=== PATIENT | female | born 1955 | race Caucasian/White ===

== ENCOUNTER 2020-04-26 13:21 | Outpatient (REF) | payer BC, SELFPAY ==
--- NOTE | 2020-04-26 | MM_ITS ---
EXAMINATION: MM SCREENING DIGITAL BREAST TOMOSYNTHESIS, BILATERAL CLINICAL INFORMATION: Screening. Asymptomatic. The lifetime risk of breast cancer based on the Tyrer-Cuzick Model is 5%. COMPARISON: Mammography: 04/16/2019, 03/11/2018 TECHNIQUE: Digital breast tomosynthesis is performed in both the craniocaudal and mediolateral oblique views along with computer-aided detection (CAD). Synthesized 2D images are generated from the tomosynthesis. FINDINGS: There are scattered areas of fibroglandular density (ACR BI-RADS breast composition Category b). There are no significant masses, abnormal calcifications, or other abnormalities. No significant changes. MM/MM tomosynthesis screening BI IMPRESSION: No mammographic evidence of malignancy. ASSESSMENT: BI-RADS 1: Negative RECOMMENDATION: Routine annual mammography screening. This patient's information was entered into a reminder system with a target due date for their next mammogram.
== END 2020-04-26 13:22 | disposition home or self-care (01) ==
LOC: HO.MAMMO 13:21
PROVIDERS: Visit Provider Internal Medicine
DX: Z12.31 Encounter for screening mammogram for malignant neoplasm of breast (principal)
CPT/HCPCS: 77063; 77067

== ENCOUNTER 2021-05-16 12:52 | Outpatient (REF) | payer BC, SELFPAY ==
--- NOTE | ~2021-05-16 | MM_ITS ---
EXAMINATION: MM SCREENING DIGITAL BREAST TOMOSYNTHESIS, BILATERAL CLINICAL INFORMATION: Screening. Asymptomatic. The lifetime risk of breast cancer based on the Tyrer-Cuzick Model is 5%. COMPARISON: Mammography: 04/26/2020, 04/16/2019, 03/11/2018 TECHNIQUE: Digital breast tomosynthesis is performed in both the craniocaudal and mediolateral oblique views along with computer-aided detection (CAD). Synthesized 2D images are generated from the tomosynthesis. FINDINGS: There are scattered areas of fibroglandular density (ACR BI-RADS breast composition Category b). There are no significant masses, abnormal calcifications, or other abnormalities. Parenchymal pattern is similar to prior studies. There is no developing density or architectural abnormality. The axilla and skin contours are unremarkable. No significant changes. MM/MM tomosynthesis screening BI IMPRESSION: No mammographic evidence of malignancy. ASSESSMENT: BI-RADS 1: Negative RECOMMENDATION: Routine annual mammography screening. This patient's information was entered into a reminder system with a target due date for their next mammogram.
== END 2021-05-16 12:53 | disposition home or self-care (01) ==
LOC: HO.MAMMO 12:52
PROVIDERS: PCP Internal Medicine; Visit Provider Internal Medicine
DX: Z12.31 Encounter for screening mammogram for malignant neoplasm of breast (principal)
CPT/HCPCS: 77063; 77067

== ENCOUNTER 2021-06-12 13:03 | Day surgery (SDC) | payer BC, SELFPAY ==
--- NOTE | 2021-06-09 10:59 | P.CONAN_ITS ---
Documented by User: Eva Redmond NP 06/09/21 10:59 HPI - Anesthesia Eval Consult details Narrative: 65yo F for Upper Endoscopy and Colonoscopy [facility] Past Medical History Medical History GERD (gastroesophageal reflux disease) HTN (hypertension) Hyperlipidemia IBS (irritable bowel syndrome) Surgical History Surgical History Hx of colonoscopy Social History Social History Patient Tobacco Use Status: Former Tobacco user Use of substances other than those prescribed or required for medical reasons: No Have you been hit, kicked, punched, or otherwise hurt by someone within the past year? If so, by whom?: No Are you DNR?: No Advance Directives: No Advance Directives Information Provided: Yes Meds Allergies Allergy/AdvReac Type Severity Reaction Status Date / Time Penicillins [PCN] Allergy Unknown Verified 06/12/21 13:53 red dye Allergy Unknown Verified 06/12/21 13:53 Sulfa (Sulfonamide Allergy Unknown Verified 06/12/21 13:53 Antibiotics) 12 hr nasal spray Allergy Unknown Uncoded 06/12/21 13:53 Home Medications Medication Instructions Recorded Confirmed Last Taken Type calcium 500 mg mg 05/22/21 Unknown History tablet cholecalciferol 25 mcg PO DAILY 05/22/21 05/22/21 Unknown History (vitamin D3) 25 mcg (1,000 unit) capsule (Vitamin D3) dicyclomine 10 mg 10 mg PO BID 05/22/21 05/22/21 Unknown History capsule gemfibrozil 600 600 mg PO DAILY 05/22/21 05/22/21 Unknown History mg tablet losartan 100 mg 100 mg PO DAILY 05/22/21 05/22/21 Unknown History tablet omeprazole 20 mg 20 mg PO DAILY 05/22/21 05/22/21 Unknown History capsule,delayed release simvastatin 20 mg 20 mg PO BEDTIME 05/22/21 05/22/21 Unknown History tablet Exam Exam Date and Time: June 09, 2021 1059 Assessment and Plan Assessment Anesthesia Assessment: Chart Reviewed Documented by User: Chandler Lewis 06/12/21 17:52 HPI - Anesthesia Eval Consult details Narrative: 65yo F for Upper Endoscopy and Colonoscopy patient recently had cardiac workup done , including holtor and stress test , workup unremarkable patient was having chest heaviness , resolved now . MICHI PMFSH Past Medical History Medical History GERD (gastroesophageal reflux disease) HTN (hypertension) Hyperlipidemia IBS (irritable bowel syndrome) Functional capacity: independent ambulation Family History Family history of problems with anesthesia: No Surgical History Surgical History Hx of colonoscopy History of Problems with Anesthesia: No Social History Social History Patient Tobacco Use Status: Former Tobacco user Use of substances other than those prescribed or required for medical reasons: No Have you been hit, kicked, punched, or otherwise hurt by someone within the past year? If so, by whom?: No Are you DNR?: No Advance Directives: No Advance Directives Information Provided: Yes Meds Allergies Allergy/AdvReac Type Severity Reaction Status Date / Time Penicillins [PCN] Allergy Unknown Verified 06/12/21 13:53 red dye Allergy Unknown Verified 06/12/21 13:53 Sulfa (Sulfonamide Allergy Unknown Verified 06/12/21 13:53 Antibiotics) 12 hr nasal spray Allergy Unknown Uncoded 06/12/21 13:53 Home Medications Medication Instructions Recorded Confirmed Last Taken Type calcium 500 mg mg 05/22/21 Unknown History tablet cholecalciferol 25 mcg PO DAILY 05/22/21 05/22/21 Unknown History (vitamin D3) 25 mcg (1,000 unit) capsule (Vitamin D3) dicyclomine 10 mg 10 mg PO BID 05/22/21 05/22/21 Unknown History capsule gemfibrozil 600 600 mg PO DAILY 05/22/21 05/22/21 Unknown History mg tablet losartan 100 mg 100 mg PO DAILY 05/22/21 05/22/21 Unknown History tablet omeprazole 20 mg 20 mg PO DAILY 05/22/21 05/22/21 Unknown History capsule,delayed release simvastatin 20 mg 20 mg PO BEDTIME 05/22/21 05/22/21 Unknown History tablet Exam Airway Mallampati Class: III TM Dist: >3cm Neck ROM: Full Loose/Missing/Broken Teeth: Yes (Caps ) Heart: rrr Lungs: bl breath sounds Assessment and Plan Assessment Anesthesia Assessment: Anesthesia Plan Discussed Final Anesthetic Review Family History of Problems with Anesthesia: No History of Problems with Anesthesia: No NPO: Yes ASA Class: III Final Preanesthetic Review: Consent Obtained/Reviewed and Anes Risks/Benef Reviewed Patient Risk: High Procedure Risk: Intermediate Anesthetic Plan Anesthetic Plan: MAC: Disposition: Standard PACU
[2021-06-12 13:22] VITALS: BMI 34.0
[2021-06-12 13:28] VITALS: BP 115/74; PULSE 93; RESP 18; TEMP 36.3; O2SAT 96
[2021-06-12] MEDS: Lactated Ringers 1,000 ML 100 ML IVCONT (13:56)
[2021-06-12 16:15] VITALS: BP 97/59; PULSE 85; RESP 16; TEMP 36.8; O2SAT 97
--- NOTE | 2021-06-12 16:17 | P.BOP_ITS ---
Brief Operative Note Date of Service: 06/12/21 Pre-op diagnosis: GERD, IBS, Screening Post-op diagnosis: other (Hiatal hernia, R/O Celiac disease, Colon polyp, R/O Microscopic colitis) Procedure: EGD with biopsies and Colonoscopy to the cecum and TI with cold snare polypectomy and biopsies Surgeon: Nik Gamble Anesthesia: MAC Was an [employer] used for this Procedure?: No Estimated blood loss (mL): 2.0 Pathology: other (A. Descending duodenum B. EG Junction at 36cm C. Ascending colon D. Descending colon E. Polyp at 30cm) Condition: stable Disposition: PACU
[2021-06-12 16:30] VITALS: BP 112/45; PULSE 74; RESP 16; O2SAT 95
--- NOTE | 2021-06-13 00:35 | OP_ITS ---
SURGEON: Nik Gamble MD INDICATIONS: The patient presents for evaluation of gastroesophageal reflux, irritable bowel syndrome, and colorectal cancer screening. Full consent was obtained from her for both procedures, including risks of bleeding and perforation. PREOPERATIVE DIAGNOSIS: POSTOPERATIVE DIAGNOSIS: PROCEDURE PERFORMED: Esophagogastroduodenoscopy with biopsies, colonoscopy to the cecum and terminal ileum with biopsies, and cold snare polypectomy. ESTIMATED BLOOD LOSS: COMPLICATIONS: ANESTHESIA: Monitored anesthesia care. ASSISTANTS: SPECIMENS: PREOPERATIVE DIAGNOSES: Gastroesophageal reflux, irritable bowel syndrome, and colorectal cancer screening. POSTOPERATIVE DIAGNOSES: Gastroesophageal reflux, irritable bowel syndrome, colorectal cancer screening, hiatal hernia, rule out celiac disease, colon polyp, rule out microscopic colitis, diverticulosis, internal hemorrhoids. DESCRIPTION OF PROCEDURE: The patient was placed in the left lateral decubitus position. The Olympus video gastroscope was passed in the posterior oropharynx and upper esophagus under direct vision. The scope was passed slowly into the distal esophagus. The gastroesophageal junction appeared at 36 cm. At this level were areas of some erythema and edema, but no erosions, ulceration, nor Adams esophagus. The scope was advanced to the stomach. There was a small hiatal hernia. The scope was advanced to the pylorus and the duodenum was cannulated to the descending portion. The duodenum including the bulb appeared normal without mass or ulceration. Biopsies were obtained from the second and third portions of duodenum. The scope was withdrawn back in the stomach. The gastric antrum and body appeared normal with good peristalsis. The scope was retroflexed visualizing the proximal stomach carefully, which appeared normal, without any sign of mass or ulceration. The scope was straightened and withdrawn back into the esophagus. Biopsies were obtained at the EG junction at 36 cm. Proximal to that, the esophageal mucosa appeared normal. The scope was withdrawn from the patient. She was turned around for the colonoscopy. The digital rectal exam revealed no abnormalities. The Olympus video pediatric colonoscope was entered into the rectum and advanced easily to the cecum. Once in the cecum, I did identify normal-appearing cecal pouch with appendiceal orifice and a normal-appearing ileocecal valve. The terminal ileum was cannulated and appeared normal. The scope was withdrawn back in the colon. The entire cecum and ileocecal valve appeared normal. The scope was slowly withdrawn assessing all mucosal surfaces carefully. Preparation was excellent. I did not visualize any sign of colitis nor angiodysplasia. Random biopsies were obtained in the ascending and descending colon. At 30 cm was an approximately 6 mm polyp, which was removed by cold snare polypectomy and recovered by suction. There was no evidence of any residual polyp nor significant bleeding. I did not visualize any other polyps, colitis, nor angiodysplasia. There was a mild amount of sigmoid diverticulosis. In the rectum, the scope was retroflexed visualizing some small internal hemorrhoids, but no other pathology. The rectal mucosa appeared normal. The scope was straightened and withdrawn from the patient. She tolerated both procedures well and was returned to the recovery area in stable condition. IMPRESSION: 1. Hiatal hernia, gastroesophageal reflux. 2. Rule out celiac disease. 3. Colon polyp. 4. Rule out microscopic colitis. 5. Diverticulosis. 6. Internal hemorrhoids. PLAN: The results of the biopsies will be checked. If the colon polyp is a tubular adenoma, I would recommend a followup colonoscopy in 5 years. If it is only hyperplastic, I would recommend a followup colonoscopy in 10 years. She was advised not to use any aspirin and NSAIDs for 1 week. She was advised to continue her daily omeprazole. She will otherwise see me on a p.r.n. basis. She was advised to continue dicyclomine as needed for her irritable bowel syndrome as well. MD MIRACLE Diana/ABDOULAYE / [phone]
== END 2021-06-12 16:45 | disposition home or self-care (01) ==
PROVIDERS: PCP Internal Medicine; Visit Provider Internal Medicine
PROC: (CPT 45385; principal; 2021-06-12 14:00)
DX: Z12.11 Encounter for screening for malignant neoplasm of colon (principal); D12.5 Benign neoplasm of sigmoid colon; K57.30 Diverticulosis of large intestine without perforation or abscess without bleeding; K64.8 Other hemorrhoids; K58.8 Other irritable bowel syndrome; K21.9 Gastro-esophageal reflux disease without esophagitis; K44.9 Diaphragmatic hernia without obstruction or gangrene; I10 Essential (primary) hypertension; E78.5 Hyperlipidemia, unspecified; Z79.899 Other long term (current) drug therapy; Z88.0 Allergy status to penicillin; Z88.2 Allergy status to sulfonamides; Z87.891 Personal history of nicotine dependence
CPT/HCPCS: 45385; 45380; 43239; 88305

== ENCOUNTER 2022-05-18 09:26 | Outpatient (REF) | payer MEDICARE, SELFPAY ==
--- NOTE | ~2022-05-18 | MM_ITS ---
EXAMINATION: BONE DENSITOMETRY CLINICAL INDICATION: Encounter for general adult medical examination without abnormal findings. COMPARISON: Baseline BD dated 03/10/2009. TECHNIQUE: Using a [employer]er DXA System (software version: 13.1) manufactured by [employer], dual-energy x-ray absorptiometry was performed of the lumbar spine and left hip. The images are of good technical quality. Summary results are attached. FINDINGS: AP SPINE L1-L4: Current: BMD 1.083 g/cm2, Z-score 0.1, T-score -0.8, normal, 8.8% decrease from baseline (<5% change is not significant). Baseline: BMD 1.187 g/cm2. LEFT FEMUR, NECK: Current: BMD 0.743 g/cm2, Z-score -1.1, T-score -2.1, osteopenia. Baseline: BMD 0.888 g/cm2. LEFT FEMUR, TOTAL: Current: BMD 0.920 g/cm2, Z-score 0.0, T-score -0.7, normal, 8.0% decrease from baseline (<5% change is not significant). Baseline: BMD 1.000 g/cm2. IDENTIFIED RISK FACTORS: Menopause. HISTORY OF FRACTURE: None listed. MEDICATIONS: Calcium supplement or multivitamin. Vitamin D. MM/XR DEXA axial skeleton IMPRESSION: 1. DIAGNOSIS: Osteopenia based on the lowest T-score value of -2.1 in the femoral neck applying World Health Organization criteria. 2. 10-YEAR FRACTURE RISK PREDICTION, FRAX: Major osteoporotic fracture (clinical spine, forearm, hip or shoulder) 10.8%. Hip fracture 1.7%. 3. Treatment Recommendations: NOF guidelines recommend consideration for treatment in postmenopausal women and men age 50 and older presenting with the following: -A hip or vertebral (clinical or morphometric) fracture. -T-score less than or equal to -2.5 at the femoral neck or spine after appropriate evaluation to exclude secondary causes. -Low bone mass at the hip or spine and a 10-year fracture probability by FRAX of greater than or equal to 3% for hip fracture or greater than or equal to 20% for major osteoporotic fracture based on the [place] adapted WHO algorithm. 4. Other Recommendations: All treatment decisions require clinical judgment and consideration of individual patient factors, including patient preferences, comorbidities, previous drug use, risk factors not captured in the FRAX model (e.g. frailty, falls, vitamin D deficiency, increased bone turnover, interval significant decline in bone density) and possible under or overestimation of fracture risk by FRAX. Additional medical evaluation for secondary cause of low bone mineral density may be appropriate. FUTURE SCAN RECOMMENDATION: People with diagnosed cases of osteoporosis or at high risk for fracture should have regular bone mineral density tests. For patients eligible for Medicare, routine testing is allowed once every 2 years. The testing frequency can be increased to one year for patients who have rapidly progressing disease, those who are receiving or discontinuing medical therapy to restore bone mass, or have additional risk factors.
--- NOTE | ~2022-05-18 | MM_ITS ---
EXAMINATION: MM SCREENING DIGITAL BREAST TOMOSYNTHESIS, BILATERAL CLINICAL INFORMATION: Screening. Asymptomatic. The lifetime risk of breast cancer based on the Tyrer-Cuzick Model is 4%. COMPARISON: Mammography: 05/16/2021, 04/26/2020, 04/16/2019 TECHNIQUE: Digital breast tomosynthesis is performed in both the craniocaudal and mediolateral oblique views along with computer-aided detection (CAD). Synthesized 2D images are generated from the tomosynthesis. FINDINGS: There are scattered areas of fibroglandular density (ACR BI-RADS breast composition Category b). There are no significant masses, abnormal calcifications, or other abnormalities. There is no developing density or architectural abnormality. The axilla and skin contours are unremarkable. No significant changes from prior studies. MM/MM tomosynthesis screening BI IMPRESSION: No mammographic evidence of malignancy. ASSESSMENT: BI-RADS 1: Negative RECOMMENDATION: Routine annual mammography screening. This patient's information was entered into a reminder system with a target due date for their next mammogram.
== END 2022-05-18 09:27 | disposition home or self-care (01) ==
LOC: HO.MAMMO 09:26
PROVIDERS: PCP Internal Medicine; Visit Provider Internal Medicine
DX: Z12.31 Encounter for screening mammogram for malignant neoplasm of breast (principal); Z13.820 Encounter for screening for osteoporosis; Z78.0 Asymptomatic menopausal state; Q78.2 Osteopetrosis
CPT/HCPCS: 77063; 77067; 77080

== ENCOUNTER 2023-02-16 18:59 | Emergency (ER) | payer MEDICARE, SELFPAY ==
--- NOTE | ~2023-02-16 | CT_ITS ---
EXAMINATION: CT ABDOMEN AND PELVIS WITHOUT CONTRAST CLINICAL INFORMATION: Right flank pain COMPARISON: None available. TECHNIQUE: Multidetector volumetric imaging was performed from the superior aspect of the liver through the pubic symphysis. Sagittal and coronal reformatted images were obtained on the technologist's workstation. This CT examination was performed using dose optimization techniques as appropriate, variously including the following: *Automated exposure control *Adjustment of mA and/or kV according to patient size (this includes techniques or standardized protocols for targeted exams where dose is matched to indication/reason for exam; i.e. extremities or head) *Use of iterative reconstruction technique DLP: 687 mGy-cm FINDINGS: Evaluation of solid organs, vascular structures, and bowel wall limited in the absence of intravenous contrast. LUNG BASES: Mild bibasilar atelectasis. Lung bases otherwise unremarkable. LIVER AND BILIARY TREE: Hepatomegaly with liver spanning 22 cm in craniocaudal dimension. Otherwise unremarkable noncontrast appearance of the liver. GALLBLADDER: Cholelithiasis without evidence of acute cholecystitis. PANCREAS: Unremarkable. SPLEEN: Unremarkable. ADRENAL GLANDS: Unremarkable. KIDNEYS AND URETERS: Unremarkable. GASTROINTESTINAL TRACT: Mild colonic diverticulosis without evidence of acute diverticulitis. Normal appendix. VASCULAR: Mild aortoiliac calcific atherosclerosis. LYMPH NODES: No lymphadenopathy. PERITONEUM: No ascites. BLADDER: Unremarkable. PELVIC VISCERA: Unremarkable. ABDOMINAL AND PELVIC WALL: Unremarkable. OSSEOUS STRUCTURES: Mild multilevel degenerative lumbar spondylosis. CT/CT abdomen pelvis wo IV con IMPRESSION: 1. No acute abnormality of the abdomen or pelvis within the limitations of noncontrast technique. 2. Cholelithiasis without evidence of acute cholecystitis. 3. Hepatomegaly.
[2023-02-16 19:10] VITALS: BP 120/78; BP 121/66; PULSE 66; PULSE 68; RESP 16; TEMP 36.7; O2SAT 98; BMI 32.6
[2023-02-16 19:51] LABS: Anion Gap 19 (12-20); Blood Urea Nitrogen 20 mg/dL (9-16); Calcium 10.2 mg/dL (8.4-10.2); Carbon Dioxide 20 mmol/L (22-29); Chloride 105 mmol/L (96-108); Creatinine Clr Calc Pharmacy 65.3; Estimated Glomerular Filt Rate > 60; Glucose Random 97 mg/dL (60-115); Potassium 3.9 mmol/L (3.3-5.1); Sodium 140 mmol/L (135-145)
--- NOTE | 2023-02-16 20:11 | PC.NURSE ---
pt medicated per MAR- 20g iv placed in R AC- infusing 1L NS per order- pt transported to CT scan
--- NOTE | 2023-02-16 20:16 | ED.GENADULT ---
HPI - General Adult General Chief complaint: Back Pain/Injury Stated complaint: right side lower back pain and flank pain, per ems Time Seen by Provider: 02/16/23 19:31 Source: patient, family (), RN notes reviewed and old records reviewed Mode of arrival: EMS Limitations: no limitations History of Present Illness HPI narrative: 67-year-old female with past medical history significant for hypertension, hyperlipidemia presents for evaluation of right flank pain. Patient's symptoms started at 6:00 p.m., 2 hours ago Her pain came on suddenly while she was eating She did vomit on 1 occasion complains of nausea but denies abdominal pain Denies any urinary complaints including dysuria, frequency, blood in the urine Denies any history abdominal surgery Denies any heavy lifting, twisting injury Denies any fevers, chills Patient reports that she had a similar pain about 2 weeks ago that resolved after a few hours spontaneous Related Data Home Medications Medication Instructions Recorded Confirmed calcium 500 mg tablet mg 05/22/21 cholecalciferol (vitamin D3) 25 25 mcg PO DAILY 05/22/21 05/22/21 mcg (1,000 unit) capsule (Vitamin D3) dicyclomine 10 mg capsule 10 mg PO BID 05/22/21 05/22/21 gemfibrozil 600 mg tablet 600 mg PO DAILY 05/22/21 05/22/21 losartan 100 mg tablet 100 mg PO DAILY 05/22/21 05/22/21 omeprazole 20 mg capsule,delayed 20 mg PO DAILY 05/22/21 05/22/21 release simvastatin 20 mg tablet 20 mg PO BEDTIME 05/22/21 05/22/21 Previous Rx's Medication Instructions Recorded ondansetron 4 mg disintegrating 4 mg PO Q8H PRN nausea and 02/17/23 tablet vomiting #20 tabs tramadol 50 mg tablet 50 mg PO TID PRN severe pain 02/17/23 (scale score 7-10) #12 tabs Allergies Allergy/AdvReac Type Severity Reaction Status Date / Time Penicillins [PCN] Allergy Unknown Verified 06/12/21 13:53 red dye Allergy Unknown Verified 06/12/21 13:53 Sulfa (Sulfonamide Allergy Unknown Verified 06/12/21 13:53 Antibiotics) 12 hr nasal spray Allergy Unknown Uncoded 06/12/21 13:53 Review of Systems Constitutional: Constitutional: Denies chills and Denies fever(s) ENT: Denies sore throat Cardiovascular: Cardiovascular: Denies chest pain and Denies dyspnea Respiratory: Respiratory: Denies cough and Denies dyspnea Gastrointestinal: Gastrointestinal: Denies abdominal pain, Reports nausea and Reports vomiting Musculoskeletal: Musculoskeletal: Reports back pain Integumentary/Breasts: Skin/Breast: Denies rash PMFSH Past Medical History Medical History (Updated 02/17/23 @ 00:42 by Mike Lehman) GERD (gastroesophageal reflux disease) IBS (irritable bowel syndrome) Hyperlipidemia HTN (hypertension) Surgical History Hx of colonoscopy Social History Social History Patient Tobacco Use Status: Former Tobacco user Smoked in Last 30 Days: No Use of substances other than those prescribed or required for medical reasons: No Advance Directives: No Advance Directives Information Provided: No Physical Exam ED Vital Signs: Vital Signs - 24 hr 02/16/23 19:10 02/16/23 23:28 Temperature 98.1 F 98.8 F Pulse Rate 66 81 Respiratory Rate 16 15 Blood Pressure 121/66 138/60 Pulse Oximetry 98 99 Oxygen Delivery Method Room Air Room Air BMI result Body Mass Index 32.6 Const General: healthy appearing, alert and awake Nutritional Appearance: well nourished Orientation/consciousness: patient oriented x3 HENMT Head: Yes normocephalic and Yes atraumatic Eyes Eyelids: Yes eyelids normal Conjunctivae: conjunctivae normal Sclerae: sclerae normal Corneas: corneas normal Pupils: Equal, round and reactive pupils present EOM: EOMs intact bilaterally Neck Neck: Yes full ROM Resp Effort & Inspection: normal respiratory effort, able to speak in complete sentences and not labored Cardio Rate: regular rate Rhythm: regular rhythm GI Inspection: No distended Palpation (GI): Soft to palpation, not firm, nontender, no guarding and not rigid Back/Spine/Pelvis Other: Patient is quite tender in the right thoracic and lumbar paraspinous region. No vertebral tenderness. No rashes, no step-offs or deformities to the vertebral spine. Skin General skin exam: no rashes or lesions noted and elasticity normal Neuro General: patient oriented x3 Cranial nerves: Yes Equal, round and reactive pupils present and Yes Bilaterally intact EOM present Cognition (Neuro): normal cognition Extrem Other: Moving all extremities well without any obvious deformities Course Reevaluation(s) Reevaluation #1: Patient's CT scan shows cholelithiasis without any other acute intra-abdominal pathology. I added on LFTs to rule out biliary obstruction. The patient's pain has resolved, she is quite comfortable. Given that her pain started after eating, biliary colic is the most likely diagnosis. As long as she does not have any evidence of biliary obstruction, she can be discharged to follow-up with outpatient General surgery. This was discussed with the patient Time: 00:38 Medications Administered Discontinued Medications Generic Name Dose Route Start Last Admin Trade Name Freq PRN Reason Stop Dose Admin Sodium Chloride 1,000 mls @ 999 mls/hr 02/16/23 20:00 02/16/23 22:04 Ns IV 02/16/23 21:00 Infused .Q1H1M RAJIV Infusion Ketorolac Tromethamine 30 mg 02/16/23 19:55 02/16/23 20:02 Ketorolac Tromethamine 30 Mg/Ml Vial IVPUSH 02/16/23 19:56 30 mg ONCE ONE Administration Morphine Sulfate 4 mg 02/16/23 22:16 02/16/23 22:36 Morphine Sulfate 4 Mg/Ml Cartridge IVPUSH 02/16/23 22:17 4 mg ONCE ONE Administration Protocol Ondansetron HCl 4 mg 02/16/23 19:55 02/16/23 20:02 Ondansetron Hcl 4 Mg/2 Ml Vial IVPUSH 02/16/23 19:56 4 mg ONCE ONE Administration Medical Decision Making Medical Decision Making [facility] Narrative: 67-year-old female presents for evaluation of right flank pain. Her pain started suddenly while she was eating. This raises a slight concern for biliary disease though she has no abdominal pain or right upper quadrant tenderness. She was nauseous and vomited 1 occasion. Given the sudden onset of her pain and location right flank, was CT scan of the abdomen pelvis to evaluate for obstructive uropathy as a feel this is more likely in biliary disease given the patient. She is quite tender on exam is may just be musculoskeletal in origin. Labs, UA, CT scan pending. Patient medicated fluids, Toradol, Zofran Differential Diagnosis Differential Diagnoses: The differential diagnosis associated with the presentation includes Muscle strain Obstructive uropathy Biliary colic Cholelithiasis Radiculopathy Back pain Lab Data [facility] Lab Attestation statement: I reviewed the patient's lab results. No leukocytosis, very mild anemia with a hemoglobin 11.6 and hematocrit 35.4. No significant electrolyte abnormalities. Patient's creatinine was in normal limits. LFTs still pending 02/16/23 19:23 02/16/23 19:23 Labs: Lab Results 02/16/23 Range/Units 19:23 WBC 7.6 (4.8-10.8) X10*3/uL RBC 3.93 L (4.20-5.50) X10*6/uL Hgb 11.6 L (12.0-16.0) g/dl Hct 35.4 L (37.0-47.0) % MCV 90.1 (80.0-98.0) fL MCH 29.5 (27.0-33.0) pg MCHC 32.8 (31.0-35.0) g/dl RDW 12.5 (11.0-16.0) % Plt Count 282 (160-400) X10*3/uL MPV 10.5 (9.4-12.3) fL Immature Gran % (Auto) 0.4 (0.0-0.4) % Neut % (Auto) 49.3 (45-73) % Lymph % (Auto) 30.5 (20-40) % [place] % (Auto) 7.8 (2-11) % Eos % (Auto) 11.1 H (0-4) % Baso % (Auto) 0.9 (0-2) % Lymph # (Auto) 2.3 (1.2-4.9) X10*3/uL [place] # (Auto) 0.6 (0.1-1.2) X10*3/uL Eos # (Auto) 0.8 H (0.0-0.4) X10*3/uL Baso # (Auto) 0.1 (0.0-0.2) X10*3/uL Abs Immat Gran (auto) 0.03 (0.00-0.03) X10*3/uL Absolute Neuts (auto) 3.8 (2.0-8.3) x10*3/uL Absolute Nucleated RBC 0.000 (0.0-0.012) X10*3/uL Nucleated RBC % (auto) 0.0 (0.0-0.2) /100WBC Sodium 140 (135-145) mmol/L Potassium 3.9 (3.3-5.1) mmol/L Chloride 105 (96-108) mmol/L Carbon Dioxide 20 L (22-29) mmol/L Anion Gap 19 (12-20) BUN 20 H (9-16) mg/dL Creatinine 0.90 (0.5-1.4) mg/dL Estim Creat Clear Calc 65.3 Estimated GFR > 60 Random Glucose 97 (60-115) mg/dL Calcium 10.2 (8.4-10.2) mg/dL Lipase 21 (8-78) U/L Independent Interpretation I performed an independent interpretation of an: CT Scan (Agree with radiology interpreted) Radiology Impression Discussion of test interpretation with radiology: I have reviewed the radiologist's reading. (No acute intra-abdominal abnormality. Cholelithiasis without cholecystitis) Discharge Plan Discharge Clinical Impression: Cholelithiasis Patient Disposition: Home, Self-Care Instructions: Gallstones (ED) Additional Instructions: Your workup in the emergency department today was reassuring However your CT scan did show gallstones without any evidence of infection Symptomatic gallstone discomfort can be followed up with General surgery as an outpatient You should avoid fatty, greasy foods as this will likely exacerbate your symptoms You may use ibuprofen as needed for pain Use Zofran for nausea and vomiting You may use tramadol for more severe or breakthrough pain If you develop a fever, intractable pain or are unable to keep any food or liquids down, return to the emergency department Otherwise, you may follow-up with general surgery as an outpatient I call the number provided Prescriptions: New ondansetron 4 mg tablet,disintegrating 4 mg PO Q8H PRN (Reason: nausea and vomiting) Qty: 20 0RF tramadol 50 mg tablet 50 mg PO TID PRN (Reason: severe pain (scale score 7-10)) Qty: 12 0RF No Action calcium 500 mg Tablet simvastatin 20 mg Tablet 20 mg PO BEDTIME omeprazole 20 mg Capsule,Delayed Release(Dr/Ec) 20 mg PO DAILY losartan 100 mg Tablet 100 mg PO DAILY dicyclomine 10 mg Capsule 10 mg PO BID cholecalciferol (vitamin D3) [Vitamin D3] 25 mcg (1,000 unit) Capsule 25 mcg PO DAILY gemfibrozil 600 mg Tablet 600 mg PO DAILY Referrals: Minerva Chakraborty MD [Physician] - (Symptomatic cholelithiasis)
--- NOTE | 2023-02-16 20:51 | PC.NURSE ---
fluid still infusing at this time, educated pt on importance of keeping arm straight to allow fluids to infuse. pt verbalizes understanding
[2023-02-16 23:14] LABS: Lipase 21 U/L (8-78)
[2023-02-16 23:28] VITALS: BP 138/60; PULSE 81; RESP 15; TEMP 37.1; O2SAT 99
--- NOTE | 2023-02-17 00:13 | PC.NURSE ---
this RN educated patient on gallbladder issues and possibility of surgery and what surgery may look like. Pt continues to rest, much more comfortably on stretcher at this time, respirations even and unlabored, skin pwd, no apparent distress
--- NOTE | 2023-02-17 00:27 | PC.NURSE ---
this rn spoke to Nadja from lab due to LFT not being ran with add on order from 10pm. It is being run at this time
[2023-02-17 00:41] LABS: Alanine Aminotransferase 15 U/L (0-31); Albumin Level 4.3 g/dL (3.5-5.0); Alkaline Phosphatase 65 U/L (39-117); Aspartate Amino Transferase 17 U/L (5-31); Bilirubin Direct 0.1 mg/dL (0.0-0.5); Bilirubin Total 0.3 mg/dL (0.0-1.0); Total Protein 7.9 g/dL (6.5-8.0)
== END 2023-02-17 00:58 | disposition home or self-care (01) ==
PROVIDERS: Emergency Provider Emergency Medicine; PCP Internal Medicine
DX: K80.20 Calculus of gallbladder without cholecystitis without obstruction (principal); I10 Essential (primary) hypertension; E78.5 Hyperlipidemia, unspecified; Z87.891 Personal history of nicotine dependence
CPT/HCPCS: 36415; 74176; 80048; 80076; 83690; 85025; 96361; 96374; 96375; 99284; 99285; J1885; J2270; J2405

== ENCOUNTER 2023-02-19 09:47 | Outpatient (AMB) | payer MEDICARE, SELFPAY ==
[2023-02-19 09:48] VITALS: BP 131/63; PULSE 70; BMI 33.3
--- NOTE | 2023-02-19 09:48 | MHC.OFFVIS ---
Intake Vital Signs 02/19/23 09:48 Height 5 ft 4 in Weight 194 lb BMI 33.3 BP 131/63 Blood Pressure Location Rt brachial Position Sitting Pulse 70 Intake Visit Reasons: Symptomatic cholelithiasis Intake Note: Patient here to f/u from ER on Saturday. Diagnosed with cholelithiasis. C/o right lower back pain spreading to abd. Had similar pain back in December but pain subsided two days later. Was prescribed tramadol but pain comes back once it wears off 5 hours later. 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 She has at least 3 episodes of this right upper quadrant pain radiating around to her back. Associated nausea vomiting. She has never been jaundiced before. She thinks she has fatty food intolerance. She has regular bowel habits. Patient has had screening colonoscopy in recent past. Chart was reviewed patient evaluated. CT scan demonstrates cholelithiasis. LFTs within normal limits. PFSH Medical History GERD (gastroesophageal reflux disease) IBS (irritable bowel syndrome) Hyperlipidemia HTN (hypertension) Surgical History Hx of colonoscopy Social History Patient Tobacco Use Status: Former Tobacco user Physical Exam Vital Signs: Last Vital Signs Pulse 70 02/19/23 09:48 BP 131/63 02/19/23 09:48 BMI result Body Mass Index 33.3 Chest Other: Chest breath sounds bilaterally, HS 1 in 2 GI Other: Abdomen soft, corpulent, mild right upper quadrant tenderness. No evidence of any guarding, rebound, rigidity. Assessment & Plan Assessment & Plan (1) Recurrent biliary colic: Code(s): K80.50 - Calculus of bile duct without cholangitis or cholecystitis without obstruction Plan Unlikely discussed with the patient regarding laparoscopic possible open cholecystectomy including risks, benefits and alternatives which included but not limited to bleeding, infection, recurrence of symptoms, numbness, pain, scarring, bowel or bile duct injury or leak and the patient wishes to proceed. All questions were answered. Arrangements will be made for this. Coding Level of Care Code New Pt Level 5 (93462) Diagnoses Recurrent biliary colic K80.50
== END 2023-02-19 10:20 | disposition home or self-care (01) ==
PROVIDERS: PCP Internal Medicine; Visit Provider Surgery
DX: K80.50 Calculus of bile duct without cholangitis or cholecystitis without obstruction (principal)
CPT/HCPCS: 99204

== ENCOUNTER → 2023-02-19 09:47 | Outpatient (BNVA) | payer MEDICARE, SELFPAY | PROVIDERS: PCP Internal Medicine; Visit Provider Surgery ==

== ENCOUNTER 2023-02-22 07:51 | Day surgery (SDC) | payer MEDICARE, SELFPAY ==
--- NOTE | 2023-02-21 07:20 | MHC.SHP ---
Pre-Procedural Eval Section A Date of Service: 02/21/23 The patient is an INPATIENT: No Changes since office visit: No Cold of Flu in the past 2 weeks, No New Medical Problems, No Changes in Medication and No Patient answered all questions The History & Physical has been completed within 30 days and I have reviewed it.: Yes Section B Chief Complaint: Calculus of bile duct without cholangitis or lady Allergies: Allergies Allergy/AdvReac Type Severity Reaction Status Date / Time Penicillins [PCN] Allergy Unknown Verified 02/19/23 09:56 red dye Allergy Unknown Verified 02/19/23 09:56 Sulfa (Sulfonamide Allergy Unknown Verified 02/19/23 09:56 Antibiotics) 12 hr nasal spray Allergy Unknown Uncoded 02/19/23 09:56 Plan I have reviewed the history and physical and performed a pertinent physical examination on my patient. No changes have occurred unless specified. Time Spent With Patient Time: Total time managing care of this patient today ____ minutes.
[2023-02-22] VITALS (10 sets, daily range): BP systolic 107–153; BP diastolic 55–74; PULSE 53–64; RESP 16–18; TEMP 36.6–37.2; O2SAT 94–97; BMI 33.3
[2023-02-22] MEDS: Lactated Ringers 1,000 ML 100 ML IVCONT (08:11)
--- NOTE | 2023-02-22 08:20 | HO.ANESPROP2 ---
Documented by User: Eva Redmond NP 02/21/23 09:05 HPI - Anesthesia Eval Consult details Narrative: 67yo F for Cholecystectomy Laparoscopic, possible open PMFSH Active Problems Active Problems: All Active Problems (Updated 02/19/23 @ 10:07 by Karan Jennings MD) Recurrent biliary colic (Acute) Past Medical History Medical History GERD (gastroesophageal reflux disease) IBS (irritable bowel syndrome) Hyperlipidemia HTN (hypertension) Family History Family history of problems with anesthesia: No Surgical History Surgical History Hx of colonoscopy History of Problems with Anesthesia: No Social History Social History Patient Tobacco Use Status: Former Tobacco user Are you DNR?: No Advance Directives: No Advance Directives Information Provided: Yes Nutrition Risks: No Nutritional Risk Meds Allergies Allergy/AdvReac Type Severity Reaction Status Date / Time Penicillins [PCN] Allergy Unknown Verified 02/22/23 08:07 red dye Allergy Unknown Verified 02/22/23 08:07 Sulfa (Sulfonamide Allergy Unknown Verified 02/22/23 08:07 Antibiotics) 12 hr nasal spray Allergy Unknown Uncoded 02/22/23 08:07 Home Medications Medication Instructions Recorded Confirmed Last Taken Type calcium 500 mg tablet mg 05/22/21 Unknown History cholecalciferol (vitamin D3) 25 25 mcg PO DAILY 05/22/21 02/22/23 Unknown History mcg (1,000 unit) capsule (Vitamin D3) dicyclomine 10 mg capsule 10 mg PO BID 05/22/21 02/22/23 02/22/23 History gemfibrozil 600 mg tablet 600 mg PO DAILY 05/22/21 02/22/23 02/22/23 History losartan 100 mg tablet 100 mg PO DAILY 05/22/21 02/22/23 02/22/23 History omeprazole 20 mg capsule,delayed 20 mg PO DAILY 05/22/21 02/22/23 02/22/23 History release simvastatin 20 mg tablet 20 mg PO BEDTIME 05/22/21 02/22/23 Unknown History Exam Exam Date and Time: February 21, [id number] Pertinent Lab Results Pertinent Lab Results: Laboratory Tests 02/16/23 19:23 WBC 7.6 Hgb 11.6 L Hct 35.4 L Plt Count 282 Sodium 140 Potassium 3.9 Chloride 105 Carbon Dioxide 20 L BUN 20 H Creatinine 0.90 Assessment and Plan Assessment Anesthesia Assessment: Chart Reviewed Final Anesthetic Review Family History of Problems with Anesthesia: No History of Problems with Anesthesia: No Documented by User: Pastora Ann DO 02/22/23 08:35 HPI - Anesthesia Eval Consult details Narrative: 67yo F for Cholecystectomy Laparoscopic, possible open. MICHI on CPAP. PMFSH Past Medical History Medical History GERD (gastroesophageal reflux disease) IBS (irritable bowel syndrome) Hyperlipidemia HTN (hypertension) Family History Family history of problems with anesthesia: No Surgical History Surgical History Hx of colonoscopy History of Problems with Anesthesia: No Social History Social History Patient Tobacco Use Status: Former Tobacco user Are you DNR?: No Advance Directives: No Advance Directives Information Provided: Yes Nutrition Risks: No Nutritional Risk Meds Allergies Allergy/AdvReac Type Severity Reaction Status Date / Time Penicillins [PCN] Allergy Unknown Verified 02/22/23 08:07 red dye Allergy Unknown Verified 02/22/23 08:07 Sulfa (Sulfonamide Allergy Unknown Verified 02/22/23 08:07 Antibiotics) 12 hr nasal spray Allergy Unknown Uncoded 02/22/23 08:07 Home Medications Medication Instructions Recorded Confirmed Last Taken Type calcium 500 mg tablet mg 05/22/21 Unknown History cholecalciferol (vitamin D3) 25 25 mcg PO DAILY 05/22/21 02/22/23 Unknown History mcg (1,000 unit) capsule (Vitamin D3) dicyclomine 10 mg capsule 10 mg PO BID 05/22/21 02/22/23 02/22/23 History gemfibrozil 600 mg tablet 600 mg PO DAILY 05/22/21 02/22/23 02/22/23 History losartan 100 mg tablet 100 mg PO DAILY 05/22/21 02/22/23 02/22/23 History omeprazole 20 mg capsule,delayed 20 mg PO DAILY 05/22/21 02/22/23 02/22/23 History release simvastatin 20 mg tablet 20 mg PO BEDTIME 05/22/21 02/22/23 Unknown History Exam Exam Date and Time: February 22, 2023 0820 Height,Weight and Vital Signs: Vital Signs Temperature 97.9 F 02/22/23 08:15 Pulse Rate 64 02/22/23 08:15 Respiratory Rate 18 02/22/23 08:15 Blood Pressure 122/69 02/22/23 08:15 Pulse Oximetry 96 02/22/23 08:15 Oxygen Delivery Method Room Air 02/22/23 08:15 Temperature 97.9 F 02/22/23 08:15 Pulse Rate 64 02/22/23 08:15 Respiratory Rate 18 02/22/23 08:15 Blood Pressure 122/69 02/22/23 08:15 Pulse Oximetry 96 02/22/23 08:15 Oxygen Delivery Method Room Air 02/22/23 08:15 Height 5 ft 4 in Weight 87.997 kg Airway Mallampati Class: II TM Dist: <=3cm Neck ROM: Full Loose/Missing/Broken Teeth: No (patient denies) Heart: S1S2 Lungs: CTAB Assessment and Plan Assessment Anesthesia Assessment: Anesthesia Plan Discussed and Chart Reviewed Final Anesthetic Review Family History of Problems with Anesthesia: No History of Problems with Anesthesia: No NPO: Yes ASA Class: II Final Preanesthetic Review: No Changes in Pt Med Stat, Meds/Allgs Chart Reviewed, Consent Obtained/Reviewed and Anes Risks/Benef Reviewed Patient Risk: Low Procedure Risk: Low Anesthetic Plan Anesthetic Plan: GA and Agree w/ Assess. and Plan Disposition: Standard PACU
--- NOTE | 2023-02-22 10:48 | P.OP_ITS ---
Operative Note Operative Note Date of Service: 02/22/23 Narrative: Preoperative diagnosis: [] recurrent biliary colic Postop diagnosis: [] same Procedure [] laparoscopic cholecystectomy Surgeon: [] Dick Clearance Representative: [] Linda Type of Anesthesia: [] general Indication for surgery: [] moderately corpulent abdomen. Gallbladder with omental adhesions to it. Very intrahepatic gallbladder. Findings: [] patient brought to the operating room, placed on operative table in supine position, after adequate level of general anesthesia was induced, the patient's abdomen was prepped and draped in usual sterile fashion. Using a supraumbilical curvilinear incision, Berger technique was used to insufflate the abdominal cavity to 15 mm of CO2. Upper midline and right subcostal ports were placed under direct laparoscopic view, and the patient placed in reverse Trendelenburg position, and tilted to the left. Gallbladder was grasped using laparoscopic graspers and retracted superiorly and laterally. Omental adhesions were swept off the gallbladder and its hilum was approached. Cystic artery and cystic duct were each identified, circumferentially skeletonized, each traced directly into the gallbladder and critical view obtained. Each was clipped proximally x2, distally x1, and transected. Gallbladder which was very intrahepatic was then cauterized from the gallbladder fossa using Bovie. Specimen was placed in an Endo-Catch bag, a retrieved through the umbilical port. The abdominal cavity was copiously irrigated, and secured hemostasis. All ports were removed under direct laparoscopic view. Wounds were closed in the following manner; umbilical wound is fascia reapproximated using interrupted 0 Vicryl sutures. Skin wounds were closed using subcuticular 4-0 Vicryl sutures followed by Steri-Strips and sterile dressings. Wounds were infiltrated 0.5% Marcaine at completion. Sponge, needle, and instrument counts reported correct. Patient tolerated the procedure well and emerged anesthesia in stable condition. EBL minimal
[2023-02-22] MEDS: oxyCODONE HCl Immed Release 5 MG TABLET 10 MG PO (11:46)
== END 2023-02-22 12:55 | disposition home or self-care (01) ==
PROVIDERS: PCP Internal Medicine; Visit Provider Surgery
PROC: 0FT44ZZ Resection of Gallbladder, Percutaneous Endoscopic Approach (ICD-10-PCS; CPT 47562; principal; 2023-02-22 09:30)
DX: K81.1 Chronic cholecystitis (principal); K82.8 Other specified diseases of gallbladder; K21.9 Gastro-esophageal reflux disease without esophagitis; I10 Essential (primary) hypertension; E78.5 Hyperlipidemia, unspecified; K58.9 Irritable bowel syndrome, unspecified; Z79.899 Other long term (current) drug therapy; Z88.0 Allergy status to penicillin; Z88.2 Allergy status to sulfonamides; Z91.041 Radiographic dye allergy status; Z87.891 Personal history of nicotine dependence
CPT/HCPCS: 47562; 88304; J0131; J1100; J1885; J2405; J2795; J3010

== ENCOUNTER → 2023-02-22 07:51 | Outpatient (BNV) | payer MEDICARE, SELFPAY | PROVIDERS: PCP Internal Medicine; Visit Provider Surgery | DX: K80.50 Calculus of bile duct without cholangitis or cholecystitis without obstruction (principal) | CPT/HCPCS: 47562 ==

== ENCOUNTER 2023-03-04 09:44 | Outpatient (AMB) | payer MEDICARE, SELFPAY ==
[2023-03-04 09:56] VITALS: BP 128/62; PULSE 71
--- NOTE | 2023-03-04 09:56 | MHC.OFFVIS ---
Intake Vital Signs 03/04/23 09:56 Weight 189 lb BP 128/62 Blood Pressure Location Rt brachial Position Sitting Pulse 71 Intake Visit Reasons: S/p lap lady Intake Note: Patient here s/p lap lady. Reports incisions healing well. Denies oozing, pain. No longer taking rx pain meds. Account Management Specialist Required: No Accompanied by: Self / Same As Patient Allergies Penicillins [PCN] Allergy (Verified 03/04/23 09:57) Unknown red dye Allergy (Verified 03/04/23 09:57) Unknown Sulfa (Sulfonamide Antibiotics) Allergy (Verified 03/04/23 09:57) Unknown 12 hr nasal spray Allergy (Uncoded 03/04/23 09:57) Unknown HPI HPI Comments History of Present Illness Details Status post lap choly. Patient doing well. She is tolerating her diet. Having normal bowel habits. She is having no incisional issues. PFSH Medical History GERD (gastroesophageal reflux disease) IBS (irritable bowel syndrome) Hyperlipidemia HTN (hypertension) Surgical History Hx of colonoscopy Social History Patient Tobacco Use Status: Former Tobacco user Physical Exam Vital Signs: Last Vital Signs Pulse 71 03/04/23 09:56 BP 128/62 03/04/23 09:56 Eyes Other: Anicteric GI Other: Abdomen soft, benign. All wounds clean dry and intact. Assessment & Plan Assessment & Plan (1) Recurrent biliary colic: Code(s): K80.50 - Calculus of bile duct without cholangitis or cholecystitis without obstruction Plan Patient has been given local instructions including avoiding strenuous activities for next 2-4 weeks and will otherwise follow up p.r.n.. Coding Level of Care Code Global (43655) Diagnoses Recurrent biliary colic K80.50
== END 2023-03-04 10:11 | disposition home or self-care (01) ==
PROVIDERS: PCP Internal Medicine; Visit Provider Surgery
DX: K80.50 Calculus of bile duct without cholangitis or cholecystitis without obstruction (principal)
CPT/HCPCS: 99024

== ENCOUNTER → 2023-03-04 09:44 | Outpatient (BNVA) | payer MEDICARE, SELFPAY | PROVIDERS: PCP Internal Medicine; Visit Provider Surgery ==

== ENCOUNTER 2023-05-08 14:43 | Outpatient (AMB) | payer MEDICARE, SELFPAY ==
--- NOTE | 2023-05-08 15:01 | MHC.PC.OV ---
Vital Signs 05/08/23 15:02 Height 5 ft 4 in Weight 194 lb 6 oz BMI 33.4 BP 122/66 Blood Pressure Location Lt brachial Position Sitting Pulse 73 Pulse Source Pulse Oximeter Pulse Oximetry (%) 96 Oxygen Delivery Method Room Air Intake Visit Reasons: NPV/ REQUESTING PHY Intake Note: Patient is here as a new patient with concern of pain in left wrist that shoots up her thumb since the summertime, hurt at night. Allergies Penicillins [PCN] Allergy (Verified 05/08/23 15:08) Unknown red dye Allergy (Verified 05/08/23 15:08) Unknown Sulfa (Sulfonamide Antibiotics) Allergy (Verified 05/08/23 15:08) Unknown acetaminophen Adverse Reaction (Mild, Verified 05/08/23 15:09) Migraine 12 hr nasal spray Allergy (Uncoded 05/08/23 15:08) Unknown novocaine Adverse Reaction (Intermediate, Uncoded 05/08/23 15:09) tachycardia Tobacco use date assessed: 05/08/23 Fall risk assessment: 1 Fall in past year Last assessed Fall Risk: 05/08/23 Dental Screening Dental Screen Date: 05/08/23 Did you have a dental visit in the last 12 months?: Yes Did you have a dental problem in the last 6 months where you did not have access to dental care?: No Was dental information given to patient?: Patient has dentist HPI NPV/ REQUESTING PHY HPI Details New patient Prior PCP:?Jeffery Brown Last office visit/CPE: March Acute issue(s): Hand pain Shoulder pain PMHx: Recent cholecystectomy, IBS, GERD, Barrets esophagus and f/u 2026, High Triglycerides, HTN, Sleep Apnea with CPAP machine. SurgHx: Lap [place] 2022 FHx: Mom: HTN, HLD, Throat CA. Dad: CAD, CVA & MIs. Son: HLD SocHx: Quit 1999, EtOH rarely 1 glass. No drugs. [place]/Endo: 03/2022. [facility] Medical History (Updated 05/08/23 @ 15:56 by Andi Cárdenas) GERD (gastroesophageal reflux disease) IBS (irritable bowel syndrome) Hyperlipidemia HTN (hypertension) Surgical History (Updated 05/08/23 @ 15:45 by Andi Cárdenas) S/P cholecystectomy Hx of colonoscopy Family History (Updated 05/08/23 @ 15:24 by Estella Bey CMA) Mother High blood pressure High cholesterol Throat cancer Sister High blood pressure High cholesterol Cardiovascular disease Asthma Social History Housing: House Patient Tobacco Use Status: Former Tobacco user e-Cigarette/Vaping Use: Never Used service: No Current occupational status: retired Cognitive needs: No Hearing needs: Yes (hearing aids) Vision needs: Yes (glasses) Questionnaire PHQ-9 Over the last 2 weeks, how often have you been bothered by any of the following problems? 1. Little interest or pleasure in doing things: not at all 2. Feeling down, depressed, or hopeless: not at all 3. Trouble falling or staying asleep, or sleeping too much: not at all 4. Feeling tired or having little energy: not at all 5. Poor appetite or overeating: not at all 6. Feeling bad about yourself - or that you are a failure or have let yourself or your family down: not at all 7. Trouble concentrating on things, such as reading the newspaper or watching television: not at all 8. Moving or speaking so slowly that other people could have noticed. Or the opposite - being so fidgety or restless that you have been moving around a lot more than usual: not at all 9. Thoughts that you would be better off or of hurting yourself in some way: not at all Total score: 0 Source: Developed by Drs. Nik Stack, Magalis Alvarez, Bam Alex and colleagues, with an educational anderson from [employer]. Thrive Questionnaire I am a: Patient What is your living situation today?: I have a steady place to live Within the past 12 months, did the food you bought not last and you didn't have the money to get more?: Never true Within the past 12 months, did you worry whether your food would run out before you got money to buy more?: Never true Do you have trouble paying for medicines?: No Do you have trouble getting transportation to medical appointments?: No Do you have trouble paying your heating and electricity bill?: No Do you have trouble taking care of your child, family member or friend?: No Do you have trouble with day-to-day activities such as bathing, preparing meals, shopping, managing finances, etc.?: No Are you currently unemployed and looking for a job?: No Are you interested in more education?: No ABRIL-7 AMB Questionnaire ABRIL-7 Date ABRIL - 7 assessed: 05/08/23 Feeling nervous, anxious, or on edge: 0 = Not at all Not being able to stop or control worryin = Not at all Worrying too much about different things: 0 = Not at all Trouble relaxin = Not at all Being so restless that it is hard to sit still: 0 = Not at all Becoming easily annoyed or irritable: 0 = Not at all Feeling afraid as if something awful might happen: 0 = Not at all Total ABRIL-7 score (0-4 normal; 5-9 mild; 10-14 moderate; 15-21 severe): 0 Source: Developed by Drs. Nik Stack, Magalis Alvarez, Bam Alex and colleagues, with an educational anderson from [employer]. Review of Systems Const Denies chills, Denies fatigue, Denies fever(s), Denies headache(s) and Denies weakness ENT Denies dizziness and Denies headache(s) Card Denies chest pain, Denies lightheadedness, Denies dyspnea and Denies other (Palpitations) Resp Denies cough, Denies dyspnea, Denies wheezing and Denies other ( shortness of breath) Musc Denies numbness and Denies tingling Neuro Denies dizziness, Denies headache(s), Denies numbness, Denies tingling, Denies paresthesias and Denies weakness Psych Denies anxiety and Denies depression Endo Denies fatigue Aller/Immun Denies wheezing Physical exam (Primary Care) Vital Signs: Last Vital Signs Pulse 73 05/08/23 15:02 BP 122/66 05/08/23 15:02 Pulse Ox 96 05/08/23 15:02 Oxygen Delivery Method Room Air 05/08/23 15:02 BMI result Body Mass Index 33.4 Tobacco/Smoking Status: Tobacco use Status Tobacco use date assessed 05/08/23 05/08/23 15:14 Patient Tobacco Use Status Former Tobacco user 05/08/23 15:06 e-Cigarette/Vaping Use Never Used 05/08/23 15:14 PHQ-9: PHQ-9 Score PHQ-9: Total score 0 05/08/23 15:30 Const General: no acute distress and well developed Nutritional Appearance: well nourished Orientation/consciousness: patient oriented x3 [facility] Head: Yes normocephalic and Yes atraumatic Eyes General: appearance normal, both eyes and all related structures Pupils: Equal, round and reactive pupils present EOM: EOMs intact bilaterally Resp Effort & Inspection: normal respiratory effort Auscultation: clear to auscultation bilaterally Cardio Rate: regular rate Rhythm: regular rhythm Heart sounds: S1 normal heart sound present, S2 normal heart sound present, no gallops, no murmurs and no rubs Neuro General: patient oriented x3 and gait normal Cranial nerves: Yes Equal, round and reactive pupils present Psych Affect: normal affect Assessment and Plan Assessment & Plan (1) Hand pain: Code(s): M79.643 - Pain in unspecified hand Plan: Bilateral?thumb?and?radial?wrist/forearm?pain?with?positive?Ray?sign Likely?day?Quervain?tenosynovitis Referred?to?hand?specialist?to?consider?injection?therapy Can?use?Aspercreme?and?heat (2) IBS (irritable bowel syndrome): Code(s): K58.9 - Irritable bowel syndrome without diarrhea Plan: This?seems?to?have?improved?or?possibly?resolved?with?lap?cholecystectomy She?can?trial?decreasing?or?weaning?off?of?dicyclomine. Follow-up?with?GI?as?recommended (3) GERD (gastroesophageal reflux disease): Code(s): K21.9 - Gastro-esophageal reflux disease without esophagitis Plan: GERD?and?recent?endoscopy?showing?Adams's?esophagus Continue?omeprazole Follow-up?with?GI?as?recommended (4) S/P cholecystectomy: Code(s): Z90.49 - Acquired absence of other specified parts of digestive tract Plan: Stable Doing?well (5) Adams esophagus: Code(s): K22.70 - Adams's esophagus without dysplasia Plan: As?above,?continue?omeprazole?and?follow-up?with?GI?as?recommended Has?next?endoscopy?in?2027 (6) Shoulder pain: Code(s): M25.519 - Pain in unspecified shoulder Plan: Left?shoulder?pain?after?a?fall No?deformity?or Swelling?on?exam Check?x-ray Start?physical?therapy (7) Hyperlipidemia: Code(s): E78.5 - Hyperlipidemia, unspecified Plan: Patient?had?recent?lab?work?done?in?November?and?we?can?review?this?together?at?her?next?visit (8) HTN (hypertension): Code(s): I10 - Essential (primary) hypertension Plan: Blood?pressure?is?controlled?on?losartan No?medication?changes?today (9) Laboratory exam ordered as part of routine general medical examination: Code(s): Z00.00 - Encounter for general adult medical examination without abnormal findings Plan: Recent?lab?work?from?an?outside?lab Will?review?with?patient?at?her?next?visit (10) Sleep apnea: Code(s): G47.30 - Sleep apnea, unspecified Plan: Continue?CPAP?and?follow-up?with?sleep?medicine?as?recommended (11) De Quervain's disease (tenosynovitis): Code(s): M65.4 - Radial styloid tenosynovitis [de Quervain] Plan: As?above,?referred?to?Hand?surgery Orders: Orders Vitamin D 25-OH Total Today E55.9 - Vitamin D deficiency, unspecified Comprehensive [place]. Panel Fast Today Z00.00 - Encounter for general adult medical examination without abnormal findings Complete Blood Count Auto Diff Today Z00.00 - Encounter for general adult medical examination without abnormal findings Lipid Panel Today Z00.00 - Encounter for general adult medical examination without abnormal findings XR shoulder LT min 2V Today M25.519 - Pain in unspecified shoulder Microalbumin, Random (w Creat) Today I10 - Essential (primary) hypertension TSH reflex Free T4 Today Z00.00 - Encounter for general adult medical examination without abnormal findings UA and rflx microscopic Today Z00.00 - Encounter for general adult medical examination without abnormal findings Referrals Hand Surgery Referral M65.4 - Radial styloid tenosynovitis [de Quervain] Coding Level of Care Code New Pt Level 4 (85763) Diagnoses Hand pain M79.643 IBS (irritable bowel syndrome) K58.9 GERD (gastroesophageal reflux disease) K21.9 S/P cholecystectomy Z90.49 Adams esophagus K22.70 Shoulder pain M25.519 Hyperlipidemia E78.5 HTN (hypertension) I10 Laboratory exam ordered as part of routine general medical examination Z00.00 Sleep apnea G47.30 De Quervain's disease (tenosynovitis) M65.4
[2023-05-08 15:02] VITALS: BP 122/66; PULSE 73; O2SAT 96; BMI 33.4
== END 2023-05-08 16:04 | disposition home or self-care (01) ==
PROVIDERS: PCP Internal Medicine; Visit Provider Family Medicine
DX: M79.643 Pain in unspecified hand (principal); K58.9 Irritable bowel syndrome, unspecified; K21.9 Gastro-esophageal reflux disease without esophagitis; Z90.49 Acquired absence of other specified parts of digestive tract; K22.70 Barrett's esophagus without dysplasia; M25.519 Pain in unspecified shoulder; E78.5 Hyperlipidemia, unspecified; I10 Essential (primary) hypertension; Z00.00 Encounter for general adult medical examination without abnormal findings; G47.30 Sleep apnea, unspecified; M65.4 Radial styloid tenosynovitis [de Quervain]
CPT/HCPCS: 99204

== ENCOUNTER 2023-05-14 13:17 | Outpatient (REF) | payer MEDICARE, SELFPAY | END 2023-05-14 13:18 | disposition home or self-care (01) | LOC: HO.HMGCX 13:17 | PROVIDERS: PCP Family Medicine; Visit Provider Family Medicine | DX: M25.512 Pain in left shoulder (principal) | CPT/HCPCS: 73030 ==

== ENCOUNTER 2023-05-28 12:16 | Outpatient (REF) | payer MEDICARE, SELFPAY | END 2023-05-28 12:17 | disposition home or self-care (01) | LOC: HO.MAMMO 12:16 | PROVIDERS: PCP Family Medicine; Visit Provider Family Medicine | DX: Z12.31 Encounter for screening mammogram for malignant neoplasm of breast (principal) | CPT/HCPCS: 77063; 77067 ==

== ENCOUNTER → 2023-05-28 12:30 | Outpatient (BNV) | payer MEDICARE, SELFPAY | PROVIDERS: PCP Family Medicine; Visit Provider Radiology Diagnostic Radiology | DX: Z12.31 Encounter for screening mammogram for malignant neoplasm of breast (principal) | CPT/HCPCS: 77063; 77067 ==

== ENCOUNTER 2023-06-26 10:46 | Outpatient (AMB) | payer MEDICARE, SELFPAY ==
[2023-06-26 11:11] VITALS: BMI 33.3
--- NOTE | 2023-06-26 11:11 | MHC.OFFVIS ---
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 States she is having difficulty gripping, pinching and grabbing for the last 3-4 months. Pain is mainly at base of thumb and at her wrist. No injury she can recall. Denies numbness, tingling, hand injections or locking of any finger. States both are as bad. Pain would also like to be seen for her left shoulder. 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 The pain is worse with pinching or gripping activities. She says her pain has been present for ~4 months now. She denies any known injury, locking, numbness, or tingling. She denies any prior treatment. She says she fell sometime in 03/[address] on her front steps, but she is unsure if this caused her pain. 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 [facility] Medical History (Updated 06/26/23 @ 12:07 by Patricia Burroughs PA-C) GERD (gastroesophageal reflux disease) IBS (irritable bowel syndrome) Hyperlipidemia HTN (hypertension) Surgical History S/P cholecystectomy Hx of colonoscopy Family History (Updated 05/08/23 @ 15:24 by Estella Bey CMA) Mother High blood pressure High cholesterol Throat cancer Sister High blood pressure High cholesterol Cardiovascular disease Asthma Social History (Updated 06/26/23 @ 11:20 by TAMIKA Handy) Housing: House Patient Tobacco Use Status: Former Tobacco user e-Cigarette/Vaping Use: Never Used service: No Current occupational status: 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/ Cognitive needs: No Hearing needs: Yes (hearing aids) Vision needs: Yes (glasses) Review of Systems Const All systems reviewed & are unremarkable except as noted in HPI and below Physical Exam Vital Signs: BMI result Body Mass Index 33.3 Const General: cooperative, healthy appearing and no acute distress Orientation/consciousness: patient oriented x3 HEENT Head: Yes normocephalic and Yes atraumatic Eyes EOM: EOMs intact bilaterally Resp Effort & Inspection: normal respiratory effort and able to speak in complete sentences Cardio Jugular venous distension: no JVD Skin General skin exam: turgor normal Rashes: no rashes Neuro General: patient oriented x3 Extrem Other: Evaluation of Bilateral Upper Extremity: The patient is alert, oriented, and in no acute distress Neuro: Median, Ulnar, Radial nerves motor and sensory intact and sensation is normal to the tips of all digits Vascular: Cap refill brisk ROM: She can make a fist and extend all her digits No locking or catching Skin: No lacerations or abrasions. General: No Ecchymosis. No Erythema or evidence of infection. Most tender over the basal joints bilaterally + shoulder sign bilaterally + CMC grind bilaterally Mild tenderness over the 1st dorsal compartment Minimal Ray test bilaterally No tenderness over the MCP joint No tenderness over the a1 pulleys, no locking or catching Psych Appearance: grossly normal Affect: normal affect Attitude: cooperative Office Procedures Fracture Care Details: No fracture, injection Fracture Billing Code: Fracture Billing Code Assessment & Plan Assessment & Plan (1) Osteoarthritis of carpometacarpal joint of left thumb: Code(s): M18.12 - Unilateral primary osteoarthritis of first carpometacarpal joint, left hand (2) Osteoarthritis of carpometacarpal joint of right thumb: Code(s): M18.11 - Unilateral primary osteoarthritis of first carpometacarpal joint, right hand (3) Left shoulder pain: Code(s): M25.512 - Pain in left shoulder Plan Assessment & Plan: 1. Left Basal joint osteoarthritis, Based on history and PE 2. Right Basal joint osteoarthritis, Based on history and PE I educated her about this condition I discussed operative and non-operative treatment options The patient would like to proceed with an injection, beginning with her left side I discussed activity modification, she should limit or avoid any heavy or repetitive pinching or gripping activities She was fitted for bilateral comfort cool braces to wear with daily activity I discussed the use of assistive devices to improve her symptoms Injection #1 : The risks and benefits of a steroid injection including but not limited to risk of damage to blood vessels, nerve, tendon, infection, skin bleaching, persistent or worsening pain, and failure to improve symptoms were discussed with the patient and they wish to proceed with the steroid injection. Once consent was obtained the skin over the dorsum of the left basal joint was sterilely prepped. The joint was then injected with a combination of 1 mL of (40 mg/ml} Depo-Medrol and 1% plain Lidocaine. The patient appears to have tolerated the procedure well and with no complications. She had good early relief before leaving clinic today. She knows that they may not have another steroid injection into this joint for least 4 months. If she finds this helpful she will make an appointment to be seen for her right thumb at the next available appointment She should have X-rays taken at her next appointment, attn thumbs 3. Left shoulder pain, S/P fall DOI: ~03/2023 She has an appointment with FRANNY Gomez later today to address this Scribed for Radha Bourgeois MD by Reg Ho, medical and health services manager, on 06/26/23 at 11:40 AM, EST. Coding Level of Care Code New Pt Level 3 (39610) Diagnoses Osteoarthritis of carpometacarpal joint of left thumb M18.12 Osteoarthritis of carpometacarpal joint of right thumb M18.11 Left shoulder pain M25.512 CPT Codes Fracture Care - Fracture Billing Code: Fracture Billing Code ([id number])
== END 2023-06-26 11:52 | disposition home or self-care (01) ==
PROVIDERS: PCP Family Medicine; Visit Provider Orthopaedic Surgery
DX: M18.0 Bilateral primary osteoarthritis of first carpometacarpal joints (principal); M25.512 Pain in left shoulder
CPT/HCPCS: 20600; 99203

== ENCOUNTER → 2023-06-26 10:46 | Outpatient (BNVA) | payer MEDICARE, SELFPAY | PROVIDERS: PCP Family Medicine; Visit Provider Orthopaedic Surgery | DX: M75.102 Unspecified rotator cuff tear or rupture of left shoulder, not specified as traumatic (principal); M18.12 Unilateral primary osteoarthritis of first carpometacarpal joint, left hand; M18.11 Unilateral primary osteoarthritis of first carpometacarpal joint, right hand | CPT/HCPCS: 20600; 20610; 99202; J1020; J1040 ==

== ENCOUNTER 2023-06-26 11:53 | Outpatient (AMB) | payer MEDICARE, SELFPAY ==
[2023-06-26 11:54] VITALS: BMI 33.3
--- NOTE | 2023-06-26 11:54 | A.OFFVIS_ITS ---
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 Seen recently with DR. Bourgeois for basal joint pain. States she fell on 03/2023 increasing her pain in shoulder. States she had pain before however the fall triggered her pain. Currently states she has radiating pain down her arm. States she has limited ROM and pain with lifting. She recalls she has a cortisone about 30 yrs ago but is not sure if it help. 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 The patient reports having pain in the left shoulder, however, the fall has since increased her pain. She reports the pain radiates down her left upper extremity. She confirms limited ROM and pain when lifting. Patient reports a history of cortisone injections but states it was 30 years ago and is unsure if they gave her relief. Patient was seen today in the office for left thumb basal joint pain. [facility] Medical History (Updated 06/26/23 @ 12:07 by Patricia Burroughs PA-C) GERD (gastroesophageal reflux disease) IBS (irritable bowel syndrome) Hyperlipidemia HTN (hypertension) Surgical History S/P cholecystectomy Hx of colonoscopy Family History (Updated 05/08/23 @ 15:24 by Estella Bey SENIOR SALES COMPENSATION ANALYST) Mother High blood pressure High cholesterol Throat cancer Sister High blood pressure High cholesterol Cardiovascular disease Asthma Social History Housing: House Patient Tobacco Use Status: Former Tobacco user e-Cigarette/Vaping Use: Never Used service: No Current occupational status: 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/ Cognitive needs: No Hearing needs: Yes (hearing aids) Vision needs: Yes (glasses) Review of Systems Const All systems reviewed & are unremarkable except as noted in HPI and below Physical Exam Vital Signs: BMI result Body Mass Index 33.3 Const General: cooperative, healthy appearing and no acute distress Resp Effort & Inspection: normal respiratory effort and able to speak in complete sentences Cardio Rate: regular rate Peripheral pulses: Peripheral pulses 2+ throughout GI Palpation (GI): Soft to palpation Skin Lesions: no lesions Rashes: no rashes Extrem Other: Left shoulder normal to inspection. No ecchymoss, erythema or edema. FF and abduction to end range but reports pain with the last 20 degrees of motion. Able to reach T12. Pain with cross body reach. 4/5 strength with empty can. NVI. Office Procedures Joint Injection/Drain Joint Injection/Drain Primary Site: left shoulder Prep: site was prepped using aseptic technique, ethochloride spray was applied and injection warnings given Injected: 80 mg of, DepoMedrol, with 8 mL of (2% plain lido ) and in the subcromial space Approach Used: posterolateral Procedure: The patient tolerated the procedure well, but had some pain with the injection and there was some relief with the local anesthesia Coding 13121 - Large joint Procedure code (CPT) selection complete Assessment & Plan Assessment & Plan (1) Painful arc syndrome of left shoulder: Code(s): M75.102 - Unspecified rotator cuff tear or rupture of left shoulder, not specified as traumatic Plan: Ms. Saul is a 67-year-old right hand dominant female who presents in the office today for an evaluation of left shoulder pain status post a fall in 03/2023. The patient reports having pain in the left shoulder, however, the fall has since increased her pain. She reports the pain radiates down her left upper extremity. She confirms limited ROM and pain when lifting. I offered the patient a cortisone injection in the left shoulder while in the office today, which she agreed to move forward with. I discussed the risk vs benefits. After obtaining consent, I injected the left shoulder in the subacromial space. The patient tolerated the procedure well with no complications. I have also placed a referral to physical therapy in which she will attend. I would like to see her back in 6 weeks, sooner if needed. If she is not doing any better would consider ordering an MRI to further evaluate the integrity of the shoulder. X-rays obtained on 05/14/23 are negative for any acute fracture or dislocation. Mild degenerative changes. Orders: Orders PT Evaluation and Treatment Today M75.102 - Unspecified rotator cuff tear or rupture of left shoulder, not specified as traumatic Patient Instructions: Scribed by Angie Moser director medical writing, for Patricia Burroughs PA-C on 06/26/2023 at 12:00 pm, EST. Coding Level of Care Code New Pt Level 4 (69045) Diagnoses Painful arc syndrome of left shoulder M75.102 CPT Codes Coding - 64794 Large joint: 60569 - Large joint ([id number])
== END 2023-06-26 12:35 | disposition home or self-care (01) ==
LOC: HO.HOS 11:53
PROVIDERS: PCP Family Medicine; Visit Provider Physician Assistant
DX: M75.102 Unspecified rotator cuff tear or rupture of left shoulder, not specified as traumatic (principal)
CPT/HCPCS: 20610; 99203

== ENCOUNTER 2023-08-06 13:47 | Outpatient (AMB) | payer MEDICARE, SELFPAY ==
[2023-08-06 13:59] VITALS: BP 124/76; PULSE 75; O2SAT 96; BMI 33.8
--- NOTE | 2023-08-06 13:59 | MHC.PC.OV ---
Vital Signs 08/06/23 13:59 Height 5 ft 4 in Weight 197 lb BMI 33.8 BP 124/76 Blood Pressure Location Lt brachial Position Sitting Pulse 75 Pulse Source Pulse Oximeter Pulse Oximetry (%) 96 Oxygen Delivery Method Room Air Intake Visit Reasons: Extended exam with f/u labs and health maintenance Intake Note: Patient is here for extended exam and follow up on labs and health maintenance Allergies Penicillins [PCN] Allergy (Verified 08/06/23 14:06) Unknown red dye Allergy (Verified 08/06/23 14:06) Unknown Sulfa (Sulfonamide Antibiotics) Allergy (Verified 08/06/23 14:06) Unknown acetaminophen Adverse Reaction (Mild, Verified 08/06/23 14:06) Migraine 12 hr nasal spray Allergy (Uncoded 08/06/23 14:06) Unknown novocaine Adverse Reaction (Intermediate, Uncoded 08/06/23 14:06) tachycardia Tobacco use date assessed: 08/06/23 Fall risk assessment: 1 Fall in past year Last assessed Fall Risk: 08/06/23 Dental Screening Dental Screen Date: 08/06/23 Did you have a dental visit in the last 12 months?: Yes Did you have a dental problem in the last 6 months where you did not have access to dental care?: No Was dental information given to patient?: Patient has dentist HPI Extended exam with f/u labs and health maintenance HPI Details 67 y/o female presents for an extended exam with f/u labs and health maintenance. Labs were drawn 03/05/23. Reviewed labs with pt. Triglycerides 83. TC 172. LDL 107. HDL 48. Elevated fasting glucose. [facility] Medical History (Updated 08/06/23 @ 14:46 by Andi Cárdenas) GERD (gastroesophageal reflux disease) IBS (irritable bowel syndrome) Hyperlipidemia HTN (hypertension) Surgical History S/P cholecystectomy Hx of colonoscopy Family History (Updated 05/08/23 @ 15:24 by Estella Bey [facility]) Mother High blood pressure High cholesterol Throat cancer Sister High blood pressure High cholesterol Cardiovascular disease Asthma Social History Housing: House Patient Tobacco Use Status: Former Tobacco user e-Cigarette/Vaping Use: Never Used service: No Current occupational status: 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 Nik Stack, Magalis Alvarez, Bam Alex and colleagues, with an educational anderson from [employer]. Review of Systems Const Denies chills, Denies fatigue, Denies fever(s), Denies headache(s) and Denies weakness Eyes Denies change in vision ENT Denies dizziness, Denies headache(s), Denies hearing loss, Denies nasal congestion, Denies sinus pain, Denies sinus pressure and Denies sore throat Card Denies chest pain, Denies lightheadedness, Denies dyspnea and Denies other (palpitations) Resp Denies cough, Denies dyspnea and Denies wheezing GI Denies abdominal pain, Denies melena, Denies hematochezia, Denies change in bowel habits, Denies dyspepsia and Denies nausea Denies hematuria and Denies dysuria Musc Denies abnormal gait, Denies myalgias, Denies arthralgias, Denies numbness and Denies tingling Skin/Breast Denies rash, Denies unusual bruising and Denies wounds Neuro Denies abnormal gait, Denies dizziness, Denies headache(s), Denies memory loss, Denies numbness, Denies Sensory deficit (Neuro), Denies tingling and Denies weakness Psych Denies anxiety, Denies depression and Denies memory loss Endo Denies cold intolerance, Denies fatigue, Denies heat intolerance, Denies polydipsia and Denies polyuria Jacob/Lymph Denies easy bleeding and Denies easy bruising Aller/Immun Denies wheezing Physical exam (Primary Care) Vital Signs: Last Vital Signs Pulse 75 08/06/23 13:59 BP 124/76 08/06/23 13:59 Pulse Ox 96 08/06/23 13:59 Oxygen Delivery Method Room Air 08/06/23 13:59 BMI result Body Mass Index 33.8 Tobacco/Smoking Status: Tobacco use Status Tobacco use date assessed 08/06/23 08/06/23 14:10 Patient Tobacco Use Status Former Tobacco user 08/06/23 14:02 e-Cigarette/Vaping Use Never Used 08/06/23 14:02 Const General: no acute distress, well developed, alert and awake Nutritional Appearance: well nourished Orientation/consciousness: patient oriented x3 HENMT Head: Yes normocephalic and Yes atraumatic Ears: hearing grossly normal bilaterally and TM's normal bilaterally General nose exam: Normal external nose present and Normal nares present Mouth: Normal oral and palatal mucosa present and moist mucous membranes Teeth and gingiva: dentition normal Throat: Yes posterior oropharynx normal Eyes General: appearance normal, both eyes and all related structures Pupils: Equal, round and reactive pupils present and Pupil accommodation reflex normal EOM: EOMs intact bilaterally Neck Neck: Yes normal visual inspection, Yes no lymphadenopathy and Yes trachea midline Thyroid: Thyroid normal Carotids: no bruits Lymphatic: no lymphadenopathy noted Chest Chest palpation & inspection: normal inspection of the chest Resp Effort & Inspection: normal respiratory effort Auscultation: clear to auscultation bilaterally Cardio Rate: regular rate Rhythm: regular rhythm Heart sounds: S1 normal heart sound present, S2 normal heart sound present, no gallops, no murmurs and no rubs Bruits: no abdominal aortic bruits and no carotid bruits GI Palpation (GI): No Abdominal aortic bruit present, Soft to palpation, nontender, No hepatosplenomegaly present and No Rebound tenderness present Auscultation: normal bowel sounds General: Yes no CVA tenderness Back/Spine/Pelvis Back: no CVA tenderness Cervical Spine: cervical ROM normal and No Cervical spine tenderness Thoracic/Lumbar Spine: thoraco-lumbar ROM normal, No pain with thoraco-lumbar ROM, No thoracic spinal tenderness and No lumbar spinal tenderness Skin Lesions: no lesions Rashes: no rashes Trauma: no lacerations or abrasions Wounds: no wounds Nails: normal Neuro General: patient oriented x3 Cranial nerves: Yes Equal, round and reactive pupils present Cognition (Neuro): normal cognition Gait exam (Neuro): Normal gait present Motor exam (neuro): 5/5 motor strength present throughout Sensory Exam: No Sensory deficit (Neuro) Deep tendon reflexes (DTR's): Right patellar reflex intensity grade: 2+ and Left patellar reflex intensity grade: 2+ Extrem General: Yes normal to inspection and No edema Psych Appearance: grossly normal Affect: normal affect Attitude: cooperative Thought process: Normal thought process present Assessment and Plan Assessment & Plan (1) HTN (hypertension): Code(s): I10 - Essential (primary) hypertension Plan: Blood?pressure?is?controlled.??Goal?is ?less?than?140/90 Continue?current?medication (2) Hyperlipidemia: Code(s): E78.5 - Hyperlipidemia, unspecified Plan: Lipids?are?well?controlled?on?simvastatin (3) Mild anemia: Code(s): D64.9 - Anemia, unspecified Plan: Mild?anemia No?bleeding Will?follow?this (4) Pre-diabetes: Code(s): R73.03 - Prediabetes Plan: A1c?5.7% Pre?diabetes?range Encouraged?a?diet?lower?in?sugars?and?starches,?weight?loss?and?exercise (5) Screening for colon cancer: Code(s): Z12.11 - Encounter for screening for malignant neoplasm of colon Plan: Colonoscopy?about?a?year?ago?with? Follow-up?with?GI?as?recommended (6) Screening for cervical cancer: Code(s): Z12.4 - Encounter for screening for malignant neoplasm of cervix Plan: Last?Pap?smear?a?few?years?ago. She?is?now?over?66 (7) Breast cancer screening by mammogram: Code(s): Z12.31 - Encounter for screening mammogram for malignant neoplasm of breast Plan: Mammogram?in?May?was?negative?for?malignancies?and?recommended?annual?screening (8) Osteopenia: Code(s): M85.80 - Other specified disorders of bone density and structure, unspecified site (9) Screening for osteoporosis: Code(s): Z13.820 - Encounter for screening for osteoporosis Plan: Bone?density?test?showed?osteopenia Encouraged?good?sources?of?calcium?and?vitamin-D?which?patient?takes. Encouraged?weight-bearing?exercise Will?continue?to?follow?Q?2?years (10) Adult general medical exam: Code(s): Z00.00 - Encounter for general adult medical examination without abnormal findings Plan: 67-year-old?female?presents?for?extended?exam Encouraged?healthy?diet?with?active?lifestyle?and?plenty?of?exercise Orders: Orders Microalbumin, Random (w Creat) Today I10 - Essential (primary) hypertension, R73.03 - Prediabetes Complete Blood Count Auto Diff Today R73.03 - Prediabetes, Z00.00 - Encounter for general adult medical examination without abnormal findings Vitamin D 25-OH Total Today E55.9 - Vitamin D deficiency, unspecified TSH reflex Free T4 Today I10 - Essential (primary) hypertension, Z00.00 - Encounter for general adult medical examination without abnormal findings UA and rflx microscopic Today I10 - Essential (primary) hypertension, Z00.00 - Encounter for general adult medical examination without abnormal findings Comprehensive [place]. Panel Fast Today R73.03 - Prediabetes, Z00.00 - Encounter for general adult medical examination without abnormal findings Coding Level of Care Code Est Pt Level 4 (63585) Diagnoses HTN (hypertension) I10 Hyperlipidemia E78.5 Mild anemia D64.9 Pre-diabetes R73.03 Screening for colon cancer Z12.11 Screening for cervical cancer Z12.4 Breast cancer screening by mammogram Z12.31 Osteopenia M85.80 Screening for osteoporosis Z13.820 Adult general medical exam Z00.00
== END 2023-08-06 14:43 | disposition home or self-care (01) ==
PROVIDERS: PCP Family Medicine; Visit Provider Family Medicine
DX: I10 Essential (primary) hypertension (principal); E78.5 Hyperlipidemia, unspecified; D64.9 Anemia, unspecified; R73.03 Prediabetes; Z12.11 Encounter for screening for malignant neoplasm of colon; Z12.4 Encounter for screening for malignant neoplasm of cervix; Z12.31 Encounter for screening mammogram for malignant neoplasm of breast; M85.80 Other specified disorders of bone density and structure, unspecified site; Z13.820 Encounter for screening for osteoporosis; Z00.00 Encounter for general adult medical examination without abnormal findings
CPT/HCPCS: 99214

== ENCOUNTER 2023-08-13 11:25 | Observation (INO) | payer MEDICARE, SELFPAY ==
[2023-08-13] VITALS (10 sets, daily range): BP systolic 94–138; BP diastolic 41–75; PULSE 44–77; RESP 18–22; TEMP 36.8; O2SAT 95–99; BMI 34.5
--- NOTE | 2023-08-13 | ECG_ITS ---
Test Reason : chest pain Blood Pressure : / mmHG Vent. Rate : 067 BPM Atrial Rate : 067 BPM P-R Int : 204 ms QRS Dur : 082 ms QT Int : 402 ms P-R-T Axes : 027 023 052 degrees QTc Int : 424 ms Normal sinus rhythm Normal ECG No previous ECGs available Referred By: Generic ED Physician Electronically Signed By:KEKE WALLS MD
--- NOTE | ~2023-08-13 | CT_ITS ---
EXAMINATION: CT ANGIOGRAM OF THE CHEST, ABDOMEN AND PELVIS WITHOUT AND WITH CONTRAST CLINICAL INFORMATION: tearing sensation in chest COMPARISON: CT abdomen and pelvis 02/16/2023 TECHNIQUE: Multidetector volumetric CT imaging of the chest, abdomen, and pelvis was performed before and after the administration of 80 mL of Omnipaque 350 intravenous contrast without immediate adverse reactions. 3D POSTPROCESSING: Multiple 3-D angiographic images were processed from the initial data set by the [facility] under concurrent physician supervision. DOSE LOWERING TECHNIQUES: This CT examination was performed using dose optimization techniques as appropriate, variously including the following: - Automated exposure control - Adjustment of mA and/or kV according to patient size (this includes techniques or standardized protocols for targeted exams where dose is matched to indication/reason for exam; i.e. extremities or head) - Use of iterative reconstruction technique DLP: 681 mGy-cm. FINDINGS: VASCULAR: ASCENDING AORTA: Normal in caliber. No aortic dissection. AORTIC ARCH: Three-vessel aortic arch. No aortic dissection. SUPRAAORTIC VESSELS: Patent and normal in caliber HEART AND PULMONARY VESSELS: The heart is normal in size. The coronary arteries are patent with no calcification. The pulmonary arteries are normal in caliber. No large, central pulmonary embolus. DESCENDING AORTA: Normal in caliber. No aortic dissection. ABDOMINAL AORTA: Normal in caliber. No aortic dissection. CELIOMESENTERIC ARTERIES: The celiac artery is patent and caliber. The SMA is patent and normal in caliber. The MALU is patent. RENAL ARTERIES: Patent bilateral renal arteries. RIGHT ILIOFEMORAL ARTERIES: Patent and normal in caliber LEFT ILIOFEMORAL ARTERIES: Patent and normal in caliber NONVASCULAR: LUNGS: Mild centrilobular emphysema. Subsegmental atelectasis in the lung bases. MEDIASTINUM: The mediastinum is normal. PLEURA: There is no pleural effusion. No pleural mass or thickening. LIVER AND BILIARY TREE: The liver is normal in size, shape, and attenuation. No focal hepatic lesion or biliary ductal dilatation is present. GALLBLADDER: Surgically absent. PANCREAS: Unremarkable. SPLEEN: Unremarkable. ADRENAL GLANDS: Unremarkable. KIDNEYS AND URETERS: The kidneys are normal in size, shape, and attenuation. No hydronephrosis, hydroureter, or calculi seen. No perinephric stranding. BLADDER: Unremarkable. GASTROINTESTINAL TRACT: Colonic diverticulosis without evidence of diverticulitis. The large and small bowel are normal in caliber. ABDOMINAL WALL: No significant hernia is appreciated. LYMPH NODES: Normal. PELVIC VISCERA: Unremarkable. OSSEOUS STRUCTURES: Unremarkable. CT/CT angio chest aorta IMPRESSION: No aortic dissection.
--- NOTE | ~2023-08-13 | XR_ITS ---
EXAMINATION: XR CHEST CLINICAL INFORMATION: Chest pain COMPARISON: None available. TECHNIQUE: Frontal view of the chest was obtained. FINDINGS: No significant abnormality is noted involving the heart, lungs, mediastinum, bony thorax or soft tissues. XR/XR chest 1V IMPRESSION: Unremarkable chest examination.
[2023-08-13 11:46] LABS: MANUAL DIFF FLAG NO
[2023-08-13 11:49] LABS: Basophils Absolute Auto 0.1 X10*3/uL (0.0-0.2); Basophils Percent Auto 0.6 % (0-2); Eosinophils Absolute Auto 1.4 X10*3/uL (0.0-0.4); Eosinophils Percent Auto 16.4 % (0-4); Hematocrit 35.5 % (37.0-47.0); Hemoglobin 11.8 g/dl (12.0-16.0); Imm Gran Abs Auto 0.03 X10*3/uL (0.00-0.03); Imm Gran Pct Auto 0.4 % (0.0-0.4); Lymphocytes Absolute Auto 2.3 X10*3/uL (1.2-4.9); Lymphocytes Percent Auto 27.9 % (20-40); Mean Corpuscular HGB Conc 33.2 g/dl (31.0-35.0); Mean Corpuscular Hemoglobin 29.4 pg (27.0-33.0); Mean Corpuscular Volume 88.5 fL (80.0-98.0); Mean Platelet Volume 10.8 fL (9.4-12.3); Monocytes Absolute Auto 0.7 X10*3/uL (0.1-1.2); Monocytes Percent Auto 7.9 % (2-11); Neutrophils Absolute Auto 3.9 x10*3/uL (2.0-8.3); Neutrophils Percent Auto 46.8 % (45-73); Platelet Count 256 X10*3/uL (160-400); Red Blood Count 4.01 X10*6/uL (4.20-5.50); Red Cell Distribution Width 12.8 % (11.0-16.0); White Blood Count 8.3 X10*3/uL (4.8-10.8)
--- NOTE | 2023-08-13 11:49 | ED_ITS ---
HPI - Chest Pain General Chief Complaint: Chest Pain Stated Complaint: chest pain Time Seen by Provider: 08/13/23 11:49 Source: patient and family (patient's ) Mode of arrival: ambulatory Limitations: no limitations History of Present Illness HPI narrative: Patient is a 67 year old assigned female at with a history of HTN and HLD presenting to the emergency department today with back and epigastric pain. Patient states that she got sudden onset back pain that radiated into her chest and epigastric region. Patient states that it was the worst pain of her life and felt as though she was having a heart attack. Patient denies any dizziness, lightheadedness, abdominal pain, fever, chills, blurry vision, double vision, loss of vision, difficulty breathing, shortness of breath, night sweats, pain with urination, increased urinary frequency, increased urinary urgency, blood in her urine or stool, syncope or a near syncopal episode, recent trauma or falls, bowel incontinence, bladder incontinence, bowel retention, bladder retention, or any other complaints at this time. Pain location: epigastric Pain radiation: back Quality: sharp Relieving factors: nothing Exacerbating factors: nothing Treatment prior to arrival: none Risk Factors Coronary artery disease risk factors: hyperlipidemia and hypertension Thoracic aortic dissection risk factors: none Related Data On Oral Contraceptives: No Home Medications Medication Instructions Recorded Confirmed calcium 500 mg tablet mg 05/22/21 cholecalciferol (vitamin D3) 25 25 mcg PO DAILY 05/22/21 02/22/23 mcg (1,000 unit) capsule (Vitamin D3) dicyclomine 10 mg capsule 10 mg PO BID 05/22/21 02/22/23 losartan 100 mg tablet 100 mg PO DAILY 05/22/21 02/22/23 omeprazole 20 mg capsule,delayed 20 mg PO DAILY 05/22/21 02/22/23 release gemfibrozil 600 mg tablet 600 mg PO BID 05/08/23 simvastatin 20 mg tablet 10 mg PO BEDTIME 05/08/23 Allergies Allergy/AdvReac Type Severity Reaction Status Date / Time Penicillins [PCN] Allergy Unknown Verified 08/06/23 14:06 red dye Allergy Unknown Verified 08/06/23 14:06 Sulfa (Sulfonamide Allergy Unknown Verified 08/06/23 14:06 Antibiotics) acetaminophen AdvReac Mild Migraine Verified 08/06/23 14:06 12 hr nasal spray Allergy Unknown Uncoded 08/06/23 14:06 novocaine AdvReac Intermediate tachycardia Uncoded 08/06/23 14:06 Review of Systems 2 Constitutional: Constitutional: Reports no additional constitutional complaints, Denies chills, Denies fever(s) and Denies night sweats Eyes: Eyes: Reports no additional eye complaints, Denies blurry vision, Denies change in vision, Denies diplopia, Denies eye discharge, Denies loss of vision and Denies eye pain ENT: Denies dizziness Cardiovascular: Cardiovascular: Reports no additional cardiovascular complaints, Reports chest pain, Denies lightheadedness, Denies Loss of Consciousness and Denies dyspnea Respiratory: Respiratory: Reports no additional respiratory complaints and Denies dyspnea Gastrointestinal: Gastrointestinal: Reports no additional gastrointestinal complaints, Reports abdominal pain, Denies melena, Denies hematochezia, Denies change in bowel habits and Denies change in stool character Genitourinary: Genitourinary: Denies hematuria, Denies urinary frequency, Denies dysuria, Denies urinary incontinence, Denies urinary hesitancy and Denies urinary urgency Musculoskeletal: Musculoskeletal: Reports no additional musculoskeletal complaints, Reports back pain, Denies numbness and Denies tingling Neurologic: Denies dizziness, Denies loss of vision, Denies numbness and Denies tingling Psychiatric: Psychiatric: Reports no additional psychiatric complaints Endocrine: Endocrine: Reports no additional endocrine complaints Hematologic/Lymphatic: Hematologic/Lymphatic: Reports no additional hematologic/lymphatic complaints Allergic/Immunologic: Allergic/Immunologic: Reports no additional allergic/immunologic complaints PMFSH Past Medical History Attestation statement: The following information was validated with the patient. (all information validated with her ) Source: old records reviewed, obtained from family (patient's provided additional history and confirmed the history provided by the patient) and nursing notes reviewed Medical History GERD (gastroesophageal reflux disease) IBS (irritable bowel syndrome) Hyperlipidemia HTN (hypertension) Surgical History S/P cholecystectomy Hx of colonoscopy Family History Family History Mother High blood pressure High cholesterol Throat cancer Sister High blood pressure High cholesterol Cardiovascular disease Asthma Social History Social History Housing: House Patient Tobacco Use Status: Former Tobacco user Smoked in Last 30 Days: No e-Cigarette/Vaping Use: Never Used Use of substances other than those prescribed or required for medical reasons: No Advance Directives: No Advance Directives Information Provided: Yes service: No Current occupational status: 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/ Cognitive needs: No Hearing needs: Yes (hearing aids) Vision needs: Yes (glasses) Physical Exam 2 Vital Signs: Vital Signs: Last Vital Signs Temp 98.2 F 08/13/23 14:11 Pulse 63 08/13/23 15:07 Resp 18 08/13/23 14:11 BP 115/64 08/13/23 15:07 Pulse Ox 98 08/13/23 14:11 O2 Del Method Room Air 08/13/23 14:11 BMI result Body Mass Index 34.5 Const: General: cooperative, no acute distress, alert and awake Nutritional Appearance: well nourished Orientation/consciousness: patient oriented x3 Limitations: no limitations HEENT: Head: Yes normal to inspection and Yes atraumatic Ears: hearing grossly normal bilaterally and external ears normal General nose exam: Normal external nose present, no nasal discharge noted and no epistaxis Face and sinus: Yes normal facial exam, No abrasion and No laceration Mouth: Normal oral and palatal mucosa present, no drooling and no muffled voice Eyes: General: appearance normal, both eyes and all related structures P eriorbital: periorbital findings normal Eyelids: Yes eyelids normal C onjunctivae: conjunctivae normal Pupils: Equal, round and reactive pupils present EOM: EOMs intact bilaterally Neck: Neck: Yes normal visual inspection, Yes full ROM and Yes no lymphadenopathy Chest: Chest palpation & inspection: normal inspection of the chest Resp: Effort & Inspection: normal respiratory effort and able to speak in complete sentences Cardio: Rate: bradycardic Rhythm: regular rhythm GI: Inspection: Yes normal to inspection Neuro: General: patient oriented x3 and moves all extremities Cranial nerves: Yes Equal, round and reactive pupils present Cognition (Neuro): n ormal cognition Motor exam (neuro): 5/5 motor strength present throughout Sensory Exam: Normal double simultaneous stimulation for sensation C oordination: [id number] test normal Extrem: General: Yes normal to inspection, Yes full ROM and Yes capillary refill normal Psych: Appearance: grossly normal Mental Status: mental status grossly normal Affect: normal affect Attitude: cooperative Thought process: N ormal thought process present Thought content: Normal thought content present Insight: Good insight present (Psych) Medications Administered Discontinued Medications Generic Name Dose Route Start Last Admin Trade Name Robq PRN Reason Stop Dose Admin Sodium Chloride 1,000 mls @ 999 mls/hr 08/13/23 12:30 08/13/23 14:17 Ns IV 08/13/23 13:30 Infused .Q1H1M RAJIV Infusion Sodium Chloride 1,000 mls @ 999 mls/hr 08/13/23 13:15 08/13/23 14:22 Ns IV 08/13/23 14:15 999 mls/hr .Q1H1M RAJIV Administration Iohexol 80 ml 08/13/23 13:21 08/13/23 13:22 Iohexol 350 Mg/Ml 100 Ml Infus..Btl IV 08/13/23 13:22 80 ml ONCE ONE Administration Morphine Sulfate 4 mg 08/13/23 11:59 08/13/23 12:06 Morphine Sulfate 4 Mg/Ml Cartridge IVPUSH 08/13/23 12:00 4 mg ONCE ONE Administration Protocol Ondansetron HCl 4 mg 08/13/23 11:59 08/13/23 12:06 Ondansetron Hcl 4 Mg/2 Ml Vial IVPUSH 08/13/23 12:00 4 mg ONCE ONE Administration Medical Decision Making Medical Decision Making [facility] Narrative: Patient is a 67 year old assigned female at with a history of HTN, HLD, and family hx of CAD at 52, presenting to the emergency department today with back pain that radiated to the epigastric area. Patient's physical exam was as noted in the physical exam portion of this note. Patient's blood work was unremarkable. Patient's initial EKG was unremarkable. Patient's chest x-ray showed no acute process. During her time in the department, the patient began to have another episode of very sharp epigastric pain. During that time, her heart rate decreased as low as 29 and her blood pressure dropped significantly. Patient's repeat EKG showed bradycardia. Patient reported severe pain and feeling warm. At that point, I obtained imaging of the entire aorta. Patient's CT chest and abdomen/pelvis showed no acute process. Patient's symptoms resolved on their own. Given the patient's personal history and family history, patient should be admitted for at least observation. I spoke with cardiology who had no additional recommendations. I spoke with the hospitalist team who agreed to admission. I explained my physical exam findings as well as all test results to the patient and the patient's . I answered all questions asked by the patient and the patient's . Patient and the patient's verbalized agreement and understanding with this treatment plan and admission. Differential Diagnosis Differential Diagnoses: The differential diagnosis associated with the presentation includes Vasovagal episode / attack ACS NSTEMI STEMI Esophageal spasm Bradycardia Admission/Observation Consideration of admission/observation: Escalation of care including admission/observation considered Patient admitted Consult Healthcare Provider Management of the patient was discussed with: Hospitalist (agreed to admission as noted in the MDM Rationale portion of this note.) and Leather Colorer (spoke to the cardiology team as noted in the MDM Rationale portion of this note.) Lab Data [facility] Lab Attestation statement: I reviewed the patient's lab results. My interpretation of these results are in the MDM Rationale portion of this note. 08/13/23 11:40 08/13/23 11:40 Labs: Lab Results 08/13/23 08/13/23 08/13/23 Range/Units 11:40 12:40 14:12 WBC 8.3 (4.8-10.8) X10*3/uL RBC 4.01 L (4.20-5.50) X10*6/uL Hgb 11.8 L (12.0-16.0) g/dl Hct 35.5 L (37.0-47.0) % MCV 88.5 (80.0-98.0) fL MCH 29.4 (27.0-33.0) pg MCHC 33.2 (31.0-35.0) g/dl RDW 12.8 (11.0-16.0) % Plt Count 256 (160-400) X10*3/uL MPV 10.8 (9.4-12.3) fL Immature Gran % (Auto) 0.4 (0.0-0.4) % Neut % (Auto) 46.8 (45-73) % Lymph % (Auto) 27.9 (20-40) % [place] % (Auto) 7.9 (2-11) % Eos % (Auto) 16.4 H (0-4) % Baso % (Auto) 0.6 (0-2) % Lymph # (Auto) 2.3 (1.2-4.9) X10*3/uL [place] # (Auto) 0.7 (0.1-1.2) X10*3/uL Eos # (Auto) 1.4 H (0.0-0.4) X10*3/uL Baso # (Auto) 0.1 (0.0-0.2) X10*3/uL Abs Immat Gran (auto) 0.03 (0.00-0.03) X10*3/uL Absolute Neuts (auto) 3.9 (2.0-8.3) x10*3/uL Absolute Nucleated RBC 0.000 (0.0-0.012) X10*3/uL Nucleated RBC % (auto) 0.0 (0.0-0.2) /100WBC PT 11.4 (11.1-13.3) SEC INR 0.9 (0.9-1.1) APTT 35.3 (26.0-36.8) SEC Sodium 140 (135-145) mmol/L Potassium 4.2 (3.3-5.1) mmol/L Chloride 108 (96-108) mmol/L Carbon Dioxide 21 L (22-29) mmol/L Anion Gap 15 (12-20) BUN 26 H (9-16) mg/dL Creatinine 1.10 (0.5-1.4) mg/dL Estim Creat Clear Calc 55.0 Estimated GFR 50 Random Glucose 92 (60-115) mg/dL Calcium 10.0 (8.4-10.2) mg/dL Magnesium 1.8 (1.6-2.6) mg/dL Total Bilirubin 0.4 (0.0-1.0) mg/dL Direct Bilirubin 0.1 (0.0-0.5) mg/dL AST 22 (5-31) U/L ALT 19 (0-31) U/L Alkaline Phosphatase 75 (39-117) U/L Troponin I High Sens < 2.7 < 2.7 < 2.7 (<3.5-17.0) ng/L B-Natriuretic Peptide 11 (<100) pg/mL Total Protein 8.3 H (6.5-8.0) g/dL Albumin 4.3 (3.5-5.0) g/dL Lipase 32 (8-78) U/L Independent Interpretation I performed an independent interpretation of an: EKG, Plain X-Ray and CT Scan Interpretation: My interpretation is in agreement with the radiologist's impression of these imaging studies. - EXAMINATION: XR CHEST CLINICAL INFORMATION: Chest pain COMPARISON: None available. TECHNIQUE: Frontal view of the chest was obtained. FINDINGS: No significant abnormality is noted involving the heart, lungs, mediastinum, bony thorax or soft tissues. XR/XR chest 1V IMPRESSION: Unremarkable chest examination. Dictated By: Jun Todd MD Signed By: Electronically signed by Jun Todd MD 08/13/23 1239 - EXAMINATION: CT ANGIOGRAM OF THE CHEST, ABDOMEN AND PELVIS WITHOUT AND WITH CONTRAST CLINICAL INFORMATION: tearing sensation in chest COMPARISON: CT abdomen and pelvis 02/16/2023 TECHNIQUE: Multidetector volumetric CT imaging of the chest, abdomen, and pelvis was performed before and after the administration of 80 mL of Omnipaque 350 intravenous contrast without immediate adverse reactions. 3D POSTPROCESSING: Multiple 3-D angiographic images were processed from the initial data set by the [facility] under concurrent physician supervision. DOSE LOWERING TECHNIQUES: This CT examination was performed using dose optimization techniques as appropriate, variously including the following: - Automated exposure control - Adjustment of mA and/or kV according to patient size (this includes techniques or standardized protocols for targeted exams where dose is matched to indication/reason for exam; i.e. extremities or head) - Use of iterative reconstruction technique DLP: 681 mGy-cm. FINDINGS: VASCULAR: ASCENDING AORTA: Normal in caliber. No aortic dissection. AORTIC ARCH: Three-vessel aortic arch. No aortic dissection. SUPRAAORTIC VESSELS: Patent and normal in caliber HEART AND PULMONARY VESSELS: The heart is normal in size. The coronary arteries are patent with no calcification. The pulmonary arteries are normal in caliber. No large, central pulmonary embolus. DESCENDING AORTA: Normal in caliber. No aortic dissection. ABDOMINAL AORTA: Normal in caliber. No aortic dissection. CELIOMESENTERIC ARTERIES: The celiac artery is patent and caliber. The SMA is patent and normal in caliber. The MALU is patent. RENAL ARTERIES: Patent bilateral renal arteries. RIGHT ILIOFEMORAL ARTERIES: Patent and normal in caliber LEFT ILIOFEMORAL ARTERIES: Patent and normal in caliber NONVASCULAR: LUNGS: Mild centrilobular emphysema. Subsegmental atelectasis in the lung bases. MEDIASTINUM: The mediastinum is normal. PLEURA: There is no pleural effusion. No pleural mass or thickening. LIVER AND BILIARY TREE: The liver is normal in size, shape, and attenuation. No focal hepatic lesion or biliary ductal dilatation is present. GALLBLADDER: Surgically absent. PANCREAS: Unremarkable. SPLEEN: Unremarkable. ADRENAL GLANDS: Unremarkable. KIDNEYS AND URETERS: The kidneys are normal in size, shape, and attenuation. No hydronephrosis, hydroureter, or calculi seen. No perinephric stranding. BLADDER: Unremarkable. GASTROINTESTINAL TRACT: Colonic diverticulosis without evidence of diverticulitis. The large and small bowel are normal in caliber. ABDOMINAL WALL: No significant hernia is appreciated. LYMPH NODES: Normal. PELVIC VISCERA: Unremarkable. OSSEOUS STRUCTURES: Unremarkable. CT/CT angio abdomen pelvis IMPRESSION: No aortic dissection. Dictated By: Denys Chapman MD Signed By: Electronically signed by Denys Chapman MD 08/13/23 1341 - Vent. Rate: 067 BPM Atrial Rate: 067 BPM P-R Int: 204 ms QRS Dur: 082 ms QT Int: 402 ms P-R-T Axes: 027 023 052 degrees QTc Int: 424 ms Normal sinus rhythm Normal ECG No previous ECGs available DD/ 1132 - Vent. Rate: 044 BPM Atrial Rate: 044 BPM P-R Int: 168 ms QRS Dur: 078 ms QT Int: 492 ms P-R-T Axes: 052 040 056 degrees QTc Int: 420 ms Marked sinus bradycardia Low voltage QRS Abnormal ECG When compared with ECG of 13-AUG-2023 11:32, Vent. rate has decreased BY 23 BPM DD/ 1243 Radiology Impression Discussion of test interpretation with radiology: I have reviewed the radiologist's reading. Independent Historian Clinical information obtained from an independent historian. History obtained from or confirmed by: Spouse (patient's provided additional history and confirmed the history provided by the patient) Chronic Conditions Patient?s care impacted by: Hypertension and Other (HLD) Critical Care Time Critical Care Time Critical Care Time: Yes Total Critical Care Time: 78 Attestation: I spent 78 minutes of Critical Care Time with this patient. This does not include time spent on separately reported billable procedures. Discharge Plan Discharge Clinical Impression: Epigastric pain, Bradycardia, Hypotension, unspecified Patient Disposition: Admitted As Inpatient Prescriptions: No Action calcium 500 mg Tablet omeprazole 20 mg Capsule,Delayed Release(Dr/Ec) 20 mg PO DAILY losartan 100 mg Tablet 100 mg PO DAILY dicyclomine 10 mg Capsule 10 mg PO BID cholecalciferol (vitamin D3) [Vitamin D3] 25 mcg (1,000 unit) Capsule 25 mcg PO DAILY gemfibrozil 600 mg tablet 600 mg PO BID simvastatin 20 mg tablet 10 mg PO BEDTIME
[2023-08-13 12:03] LABS: Alanine Aminotransferase 19 U/L (0-31); Albumin Level 4.3 g/dL (3.5-5.0); Alkaline Phosphatase 75 U/L (39-117); Anion Gap 15 (12-20); Aspartate Amino Transferase 22 U/L (5-31); Bilirubin Direct 0.1 mg/dL (0.0-0.5); Bilirubin Total 0.4 mg/dL (0.0-1.0); Blood Urea Nitrogen 26 mg/dL (9-16); Carbon Dioxide 21 mmol/L (22-29); Chloride 108 mmol/L (96-108); Estimated Glomerular Filt Rate 50; Glucose Random 92 mg/dL (60-115); Magnesium 1.8 mg/dL (1.6-2.6); Potassium 4.2 mmol/L (3.3-5.1); Sodium 140 mmol/L (135-145); Total Protein 8.3 g/dL (6.5-8.0)
[2023-08-13] MEDS: Morphine Sulfate 4 MG/ML CARTRIDGE IVPUSH (12:06)
[2023-08-13] MEDS: ondansetron HCL 4 MG/2 ML VIAL IVPUSH (12:06)
[2023-08-13 12:08] LABS: B Type Natriuretic Peptide 11 pg/mL (<100)
[2023-08-13 12:19] LABS: Troponin-I High Sensitivity < 2.7 ng/L (<3.5-17.0)
--- NOTE | 2023-08-13 12:41 | ECG_ITS ---
Test Reason : repeat Blood Pressure : / mmHG Vent. Rate : 044 BPM Atrial Rate : 044 BPM P-R Int : 168 ms QRS Dur : 078 ms QT Int : 492 ms P-R-T Axes : 052 040 056 degrees QTc Int : 420 ms Marked sinus bradycardia Low voltage QRS Abnormal ECG When compared with ECG of 13-AUG-2023 11:32, Vent. rate has decreased BY 23 BPM Referred By: Marybeth Yo Electronically Signed By:KEKE WALLS MD
[2023-08-13 12:43] LABS: Lipase 32 U/L (8-78)
[2023-08-13] MEDS: 0.9 % Sodium Chloride 1,000 ML 999 ML IV ×2 (12:45→14:22)
--- NOTE | 2023-08-13 12:48 | PC.NURSE ---
Patient with sudden onset of bradycardia and hypotension. provider at bedside to assess patient.
--- NOTE | 2023-08-13 12:51 | PC.NURSE ---
Patient alert and responsive, reports felt like she was on fire but is now starting to feel like she is cooling off. Provider aware of continued hypotension and bradycardia
[2023-08-13 12:53] LABS: INTERNATIONAL NORM RATIO 0.9 (0.9-1.1); Prothrombin Time 11.4 SEC (11.1-13.3)
[2023-08-13 12:55] LABS: Partial Thromboplastin Time 35.3 SEC (26.0-36.8)
[2023-08-13] MEDS: iohexoL 350 MG/ML 100 ML INFUS..BTL 80 ML IV (13:22)
[2023-08-13 13:41] LABS: Troponin-I High Sensitivity < 2.7 ng/L (<3.5-17.0)
[2023-08-13 14:47] LABS: Troponin-I High Sensitivity < 2.7 ng/L (<3.5-17.0)
--- NOTE | 2023-08-13 15:26 | PHA.MEDREC ---
Pharmacy Consult ? Medication Reconciliation Pharmacy has completed the medication reconciliation. Patient reported medications, reports that she had an ingrown toe nail removed and is using tripe antibotic. Annel Griffin, [facility]
--- NOTE | 2023-08-13 16:08 | P.HPHOSP_ITS ---
History of Present Illness Date of Service: 08/13/23 Attending physician on admission: Sara Garcia Chief Complaint: chest pain 67 year old female with history of hld, htn, gerd, barretts esophagus, MICHI, prediabetes, osteopenia who is obese presented to the ED earlier today for evaluation of severe periscapular pain radiating around to the chest that started earlier this morning. She states she has a normal breakfast (scrambled eggs with pepers, onions and coffee which is standard for her) and then several hours later was seated on her computer at the onset of her pain. States this continued for about 3 hours and persisted even while in the ED waxing and waning in severity. States pain was worse than when she delivered a breech baby without analgesia. Described a tight squeezing pain with an intense burning in the chest. No associated symptoms including lightheadedness, sob, nausea, vomiting, epigastric pain, diaphoresis, syncope. Had a similar but much less severe episodes (described as discomfort) about 1 week ago that was fleeting. Does states she she began exercising yesterday with her after a long hiatus. Reports doing cardio, no weights. No fevers, chills, cough, diarrhea, urinary issues, recent illness. Currently reports a 2/10 pain following iv morphine. Has no known history of cvd but does have family history of mi in her father at age 47. No sudden cardiac . On arrival, vss including blood pressure. During an episode of severe pain while in the ED, blood pressure noted to drop to 70s/30s with HR in the 20s which improved spontaneously without intervention. During this period, no sob, lightheadedness, syncope, confusion. Orthostatic VS negative. Hematology studies unremarkable except for mild normocytic anemia. Renal function baseine, lytes normal. Trop undetectable, bnp 11. CTA chest and abdomen unremarkable- no aneurysm or dissection. No osseous abnormality. UA pending. In the ED, received 2L IVF, morphine, zofran. She will be observed overnight for severe pain of unclear etiology with vasovagal hypotension/bradycardia. Review of Systems 2 Review of Systems: General: No fevers, malaise, unintentional weight loss HEENT: No blurred vision, diplopia. No sore throat, nasal congestion, rhinorrhea, sinus pain, ear pain Cardiovascular: +chest pain. No palpitations, or leg edema Respiratory: No shortness of breath, wheezing, cough GI: No abdominal pain, nausea, vomiting, diarrhea, constipation, melena, hematochezia : No dysuria, hematuria, increased urinary frequency, decreased urinary output MSK: No myalgia. +back pain Neuro: No headaches, weakness, paresthesias Skin: No rashes or lesions [facility] Medical History Pre-diabetes Adams esophagus GERD (gastroesophageal reflux disease) IBS (irritable bowel syndrome) Hyperlipidemia HTN (hypertension) Family History Mother High blood pressure High cholesterol Throat cancer Sister High blood pressure High cholesterol Cardiovascular disease Asthma Surgical History S/P cholecystectomy Hx of colonoscopy Social History Housing: House Patient Tobacco Use Status: Former Tobacco user e-Cigarette/Vaping Use: Never Used service: No Current occupational status: 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/ Cognitive needs: No Hearing needs: Yes (hearing aids) Vision needs: Yes (glasses) Meds Allergies Allergy/AdvReac Type Severity Reaction Status Date / Time Penicillins [PCN] Allergy Unknown Verified 08/06/23 14:06 red dye Allergy Unknown Verified 08/06/23 14:06 Sulfa (Sulfonamide Allergy Unknown Verified 08/06/23 14:06 Antibiotics) acetaminophen AdvReac Mild Migraine Verified 08/06/23 14:06 12 hr nasal spray Allergy Unknown Uncoded 08/06/23 14:06 novocaine AdvReac Intermediate tachycardia Uncoded 08/06/23 14:06 Active Medications: Current Medications Acetaminophen (Acetaminophen 325 Mg Tablet) 650 mg PO Q6H PRN PRN Reason: Pain, Mild (Pain Scale 1-3) Enoxaparin Sodium (Enoxaparin Sodium 40 Mg/0.4 Ml Syringe) 40 mg SUBCUT Q24H RAJIV Ondansetron HCl (Ondansetron Hcl 4 Mg/2 Ml Vial) 4 mg IVPUSH Q8H PRN PRN Reason: Nausea and Vomiting Senna (Sennosides 8.6 Mg Tablet) 17.2 mg PO BEDTIME PRN PRN Reason: Constipation Sodium Chloride (0.9 % Sodium Chloride Flush 3 Ml Syringe) 3 ml IVFLUSH QSHIFT [facility] Home Medications Medication Instructions Recorded Confirmed Last Taken Type cholecalciferol (vitamin D3) 25 50 mcg PO BEDTIME 05/22/21 08/13/23 08/12/23 History mcg (1,000 unit) capsule (Vitamin D3) dicyclomine 10 mg capsule 10 mg PO BID 05/22/21 08/13/23 08/13/23 History losartan 100 mg tablet 100 mg PO DAILY 05/22/21 08/13/23 08/13/23 History omeprazole 20 mg capsule,delayed 20 mg PO DAILY 05/22/21 08/13/23 08/13/23 History release gemfibrozil 600 mg tablet 600 mg PO BID 05/08/23 08/13/23 08/13/23 History simvastatin 20 mg tablet 10 mg PO BEDTIME 05/08/23 08/13/23 08/12/23 History calcium carbonate 500 mg/5 mL 500 mg PO BEDTIME 08/13/23 08/13/23 08/12/23 History calcium (1,250 mg/5 mL) oral suspension neomycin-bacitracn Zn-polymyx 3.5 1 appl topical BEDTIME RIGHT TOE 08/13/23 08/13/23 Unknown History mg-400 unit-5,000 unit/gram top oint (Triple Antibiotic) Physical Exam 2 Vital Signs and Narrative: Vital Signs: Last Vital Signs Temp 98.2 F 08/13/23 14:11 Pulse 63 08/13/23 15:07 Resp 18 08/13/23 14:11 BP 115/64 08/13/23 15:07 Pulse Ox 98 08/13/23 14:11 O2 Del Method Room Air 08/13/23 14:11 BMI result Body Mass Index 34.5 Constitutional - Awake and Alert, No apparent distress Eyes - PERRLA, EOMI Cardiovascular - S1S2, RRR, No edema Chest - mild reproducible ttp over fab sternum Respiratory - Normal lung expansion, Normal respiratory effort, No respiratory distress, CTA bilaterally Gastrointestinal - NT / ND; +BS; No rebound or guarding Extremities - no calf tenderness bilaterally, no swelling Musculoskeletal - no midline thoracic back pain or paraspinal ttp. no scapular winging Skin - Warm/Dry Neurological - Alert & oriented x3, 5/5 strength BUE Psychological - Appropriate affect Results Labs 08/14/23 04:17 08/14/23 04:17 Labs: Laboratory Results - last 24 hr 08/13/23 08/13/23 08/13/23 11:40 12:40 14:12 MCV 88.5 MCH 29.4 MCHC 33.2 RDW 12.8 Plt Count 256 MPV 10.8 Immature Gran % (Auto) 0.4 Neut % (Auto) 46.8 Lymph % (Auto) 27.9 Ramsey % (Auto) 7.9 Eos % (Auto) 16.4 H Baso % (Auto) 0.6 Lymph # (Auto) 2.3 Ramsey # (Auto) 0.7 Eos # (Auto) 1.4 H Baso # (Auto) 0.1 Abs Immat Gran (auto) 0.03 Absolute Neuts (auto) 3.9 Absolute Nucleated RBC 0.000 Nucleated RBC % (auto) 0.0 PT 11.4 INR 0.9 APTT 35.3 Anion Gap 15 Estim Creat Clear Calc 55.0 Estimated GFR 50 Random Glucose 92 Calcium 10.0 Magnesium 1.8 Total Bilirubin 0.4 Direct Bilirubin 0.1 AST 22 ALT 19 Alkaline Phosphatase 75 Troponin I High Sens < 2.7 < 2.7 < 2.7 B-Natriuretic Peptide 11 Total Protein 8.3 H Albumin 4.3 Lipase 32 Imaging Radiologist's Impressions: Impressions Chest X-Ray 08/13/23 11:50 IMPRESSION: Unremarkable chest examination. Abdomen/Pelvis CTA 08/13/23 13:22 IMPRESSION: No aortic dissection. Chest CTA 08/13/23 13:22 IMPRESSION: No aortic dissection. Assessment and Plan (1) Chest pain: Status: Acute (2) Hypotension, unspecified: Status: Acute (3) Bradycardia: Status: Acute Plan 67 year old female with history of hld, htn, gerd, barretts esophagus, MICHI, prediabetes, osteopenia who is obese to be observed for severe pain of unclear etiology with vasovagal hypotension/bradycardia #Hypotension/bradycardia -suspect vasovagal in etiology related to severe pain -vitals stable on admission. orthostatics negative -monitor on tele -cardiology consult #Severe periscapular/chest pain -CTA chest and abd negative for aortic dissection, osseous abnormality. No radiographic evidence to explain patients pain -?unstable angina vs musculoskeletal pain vs esophageal spasm/barretts esophagus -trop undetectable -initial ekg nsr, rate [address]/t wave abnormality. Repeat showed marked sinus bradycardia, rate 44, no st/t wave abnormality -increase omeprazole to 20mg BID -cardiology consult. No intervention at this time per cardiology -monitor on telemetry #GERD/Barretts esophagus -increase omeprazole 20mg bid #htn -hold losartan for now given hypotension episode. bp reasonably controlled #HLD -continue statin/gemfibrozil #MICHI -not on cpap dvt prophylaxis- lovenox full code Quality Stroke Does the patient have a stroke diagnosis?: No VTE Prior VTE?: No VTE Risk Level:: Medical - moderate - high VTE Device Contraindication: Treatment Not Indicated VTE Drug Contraindication: N/A - Med Ordered
[2023-08-13 16:30] LABS: Appearance Urine Clear; Color Urine Yellow; Glucose Urine UA Negative (Negative); Leukocyte Esterase Urine Negative (Negative); Nitrite Urine Negative (Negative); PH 5.5 (5.0-9.0); Specific Gravity - Urine >= 1.030 (1.005-1.025); Urine Blood Negative (Negative); Urine Ketones Negative (Negative); Urine Protein Negative (Neg-Trace)
[2023-08-13] MEDS: Enoxaparin Sodium 40 MG/0.4 ML SYRINGE SUBCUT (17:57)
[2023-08-13] MEDS: Atorvastatin Calcium 10 MG TABLET PO (20:15)
[2023-08-13] MEDS: Cholecalciferol (Vitamin D3) 25 MCG TABLET 50 MCG PO (20:15)
[2023-08-13] MEDS: Dicyclomine HCl 10 MG CAPSULE PO (20:15)
--- NOTE | 2023-08-14 | CA_ITS ---
Acquisition Time: 2023-08-14 10:20:53 Total Exercise Time: 00:05:00 Test Indications: CHEST PAIN, Hypotension Medications: SEE MED CHART Protocol: FERDI Max HR: 142 BPM 92% of Pred: 154 BPM Max BP: 140/084 mmHG Max Work Load: 4.6 METS Exercise stress test exercise 5 min of Fredi protocol stage 1 achieving 92% MPHR (85% by 2 mins exercise) with mild to moderate SOB, no chest discomfort, without arrhythmias, with normotensive response to exercise, without EKG changes. Breathing returned to baseline. Test reviewed with Dr. Kevin Referred By: Jason Kevin Overread By: Gisselle Lang
--- NOTE | 2023-08-14 03:54 | PC.NURSE ---
67 year old female c/o uper back and chest pain that started this am 08/13/23 and continued for 3 hours. [place] tight and burning . She at first thought that it was because she just started to exercise. PMH : HLD, GERD, MICHI. pre diabetes, osteopenia. Pt became hypotensive and maulik while in ED but improved spontaneously and suspected to be vaso vagal. CTA- wnl. Trop- 2.7, negative orthos, . Plan cardio consult, monitor on tele, observe and hold HTN meds at this time. Pt a/ox4 and ambulatory
[2023-08-14 05:21] LABS: MANUAL DIFF FLAG NO
[2023-08-14 05:24] LABS: Basophils Absolute Auto 0.1 X10*3/uL (0.0-0.2); Basophils Percent Auto 0.8 % (0-2); Eosinophils Absolute Auto 1.1 X10*3/uL (0.0-0.4); Eosinophils Percent Auto 15.2 % (0-4); Hematocrit 33.2 % (37.0-47.0); Hemoglobin 10.9 g/dl (12.0-16.0); Imm Gran Abs Auto 0.01 X10*3/uL (0.00-0.03); Imm Gran Pct Auto 0.1 % (0.0-0.4); Lymphocytes Absolute Auto 2.7 X10*3/uL (1.2-4.9); Mean Corpuscular HGB Conc 32.8 g/dl (31.0-35.0); Mean Corpuscular Hemoglobin 29.5 pg (27.0-33.0); Monocytes Absolute Auto 0.5 X10*3/uL (0.1-1.2); Monocytes Percent Auto 6.5 % (2-11); Neutrophils Absolute Auto 3.1 x10*3/uL (2.0-8.3); Neutrophils Percent Auto 41.4 % (45-73); Platelet Count 237 X10*3/uL (160-400); Red Blood Count 3.69 X10*6/uL (4.20-5.50); Red Cell Distribution Width 12.9 % (11.0-16.0); White Blood Count 7.4 X10*3/uL (4.8-10.8)
[2023-08-14 05:39] LABS: Anion Gap 13 (12-20); Blood Urea Nitrogen 20 mg/dL (9-16); Carbon Dioxide 20 mmol/L (22-29); Chloride 112 mmol/L (96-108); Estimated Glomerular Filt Rate > 60; Glucose Random 83 mg/dL (60-115); Potassium 3.7 mmol/L (3.3-5.1); Sodium 141 mmol/L (135-145)
[2023-08-14 06:04] VITALS: BP 117/58; PULSE 71; RESP 17; TEMP 36.6; O2SAT 95
[2023-08-14] MEDS: Omeprazole 20 MG CAPSULE.DR PO (06:05)
[2023-08-14 08:47] VITALS: BP 110/60; PULSE 66; RESP 20; TEMP 36.6; O2SAT 100
--- NOTE | 2023-08-14 09:04 | MHC.CM.PN ---
CM MET WITH PT AND AT BEDSIDE PT LIVES AT HOME AND IS INDEPENDENT WITH CARE SHE HAS NO SERVICES AND A CPAP FOR DME SHE SAYS SHE HAS A HCP COMPLETED NAMING HER HER AGENT, COPY REQUESTED PCP: JENNIFER MARTINES OBSERVATION NOTICE DELIVERED DCP: HOME NO SERVICES VIA PRIVATE TRANSPORT
--- NOTE | 2023-08-14 11:18 | PM.CNCAR ---
History of Present Illness History of Present Illness Date of Service: 08/14/23 Requesting physician: Sara Garcia Consult reason: chest pain Chief complaint: Vasovagal episode, chest pain Narrative: I was consulted to see Vika in cardiology consultation today as she developed severe chest pain syndrome yesterday and while having chest pain syndrome yesterday while in the emergency room developed bradycardia and hypertensive response which is suggestive of vagal response. Patient is a pleasant 67-year-old female with prior history of hypertension, hyperlipidemia, prediabetes as well as acid reflux disease with Adams's esophagus. Patient with usual state of health yesterday and while he was at home developed back pain in the interscapular area which was quite severe but she thought that this was musculoskeletal but the pain then started getting worse and then she started having pain radiating to the front of the chest a severe chest pressure 10/10 in severity. Patient subsequently developed not feeling well. The was at her side and he notice that she was getting diaphoretic and pale. Patient therefore came to the emergency room and described pain as being worse pain the pain had kind of relieved but continued even through morphine. Patient and subsequent level another severe pain in the emergency room and became hypotensive and bradycardic and pale and diaphoretic. She was therefore admitted. Her troponins have been less than 2.7. EKG did not show any acute ischemic changes even when she was bradycardic and hypotensive. She subsequently because of her pain underwent a CTA of aorta which showed no evidence of dissection. Cardiology consult was sought because of her chest pain syndrome and vasovagal response. Patient is feeling better but having some mild discomfort today. She says she has never had pain like this before in her life. She was concerned about heart attack pain due to family history as well as her risk factors. Review of Systems Constitutional: Constitutional: Reports no additional constitutional complaints Eyes: Eyes: Reports no additional eye complaints Cardiovascular: Cardiovascular: Reports chest pain at rest, Denies chest pain with activity, Reports diaphoresis, Denies leg edema, Denies lightheadedness, Denies Loss of Consciousness, Denies palpitations and Denies dyspnea on exertion Respiratory: Respiratory: Reports no additional respiratory complaints and Denies dyspnea on exertion Genitourinary: Genitourinary: Reports no additional female genitourinary complaints Musculoskeletal: Musculoskeletal: Reports no additional musculoskeletal complaints Integumentary/Breasts: Skin/Breast: Reports system reviewed and no additional complaints, except as docu Neurologic: Reports system reviewed and no additional complaints, except as documented Psychiatric: Psychiatric: Reports no additional psychiatric complaints Endocrine: Endocrine: Reports no additional endocrine complaints and Denies palpitations PMFSH Past Medical History Medical History Pre-diabetes Adams esophagus GERD (gastroesophageal reflux disease) IBS (irritable bowel syndrome) Hyperlipidemia HTN (hypertension) Family History Family History Mother High blood pressure High cholesterol Throat cancer Sister High blood pressure High cholesterol Cardiovascular disease Asthma Surgical History Surgical History S/P cholecystectomy Hx of colonoscopy Social History Social History Housing: House Patient Tobacco Use Status: Former Tobacco user Smoked in Last 30 Days: No e-Cigarette/Vaping Use: Never Used Use of substances other than those prescribed or required for medical reasons: No Advance Directives: No Advance Directives Information Provided: Yes Nutrition Risks: No Nutritional Risk service: No Current occupational status: 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/ Cognitive needs: No Hearing needs: Yes (hearing aids) Vision needs: Yes (glasses) Meds Allergies Allergy/AdvReac Type Severity Reaction Status Date / Time Penicillins [PCN] Allergy Unknown Verified 08/06/23 14:06 red dye Allergy Unknown Verified 08/06/23 14:06 Sulfa (Sulfonamide Allergy Unknown Verified 08/06/23 14:06 Antibiotics) acetaminophen AdvReac Mild Migraine Verified 08/06/23 14:06 12 hr nasal spray Allergy Unknown Uncoded 08/06/23 14:06 novocaine AdvReac Intermediate tachycardia Uncoded 08/06/23 14:06 Active Medications: Current Medications Acetaminophen (Acetaminophen 325 Mg Tablet) 650 mg PO Q6H PRN PRN Reason: Pain, Mild (Pain Scale 1-3) Atorvastatin Calcium (Atorvastatin Calcium 10 Mg Tablet) 10 mg PO BEDTIME [facility] Last Admin: 08/13/23 20:15 Dose: 10 mg Dicyclomine HCl (Dicyclomine Hcl 10 Mg Capsule) 10 mg PO BID [facility] Last Admin: 04/02/24 20:15 Dose: 10 mg Enoxaparin Sodium (Enoxaparin Sodium 40 Mg/0.4 Ml Syringe) 40 mg SUBCUT Q24H [facility] Last Admin: 08/13/23 17:57 Dose: 40 mg Gemfibrozil (Gemfibrozil 600 Mg Tablet) 600 mg PO BID [facility] Last Admin: 08/13/23 21:00 Dose: Not Given Neomycin/Polymyxin/Bacitracin (Neomy/Polymyx/Bacit/Ointment 14 Gm Tube) 1 gm TOPICAL BEDTIME [facility]; Protocol Last Admin: 08/13/23 21:00 Dose: Not Given Omeprazole (Omeprazole 20 Mg Capsule.Dr) 20 mg PO BID@0630,1630 [facility] Last Admin: 08/14/23 06:05 Dose: 20 mg Ondansetron HCl (Ondansetron Hcl 4 Mg/2 Ml Vial) 4 mg IVPUSH Q8H PRN PRN Reason: Nausea and Vomiting Senna (Sennosides 8.6 Mg Tablet) 17.2 mg PO BEDTIME PRN PRN Reason: Constipation Sodium Chloride (0.9 % Sodium Chloride Flush 3 Ml Syringe) 3 ml IVFLUSH QSHIFT [facility] Last Admin: 08/14/23 08:07 Dose: Not Given Vitamin D (Cholecalciferol (Vitamin D3) 25 Mcg Tablet) 50 mcg PO BEDTIME [facility] Last Admin: 08/13/23 20:15 Dose: 50 mcg Home Medications Medication Instructions Recorded Confirmed Last Taken Type cholecalciferol (vitamin D3) 25 50 mcg PO BEDTIME 05/22/21 08/13/23 08/12/23 History mcg (1,000 unit) capsule (Vitamin D3) dicyclomine 10 mg capsule 10 mg PO BID 05/22/21 08/13/23 08/13/23 History losartan 100 mg tablet 100 mg PO DAILY 05/22/21 08/13/23 08/13/23 History omeprazole 20 mg capsule,delayed 20 mg PO DAILY 05/22/21 08/13/23 08/13/23 History release gemfibrozil 600 mg tablet 600 mg PO BID 05/08/23 08/13/23 08/13/23 History simvastatin 20 mg tablet 10 mg PO BEDTIME 05/08/23 08/13/23 08/12/23 History calcium carbonate 500 mg/5 mL 500 mg PO BEDTIME 08/13/23 08/13/23 08/12/23 History calcium (1,250 mg/5 mL) oral suspension neomycin-bacitracn Zn-polymyx 3.5 1 appl topical BEDTIME RIGHT TOE 08/13/23 08/13/23 Unknown History mg-400 unit-5,000 unit/gram top oint (Triple Antibiotic) Physical Exam Vital Signs: Vital Signs: Last Vital Signs Temp 97.9 F 08/14/23 08:47 Pulse 66 08/14/23 08:47 Resp 20 08/14/23 08:47 BP 110/60 08/14/23 08:47 Pulse Ox 100 08/14/23 08:47 O2 Del Method Room Air 08/14/23 08:47 BMI result Body Mass Index 34.5 Const: General: cooperative, comfortable, no acute distress, alert, awake and Physically active Nutritional Appearance: obese Orientation/consciousness: patient oriented x3 Limitations: no limitations HEENT: Head: Yes normocephalic and Yes atraumatic Neck: Neck: Yes trachea midline, Yes supple and Yes no JVD Carotids: no bruits Resp: Effort & Inspection: normal respiratory effort Auscultation: clear to auscultation bilaterally GI: Auscultation: normal bowel sounds Skin: General skin exam: no rashes or lesions noted Neuro: General: patient oriented x3 and no focal motor deficits Extrem: General: Yes no clubbing, cyanosis or edema Psych: Appearance: grossly normal Objective Labs and Meds 08/14/23 04:17 08/14/23 04:17 Lab results: Laboratory Results - last 24 hr 08/13/23 08/13/23 08/13/23 11:40 12:40 14:12 WBC 8.3 RBC 4.01 L Hgb 11.8 L Hct 35.5 L MCV 88.5 MCH 29.4 MCHC 33.2 RDW 12.8 Plt Count 256 MPV 10.8 Immature Gran % (Auto) 0.4 Neut % (Auto) 46.8 Lymph % (Auto) 27.9 [place] % (Auto) 7.9 Eos % (Auto) 16.4 H Baso % (Auto) 0.6 Lymph # (Auto) 2.3 [place] # (Auto) 0.7 Eos # (Auto) 1.4 H Baso # (Auto) 0.1 Abs Immat Gran (auto) 0.03 Absolute Neuts (auto) 3.9 Absolute Nucleated RBC 0.000 Nucleated RBC % (auto) 0.0 PT 11.4 INR 0.9 APTT 35.3 Sodium 140 Potassium 4.2 Chloride 108 Carbon Dioxide 21 L Anion Gap 15 BUN 26 H Creatinine 1.10 Estim Creat Clear Calc 55.0 Estimated GFR 50 Random Glucose 92 Calcium 10.0 Magnesium 1.8 Total Bilirubin 0.4 Direct Bilirubin 0.1 AST 22 ALT 19 Alkaline Phosphatase 75 Troponin I High Sens < 2.7 < 2.7 < 2.7 B-Natriuretic Peptide 11 Total Protein 8.3 H Albumin 4.3 Lipase 32 TSH 1.10 Urine Color Urine Appearance Urine pH Ur Specific [place] Urine Protein Urine Glucose (UA) Urine Ketones Urine Blood Urine Nitrite Ur Leukocyte Esterase 08/13/23 08/14/23 16:17 04:17 WBC 7.4 RBC 3.69 L Hgb 10.9 L Hct 33.2 L MCV 90.0 MCH 29.5 MCHC 32.8 RDW 12.9 Plt Count 237 MPV 11.0 Immature Gran % (Auto) 0.1 Neut % (Auto) 41.4 L Lymph % (Auto) 36.0 [place] % (Auto) 6.5 Eos % (Auto) 15.2 H Baso % (Auto) 0.8 Lymph # (Auto) 2.7 [place] # (Auto) 0.5 Eos # (Auto) 1.1 H Baso # (Auto) 0.1 Abs Immat Gran (auto) 0.01 Absolute Neuts (auto) 3.1 Absolute Nucleated RBC 0.000 Nucleated RBC % (auto) 0.0 PT INR APTT Sodium 141 Potassium 3.7 Chloride 112 H Carbon Dioxide 20 L Anion Gap 13 BUN 20 H Creatinine 0.89 Estim Creat Clear Calc 68.0 Estimated GFR > 60 Random Glucose 83 Calcium 9.0 D Magnesium Total Bilirubin Direct Bilirubin AST ALT Alkaline Phosphatase Troponin I High Sens B-Natriuretic Peptide Total Protein Albumin Lipase TSH Urine Color Yellow Urine Appearance Clear Urine pH 5.5 Ur Specific [place] >= 1.030 H Urine Protein Negative Urine Glucose (UA) Negative Urine Ketones Negative Urine Blood Negative Urine Nitrite Negative Ur Leukocyte Esterase Negative Imaging Radiologist's impression: Impressions Chest X-Ray 08/13/23 11:50 IMPRESSION: Unremarkable chest examination. Abdomen/Pelvis CTA 08/13/23 13:22 IMPRESSION: No aortic dissection. Chest CTA 08/13/23 13:22 IMPRESSION: No aortic dissection. Assessment and Plan (1) Chest pain: Status: Acute Severe chest pain in this elderly woman with multiple risk factors with no clear evidence of acute coronary syndrome with below detectable level troponins serially as well as normal EKG as was no evidence of acute aortic syndrome by CT chest. I think clinically her symptoms are most likely related to esophageal spasm. However given her multiple risk factors I would suggest her to undergo treadmill stress test today. If this is negative I think she can be safely discharged home. I did discuss the case with Dr. Gamble who is patient's inside upholsterer for further treatment options. This was discussed with the patient in details. She also had a significant vasovagal response to severe pain. Discussed about management of vasovagal syndrome. Advise if she starts getting chest pain to use some form of GI treatment to alleviate symptoms right away. If she gets symptomatic she is advised to sit down or lie down. Given her multiple risk factors if her stress test is negative I have advised her to follow coronary calcium score as an outpatient to evaluate for presence of coronary atherosclerosis. She is interested in pursuing the same. Continue aggressive risk factor modification. Will follow up as outpatient. Procedures Date of Service Date of Service: 08/14/23
--- NOTE | 2023-08-14 11:34 | PM.DS ---
DS: Providers Provider Date of Service: 08/14/23 Date of admission: 08/13/23 16:01 Date of discharge: 08/14/23 Primary care physician: Hiro Cesar MD Consults: 08/13/23 16:01 Consult to Cardiology Routine Consulting Provider: [facility] [place] [facility] Reason for consultation: chest pain, vasovagal episode- hypotension, maulik in 20s DS: Diagnosis Discharge Diagnosis (1) Chest pain: Status: Acute DS: Summary Hospital Course Hospital Course: 67 year old female with history of hld, htn, gerd, barretts esophagus, MICHI, prediabetes, osteopenia who is obese presented to the ED earlier today for evaluation of severe periscapular pain radiating around to the chest that started earlier this morning. She states she has a normal breakfast (scrambled eggs with pepers, onions and coffee which is standard for her) and then several hours later was seated on her computer at the onset of her pain. States this continued for about 3 hours and persisted even while in the ED waxing and waning in severity. States pain was worse than when she delivered a breech baby without analgesia. Described a tight squeezing pain with an intense burning in the chest. No associated symptoms including lightheadedness, sob, nausea, vomiting, epigastric pain, diaphoresis, syncope. Had a similar but much less severe episodes (described as discomfort) about 1 week ago that was fleeting. Does states she she began exercising yesterday with her after a long hiatus. Reports doing cardio, no weights. No fevers, chills, cough, diarrhea, urinary issues, recent illness. Currently reports a 2/10 pain following iv morphine. Has no known history of cvd but does have family history of mi in her father at age 47. No sudden cardiac . On arrival, vss including blood pressure. During an episode of severe pain while in the ED, blood pressure noted to drop to 70s/30s with HR in the 20s which improved spontaneously without intervention. During this period, no sob, lightheadedness, syncope, confusion. Orthostatic VS negative. Hematology studies unremarkable except for mild normocytic anemia. Renal function baseine, lytes normal. Trop undetectable, bnp 11. CTA chest and abdomen unremarkable- no aneurysm or dissection. No osseous abnormality. UA pending. In the ED, received 2L IVF, morphine, zofran. She will be observed overnight for severe pain of unclear etiology with vasovagal hypotension/bradycardia. Hospital course: Patient came to the hospital because of possible epigastric/chest pain: Workup troponin, chest CTA seems to be negative, seen by Cardiology-her symptoms are less like cardiac, orthostatic negative: Possible vasovagal episode, in addition might have esophageal spasm might causing the pain. patient will follow up GI outpatient , currently patient is not interested in esophageal spasm medication-she says that she will follow-up with PCP and GI and decide further. Patient will go home, follow-up with outpatient with PCP Plan: Follow-up with PCP and GI for further management of possible esophageal spasm. Above management discussed with the patient in detail length she understand and agreement with the above plan, time spent 35 minute. Time Attestation Total time managing care of this patient today: 35 mintues. Discharge Coordination Time (in mins): 35 min Quality: Safe Use of Opioids Does Pt have an Active Cancer Diagnosis on the Problem List?: No Quality: Stroke Does the patient have a stroke diagnosis?: No Physical Exam Vital Signs: Vital Signs: Last Vital Signs Temp 97.9 F 08/14/23 08:47 Pulse 66 08/14/23 08:47 Resp 20 08/14/23 08:47 BP 110/60 08/14/23 08:47 Pulse Ox 100 08/14/23 08:47 O2 Del Method Room Air 08/14/23 08:47 BMI result Body Mass Index 34.5 Appearance: Alert.? Oriented X3. cvs: rrr, [id number] , no murmur res: clear to auscultation ,no rhonchii or wheezing abd: no rebound or guarding ,nt, bs present. ext pulses present , no cyanosis . neuro: axo3 , nonfocal. DS: Data Data Completed and Pending Labs on day of discharge: Laboratory Results - last 24 hr 08/13/23 08/13/23 08/13/23 11:40 12:40 14:12 WBC 8.3 RBC 4.01 L Hgb 11.8 L Hct 35.5 L MCV 88.5 MCH 29.4 MCHC 33.2 RDW 12.8 Plt Count 256 MPV 10.8 Immature Gran % (Auto) 0.4 Neut % (Auto) 46.8 Lymph % (Auto) 27.9 [place] % (Auto) 7.9 Eos % (Auto) 16.4 H Baso % (Auto) 0.6 Lymph # (Auto) 2.3 [place] # (Auto) 0.7 Eos # (Auto) 1.4 H Baso # (Auto) 0.1 Abs Immat Gran (auto) 0.03 Absolute Neuts (auto) 3.9 Absolute Nucleated RBC 0.000 Nucleated RBC % (auto) 0.0 PT 11.4 INR 0.9 APTT 35.3 Sodium 140 Potassium 4.2 Chloride 108 Carbon Dioxide 21 L Anion Gap 15 BUN 26 H Creatinine 1.10 Estim Creat Clear Calc 55.0 Estimated GFR 50 Random Glucose 92 Calcium 10.0 Magnesium 1.8 Total Bilirubin 0.4 Direct Bilirubin 0.1 AST 22 ALT 19 Alkaline Phosphatase 75 Troponin I High Sens < 2.7 < 2.7 < 2.7 B-Natriuretic Peptide 11 Total Protein 8.3 H Albumin 4.3 Lipase 32 TSH 1.10 Urine Color Urine Appearance Urine pH Ur Specific [place] Urine Protein Urine Glucose (UA) Urine Ketones Urine Blood Urine Nitrite Ur Leukocyte Esterase 08/13/23 08/14/23 16:17 04:17 WBC 7.4 RBC 3.69 L Hgb 10.9 L Hct 33.2 L MCV 90.0 MCH 29.5 MCHC 32.8 RDW 12.9 Plt Count 237 MPV 11.0 Immature Gran % (Auto) 0.1 Neut % (Auto) 41.4 L Lymph % (Auto) 36.0 [place] % (Auto) 6.5 Eos % (Auto) 15.2 H Baso % (Auto) 0.8 Lymph # (Auto) 2.7 [place] # (Auto) 0.5 Eos # (Auto) 1.1 H Baso # (Auto) 0.1 Abs Immat Gran (auto) 0.01 Absolute Neuts (auto) 3.1 Absolute Nucleated RBC 0.000 Nucleated RBC % (auto) 0.0 PT INR APTT Sodium 141 Potassium 3.7 Chloride 112 H Carbon Dioxide 20 L Anion Gap 13 BUN 20 H Creatinine 0.89 Estim Creat Clear Calc 68.0 Estimated GFR > 60 Random Glucose 83 Calcium 9.0 D Magnesium Total Bilirubin Direct Bilirubin AST ALT Alkaline Phosphatase Troponin I High Sens B-Natriuretic Peptide Total Protein Albumin Lipase TSH Urine Color Yellow Urine Appearance Clear Urine pH 5.5 Ur Specific [place] >= 1.030 H Urine Protein Negative Urine Glucose (UA) Negative Urine Ketones Negative Urine Blood Negative Urine Nitrite Negative Ur Leukocyte Esterase Negative Imaging Chest x-ray: Radiologist's impression: ITS Impressions Chest X-Ray 08/13/23 11:50 IMPRESSION: Unremarkable chest examination. Abdomen/Pelvis CTA 08/13/23 13:22 IMPRESSION: No aortic dissection. Chest CTA 08/13/23 13:22 IMPRESSION: No aortic dissection. Discharge Plan Discharge Anticipated Discharge Date/Time: 08/14/23 09:58 Patient Disposition: Home, Self-Care Discharge Diagnosis: Symptoms possibly related to esophageal spasm Referrals: Hiro Cesar MD [Primary Care Provider] - 1 Week Discharge Medications: Continued omeprazole 20 mg Capsule,Delayed Release(Dr/Ec) 20 mg PO DAILY losartan 100 mg Tablet 100 mg PO DAILY dicyclomine 10 mg Capsule 10 mg PO BID cholecalciferol (vitamin D3) [Vitamin D3] 25 mcg (1,000 unit) Capsule 50 mcg PO BEDTIME gemfibrozil 600 mg tablet 600 mg PO BID simvastatin 20 mg tablet 10 mg PO BEDTIME calcium carbonate 500 mg/5 mL (1,250 mg/5 mL) Suspension 500 mg PO BEDTIME Triple Antibiotic 3.5mg-400 unit- 5,000 unit/gram Ointment 1 appl TOPICAL BEDTIME Discharge Orders: Discharge Order (Routine); Ordered 08/14/23 Ordered By: Sara Garcia Diet: Advance to usual diet Activity on Discharge: As tolerated Stand Alone Forms: Patient Portal Discharge page Care Plan Goals: Patient came to the hospital because of possible epigastric/chest pain: Workup troponin, chest CT seems to be negative, seen by Cardiology-her symptoms are less like cardiac, orthostatic negative: Possible vasovagal episode, in addition might have esophageal spasm might causing the pain. patient will follow up GI outpatient . Patient will go home, follow-up with outpatient with PCP Health Concerns: As above. Plan of Treatment: As above. Assessment: As above. Discharge Date/Time: 08/14/23 11:56
[2023-08-14 11:50] VITALS: BP 110/60; PULSE 68; RESP 17; TEMP 36.6; O2SAT 94
== END 2023-08-14 11:56 | disposition home or self-care (01) ==
LOC: HO.ED 15:25 → HO.EDOVER 16:11
PROVIDERS: Physician Assistant; Physician Assistant Medical; Admitting Provider Physician Assistant; Emergency Provider Emergency Medicine; PCP Family Medicine; Visit Provider Internal Medicine
DX: R07.9 Chest pain, unspecified (principal); R10.13 Epigastric pain; I95.9 Hypotension, unspecified; R00.1 Bradycardia, unspecified; R55 Syncope and collapse; E78.5 Hyperlipidemia, unspecified; M54.9 Dorsalgia, unspecified; I10 Essential (primary) hypertension; K21.9 Gastro-esophageal reflux disease without esophagitis; K22.70 Barrett's esophagus without dysplasia; G47.33 Obstructive sleep apnea (adult) (pediatric); K58.9 Irritable bowel syndrome, unspecified; R73.03 Prediabetes; Z79.899 Other long term (current) drug therapy
CPT/HCPCS: 36415; 71045; 71275; 74174; 80048; 80076; 81003; 83690; 83735; 83880; 84443; 84484; 85025; 85610; 85730; 93005; 93017; 96361; 96372; 96374; 96375; 99222; 99285; J1650; J2270; J2405; Q9967

== ENCOUNTER → 2023-08-13 11:32 | Outpatient (BNV) | payer MEDICARE, SELFPAY | PROVIDERS: Emergency Provider Emergency Medicine; PCP Family Medicine; Visit Provider Internal Medicine Cardiovascular Disease | DX: R00.1 Bradycardia, unspecified (principal) | CPT/HCPCS: 93010 ==

== ENCOUNTER 2023-08-13 16:01 | Outpatient (BNV) | payer MEDICARE, SELFPAY | END 2023-08-14 10:20 | PROVIDERS: Admitting Provider Physician Assistant; Emergency Provider Emergency Medicine; PCP Family Medicine; Visit Provider Nurse Practitioner | DX: R06.02 Shortness of breath (principal) | CPT/HCPCS: 93016; 93018 ==

== ENCOUNTER → 2023-08-13 16:01 | Outpatient (BNV) | payer MEDICARE, SELFPAY | PROVIDERS: Admitting Provider Physician Assistant; Emergency Provider Emergency Medicine; PCP Family Medicine; Visit Provider Internal Medicine Cardiovascular Disease | DX: R07.9 Chest pain, unspecified (principal) | CPT/HCPCS: 99222 ==

== ENCOUNTER → 2023-08-13 16:01 | Outpatient (BNV) | payer MEDICARE, SELFPAY | PROVIDERS: Admitting Provider Physician Assistant; Emergency Provider Emergency Medicine; PCP Family Medicine; Visit Provider Internal Medicine | DX: R07.9 Chest pain, unspecified (principal); I95.9 Hypotension, unspecified; R00.1 Bradycardia, unspecified | CPT/HCPCS: 99223; 99239 ==

== ENCOUNTER 2023-08-20 10:26 | Outpatient (REF) | payer MEDICARE, SELFPAY | END 2023-08-20 10:27 | disposition home or self-care (01) | LOC: HO.HOSX 10:26 | PROVIDERS: Visit Provider Orthopaedic Surgery | DX: Z13.89 Encounter for screening for other disorder (principal) ==

== ENCOUNTER 2023-08-21 08:51 | Outpatient (AMB) | payer MEDICARE, SELFPAY ==
[2023-08-21 08:54] VITALS: BP 112/64; PULSE 73; RESP 13; O2SAT 96; BMI 32.8
--- NOTE | 2023-08-21 08:54 | A.OFFPC_ITS ---
Vital Signs 08/21/23 08:54 Height 5 ft 4 in Weight 191 lb BMI 32.8 BP 112/64 Blood Pressure Location Lt brachial Position Sitting Respiration 13 Pulse 73 Pulse Source Pulse Oximeter Pulse Oximetry (%) 96 Oxygen Delivery Method Room Air Int[place] [facility] [place] Vasovagal episode, chest pain Intake Note: Patient is here for a HDF and she reports she needs nutrition guidance. Patient reports she is feeling okay. Crystal Growing Technician Required: No Accompanied by: Self / Same As Patient Allergies Penicillins [PCN] Allergy (Verified 08/21/23 09:22) Unknown red dye Allergy (Verified 08/21/23 09:22) Unknown Sulfa (Sulfonamide Antibiotics) Allergy (Verified 08/21/23 09:22) Unknown acetaminophen Adverse Reaction (Mild, Verified 08/21/23 09:22) Migraine 12 hr nasal spray Allergy (Uncoded 08/21/23 08:58) Unknown novocaine Adverse Reaction (Intermediate, Uncoded 08/21/23 08:58) tachycardia Medication List - Last Reconciled 08/21/23 by ARVIND Gay- calcium carbonate 500 mg PO BEDTIME cholecalciferol (vitamin D3) (Vitamin D3) 50 mcg PO BEDTIME dicyclomine 10 mg PO BID gemfibrozil 600 mg PO BID losartan 100 mg PO DAILY ydagrcju-zvxeefgnhXo-xflrhavfU 3.5mg-400 unit- 5,000 unit/gram (Triple Antibiotic) 1 appl topical BEDTIME omeprazole 20 mg PO DAILY simvastatin 10 mg PO BEDTIME Tobacco use date assessed: 08/06/23 Dental Screening Dental Screen Date: 08/06/23 HPI HPI Comments History of Present Illness Details 67-year-old female with hyperlipidemia, hypertension, GERD, Adams's esophagus, sleep apnea, prediabetes, osteopenia, obesity, emphysema, CKD 3A who presented to [facility] on 08/13/2023 with complaints of chest pain. Workup included a troponin which was negative, a chest CTA which was negative. Chest x-ray negative. UA negative. EKG within normal limits. She was observed overnight with no findings. Stress test was performed and this was within normal limits. Possible vasovagal episode, in addition might have esophageal spasm causing her pain. Recommendation to follow up with GI as an outpatient. Patient was offered and declined antispasmodic medications. Cardiology also recommended an outpatient cardiology follow up given her risk factors. She was discharged home with no services or changes in her medication on 08/14/2023. Here today w/ no further episodes. Has changed her diet drastically. Has lost 7 lbs since admission intentionally. Feels good. Normal bowel movements. Needs referral to Dr Tye montaño placed today Has appt w/ Cards to get calcium scoring 09/06/23 [facility] Medical History Pre-diabetes Adams esophagus GERD (gastroesophageal reflux disease) IBS (irritable bowel syndrome) Hyperlipidemia HTN (hypertension) Surgical History S/P cholecystectomy Hx of colonoscopy Family History (Updated 08/21/23 @ 09:02 by Cindy Price CMA) Mother High blood pressure High cholesterol Throat cancer Sister High blood pressure High cholesterol Cardiovascular disease Asthma Social History (Updated 08/21/23 @ 09:04 by Cindy Price CMA) Household Members: Spouse Housing: House Are you a primary careers adviser to a significant other at home: No Do you presently have visiting nurse or other home services: No 75 years or older and lives alone: No Alcohol intake: current Alcohol intake frequency: holidays/special occasions only Patient Tobacco Use Status: Former Tobacco user e-Cigarette/Vaping Use: Never Used Use of substances other than those prescribed or required for medical reasons: No Have you been hit, kicked, punched, or otherwise hurt by someone within the past year? If so, by whom?: No Do you feel safe in your current relationship?: Yes Is there a partner from a previous relationship who is making you feel unsafe now?: No Are you made to feel afraid or neglected: No service: No Current occupational status: retired Sexual orientation: Unable to collect Gender identity: Unable to collect Cognitive needs: No Hearing needs: Yes (hearing aids) Vision needs: Yes (glasses) Questionnaire PHQ-9 Over the last 2 weeks, how often have you been bothered by any of the following problems? 1. Little interest or pleasure in doing things: not at all 2. Feeling down, depressed, or hopeless: not at all 3. Trouble falling or staying asleep, or sleeping too much: not at all 4. Feeling tired or having little energy: not at all 5. Poor appetite or overeating: not at all 6. Feeling bad about yourself - or that you are a failure or have let yourself or your family down: not at all 7. Trouble concentrating on things, such as reading the newspaper or watching television: not at all 8. Moving or speaking so slowly that other people could have noticed. Or the opposite - being so fidgety or restless that you have been moving around a lot more than usual: not at all 9. Thoughts that you would be better off or of hurting yourself in some way: not at all Total score: 0 Depression Screening Interpretation: Negative Depression Screening Done: Yes 19693 - PHQ-9 Billing: Yes Source: Developed by Drs. Nik Stack, Magalis Alvarez, Bam Alex and colleagues, with an educational anderson from [employer]. Thrive Questionnaire Date Thrive assessed: 08/14/23 AUDIT C Alcohol Use Questionnaire (AUDIT-C) 1. How often do you have a drink containing alcohol?: Monthly or less 2. How many drinks containing alcohol do you have on a typical day when you are drinking?: 1 or 2 3. How often do you have six or more drinks on one occasion?: Never Total Score: 1 ABRIL-7 AMB Questionnaire ABRIL-7 Date ABRIL - 7 assessed: 08/21/23 Feeling nervous, anxious, or on edge: 0 = Not at all Not being able to stop or control worryin = Not at all Worrying too much about different things: 0 = Not at all Trouble relaxin = Not at all Being so restless that it is hard to sit still: 0 = Not at all Becoming easily annoyed or irritable: 0 = Not at all Feeling afraid as if something awful might happen: 0 = Not at all Total ABRIL-7 score (0-4 normal; 5-9 mild; 10-14 moderate; 15-21 severe): 0 Source: Developed by Drs. Nik Stack, Magalis Alvarez, Bam Alex and colleagues, with an educational anderson from [employer]. ABRIL-7 Assessment Billing ABRIL-7 Assessment Tool: ABRIL-7 Assessment 78738 Review of Systems Const All systems reviewed & are unremarkable except as noted in HPI and below Physical exam (Primary Care) Vital Signs: Last Vital Signs Pulse 73 08/21/23 08:54 Resp 13 08/21/23 08:54 Pulse Ox 96 08/21/23 08:54 Oxygen Delivery Method Room Air 08/21/23 08:54 BMI result Body Mass Index 32.8 BMI Assessment/Plan discussion: High BMI High, discussed plan: dietary Tobacco/Smoking Status: Tobacco use Status Tobacco use date assessed 08/06/23 08/21/23 08:59 Patient Tobacco Use Status Former Tobacco user 08/21/23 09:04 e-Cigarette/Vaping Use Never Used 08/21/23 09:04 PHQ-9: PHQ-9 Score PHQ-9: Total score 0 08/21/23 09:01 Depression Screening Interpretation: Negative Thrive Assessment: Date of Thrive Assessment Date Thrive assessed 08/14/23 08/21/23 08:59 Const Other: Awake alert oriented, very pleasant Sclera is nonicteric bilat Mucous membranes moist Regular rate and rhythm Lung sounds clear to auscultation bilat Abdomen soft, nontender, normoactive bowel sounds Bilat lower extremities without edema Assessment and Plan Assessment & Plan (1) Hospital discharge follow-up: Code(s): Z09 - Encounter for follow-up examination after completed treatment for conditions other than malignant neoplasm Plan: Feels well since admission. Interventions include dietary changes. She has a follow up with Cardiology scheduled. A referral was placed to Dr. Gamble her GI physician. She will call to schedule this appointment. No medication changes made at today's appointment. She looks well and feels really well advised to continue her dietary and lifestyle changes. (2) CKD (chronic kidney disease) stage 3, GFR 30-59 ml/min: Comment: Recent labs showed GFR 55 Avoid nephrotoxic agents Code(s): N18.30 - Chronic kidney disease, stage 3 unspecified Qualifiers: Chronic kidney disease stage 3 subtype: stage 3a (GFR 45-59) Qualified Code(s): N18.31 - Chronic kidney disease, stage 3a (3) Emphysema lung: Comment: Noted on CTA chest 08/14/2023. Asymptomatic. Code(s): J43.9 - Emphysema, unspecified Qualifiers: Emphysema type: centrilobular Qualified Code(s): J43.2 - Centrilobular emphysema (4) GERD (gastroesophageal reflux disease): Code(s): K21.9 - Gastro-esophageal reflux disease without esophagitis (5) Adams esophagus: Code(s): K22.70 - Adams's esophagus without dysplasia Plan This note is constructed using voice recognition software. While every effort has been made to ensure accuracy in lumber material handler, still errors may have been included Sometimes, these errors may affect the content or meaning of the given sentence . Total time spent caring for the patient today was 60 minutes. This includes time spent before the visit reviewing the chart, time spent during the visit, and time spent after the visit on documentation Orders: Referrals Gastroenterology Referral K21.9 - Gastro-esophageal reflux disease without esophagitis, K22.70 - Adams's esophagus without dysplasia, N18.30 - Chronic kidney disease, stage 3 unspecified, Z09 - Encounter for follow-up examination after completed treatment for conditions other than malignant neoplasm Coding Level of Care Code TCM Mod MDM <= 7 Days Diagnoses Hospital discharge follow-up Z09 Stage 3a chronic kidney disease N18.31 Chronic kidney disease stage 3 subtype: stage 3a (GFR 45-59) Centrilobular emphysema J43.2 Emphysema type: centrilobular GERD (gastroesophageal reflux disease) K21.9 Adams esophagus K22.70 Additional Codes ABRIL-7 Assessment Billing - ABRIL-7 Assessment Tool: ABRIL-7 Assessment [id number] ([id number])
== END 2023-08-21 09:40 | disposition home or self-care (01) ==
PROVIDERS: PCP Family Medicine; Visit Provider Nurse Practitioner Family
DX: N18.31 Chronic kidney disease, stage 3a (principal); J43.2 Centrilobular emphysema; Z09 Encounter for follow-up examination after completed treatment for conditions other than malignant neoplasm; K21.9 Gastro-esophageal reflux disease without esophagitis; K22.70 Barrett's esophagus without dysplasia
CPT/HCPCS: 99495

== ENCOUNTER 2023-09-16 13:41 | Outpatient (AMB) | payer MEDICARE, SELFPAY ==
--- NOTE | 2023-09-16 13:55 | MHC.OFFVIS ---
Vital Signs 09/16/23 13:56 Height 5 ft 4 in Weight 189 lb 9.561 oz BMI 32.5 BP 120/70 Blood Pressure Location Lt brachial Position Sitting Pulse 61 Intake Visit Reasons: C dc fu/ fu calcium score 09/05 [facility] Intake Note: Follow-up after calcium score feeling good Home Stager Required: No Allergies Penicillins [PCN] Allergy (Verified 08/21/23 09:22) Unknown red dye Allergy (Verified 08/21/23 09:22) Unknown Sulfa (Sulfonamide Antibiotics) Allergy (Verified 08/21/23 09:22) Unknown acetaminophen Adverse Reaction (Mild, Verified 08/21/23 09:22) Migraine 12 hr nasal spray Allergy (Uncoded 08/21/23 08:58) Unknown novocaine Adverse Reaction (Intermediate, Uncoded 08/21/23 08:58) tachycardia Medication List - Last Reconciled 09/16/23 by Jason Kevin MD calcium carbonate 500 mg PO BEDTIME cholecalciferol (vitamin D3) (Vitamin D3) 50 mcg PO BEDTIME dicyclomine 10 mg PO BID gemfibrozil 600 mg PO BID losartan 100 mg PO DAILY aptxwtfb-cefhwsgtgSw-zjjykclmZ 3.5mg-400 unit- 5,000 unit/gram (Triple Antibiotic) 1 appl topical BEDTIME omeprazole 20 mg PO DAILY simvastatin 10 mg PO BEDTIME HPI Comments Details: Vika comes for follow-up after hospitalization with acute chest pain. She underwent a stress test at that time which was negative. She had a coronary calcium score following that which showed 0 calcium score which is great. During the episode of severe chest pain she did have a vasovagal response. She now recalls that 1 time she was flying and while descending she has similar symptoms where she felt warm and nauseous and felt lightheaded at that time was told that she might have had a vagal response. She has not had any syncopal episodes. She is modified her diet since this episode and she has not had any acid reflux symptoms at this point in time. [facility] Medical History Pre-diabetes Adams esophagus GERD (gastroesophageal reflux disease) IBS (irritable bowel syndrome) Hyperlipidemia HTN (hypertension) Surgical History S/P cholecystectomy Hx of colonoscopy Family History Mother High blood pressure High cholesterol Throat cancer Sister High blood pressure High cholesterol Cardiovascular disease Asthma Social History Household Members: Spouse Housing: House Are you a primary vocational childcare teacher to a significant other at home: No Do you presently have visiting nurse or other home services: No 75 years or older and lives alone: No Alcohol intake: current Alcohol intake frequency: holidays/special occasions only Patient Tobacco Use Status: Former Tobacco user e-Cigarette/Vaping Use: Never Used service: No Current occupational status: retired Sexual orientation: Unable to collect Gender identity: Unable to collect Cognitive needs: No Hearing needs: Yes (hearing aids) Vision needs: Yes (glasses) Review of Systems Const Denies chills, Denies fatigue, Denies fever(s), Denies frequent falls, Denies weakness, Denies weight gain and Denies weight loss ENT Denies dizziness Card Denies chest pain, Denies leg edema, Denies lightheadedness, Denies palpitations, Denies dyspnea, Denies dyspnea on exertion, Denies orthopnea and Denies other (loss of consciousness) Resp Denies cough, Denies dyspnea and Denies dyspnea on exertion GI Denies hematochezia and Denies change in stool character Musc Denies abnormal gait, Denies muscle weakness, Denies numbness, Denies radiating pain into limb and Denies tingling Neuro Denies abnormal gait, Denies dizziness, Denies frequent falls, Denies numbness, Denies tingling and Denies weakness Endo Denies fatigue and Denies palpitations Physical Exam Vital Signs: Last Vital Signs Pulse 61 09/16/23 13:56 BP 120/70 09/16/23 13:56 BMI result Body Mass Index 32.5 Const General: cooperative, comfortable, no acute distress, alert, awake and well groomed Nutritional Appearance: overweight Orientation/consciousness: patient oriented x3 Neck Neck: Yes trachea midline, Yes supple and Yes no JVD Resp Effort & Inspection: normal respiratory effort Auscultation: clear to auscultation bilaterally Cardio Jugular venous distension: no JVD Palpation: normal PMI Rate: regular rate Rhythm: regular rhythm Heart sounds: S1 normal heart sound present, S2 normal heart sound present, no click, no gallops, no murmurs and no rubs GI Auscultation: normal bowel sounds Neuro General: patient oriented x3 and no focal motor deficits Extrem General: Yes no clubbing, cyanosis or edema Assessment & Plan Assessment & Plan (1) Vasovagal reaction: Code(s): R55 - Syncope and collapse Category: Medical Plan: Patient with severe vasovagal reaction to acute chest pain/back pain. There is no evidence of coronary artery disease by stress test and coronary calcium score is 0. Continue aggressive risk factor modification with continued participate in weight loss program. Continue statin therapy with current LDL level. Can continue to monitor coronary calcium score every 5 years if she intense. She does have a tendency for vasovagal reaction with acute painful situation as well while she was flying with possibly relative hypovolemia. Management of this was discussed with her in details. Advised to maintain aggressive hydration strategy. Assuming sitting or supine position when she gets symptoms was discussed as well. Will follow up in the clinic in 1 year's time on her request. Thank you for allowing me to partake in the care Coding Level of Care Code Est Pt Level 3 (59596) Diagnoses Vasovagal reaction R55
[2023-09-16 13:56] VITALS: BP 120/70; PULSE 61; BMI 32.5
== END 2023-09-16 14:20 | disposition home or self-care (01) ==
PROVIDERS: PCP Family Medicine; Visit Provider Internal Medicine Cardiovascular Disease
DX: R55 Syncope and collapse (principal)
CPT/HCPCS: 99213

== ENCOUNTER → 2023-09-16 13:41 | Outpatient (BNVA) | payer MEDICARE, SELFPAY | PROVIDERS: PCP Family Medicine; Visit Provider Internal Medicine Cardiovascular Disease | DX: R55 Syncope and collapse (principal) | CPT/HCPCS: 99212 ==

== ENCOUNTER 2023-10-02 12:17 | Outpatient (AMB) | payer MEDICARE, SELFPAY ==
--- NOTE | 2023-10-02 12:27 | MHC.OFFVIS ---
Vital Signs 10/02/23 12:28 Height 5 ft 4 in Weight 189 lb BMI 32.4 Intake Visit Reasons: ov- Right thumb injection Intake Note: Vika 67 yr old female presents today for her follow up visit s/p left basal joint injection from 06/26/23. States injection helped and would like to have her right basal joint injected today. Patient would like another brace as well. Allergies Penicillins [PCN] Allergy (Verified 10/02/23 12:34) Unknown red dye Allergy (Verified 10/02/23 12:34) Unknown Sulfa (Sulfonamide Antibiotics) Allergy (Verified 10/02/23 12:34) Unknown acetaminophen Adverse Reaction (Mild, Verified 10/02/23 12:34) Migraine 12 hr nasal spray Allergy (Uncoded 10/02/23 12:34) Unknown novocaine Adverse Reaction (Intermediate, Uncoded 10/02/23 12:34) tachycardia HPI HPI ov- Right thumb injection: Details: Vika is a 67 year old right hand dominant woman who returns to discuss her right basal joint arthritis. She received a left basal joint injection on 06/26/23, with good relief. She would like her right thumb injected today, she would like new braces as well The pain is worse with pinching or gripping activities. She says her pain has been present for ~4 months now. She denies any known injury, locking, numbness, or tingling. 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 [employer] Medical History Pre-diabetes Adams esophagus GERD (gastroesophageal reflux disease) IBS (irritable bowel syndrome) Hyperlipidemia HTN (hypertension) Surgical History S/P cholecystectomy Hx of colonoscopy Family History Mother High blood pressure High cholesterol Throat cancer Sister High blood pressure High cholesterol Cardiovascular disease Asthma Social History Household Members: Spouse Housing: House Are you a primary primary care provider to a significant other at home: No Do you presently have visiting nurse or other home services: No 75 years or older and lives alone: No Alcohol intake: current Alcohol intake frequency: holidays/special occasions only Patient Tobacco Use Status: Former Tobacco user e-Cigarette/Vaping Use: Never Used service: No Current occupational status: retired Sexual orientation: Unable to collect Gender identity: Unable to collect Cognitive needs: No Hearing needs: Yes (hearing aids) Vision needs: Yes (glasses) Review of Systems Const All systems reviewed & are unremarkable except as noted in HPI and below Physical Exam Vital Signs: BMI result Body Mass Index 32.4 Const General: no acute distress and alert Orientation/consciousness: patient oriented x3 Neuro General: patient oriented x3 Extrem Other: Evaluation of Right Upper Extremity: The patient is alert, oriented, and in no acute distress Neuro: Median, Ulnar, Radial nerves motor and sensory intact and sensation is normal to the tips of all digits Vascular: Cap refill brisk ROM: She can make a fist and extend all her digits No locking or catching Most tender over the basal joint + shoulder sign + CMC grind No tenderness over the 1st dorsal compartment No tenderness over the MCP joint No tenderness over the a1 pulleys, no locking or catching Radiographs: 3 views of the bilateral hands, with attention to the thumb, were taken and viewed by me today in clinic. They show no fractures or dislocations. Psych Appearance: grossly normal Affect: normal affect Attitude: cooperative Office Procedures Fracture Care Details: No fracture, basal joint injection I believe, though I do not have the codes front of me. Medium size joint Fracture Billing Code: Fracture Billing Code Assessment & Plan Assessment & Plan (1) Osteoarthritis of carpometacarpal joint of right thumb: Code(s): M18.11 - Unilateral primary osteoarthritis of first carpometacarpal joint, right hand Category: Medical (2) Osteoarthritis of carpometacarpal joint of left thumb: Code(s): M18.12 - Unilateral primary osteoarthritis of first carpometacarpal joint, left hand Category: Medical Plan Assessment & Plan: 1. Right Basal joint osteoarthritis, S/P injection Date of Injection: 10/02/23 I educated her about this condition I discussed operative and non-operative treatment options The patient would like to proceed with an injection for her right side I discussed activity modification, she should limit or avoid any heavy or repetitive pinching or gripping activities She will continue to wear her comfort cool braces with daily activity. I discussed the use of assistive devices to improve her symptoms Injection #1 : The risks and benefits of a steroid injection including but not limited to risk of damage to blood vessels, nerve, tendon, infection, skin bleaching, persistent or worsening pain, and failure to improve symptoms were discussed with the patient and they wish to proceed with the steroid injection. Once consent was obtained the skin over the dorsum of the Right basal joint was sterilely prepped. The joint was then injected with a combination of 1 mL of (40 mg/ml} Depo-Medrol and 1% plain Lidocaine. The patient appears to have tolerated the procedure well and with no complications. She had good early relief before leaving clinic today. She knows that they may not have another steroid injection into this joint for least 4 months. 2. Left Basal joint osteoarthritis, S/P injection Date of injection: 06/26/23 Scribed for Radha Bourgeois MD by Reg Ho ophthalmic medical technologist, on 10/02/23 at 12:45 PM, EST. Orders: Orders XR hand LT min 3V 10/02/23 M79.642 - Pain in left hand XR hand RT min 3V 10/02/23 M79.641 - Pain in right hand Scribe Plan - Not visible on output: Scribed for Radha Bourgeois MD by Reg Ho ophthalmic medical technologist, on [ ] at [ ], EST. Coding Level of Care Code Est Pt Level 3 (23442) Diagnoses Osteoarthritis of carpometacarpal joint of right thumb M18.11 Osteoarthritis of carpometacarpal joint of left thumb M18.12 CPT Codes Fracture Care - Fracture Billing Code: Fracture Billing Code ([id number])
[2023-10-02 12:28] VITALS: BMI 32.4
== END 2023-10-02 13:42 | disposition home or self-care (01) ==
PROVIDERS: PCP Family Medicine; Visit Provider Orthopaedic Surgery
DX: M18.0 Bilateral primary osteoarthritis of first carpometacarpal joints (principal)
CPT/HCPCS: 20600; 99213

== ENCOUNTER 2023-10-02 12:17 | Outpatient (REF) | payer MEDICARE, SELFPAY ==
--- NOTE | ~2023-10-02 | XR_ITS ---
EXAMINATION: Bilateral hand series CLINICAL INFORMATION: Pain in the right and left hand. Attention to the base of left thumb COMPARISON: None. TECHNIQUE: 4 views of each hand FINDINGS: Right hand: The bones joints and soft tissues are normal. No marginal erosions or abnormal soft tissue calcifications. Left hand: First carpometacarpal joint small marginal osteophytes without joint space narrowing indicative of mild osteoarthritis. First metacarpophalangeal joint: Possible tiny marginal osteophytes and small subchondral cyst indicative of mild osteoarthritis. IP joint of the thumb: Small marginal osteophytes indicative of mild osteoarthritis. Remaining bones joints soft tissues unremarkable. XR/XR hand LT min 3V IMPRESSION: RIGHT HAND: Normal. LEFT HAND: Mild osteoarthritis involving the joints of the thumb.
--- NOTE | ~2023-10-02 | XR_ITS ---
EXAMINATION: Bilateral hand series CLINICAL INFORMATION: Pain in the right and left hand. Attention to the base of left thumb COMPARISON: None. TECHNIQUE: 4 views of each hand FINDINGS: Right hand: The bones joints and soft tissues are normal. No marginal erosions or abnormal soft tissue calcifications. Left hand: First carpometacarpal joint small marginal osteophytes without joint space narrowing indicative of mild osteoarthritis. First metacarpophalangeal joint: Possible tiny marginal osteophytes and small subchondral cyst indicative of mild osteoarthritis. IP joint of the thumb: Small marginal osteophytes indicative of mild osteoarthritis. Remaining bones joints soft tissues unremarkable. XR/XR hand RT min 3V IMPRESSION: RIGHT HAND: Normal. LEFT HAND: Mild osteoarthritis involving the joints of the thumb.
== END 2023-10-02 12:18 | disposition home or self-care (01) ==
LOC: HO.HOSX 12:17
PROVIDERS: PCP Family Medicine; Visit Provider Orthopaedic Surgery
DX: M18.11 Unilateral primary osteoarthritis of first carpometacarpal joint, right hand (principal); M18.12 Unilateral primary osteoarthritis of first carpometacarpal joint, left hand
CPT/HCPCS: 20600; 73130; 99212; J1010

== ENCOUNTER 2023-11-04 08:07 | Outpatient (REF) | payer MEDICARE, SELFPAY ==
[2023-11-04 12:52] LABS: Vitamin D 25-OH Total 58.8 ng/mL (>30)
== END 2023-11-04 08:08 | disposition home or self-care (01) ==
LOC: HO.HMGCLDS 08:07
PROVIDERS: PCP Family Medicine; Visit Provider Family Medicine
DX: E55.9 Vitamin D deficiency, unspecified (principal)
CPT/HCPCS: 36415; 82306

== ENCOUNTER 2023-11-07 11:31 | Outpatient (AMB) | payer MEDICARE, SELFPAY ==
[2023-11-07 11:54] VITALS: BP 112/74; PULSE 75; O2SAT 97; BMI 31.8
--- NOTE | 2023-11-07 11:54 | MHC.PC.OV ---
Vital Signs 11/07/23 11:54 Height 5 ft 4 in Weight 185 lb 2 oz BMI 31.8 BP 112/74 Blood Pressure Location Lt brachial Position Sitting Pulse 75 Pulse Source Pulse Oximeter Pulse Oximetry (%) 97 Oxygen Delivery Method Room Air Intake Visit Reasons: 3 months elevated blood sugar and labs Intake Note: Patient is here for elevated blood sugars and labs. Allergies Penicillins [PCN] Allergy (Verified 10/02/23 12:34) Unknown red dye Allergy (Verified 10/02/23 12:34) Unknown Sulfa (Sulfonamide Antibiotics) Allergy (Verified 10/02/23 12:34) Unknown acetaminophen Adverse Reaction (Mild, Verified 10/02/23 12:34) Migraine 12 hr nasal spray Allergy (Uncoded 10/02/23 12:34) Unknown novocaine Adverse Reaction (Intermediate, Uncoded 10/02/23 12:34) tachycardia Tobacco use date assessed: 11/07/23 Fall risk assessment: 1 Fall in past year Last assessed Fall Risk: 11/07/23 Dental Screening Dental Screen Date: 08/06/23 HPI 3 months elevated blood sugar and labs HPI Details 67 y/o female presents to f/u pre-diabetes and hypertension. Also following mildly low H&H. Blood pressure today 112/74. She is on losartan 100mg daily. A1c today 11/07/23 is 5.6% which improved from prior. HPI Comments History of Present Illness Details Documentation assistance for Hiro Cesar MD, was provided by Andi Cárdenas, Community Recreation Programmer on 11/07/2023 at 12:39 PM EST. I, Dr. Cesar, have read, observed, and verified documentation. PFSH Medical History Pre-diabetes Adams esophagus GERD (gastroesophageal reflux disease) IBS (irritable bowel syndrome) Hyperlipidemia HTN (hypertension) Surgical History S/P cholecystectomy Hx of colonoscopy Family History Mother High blood pressure High cholesterol Throat cancer Sister High blood pressure High cholesterol Cardiovascular disease Asthma Social History Household Members: Spouse Housing: House Are you a primary director of home care hospice to a significant other at home: No Do you presently have visiting nurse or other home services: No Alcohol intake: current Alcohol intake frequency: holidays/special occasions only Patient Tobacco Use Status: Former Tobacco user e-Cigarette/Vaping Use: Never Used service: No Current occupational status: retired Sexual orientation: Unable to collect Gender identity: Unable to collect Cognitive needs: No Hearing needs: Yes (hearing aids) Vision needs: Yes (glasses) Questionnaire Thrive Questionnaire Date Thrive assessed: 08/14/23 ABRIL-7 AMB Questionnaire ABRIL-7 Date ABRIL - 7 assessed: 08/21/23 Source: Developed by Drs. Nik Stack, Magalis Alvarez, Bam Alex and colleagues, with an educational anderson from [employer]. Physical exam (Primary Care) Vital Signs: Last Vital Signs Pulse 75 11/07/23 11:54 BP 112/74 11/07/23 11:54 Pulse Ox 97 11/07/23 11:54 Oxygen Delivery Method Room Air 11/07/23 11:54 BMI result Body Mass Index 31.8 Tobacco/Smoking Status: Tobacco use Status Tobacco use date assessed 11/07/23 11/07/23 12:09 Patient Tobacco Use Status Former Tobacco user 11/07/23 11:59 e-Cigarette/Vaping Use Never Used 11/07/23 11:59 Thrive Assessment: Date of Thrive Assessment Date Thrive assessed 08/14/23 11/07/23 11:59 Results AMB Hemoglobin A1c AMB Hemoglobin A1c 5.6 % Last Edit by Estella Bey CMA on 11/07/23 12:19 Results Reviewed Results Reviewed: Laboratory Last Values Hgb A1c (Clinic) 5.6 % (4.0-6.0) 11/07/23 12:18 Assessment and Plan Assessment & Plan (1) Pre-diabetes: Code(s): R73.03 - Prediabetes Plan: A1c?5.6%?which?is?top?normal?range Has?been?in?pre?diabetes?range Encouraged?diet?low?in?sugars?and?starches (2) HTN (hypertension): Code(s): I10 - Essential (primary) hypertension Plan: Blood?pressure?is?well?controlled?and?goal?is?less?than?140/90 Continue?current?medication?regimen (3) Mild anemia: Code(s): D64.9 - Anemia, unspecified Plan: Mild?anemia.??Unclear?cause Will?recheck?this (4) GERD (gastroesophageal reflux disease): Code(s): K21.9 - Gastro-esophageal reflux disease without esophagitis Plan: Significant?GERD?with?likely?esophageal?spasm?recently. Continue?omeprazole Could?consider?pantoprazole Avoid?trigger?foods, eating?too?close?to?bedtime?and?over?filling (5) Vasovagal reaction: Code(s): R55 - Syncope and collapse Plan: Recent?vasovagal?reaction, likely?secondary?to?esophageal?spasm Discussed?avoiding?triggers?and?hydrating?well. (6) Varicose vein of leg: Code(s): I83.90 - Asymptomatic varicose veins of unspecified lower extremity Plan: Elevate?leg If?worsens?can?refer?to?vascular?surgery Plan Recent?notes?in?patient's?chart?mention?chronic?kidney?disease.??However?renal?function?labs?appear?okay.??Patient?is?unaware?of?any?prior?diagnosis?of?renal?disease. Will?recheck?labs?to?investigate?further. Also?checking?CBC?for?mild?anemia. Orders: Orders Basic Metabolic Panel Today D64.9 - Anemia, unspecified, Z00.00 - Encounter for general adult medical examination without abnormal findings IRON PROFILE Today D64.9 - Anemia, unspecified Reticulocyte Count Today D64.9 - Anemia, unspecified Vitamin B12 and Folate Today D64.9 - Anemia, unspecified, E53.8 - Deficiency of other specified B group vitamins AMB Hemoglobin A1c Today Z13.9 - Encounter for screening, unspecified Complete Blood Count Auto Diff Today D64.9 - Anemia, unspecified, Z00.00 - Encounter for general adult medical examination without abnormal findings Microalbumin, Random (w Creat) Today D64.9 - Anemia, unspecified, I10 - Essential (primary) hypertension Coding Level of Care Code Est Pt Level 4 (54791) Diagnoses Pre-diabetes R73.03 HTN (hypertension) I10 Mild anemia D64.9 GERD (gastroesophageal reflux disease) K21.9 Vasovagal reaction R55 Varicose vein of leg I83.90
== END 2023-11-07 12:44 | disposition home or self-care (01) ==
PROVIDERS: PCP Family Medicine; Visit Provider Family Medicine
DX: R73.03 Prediabetes (principal); I10 Essential (primary) hypertension; D64.9 Anemia, unspecified; K21.9 Gastro-esophageal reflux disease without esophagitis; R55 Syncope and collapse; I83.90 Asymptomatic varicose veins of unspecified lower extremity; Z13.9 Encounter for screening, unspecified
CPT/HCPCS: 83036; 99214

== ENCOUNTER 2023-11-07 12:53 | Outpatient (REF) | payer MEDICARE, SELFPAY ==
[2023-11-07 14:25] LABS: MANUAL DIFF FLAG NO
[2023-11-07 14:30] LABS: Basophils Absolute Auto 0.1 X10*3/uL (0.0-0.2); Basophils Percent Auto 0.9 % (0-2); Eosinophils Absolute Auto 0.7 X10*3/uL (0.0-0.4); Eosinophils Percent Auto 10.3 % (0-4); Hematocrit 36.4 % (37.0-47.0); Hemoglobin 11.7 g/dl (12.0-16.0); Imm Gran Abs Auto 0.01 X10*3/uL (0.00-0.03); Imm Gran Pct Auto 0.2 % (0.0-0.4); Immature Retic Fraction 7.1 % (3.0-15.9); Lymphocytes Absolute Auto 2.2 X10*3/uL (1.2-4.9); Lymphocytes Percent Auto 34.2 % (20-40); Mean Corpuscular HGB Conc 32.1 g/dl (31.0-35.0); Mean Corpuscular Hemoglobin 29.3 pg (27.0-33.0); Mean Platelet Volume 11.1 fL (9.4-12.3); Monocytes Absolute Auto 0.5 X10*3/uL (0.1-1.2); Monocytes Percent Auto 7.6 % (2-11); Neutrophils Percent Auto 46.8 % (45-73); Platelet Count 291 X10*3/uL (160-400); Red Cell Distribution Width 12.3 % (11.0-16.0); Retic HGB Equivalent 33.5 pg (30.0-35.0); Reticulocyte Percent 1.2 % (0.5-1.8); Reticulocytes Absolute 0.049 X10*6/uL (0.026-0.095); White Blood Count 6.4 X10*3/uL (4.8-10.8)
[2023-11-07 14:45] LABS: Anion Gap 15 (12-20); Blood Urea Nitrogen 16 mg/dL (9-16); Calcium 10.1 mg/dL (8.4-10.2); Carbon Dioxide 24 mmol/L (22-29); Chloride 106 mmol/L (96-108); Estimated Glomerular Filt Rate > 60; Glucose Random 86 mg/dL (60-115); Iron 79 mcg/dL (30-160); Percent Iron Saturation 23 % (15-50); Potassium 4.2 mmol/L (3.3-5.1); Sodium 141 mmol/L (135-145); Total Iron Binding Capacity 349 mcg/dL (228-428); Unsaturated Iron Binding 270 ug/dL
[2023-11-07 15:30] LABS: Creatinine Urine 35.01 mg/dL; Microalbumin Urine < 5.0 mg/L
[2023-11-07 17:11] LABS: Folate 10.5 ng/mL (> or = 4.0); Vitamin B12 < 148 pg/mL (200-900)
== END 2023-11-07 12:54 | disposition home or self-care (01) ==
LOC: HO.WFDLDS 12:53
PROVIDERS: Visit Provider Family Medicine
DX: Z00.00 Encounter for general adult medical examination without abnormal findings (principal); E53.8 Deficiency of other specified B group vitamins; D64.9 Anemia, unspecified; I10 Essential (primary) hypertension
CPT/HCPCS: 36415; 80048; 82043; 82570; 82607; 82746; 83540; 85025; 85045

== ENCOUNTER 2023-12-10 14:33 | Outpatient (AMB) | payer MEDICARE, SELFPAY ==
--- NOTE | 2023-12-10 14:39 | A.OFFPC_ITS ---
Vital Signs 12/10/23 14:41 Height 5 ft 4 in Weight 186 lb BMI 31.9 BP 130/60 Blood Pressure Location Rt brachial Position Sitting Pulse 76 Pulse Source Pulse Oximeter Pulse Oximetry (%) 96 Oxygen Delivery Method Room Air Intake Visit Reasons: follow up labs Intake Note: Patient is here to follow up on Lab results. Associate Professor Required: No Prosthodontist/Educator: Not Required per policy Accompanied by: Self / Same As Patient Allergies Penicillins [PCN] Allergy (Verified 12/10/23 14:41) Unknown red dye Allergy (Verified 12/10/23 14:41) Unknown Sulfa (Sulfonamide Antibiotics) Allergy (Verified 12/10/23 14:41) Unknown acetaminophen Adverse Reaction (Mild, Verified 12/10/23 14:41) Migraine 12 hr nasal spray Allergy (Uncoded 12/10/23 14:41) Unknown novocaine Adverse Reaction (Intermediate, Uncoded 12/10/23 14:41) tachycardia Tobacco use date assessed: 12/10/23 Fall risk assessment: No Falls in past year Last assessed Fall Risk: 12/10/23 Dental Screening Dental Screen Date: 08/06/23 HPI follow up labs HPI Details 67 y/o female presents to f/u labs. Labs drawn 11/07/23. Reviewed labs with pt. Mild, improving anemia. ?B12?was?low.??I?had?her?start?a?supplement. A1c 5.6%. PFSH Medical History Pre-diabetes Adams esophagus GERD (gastroesophageal reflux disease) IBS (irritable bowel syndrome) Hyperlipidemia HTN (hypertension) Surgical History S/P cholecystectomy Hx of colonoscopy Family History Mother High blood pressure High cholesterol Throat cancer Sister High blood pressure High cholesterol Cardiovascular disease Asthma Social History Household Members: Spouse Housing: House Are you a primary child care associate teacher to a significant other at home: No Do you presently have visiting nurse or other home services: No 75 years or older and lives alone: No Alcohol intake: current Alcohol intake frequency: holidays/special occasions only Patient Tobacco Use Status: Former Tobacco user e-Cigarette/Vaping Use: Never Used Second Hand Smoke Exposure: No service: No Current occupational status: retired Sexual orientation: Unable to collect Gender identity: Unable to collect Cognitive needs: No Hearing needs: Yes (hearing aids) Vision needs: Yes (glasses) Questionnaire Thrive Questionnaire Date Thrive assessed: 08/14/23 ABRIL-7 AMB Questionnaire ABRIL-7 Date ABRIL - 7 assessed: 08/21/23 Source: Developed by Drs. Nik Stack, Magalis Alvarez, Bam Alex and colleagues, with an educational anderson from [employer]. Review of Systems Const Denies chills, Denies fatigue, Denies fever(s), Denies headache(s) and Denies weakness ENT Denies dizziness and Denies headache(s) Card Denies dyspnea Resp Denies cough, Denies dyspnea, Denies wheezing and Denies other (shortness of breath) Musc Denies numbness and Denies tingling Neuro Denies dizziness, Denies headache(s), Denies numbness, Denies tingling and De nies weakness Psych Denies anxiety and Denies depression Endo Denies fatigue Aller/Immun Denies wheezing Physical exam (Primary Care) Vital Signs: Last Vital Signs Pulse 76 12/10/23 14:41 BP 130/60 12/10/23 14:41 Pulse Ox 96 12/10/23 14:41 Oxygen Delivery Method Room Air 12/10/23 14:41 BMI result Body Mass Index 31.9 Tobacco/Smoking Status: Tobacco use Status Tobacco use date assessed 12/10/23 12/10/23 14:47 Patient Tobacco Use Status Former Tobacco user 12/10/23 14:47 e-Cigarette/Vaping Use Never Used 12/10/23 14:47 Thrive Assessment: Date of Thrive Assessment Date Thrive assessed 08/14/23 12/10/23 14:47 Const General: well developed; No acute distress Nutritional Appearance: well nourished Orientation/consciousness: patient oriented x3 HENMT Head: Yes normocephalic and Yes atraumatic Eyes General: appearance normal, both eyes and all related structures Pupils: Equal, round and reactive pupils present EOM: EOMs intact bilaterally Resp Effort & Inspection: normal respiratory effort Auscultation: clear to auscultation bilaterally Cardio Rate: regular rate Rhythm: regular rhythm Heart sounds: S1 normal heart sound present, S2 normal heart sound present, no gallops, no murmurs and no rubs Neuro General: patient oriented x3 and gait normal Cranial nerves: Yes Equal, round and reactive pupils present Psych Affect: normal affect Assessment and Plan Assessment & Plan (1) Mild anemia: Code(s): D64.9 - Anemia, unspecified Plan: H&H?Improved?and?nearly?within?normal?range She?has?low?vitamin?B12?and?I?had?sent?a?script?for?supplement.??Patien t?has?been?taking?the Will?repeat?H&H?as?well?as?B12?and?follow-up?in?about?a?month. (2) Pre-diabetes: Code(s): R73.03 - Prediabetes Plan: A1c?has?been?in?pre?diabetes?range?in?the?past. A1c?most?recently?5.6%?which?is?top?normal?range Encouraged?diet?low?in?sugars?and?starches. Plan Prior?provider?had?injured?CKD?in?patient's?problem?list. I?found?no?evidence?of?this?and?repeated?lab?work.??No?evidence?of?CKD. Diagnosis?removed?from?patient's?problem?list?and?history. Orders: Orders Vitamin B12 and Folate Today D64.9 - Anemia, unspecified, E53.8 - Deficiency of other specified B group vitamins Complete Blood Count Auto Diff Today D64.9 - Anemia, unspecified, Z00.00 - Encounter for general adult medical examination without abnormal findings IRON PROFILE Today D64.9 - Anemia, unspecified Reticulocyte Count Today D64.9 - Anemia, unspecified Coding Level of Care Code Est Pt Level 3 (90761) Diagnoses Mild anemia D64.9 Pre-diabetes R73.03
[2023-12-10 14:41] VITALS: BP 130/60; PULSE 76; O2SAT 96; BMI 31.9
== END 2023-12-10 15:31 | disposition home or self-care (01) ==
PROVIDERS: PCP Family Medicine; Visit Provider Family Medicine
DX: D64.9 Anemia, unspecified (principal); R73.03 Prediabetes
CPT/HCPCS: 99213

== ENCOUNTER 2024-01-01 08:03 | Outpatient (REF) | payer MEDICARE, SELFPAY ==
[2024-01-01 11:29] LABS: MANUAL DIFF FLAG NO
[2024-01-01 11:33] LABS: Basophils Absolute Auto 0.1 X10*3/uL (0.0-0.2); Basophils Percent Auto 0.8 % (0-2); Eosinophils Absolute Auto 1.1 X10*3/uL (0.0-0.4); Eosinophils Percent Auto 14.7 % (0-4); Hematocrit 36.6 % (37.0-47.0); Hemoglobin 11.8 g/dl (12.0-16.0); Imm Gran Abs Auto 0.04 X10*3/uL (0.00-0.03); Imm Gran Pct Auto 0.5 % (0.0-0.4); Immature Retic Fraction 8.4 % (3.0-15.9); Lymphocytes Absolute Auto 2.2 X10*3/uL (1.2-4.9); Lymphocytes Percent Auto 29.5 % (20-40); Mean Corpuscular HGB Conc 32.2 g/dl (31.0-35.0); Mean Corpuscular Volume 89.9 fL (80.0-98.0); Monocytes Absolute Auto 0.6 X10*3/uL (0.1-1.2); Monocytes Percent Auto 7.9 % (2-11); Neutrophils Absolute Auto 3.5 x10*3/uL (2.0-8.3); Neutrophils Percent Auto 46.6 % (45-73); Platelet Count 285 X10*3/uL (160-400); Red Blood Count 4.07 X10*6/uL (4.20-5.50); Red Cell Distribution Width 12.5 % (11.0-16.0); Retic HGB Equivalent 32.7 pg (30.0-35.0); Reticulocyte Percent 1.3 % (0.5-1.8); Reticulocytes Absolute 0.051 X10*6/uL (0.026-0.095); White Blood Count 7.5 X10*3/uL (4.8-10.8)
[2024-01-01 12:52] LABS: Folate 7.2 ng/mL (> or = 4.0); Vitamin B12 1421 pg/mL (200-900)
[2024-01-01 12:54] LABS: Iron 85 mcg/dL (30-160); Percent Iron Saturation 26 % (15-50); Total Iron Binding Capacity 327 mcg/dL (228-428); Unsaturated Iron Binding 242 ug/dL
== END 2024-01-01 08:04 | disposition home or self-care (01) ==
LOC: HO.HMGCLDS 08:03
PROVIDERS: PCP Family Medicine; Visit Provider Family Medicine
DX: Z00.00 Encounter for general adult medical examination without abnormal findings (principal); D64.9 Anemia, unspecified; E53.8 Deficiency of other specified B group vitamins
CPT/HCPCS: 36415; 82607; 82746; 83540; 85025; 85045

== ENCOUNTER → 2024-01-10 11:30 | Outpatient (AMB) | payer MEDICARE, SELFPAY ==
--- NOTE | 2024-01-10 11:22 | MHC.PC.OV ---
Intake Visit Reasons: f/u labs via telemedicine Intake Note: lab review Allergies Penicillins [PCN] Allergy (Verified 01/10/24 11:22) Unknown red dye Allergy (Verified 01/10/24 11:22) Unknown Sulfa (Sulfonamide Antibiotics) Allergy (Verified 01/10/24 11:22) Unknown acetaminophen Adverse Reaction (Mild, Verified 01/10/24 11:22) Migraine 12 hr nasal spray Allergy (Uncoded 12/10/23 14:41) Unknown novocaine Adverse Reaction (Intermediate, Uncoded 12/10/23 14:41) tachycardia Tobacco use date assessed: 12/10/23 Dental Screening Dental Screen Date: 08/06/23 HPI f/u labs via telemedicine HPI Details Telemedicine?encounter?to?follow-up?anemia Patient?is?taking?B12?as?prescribed She?says?she?feels?well No?new?complaints PFSH Medical History (Reviewed 11/07/23 @ 12:04 by Estella Bey [facility]) Pre-diabetes Adams esophagus GERD (gastroesophageal reflux disease) IBS (irritable bowel syndrome) Hyperlipidemia HTN (hypertension) Surgical History S/P cholecystectomy Hx of colonoscopy Family History Mother High blood pressure High cholesterol Throat cancer Sister High blood pressure High cholesterol Cardiovascular disease Asthma Social History Household Members: Spouse Housing: House Are you a primary hospice care sales consultant to a significant other at home: No Do you presently have visiting nurse or other home services: No 75 years or older and lives alone: No Alcohol intake: current Alcohol intake frequency: holidays/special occasions only Patient Tobacco Use Status: Former Tobacco user e-Cigarette/Vaping Use: Never Used Second Hand Smoke Exposure: No service: No Current occupational status: retired Sexual orientation: Unable to collect Gender identity: Unable to collect Cognitive needs: No Hearing needs: Yes (hearing aids) Vision needs: Yes (glasses) Questionnaire Thrive Questionnaire Date Thrive assessed: 08/14/23 ABRIL-7 AMB Questionnaire ABRIL-7 Date ABRIL - 7 assessed: 08/21/23 Source: Developed by Magalis HaywardW. Antonio, Bam Alex and colleagues, with an educational anderson from [employer]. Review of Systems Const Denies chills, Denies fatigue, Denies fever(s), Denies headache(s) and Denies weakness ENT Denies dizziness and Denies headache(s) Card Denies chest pain, Denies lightheadedness, Denies dyspnea and Denies other (Palpitations) Resp Denies cough, Denies dyspnea, Denies wheezing and Denies other ( shortness of breath) Musc Denies numbness and Denies tingling Neuro Denies dizziness, Denies headache(s), Denies numbness, Denies tingling, Denies paresthesias and Denies weakness Psych Denies anxiety and Denies depression Endo Denies fatigue Aller/Immun Denies wheezing Physical exam (Primary Care) Tobacco/Smoking Status: Tobacco use Status Tobacco use date assessed 12/10/23 01/10/24 11:24 Patient Tobacco Use Status Former Tobacco user 01/10/24 11:24 e-Cigarette/Vaping Use Never Used 01/10/24 11:24 Thrive Assessment: Date of Thrive Assessment Date Thrive assessed 08/14/23 01/10/24 11:24 Telehealth Telehealth Telehealth Platform: Telephone Location of provider rendering services: practice address Location of patient: address on file Patient Identification confirmed using: Name, : Yes Telehealth method: voice only Patient verbally consented to treatment: Yes Patient verbally consented to billing insurance company: Yes Patient informed of any privacy concerns related to visit: Yes Minutes spent on Phone/Video with Pt.: 6 Assessment and Plan Assessment & Plan (1) Mild anemia: Code(s): D64.9 - Anemia, unspecified Plan: Patient?has?mild?anemia?and?had?had?a?low?B12?level?though?her?iron?level?was?fine. Gave?her?a?B12?supplement. Hemoglobin?level?has?increased?slightly?but?is?still?mildly?low.??Reticulocyte?count?is?slightly?below?expected?range?but?otherwise?lab?work?is?okay We?can?continue?to?monitor?this Continue?B12?which?is?now?out?of?low?range (2) Low vitamin B12 level: Code(s): R79.89 - Other specified abnormal findings of blood chemistry Plan: As?above,?no?longer?in?low?range?on?B12?supplement Continue?B12 Coding Level of Care Code Tele Est Pt Level 2 (19716) Diagnoses Mild anemia D64.9 Low vitamin B12 level R79.89
== END ==
LOC: HO.HMGFM 11:30
PROVIDERS: PCP Family Medicine; Visit Provider Family Medicine
DX: D64.9 Anemia, unspecified (principal); R79.89 Other specified abnormal findings of blood chemistry
CPT/HCPCS: 99441

== ENCOUNTER 2024-04-22 12:48 | Outpatient (AMB) | payer MEDICARE, SELFPAY ==
--- NOTE | 2024-04-22 13:01 | A.OFFVIS_ITS ---
Intake Visit Reasons: OV-Left thumb pain, last inj 06/26/23 Intake Note: Vika 68 yr old female right hand dominant female presents today for her follow up visit for her Left Basal joint osteoarthritis, S/P injection 06/26/23. States injection gave her relief and would like to repeat injection today. Allergies Penicillins [PCN] Allergy (Verified 04/22/24 13:07) Unknown red dye Allergy (Verified 04/22/24 13:07) Unknown Sulfa (Sulfonamide Antibiotics) Allergy (Verified 04/22/24 13:07) Unknown acetaminophen Adverse Reaction (Mild, Verified 04/22/24 13:07) Migraine 12 hr nasal spray Allergy (Uncoded 12/10/23 14:41) Unknown novocaine Adverse Reaction (Intermediate, Uncoded 12/10/23 14:41) tachycardia HPI HPI OV-Left thumb pain, last inj 06/26/23: Details: Vika is a 67 year old right hand dominant woman who returns to discuss her left basal joint arthritis. She received a left basal joint injection on 06/26/23, with good relief, and a right basal joint injection on 10/02/23 with good relief. She would like her left thumb injected today She complains of pain at the base of her left thumb, worse with pinching or gripping activities She denies any known injury, locking, numbness, or tingling. 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 [employer] Medical History Pre-diabetes Adams esophagus GERD (gastroesophageal reflux disease) IBS (irritable bowel syndrome) Hyperlipidemia HTN (hypertension) Surgical History S/P cholecystectomy Hx of colonoscopy Family History Mother High blood pressure High cholesterol Throat cancer Sister High blood pressure High cholesterol Cardiovascular disease Asthma Social History Household Members: Spouse Housing: House Are you a primary care management assistant to a significant other at home: No Do you presently have visiting nurse or other home services: No 75 years or older and lives alone: No Alcohol intake: current Alcohol intake frequency: holidays/special occasions only Patient Tobacco Use Status: Former Tobacco user e-Cigarette/Vaping Use: Never Used Second Hand Smoke Exposure: No service: No Current occupational status: retired Sexual orientation: Unable to collect Gender identity: Unable to collect Cognitive needs: No Hearing needs: Yes (hearing aids) Vision needs: Yes (glasses) Physical Exam Const General: no acute distress and alert Orientation/consciousness: patient oriented x3 Neuro General: patient oriented x3 Extrem Other: Evaluation of Left Upper Extremity: The patient is alert, oriented, and in no acute distress Neuro: Median, Ulnar, Radial nerves motor and sensory intact and sensation is n ormal to the tips of all digits Vascular: Cap refill brisk ROM: She can make a fist and extend all her digits No locking or catching Most tender over the basal joint + shoulder sign + CMC grind No tenderness over the 1st dorsal compartment No tenderness over the MCP joint No tenderness over the a1 pulleys Radiographs: 3 views of the left hand from 10/02/23 were reviewed by me today in clinic. They show basal joint arthritis with joint space narrowing, subluxation, and early osteophyte formation Psych Appearance: grossly normal Affect: normal affect Attitude: cooperative Office Procedures AMB Fracture Care Details: No fracture, injection Fracture Billing Code: Fracture Billing Code Assessment & Plan Assessment & Plan (1) Osteoarthritis of carpometacarpal joint of left thumb: Code(s): M18.12 - Unilateral primary osteoarthritis of first carpometacarpal joint, left hand Category: Medical (2) Osteoarthritis of carpometacarpal joint of right thumb: Code(s): M18.11 - Unilateral primary osteoarthritis of first carpometacarpal joint, right hand Category: Medical Plan Assessment & Plan: 1. Left Basal joint osteoarthritis, S/P injection Date of injections: 04/22/24, 06/26/23 I educated her about this condition I discussed operative and non-operative treatment options The patient would like to proceed with a repeat injection I discussed activity modification, she should limit or avoid any heavy or repetitive pinching or gripping activities She was measured for a new comfort cool brace to wear with daily activities. She wishes to purchase this herself OTC I discussed the use of assistive devices to improve her symptoms Injection #1 : The risks and benefits of a steroid injection including but not limited to risk of damage to blood vessels, nerve, tendon, infection, skin bleaching, persistent or worsening pain, and failure to improve symptoms were discussed with the patient and they wish to proceed with the steroid injection. Once consent was obtained the skin over the dorsum of the Left basal joint was sterilely prepped. The joint was then injected with a combination of 1 mL of (40 mg/ml} Depo-Medrol and 1% plain Lidocaine. The patient appears to have tolerated the procedure well and with no complications. She had good early relief before leaving clinic today. She knows that they may not have another steroid injection into this joint for least 4 months. 2. Right Basal joint osteoarthritis, S/P injection Date of Injection: 10/02/23 She would like to make an appointment for after the for a repeat injection Scribed for Radha Bourgeois MD by Reg Ho biomedical engineering technologist, on 04/22/24 at 1:20 PM, EST. Scribe Plan - Not visible on output: Scribed for Radha Bourgeois MD by Reg Ho biomedical engineering technologist, on [ ] at [ ], EST. Coding Level of Care Code Est Pt Level 3 (45079) Diagnoses Osteoarthritis of carpometacarpal joint of left thumb M18.12 Osteoarthritis of carpometacarpal joint of right thumb M18.11 CPT Codes Fracture Care - Fracture Billing Code: Fracture Billing Code ([id number])
--- OUTSIDE RECORDS SUMMARY | 2024-04-23 02:16 | XMS_ITS ---
Author Organization [facility] Address [address] [facility] [address] [facility] [place] [address] Care Team Providers Care Architectural Draftsman Name Role Phone Hiro Cesar Primary Care Provider UnavailMARY Stewart Unavailable [phone] ALLERGIES Allergen (clinical drug ingredient) Drug/Non Drug [...] 08/26/2023 Encounters Encounter Location Date Provider Diagnosis [facility] [address] [facility] [address] [place] [address] 08/26/2023 MARY IZAGUIRRE Ingrown right big toenail [...] * Vika SAUL MDOB:1955 (67 yo F)Acc No.[id number]:08/26/2023 Progress Notes Patient:??Vika SAUL Provider:??Mary Izaguirre DPM :1955?Age:67 Y?Sex:Fe male Date:08/26/2023 Address:[facility] [address] [place], [id number] Pcp:Hiro Cesar Subjective: * Chief Complaints: * [...] Up:??prn * Billing Information: * Visit Code:?? 93786 Office Visit, Est Pt., Level 3. * [...]
--- OUTSIDE RECORDS SUMMARY | 2024-04-23 02:17 | XMS_ITS ---
Author Organization [facility] Address [address] [facility] [address] [facility] [place] [address] Care Team Providers Care Receiving Distribution Station Operator Name Role Phone Hiro Cesar Primary Care Provider MARY Christine Unavailable [phone] ALLERGIES Allergen (clinical drug ingredient) Drug/Non Drug [...] 08/12/2023 Encounters Encounter Location Date Provider Diagnosis [facility] [address] [facility] [address] [place] [address] 08/12/2023 MARY IZAGUIRRE Ingrown right big toenail [...] * Vika SAUL MDOB:1955 (67 yo F)Acc No.[id number]:08/12/2023 Progress Notes Patient:??Vika SAUL Provider:??Mary Izaguirre DPM :1955?Age:67 Y?Sex:Fe male Date:08/12/2023 Address:[facility] [place], [id number] Pcp:Hiro Cesar Subjective: * Chief Complaints: * [...] the nail dorsally, and plantarly. Using an [employer] nail splitter, the medial border was cut. [...] tolerated the procedure well. ? * Procedure Codes:??52842 KRISTEN LAURE OF NAIL BED, Modifiers: T5 * Follow Up:??2 Weeks * Billing Information: * Visit Code:?? 22722 Office Visit, Est Pt., Level 3. Modifiers: 25 * Procedure Codes:?? 30764 REMOVAL OF NAIL BED. Modifiers: T5 * [...]
--- OUTSIDE RECORDS SUMMARY | 2024-04-23 02:17 | XMS_ITS | Patient Health Record ---
Author Organization [facility] Address [address] [place] [address] Care Team Providers Care Rainbow Trout Farm Manager Name Role Phone Hiro Cesar Primary Care Provider JAYANT Christine Unavailable [phone] ALLERGIES Allergen (clinical drug ingredient) Drug/Non Drug [...] 08/26/2023 Encounters Encounter Location Date Provider Diagnosis [facility] [address] [address] 08/12/2023 JAYANT IZAGUIRRE Ingrown right big toenail L60.0 and Pain in right toe(s) M79.674 [facility] [address] [address] 08/26/2023 JAYANT IZAGUIRRE Ingrown right big toenail [...] of [place] [address] [place] [address] [id number] Vika Saul Self - patient is the insured [employer] [address] [place] [address] [phone] [id number] Vika Saul Self - patient is [...]
== END 2024-04-22 13:39 | disposition home or self-care (01) ==
PROVIDERS: PCP Family Medicine; Visit Provider Orthopaedic Surgery
DX: M18.0 Bilateral primary osteoarthritis of first carpometacarpal joints (principal)
CPT/HCPCS: 20600; 99213

== ENCOUNTER → 2024-04-22 12:48 | Outpatient (BNVA) | payer MEDICARE, SELFPAY | PROVIDERS: PCP Family Medicine; Visit Provider Orthopaedic Surgery | DX: M18.0 Bilateral primary osteoarthritis of first carpometacarpal joints (principal) | CPT/HCPCS: 20600; 99212; J1010; J2003 ==

== ENCOUNTER 2024-05-26 10:32 | Outpatient (AMB) | payer MEDICARE, SELFPAY ==
--- NOTE | 2024-05-26 10:53 | MHC.OFFVIS ---
Vital Signs 05/26/24 10:54 Height 5 ft 4 in Weight 186 lb BMI 31.9 Intake Visit Reasons: OV - Right basal joint inj Intake Note: Vika 68 yr old - hand dominant female presents today for a follow up visit for her Right Basal joint osteoarthritis, S/P injection 10/02/23. States injection helped and would like to repeat injection today. Allergies Penicillins [PCN] Allergy (Verified 05/26/24 11:03) Unknown red dye Allergy (Verified 05/26/24 11:03) Unknown Sulfa (Sulfonamide Antibiotics) Allergy (Verified 05/26/24 11:03) Unknown acetaminophen Adverse Reaction (Mild, Verified 05/26/24 11:03) Migraine 12 hr nasal spray Allergy (Uncoded 05/26/24 11:03) Unknown novocaine Adverse Reaction (Intermediate, Uncoded 05/26/24 11:03) tachycardia HPI HPI OV - Right basal joint inj: Details: Vika is a 67 year old right hand dominant woman who returns to discuss her right basal joint arthritis. She received a right basal joint injection on 10/02/23, with good relief, and a left basal joint injection on 04/22/24 with good relief. She would like her right thumb injected today She complains of pain at the base of her right thumb, worse with pinching or gripping activities She denies any known injury, locking, numbness, or tingling. 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 [employer] Medical History Pre-diabetes Adams esophagus GERD (gastroesophageal reflux disease) IBS (irritable bowel syndrome) Hyperlipidemia HTN (hypertension) Surgical History S/P cholecystectomy Hx of colonoscopy Family History Mother High blood pressure High cholesterol Throat cancer Sister High blood pressure High cholesterol Cardiovascular disease Asthma Social History Household Members: Spouse Housing: House Are you a primary certified social workers in health care to a significant other at home: No Do you presently have visiting nurse or other home services: No 75 years or older and lives alone: No Alcohol intake: current Alcohol intake frequency: holidays/special occasions only Patient Tobacco Use Status: Former Tobacco user e-Cigarette/Vaping Use: Never Used Second Hand Smoke Exposure: No service: No Current occupational status: retired Sexual orientation: Unable to collect Gender identity: Unable to collect Cognitive needs: No Hearing needs: Yes (hearing aids) Vision needs: Yes (glasses) Physical Exam Vital Signs: BMI result Body Mass Index 31.9 Const General: no acute distress and alert Orientation/consciousness: patient oriented x3 Neuro General: patient oriented x3 Extrem Other: Evaluation of Right Upper Extremity: The patient is alert, oriented, and in no acute distress Neuro: Median, Ulnar, Radial nerves motor and sensory intact and sensation is normal to the tips of all digits Vascular: Cap refill brisk ROM: She can make a fist and extend all her digits No locking or catching Most tender over the basal joint + shoulder sign + CMC grind No tenderness over the 1st dorsal compartment No tenderness over the MCP joint No tenderness over the a1 pulleys Radiographs: 3 views of the right hand from 10/02/23 were reviewed by me today in clinic. They show basal joint arthritis with joint space narrowing, subluxation, and early osteophyte formation Psych Appearance: grossly normal Affect: normal affect Attitude: cooperative Office Procedures AMB Fracture Care Details: No fracture, injection Fracture Billing Code: Fracture Billing Code Assessment & Plan Assessment & Plan (1) Osteoarthritis of carpometacarpal joint of right thumb: Code(s): M18.11 - Unilateral primary osteoarthritis of first carpometacarpal joint, right hand Category: Medical Plan Assessment & Plan: 1. Right Basal joint osteoarthritis, S/P injection Date of Injection: 05/26/24, 10/02/23 I educated her about this condition I discussed operative and non-operative treatment options The patient would like to proceed with a repeat injection I discussed activity modification, she should limit or avoid any heavy or repetitive pinching or gripping activities She was measured for a new comfort cool brace to wear with daily activities. She wishes to purchase this herself OTC I discussed the use of assistive devices to improve her symptoms Injection #1 : The risks and benefits of a steroid injection including but not limited to risk of damage to blood vessels, nerve, tendon, infection, skin bleaching, persistent or worsening pain, and failure to improve symptoms were discussed with the patient and they wish to proceed with the steroid injection. Once consent was obtained the skin over the dorsum of the Right basal joint was sterilely prepped. The joint was then injected with a combination of 1 mL of (40 mg/ml} Depo-Medrol and 1% plain Lidocaine. The patient appears to have tolerated the procedure well and with no complications. She had good early relief before leaving clinic today. She knows that they may not have another steroid injection into this joint for least 4 months. 2. Left Basal joint osteoarthritis, S/P injection Date of injections: 04/22/24, 06/26/23 Doing well following her injection Scribed for Radha Bourgeois MD by ginger Ruiz, on 05/26/24 at 11:15 AM, EST. Scribe Plan - Not visible on output: Scribed for Radha Bourgeois MD by ginger Ruiz, on [ ] at [ ], EST. Coding Level of Care Code Est Pt Level 3 (69558) Diagnoses Osteoarthritis of carpometacarpal joint of right thumb M18.11 CPT Codes Fracture Care - Fracture Billing Code: Fracture Billing Code ([id number])
[2024-05-26 10:54] VITALS: BMI 31.9
--- OUTSIDE RECORDS SUMMARY | 2024-05-26 12:15 | XMS_ITS ---
Author Organization [facility] Address [address] [facility] [address] [place] [address] Care Team Providers Care Human Resources Services Specialist Name Role Phone Hiro Cesar Primary Care Provider Unavailab Nik Bocanegra Unavailable [phone] REASON FOR VISIT does pt need a colon or egd recall Encounters Encounter Location Date Provider Diagnosis [facility] [address] [facility] [address] [place] [address] 04/22/2023 Nik Gamble PLAN OF TREATMENT Next Appt Details Provider Name:Nik Gamble , 06/15/2024 10:30:00 AM, [address] [facility] , [place], [place], [phone],
--- OUTSIDE RECORDS SUMMARY | 2024-05-26 12:15 | XMS_ITS ---
Author Organization [facility] Address [address] [facility] [place] [address] [facility] [place] [place] [address] Care Team Providers Care Overlock Elastic Attacher Name Role Phone Hiro Cesar Primary Care Provider UnavailMARY Stewart Unavailable [phone] Allergies Allergen (clinical drug ingredient) Drug/Non Drug Allergy documented on EMR Reaction Allergy Type Onset Date Status Novocain heart palpitations Drug Allergy Active Substance with sulfonamide structure and antibacterial mechanism of action (substance) Sulfa Antibiotics Unknown Drug Allergy Active Penicillin Unknown Drug Allergy Active REASON FOR VISIT 2wk Medications Medication SIG (Take, Route, Frequency, Duration) Notes [...] tablet Orall y Once a day Active Vital Signs Weight 190.1 lbs 08/26/2023 Height 5ft 2in in 08/26/2023 BMI 34.77 kg/m2 08/26/2023 Heart Rate 73 /min 08/26/2023 Temperature 96.2 degrees Fahrenheit 08/26/19 24 Respiratory Rate 16 /min 08/26/2023 Encounters Encounter Location Date Provider Diagnosis [facility] [address] [facility] [place] [address] [place] [address] 08/26/2023 MARY IZAGUIRRE Ingrown right big toenail L60.0 and Pain in right toe(s) M79.674 Assessments Encounter Date Diagnosis (ICD Code) Assessment Notes Treatment Notes Treatment Clinical Notes [...] Pain in right toe(s) (ICD-10 - M79.674) Plan Of Treatment Treatment Notes Assessment Notes Ingrown right big [...] * Vika SAUL MDOB:1955 (67 yo F)Acc No.[id number]:08/26/2023 Progress Notes Patient:?Vika SAUL Provider:?Mary Izaguirre DPM :1955???Age:67 Y???Sex:Female D ate:08/26/2023 Address:[facility] [id number] Pcp:Hiro Cesar Subjective: * Chief Complaints: * ???2wk * HPI: ???Constitutional:? This 67 y/o female returns to my [...] review of systems is noncontributory. * Medical History:? * Surgical History:?cholecyste ctomy 02/22/2023 * Hospitalization/Major Diagno stic Procedure:?Vaginal Delivery x2 cholecystectomy 02/22/2023arrett's esophagus 08/13/2023 * Family History:?Father: dece ased.?Mother: , Throat, Cancer.? * Social History:?Tobacco Use: never smoker Alcohol Use: rarely. * Medications:?TakingCalcium 6 00 MG Tablet 1 tablet with meals Orally [...] reviewed and reconciled with the patient * Allergies:?Sulfa Antibiotics PenicillinNovocain: heart palpitationsno[Allergies Verified] Objective: * Vitals:?Wt:190.1lbs, Ht: 5ft 2in, BMI:34.77Index, HR:73/min, Temp:96.2F, RR:16/min, Ht-cm: 157.48, Wt-k.23 kg. * Examination: ???General Examination: ???GENERAL: Patient appears well nourished, with NAD. ?VASCULAR: [...] ROM limited. ?SHOES: sneakers. Assessment: * Assessment: 1.?Ingrown right big toenail - L60.0 (Primary)?2.?Pain in right toe(s) - M79.674? Plan: * Treatment: * Procedure Codes:? * Follow Up:?prn * Billing Information: * Visit Code:? 09556 Office Visit, Est Pt., Level 3. * Procedure Codes:? * Sign off status: Completed true * Provider:?Mary Izaguirre DPM Date:? 08/26/2023 Generated for Angela bhat/Steven/Nadira on:?05/26/2024 12:15 PM EST History and Physical Notes * HPI (History of Present Illness) Category Sub-Category Detail Notes Category Not es Constitutional This 67 y/o f emale returns to my office as a follow-up [...]
--- OUTSIDE RECORDS SUMMARY | 2024-05-26 12:15 | XMS_ITS | Patient Health Record ---
Author Organization [facility] Address [address] [place] [address] Care Team Providers Care Accounts Payable Professional Name Role Phone Hiro Cesar Primary Care Provider UnavailNik Cordoba [phone] ALLERGIES Allergen (clinical drug ingredient) Drug/Non Drug Allergy documented on EMR Reaction Allergy Type Onset Date Status Penicillin Unknown Drug Allergy Active Substance with sulfonamide structure and antibacterial mechanism of action (substance) Sulfa Antibiotics Unknown Drug Allergy Active 12 Hour Nasal [place] Unknown Drug Allergy Active red dye (uncoded) [...] Other irritable bowel syndrome (K58.8) Active confirmed 29116860 Problem Encounter for screening for malignant neoplasm of colon (Z12.11) Active confirmed 782352534 Problem Gastroesophageal reflux disease, unspecified whether esophagitis present (K21.9) Active confirmed 972784540 Problem Diverticulosis of colon (K57.30) Active confirmed Diverticulosi s of colon (394615868) Problem Irritable bowel syndrome (K58.9) Active confirmed Irritable b owel syndrome (91784396) Problem Gastroesophageal reflux (K21.9) Active confirmed Esophageal reflux finding (358266224) Problem Personal history of colonic polyps (Z86.010) Active confirmed History of poly p of colon (situation) (958788810) Problem Adams''s esophagus without dysplasia (K22.70) Active confirmed Adams's esophagus (353976764) VITAL SIGNS Temperature 95.7 degrees Fahrenheit 03/04/2024 Blood pressure diastolic 74 mm Hg 03/04/2024 Height 64 in 03/04/2024 Blood pressure systolic 118 mm Hg 03/04/2024 Weight 188 lb 6 oz lbs 03/04/2024 BMI 32.33 kg/m2 03/04/2024 Encounters Encounter Location Date Provider Diagnosis [facility] [address] [place] [address] 10/23/2023 Nik Gamble [facility] [address] [place] [address] 03/04/2024 Nik Gamble Encounter for screen ing [...] Provider Name:Nik Gamble , 06/15/2024 10:30:00 AM, [address] [place] [address] , [place], [place], [phone], Insurance Providers Payer Name Payer Address Payer Phone Subscriber Number Group Number Insured Name Patient Relationship to Insured Coverage Start Date Coverage End Date MEDICARE OF [place] [address] [facility] [phone] [id number] MINOR MOTNEZ Self - patient is the insured MEDEX ATTN CLAIMS [address] [place] [address] [phone] [id number] MINOR MONTEZ Self - patient is the insured MEDICAL (GENERAL) HISTORY Medical History History ICD Code Hypertension Denies [place],DM,CVA,Lung disease,renal dise ase Hyperlipidemia IBS Neg. screening colonoscopy in 09/2010 Colonoscopy 05/2021 with a small tubular adenoma EGD 05/2021--small hiatal hernia, tiny ar ea of Adams's without dysplasia Surgical History Surgery Date(Month/Year) CC[address] Jennings
--- OUTSIDE RECORDS SUMMARY | 2024-05-26 12:15 | XMS_ITS ---
Author Organization [facility] Address [address] [facility] [address] [place] [address] Care Team Providers Care Intermediate School Teacher Name Role Phone Hiro Cesar Primary Care Provider Unavailab Nik Bocanegra Unavailable [phone] REASON FOR VISIT ibs Encounters Encounter Location Date Provider Diagnosis [facility] [address] [place] [address] 10/23/2023 Nik Gamble PLAN OF TREATMENT Next Appt Details Provider Name:Nik Gamble , 06/15/2024 10:30:00 AM, [address] [facility] , [place], [place], [phone],
--- OUTSIDE RECORDS SUMMARY | 2024-05-26 12:15 | XMS_ITS ---
Author Organization [facility] Address [address] [place] [address] Care Team Providers Care Grade Recorder Name Role Phone Hiro Cesar Primary Care Provider Nik Dooley [phone] ALLERGIES Allergen (clinical drug ingredient) Drug/Non Drug Allergy documented on EMR Reaction Allergy Type Onset Date Status Penicillin Unknown Drug Allergy Active Substance with sulfonamide structure and antibacterial mechanism of action (substance) Sulfa Antibiotics Unknown Drug Allergy Active 12 Hour Nasal [place] Unknown Drug Allergy Active red dye (uncoded) [...] confirmed History of polyp of colon (situation) (718685065) Problem Adams''s esophagus without dysplasia (K22.70) Active confirmed Adams's esophagus (401049823) VITAL SIGNS BMI 32.33 kg/m2 03/04/2024 Blood pressure systolic 118 mm Hg 03/04/20 Blood pressure diastolic 74 mm Hg 024 Height 64 in 03/04/2024 Temperature 95.7 degrees Fahrenheit 03/04/20 Weight 188 lb 6 oz lbs 03/04/2024 Encounters Encounter Location Date Provider Diagnosis [facility] [address] [place] [address] 03/04/2024 Nik Gamble Encounter for screen ing [...] prn, Reason: Provider Name:Nik Gamble , 06/15/2024 10:30:00 AM, [address] [place] [address], [phone], Progress Notes * Examination Category Sub-Category Detail [...]
--- OUTSIDE RECORDS SUMMARY | 2024-05-26 12:16 | XMS_ITS ---
Author Organization [facility] Address [address] [facility] [address] [facility] [place] [place] [address] Care Team Providers Care Tool Supervisor Name Role Phone Hiro Cesar Primary Care Provider MARY Christine Unavailable [phone] Allergies Allergen (clinical drug ingredient) Drug/Non Drug Allergy documented on EMR Reaction Allergy Type Onset Date Status Novocain heart palpitations Drug Allergy Active Substance with sulfonamide structure and antibacterial mechanism of action (substance) Sulfa Antibiotics Unknown Drug Allergy Active Penicillin Unknown Drug Allergy Active REASON FOR VISIT Rt great toenail ingrown Medications Medication SIG (Take, Route, Frequency, Duration) [...] 1 tablet Orally Once a day Active Vital Signs Weight 197.7 lbs 08/12/2023 Height 5ft 2in in 08/12/2023 BMI 36.16 kg/m2 08/12/2023 Heart Rate 78 /min 08/12/2023 Temperature 96.2 degrees Fahrenheit 08/12/19 24 Respiratory Rate 16 /min 08/12/2023 Encounters Encounter Location Date Provider Diagnosis [facility] [address] [facility] [address] [place] [address] 08/12/2023 MARY IZAGUIRRE Ingrown right big toenail [...] right toe(s) (ICD-10 - M79.674) 08/12/2023 Other Plan Of Treatment Treatment Notes Assessment Notes [...] * Vika SAUL MDOB:1955 (67 yo F)Acc No.[id number]:08/12/2023 Progress Notes Patient:?Latricia SAULnifer Juanita Provider:?Mary Izaguirre DPM :1955???Age:67 Y???Sex:Female D ate:08/12/2023 [id number] Pcp:Hiro Cesar Subjective: * Chief Complaints: * ???Rt great toenail ingrown * HPI: ???Constitutional:? This 67 y/o female returns to our [...] Hospitalization/Major Diagno stic Procedure:?Vaginal Delivery x2 cholecystectomy 02/22/2023 * Family History:?Father: dece ased.?Mother: , Throat, [...] Antibiotics PenicillinNovocain: heart palpitationsno[Allergies Verified] Objective: * Vitals:?Wt:197.7lbs, Ht: 5ft 2in, BMI:36.16Index, HR:78/min, Temp:96.2F, RR:16/min, Ht-cm: 157.48, Wt-k.68 kg. * Examination: ???General Examination: ???GENERAL: Patient [...] toe(s) - M79.674? Plan: * Treatment: * Procedures:?Procedure: The patient's [...] the nail dorsally, and plantarly. Using an Dianxin nail splitter, the medial border was cut. [...] tolerated the procedure well. ? * Procedure Codes:?41642 REMOV AL OF NAIL BED, Modifiers: T5 * Follow Up:?2 Weeks * Billing Information: * Visit Code:? 03152 Office Visit, Est Pt., Level 3. Modifiers: 25 * Procedure Codes:? 15176 REMOVAL OF NAIL BED. Modifiers: T5 * Sign off status: Completed true * Provider:Israel Izaguirre DPM Date:? 08/12/2023 Generated for Angela bhat/Steven/Nadira on:?05/26/2024 12:15 PM EST History and Physical Notes * HPI (History of Present Illness) Category Sub-Category Detail Notes Category Not es Constitutional This 67 y/o f claritza returns to our office with a complaint [...]
--- OUTSIDE RECORDS SUMMARY | 2024-05-26 12:16 | XMS_ITS | Patient Health Record ---
Author Organization [facility] Address [address] [place] [address] Care Team Providers Care Extractive Metallurgist Name Role Phone Hiro Cesar Primary Care Provider JAYANT Christine Unavailable [phone] Allergies Allergen (clinical drug ingredient) Drug/Non Drug Allergy documented on EMR Reaction Allergy Type Onset Date Status Novocain heart palpitations Drug Allergy Active Substance with sulfonamide structure and antibacterial mechanism of action (substance) Sulfa Antibiotics Unknown Drug Allergy Active Penicillin Unknown Drug Allergy Active Reason For Referral No Information Medications Medication SIG (Take, Route, Frequency, Duration) [...] capsules Orally Three times a day Active Vital Signs Heart Rate 73 /min 08/26/2023 Temperature 96.2 degrees Fahrenheit 08/26/2023 Respiratory Rate 16 /min 08/26/2023 Height 5ft 2in in 08/26/2023 Weight 190.1 lbs 08/26/2023 BMI 34.77 kg/m2 08/26/2023 Encounters Encounter Location Date Provider Diagnosis [facility] [address] [address] 08/12/2023 JAYANT IZAGUIRRE Ingrown right big toenail L60.0 and Pain in right toe(s) M79.674 [facility] [address] [address] 08/26/2023 JAYANT IZAGUIRRE Ingrown right big toenail [...] - M79.674) 08/12/2023 Other Plan Of Treatment Pending Test Test Name Order Date Nail avulsion partial/complete 2 Insurance Providers Payer Name Payer Address Payer Phone Subscriber Number Group Number Insured Name Patient Relationship to Insured Coverage Start Date Coverage End Date Medicare of [place] [address] [place] [phone] [id number] Vika Saul Self - patient is the insured Medex Blue Shield [address] [place] [address] [phone] [id number] Vika Saul Self - patient is the insured Medical (General) History Medical History History ICD Code Essential Hypertension [...]
== END 2024-05-26 11:25 | disposition home or self-care (01) ==
PROVIDERS: PCP Family Medicine; Visit Provider Orthopaedic Surgery
DX: M18.11 Unilateral primary osteoarthritis of first carpometacarpal joint, right hand (principal)
CPT/HCPCS: 20600; 99213

== ENCOUNTER → 2024-05-26 10:32 | Outpatient (BNVA) | payer MEDICARE, SELFPAY | PROVIDERS: PCP Family Medicine; Visit Provider Orthopaedic Surgery | DX: M18.11 Unilateral primary osteoarthritis of first carpometacarpal joint, right hand (principal) | CPT/HCPCS: 20600; 99212; J1010; J2003 ==

== ENCOUNTER 2024-06-02 12:18 | Outpatient (REF) | payer MEDICARE, SELFPAY | END 2024-06-02 12:19 | disposition home or self-care (01) | LOC: HO.MAMMO 12:18 | PROVIDERS: PCP Family Medicine; Visit Provider Family Medicine | DX: Z12.31 Encounter for screening mammogram for malignant neoplasm of breast (principal) | CPT/HCPCS: 77063; 77067 ==

== ENCOUNTER → 2024-06-02 12:30 | Outpatient (BNV) | payer MEDICARE, SELFPAY | PROVIDERS: PCP Family Medicine; Visit Provider Internal Medicine | DX: Z12.31 Encounter for screening mammogram for malignant neoplasm of breast (principal) | CPT/HCPCS: 77063; 77067 ==

== ENCOUNTER 2024-06-15 08:24 | Day surgery (SDC) | payer MEDICARE, SELFPAY ==
--- OUTSIDE RECORDS SUMMARY | 2024-04-21 23:30 | XMS_ITS ---
Author Organization [facility] Address [address] [place] [phone] Care Team Providers Care Market Garden Worker Name Role Phone Hiro Cesar Primary Care Provider Nik Dooley [phone] ALLERGIES Allergen (clinical drug ingredient) Drug/Non Drug Allergy documented on EMR Reaction Allergy Type Onset Date Status Penicillin Unknown Drug Allergy Active Substance with sulfonamide structure and antibacterial mechanism of action (substance) Sulfa Antibiotics Unknown Drug Allergy Active 12 Hour Nasal Bellflower Unknown Drug Allergy Active red dye (uncoded) Unknown Allergy Ac tive REASON FOR VISIT Patient presents today for ibs MEDICATIONS Medication SIG (Take, Route, Frequency, Duration) Notes Start Date End Date Status Losartan Potassium 100 MG Oral for 90 Active Gemfibrozil 600 MG as directed Oral Twi ce a day Active Vitamin D3 Active Calcium 1 tab Oral for 14 days Active Omeprazole 20 MG 1 capsule 30 minutes before morning meal Orally Once a day Active Simvastatin 20 MG Oral for 90 Active SOCIAL HISTORY Tobacco Use: Social History Observation Description Date Details (start date - stop date) Never Smoker NA - NA Sex Assigned At : Social History Observation Description Sex Assigned At Unknown Tobacco Use/Smoking Question Answer Notes Patient is a nonsmoker Alcohol Screen Question Answer Notes Did you have a drink containing alcohol in the p ast year? No Points 0 Interpretation Negative PROBLEMS Problem Type ICD Code Onset Dates Problem Status W/U Status Risk SNOMED Code Notes Problem Personal history of colonic polyps (Z86.010) Active confirmed History of polyp of colon (situation) (900438541) Problem Adams''s esophagus without dysplasia (K22.70) Active confirmed Adams's esophagus (548259195) VITAL SIGNS BMI 32.33 kg/m2 03/04/2024 Blood pressure systolic 118 mm Hg 03/04/20 Blood pressure diastolic 74 mm Hg 024 Height 64 in 03/04/2024 Temperature 95.7 degrees Fahrenheit 03/04/20 Weight 188 lb 6 oz lbs 03/04/2024 Encounters Encounter Location Date Provider Diagnosis [facility] [address] [place] [address] 03/04/2024 Nik Gamble Encounter for screen ing for malignant neoplasm of colon Z12.11 ; Adams''s esophagus without dysplasia K22.70 ; Gastroesophageal reflux disease, unspecified whether esophagitis present K21.9 and Personal history of colonic polyps Z86.010 ASSESSMENTS Encounter Date Diagnosis Assessment Notes Treatment Notes Treatment Clinical Notes 03/04/2024 Encounter for screening for malignant neoplasm of colon (ICD-10 - Z12.11) 03/04/2024 Adams''s esophagus without dysplasia (ICD-10 - K22.70) 03/04/2024 Gastroesophageal reflux disease, unspecified whether esophagitis present (ICD-10 - K21.9) 03/04/2024 Personal history of colonic polyps (ICD-10 - Z86.010) Repeat colonoscopy in 2026 PLAN OF TREATMENT Medication Medication Name Sig Start Date Stop Date Notes Omeprazole 20 MG 1 capsule 30 minutes before morning meal Orally Once a day Treatment Notes Assessment Notes Personal history of colonic polyps Repea t colonoscopy in 2026 Future Test Test Name Order Date UPPER GI ENDOSCOPY 03/04/2024 Next Appt Details Follow Up: prn, Reason: Provider Name:Nik Gamble , 06/15/2024 11:30:00 AM, [address] [place] [address], [phone], Progress Notes * Examination Category Sub-Category Detail Notes General Examination GENERAL APPEARANCE: pleasant , well nourished, well developed, in no acute distress HEAD: EYES: sclera non-icteric EARS: NOSE: THROAT: NECK/THYROID: no cervical lymphade nopathy, neck supple HEART: S1, S2 normal CHEST: LUNGS: clear to auscultatio n bilaterally ABDOMEN: normal bowel sounds, no guarding or rigidity, no guarding or rigidity, no masses palpable, soft, nontender, nondistended NEUROLOGIC: alert and oriented SKIN: nonjaundiced, no spi nawaf angiomata EXTREMITIES: no edema PERIPHERAL PULSES: BACK: BREASTS: MUSCULOSKELETAL: MALE GENITOURINARY: LYMPH NODES: RECTAL EXAM: FEMALE GENITOURINARY: ORAL CAVITY: mucosa moist
--- OUTSIDE RECORDS SUMMARY | 2024-04-21 23:30 | XMS_ITS ---
Author Organization [facility] Address [address] [place] [phone] Care Team Providers Care Client Service Supervisor Name Role Phone Hiro Cesar Primary Care Provider Unavailab Nik Bocanegra Unavailable [phone] REASON FOR VISIT ibs Encounters Encounter Location Date Provider Diagnosis [facility] [address] [place] [phone] 10/23/2023 Nik Gamble PLAN OF TREATMENT Next Appt Details Provider Name:Nik Gamble , 06/15/2024 11:30:00 AM, [address] [facility] , [place], [place], [phone],
--- OUTSIDE RECORDS SUMMARY | 2024-04-21 23:31 | XMS_ITS ---
Author Organization [facility] Address [address] [facility] [address] [place] [phone] Care Team Providers Care Aging Box Hand Name Role Phone Hiro Cesar Primary Care Provider Unavailab Nik Bocanegra Unavailable [phone] REASON FOR VISIT does pt need a colon or egd recall Encounters Encounter Location Date Provider Diagnosis [facility] [address] [facility] [address] [place] [phone] 04/22/2023 Nik Gamble PLAN OF TREATMENT Next Appt Details Provider Name:Nik Gamble , 06/15/2024 11:30:00 AM, [address] [facility] , [place], [place], [phone],
--- OUTSIDE RECORDS SUMMARY | 2024-04-21 23:31 | XMS_ITS ---
Author Organization [facility] Address [address] [facility] [place] [address] Care Team Providers Care Professor Of Chemistry Name Role Phone Hiro Cesar Primary Care Provider UnavailMARY Stewart Unavailable [phone] ALLERGIES Allergen (clinical drug ingredient) Drug/Non Drug Allergy documented on EMR Reaction Allergy Type Onset Date Status Novocain heart palpitations Drug Allergy Active Substance with sulfonamide structure and antibacterial mechanism of action (substance) Sulfa Antibiotics Unknown Drug Allergy Active Penicillin Unknown Drug Allergy Active REASON FOR VISIT 2wk MEDICATIONS Medication SIG (Take, Route, Frequency, Duration) Notes Start Date End Date Status Ibuprofen 600 MG 1 tablet with food o r milk as needed Orally Three times a day Not-Taking Terbinafine HCl 250 MG 1 tablet Orally O nce a day for 90 days 05/30/2022 Not-Taking Omeprazole 20 MG 1 capsule 30 minutes before morning meal Orally Once a day Active Simvastatin 20 MG 1 tablet in the even ing Orally Once a day Active Dicyclomine HCl 10 MG 2 capsules Orally Three times a day Active Gemfibrozil 600 MG 1 tablet 30 minutes before morning and evening meals Orally Twice a day Active Vitamin D3 Super Strength 50 MCG (1999 UT) 1 tablet Orally Once a day Active Calcium 600 MG 1 tablet with meals Orally Once a day Active Losartan Potassium 100 MG 1 tablet Orall y Once a day Active VITAL SIGNS Weight 190.1 lbs 08/26/2023 Height 5ft 2in in 08/26/2023 BMI 34.77 kg/m2 08/26/2023 Heart Rate 73 /min 08/26/2023 Temperature 96.2 degrees Fahrenheit 08/26/19 24 Respiratory Rate 16 /min 08/26/2023 Encounters Encounter Location Date Provider Diagnosis [facility] [address] [place] [address] 08/26/2023 MARY IZAGUIRRE Ingrown right big toenail L60.0 and Pain in right toe(s) M79.674 ASSESSMENTS Encounter Date Diagnosis Assessment Notes Treatment Notes Treatment Clinical Notes Section Notes 08/26/2023 Ingrown right big toenail (ICD-10 - L60.0) The area is healing, I discussed the macerated rim is because the area is too wet.I recommended she stop using the antibiotic ointment. I also recommended she leave the toe open to the air at night. We discussed that the area should scab up within 1-2 weeks. Once the area is scabbed, she can stop bandaging the toe during the day. She is in agreement with this plan. I recommended she avoid trimming the nail for another 4-6 weeks. Patient to contact the office with any questions or concerns. 08/26/2023 Pain in right toe(s) (ICD-10 - M79.674) PLAN OF TREATMENT Treatment Notes Assessment Notes Ingrown right big toenail The area is he aling, I discussed the macerated rim is because the area is too wet.I recommended she stop using the antibiotic ointment. I also recommended she leave the toe open to the air at night. We discussed that the area should scab up within 1-2 weeks. Once the area is scabbed, she can stop bandaging the toe during the day. She is in agreement with this plan. I recommended she avoid trimming the nail for another 4-6 weeks. Patient to contact the office with any questions or concerns. Next Appt Details Follow Up: prn, Reason: Progress Notes * Vika SAUL MDOB:1955 (67 yo F)Acc No.[id number]:08/26/2023 Progress Notes Patient:??Vika SAUL Provider:??Mary Izaguirre DPM :1955?Age:67 Y?Sex:Fe male Date:08/26/2023 Address:[facility] [address] [id number] Pcp:Hiro Cesar Subjective: * Chief Complaints: * ?2wk * HPI: ?Constitutional:? This 67 y/o female returns to my office as a follow-up to a partial nail avulsion of the medial border of the right big toenail with a phenol matrixectomy. She states the area is healing up. It has not scabbed, but she does not see any signs of infection. She has been using the antibiotic and band-aid daily. She has no other foot complaints this visit. * ROS:?GENERAL: Pt denies nausea, fever, vomiting, chills, or shortness of breath. Pt in NAD. ALLERGY: patient denies any new allergy HEME/ONC: patient denies any bleeding or clotting disorders CARDIOLOGY: pt denies chest pain, palpitations LUNGS: pt denies shortness of breath ABDOMEN: patient denies any bloating, abdominal pain, or swelling MUSCULOSKELETAL: See HPI, otherwise no joint pain or swelling, back pain, or muscle pain. SKIN: see HPI, otherwise no lesions, rash or itching NEURO: No persistent headache, weakness or numbness PSYCH: patient denies any current anxiety or depression The remainder of the review of systems is noncontributory. * Medical History:?? * Surgical History:??cholecyst ectomy 02/22/2023 * Hospitalization/Major Diagno stic Procedure:??Vaginal Delivery x2 cholecystectomy 02/22/2023arrett's esophagus 08/13/2023 * Family History:??Father: dec eased.??Mother: , Throat, Cancer.?? * Social History:?Tobacco Use: never smoker Alcohol Use: rarely. * Medications:??TakingCalcium 600 MG Tablet 1 tablet with meals Orally Once a day Gemfibrozil 600 MG Tablet 1 tablet 30 minutes before morning and evening meals Orally Twice a day Vitamin D3 Super Strength 50 MCG (2000 UT) Tablet 1 tablet Orally Once a day Losartan Potassium 100 MG Tablet 1 tablet Orally Once a day Dicyclomine HCl 10 MG Capsule 2 capsules Orally Three times a day Omeprazole 20 MG Capsule Delayed Release 1 capsule 30 minutes before morning meal Orally Once a day Simvastatin 20 MG Tablet 1 tablet in the evening Orally Once a day Taking Calcium 600 MG Tablet 1 tablet with meals Orally Once a day Taking Gemfibrozil 600 MG Tablet 1 tablet 30 minutes before morning and evening meals Orally Twice a day Taking Vitamin D3 Super Strength 50 MCG (2000 UT) Tablet 1 tablet Orally Once a day Taking Losartan Potassium 100 MG Tablet 1 tablet Orally Once a day Taking Dicyclomine HCl 10 MG Capsule 2 capsules Orally Three times a day Taking Omeprazole 20 MG Capsule Delayed Release 1 capsule 30 minutes before morning meal Orally Once a day Taking Simvastatin 20 MG Tablet 1 tablet in the evening Orally Once a day Not-TakingTerbinafine HCl 250 MG Tablet 1 tablet Orally Once a day Ibuprofen 600 MG Tablet 1 tablet with food or milk as needed Orally Three times a day Medication List reviewed and reconciled with the patientNot-Taking Terbinafine HCl 250 MG Tablet 1 tablet Orally Once a day Not-Taking Ibuprofen 600 MG Tablet 1 tablet with food or milk as needed Orally Three times a day Medication List reviewed and reconciled with the patient * Allergies:??Sulfa Antibiotic sPenicillinNovocain: heart palpitationsno[Allergies Verified] Objective: * Vitals:??Wt:190.1lbs, Ht: 5f t 2in, BMI:34.77Index, HR:73/min, Temp:96.2F, RR:16/min, Ht-cm: 157.48, Wt-k.23 kg. * Examination: ?General Examination: ?GENERAL: Patient appears well nourished, with NAD. ?VASCULAR: Dorsalis pedis pulses are 2/4 bilaterally and Posterior tibial pulses are 2/4 bilaterally. Capillary filling time within normal limits the digits. Each foot temperature is within normal limits. ?NEUROLOGICAL: Sharp/dull sensation intact bilaterally, position sense intact bilaterally to the tibial tuberosity. ?ORTHOPEDIC: Good muscle strength 4+/5 of all flexors and extensors. Dorsi flexion of ankle , 0 degrees, plantar flexion WNL. No muscle atrophy. ?DERMATOLOGICAL:Normal skin temperature, normal skin turgor. Healing granular medial border of the right hallux toenail with edema, mild tenderness on palpation, serosanguineous drainage, + macerate rim, no acute signs of infection. ?BIOMECHANICS: STJ ROM WNL, MTJ ROM WNL, 1st MPJ ROM limited. ?SHOES: sneakers. Assessment: * Assessment: 1.??Ingrown right big toenai l - L60.0 (Primary)??2.??Pain in right toe(s) - M79.674?? Plan: * Treatment: * Procedure Codes:?? * Follow Up:??prn * Billing Information: * Visit Code:?? 66026 Office Visit, Est Pt., Level 3. * Procedure Codes:?? * Sign off status: Completed true * Provider:??Mary Izaguirre DPM Date: ??08/26/2023 History and Physical Notes * HPI (History of Present Illness) Category Sub-Category Detail Notes Category Not es Constitutional This 67 y/o f claritza returns to my office as a follow-up to a partial nail avulsion of the medial border of the right big toenail with a phenol matrixectomy. She states the area is healing up. It has not scabbed, but she does not see any signs of infection. She has been using the antibiotic and band-aid daily. She has no other foot complaints this visit. Examination Category Sub-Category Detail Notes Category Not es General Examination GENERAL: Patient appears well nourished, with NAD. VASCULAR: Dorsalis pedis pulses are 2/4 bilaterally and Posterior tibial pulses are 2/4 bilaterally. Capillary filling time within normal limits the digits. Each foot temperature is within normal limits. NEUROLOGICAL: Sharp/dull sensation intact bilaterally, position sense intact bilaterally to the tibial tuberosity. ORTHOPEDIC: Good muscle strength 4+/5 of all flexors and extensors. Dorsi flexion of ankle , 0 degrees, plantar flexion WNL. No muscle atrophy. DERMATOLOGICAL:Normal skin temperature, normal skin turgor. Healing granular medial border of the right hallux toenail with edema, mild tenderness on palpation, serosanguineous drainage, + macerate rim, no acute signs of infection. BIOMECHANICS: STJ ROM WNL, MTJ ROM WNL, 1st MPJ ROM limited. SHOES: sneakers
--- OUTSIDE RECORDS SUMMARY | 2024-04-21 23:31 | XMS_ITS | Patient Health Record ---
Author Organization [facility] Address [address] [place] [address] Care Team Providers Care Military Communications Specialist Name Role Phone Hiro Cesar Primary Care Provider JAYANT Christine Unavailable [phone] ALLERGIES Allergen (clinical drug ingredient) Drug/Non Drug Allergy documented on EMR Reaction Allergy Type Onset Date Status Novocain heart palpitations Drug Allergy Active Substance with sulfonamide structure and antibacterial mechanism of action (substance) Sulfa Antibiotics Unknown Drug Allergy Active Penicillin Unknown Drug Allergy Active REASON FOR REFERRAL No Information MEDICATIONS Medication SIG (Take, Route, Frequency, Duration) Notes Start Date End Date Status Ibuprofen 600 MG 1 tablet with food o r milk as needed Orally Three times a day Not-Taking Terbinafine HCl 250 MG 1 tablet Orally O nce a day for 90 days 05/30/2022 Not-Taking Gemfibrozil 600 MG 1 tablet 30 minutes before morning and evening meals Orally Twice a day Active Vitamin D3 Super Strength 50 MCG (1999 UT) 1 tablet Orally Once a day Active Calcium 600 MG 1 tablet with meals Orally Once a day Active Omeprazole 20 MG 1 capsule 30 minutes before morning meal Orally Once a day Active Simvastatin 20 MG 1 tablet in the even ing Orally Once a day Active Losartan Potassium 100 MG 1 tablet Orall y Once a day Active Dicyclomine HCl 10 MG 2 capsules Orally Three times a day Active VITAL SIGNS Heart Rate 73 /min 08/26/2023 Temperature 96.2 degrees Fahrenheit 08/26/2023 Respiratory Rate 16 /min 08/26/2023 Height 5ft 2in in 08/26/2023 Weight 190.1 lbs 08/26/2023 BMI 34.77 kg/m2 08/26/2023 Encounters Encounter Location Date Provider Diagnosis [facility] [address] [address] 08/12/2023 JAYANT IZAGUIRRE Ingrown right big toenail L60.0 and Pain in right toe(s) M79.[address] [facility] [address] [address] 08/26/2023 JAYANT IZAGUIRRE Ingrown right big toenail L60.0 and Pain in right toe(s) M79.674 ASSESSMENTS Encounter Date Diagnosis Assessment Notes Treatment Notes Treatment Clinical Notes Section Notes 08/12/2023 Pain in right toe(s) (ICD-10 - M79.674) 08/12/2023 Ingrown right big toenail (ICD-10 - L60.0) I explained to the patient how ingrown toenails form: genetics, improper shoes, trauma, fungus. I reviewed with the patient proper nail care and how to conservatively treat ingrown toenails by cutting the nail straight across, massage the skin away from the edges of the nail,and to soak the feet daily. I explained that the ingrown toenail starts at the root and this is what needs to be removed to make the toenail grow back straight. I reviewed nail avulsions with the patient and also phenol/surgical matrixectomies. Discussed a partial nail avulsion with chemical matrixectomy procedure with the patient. The patient agreed to said procedure and consent was signed. As described above, a partial nail avulsion of the medial border of the right hallux toenail with chemical matrixectomy was performed. Pt tolerated well. Post-procedure instructions were given to the patient. They are to remove the initial bandage 24hrs after the procedure. Bacitracin and Band-Aid are to be applied to the toe for the next 7-14 days. Pt to return in 2 weeks for a follow-up to the procedure. 08/26/2023 Ingrown right big toenail (ICD-10 - [...] Pain in right toe(s) (ICD-10 - M79.674) 08/12/2023 Other PLAN OF TREATMENT Pending Test Test Name Order Date Nail avulsion partial/complete 2 Insurance Providers Payer Name Payer Address Payer Phone Subscriber Number Group Number Insured Name Patient Relationship to Insured Coverage Start Date Coverage End Date Medicare of [place] [address] [place] [phone] [id number] Vika Saul Self - patient is the insured [employer] [address] [place] [address] [phone] [id number] Vika Saul Self - patient is the insured MEDICAL (GENERAL) HISTORY Medical History History ICD Code Essential Hypertension Acquired Acanthosis Nigricans Pure Hypercholesterolemia Gastroesophageal Reflux Disease Migraines Hearing Loss Irritable Bowel Syndrome Diverticular Disease of Colon Obesity Obstructive Sleep Apnea Tubular Adenoma of Colon right rotator cuff tear COVID vaccinated X 5 (Moderna0 Adams's esophagus Surgical History Surgery Date(Month/Year) cholecystectomy 02/22/2023 Hospitalization History Reason Date(Month/Year) cholecystectomy 02/22/2023 Vaginal Delivery x2 Adams's esophagus 08/13/2023
--- OUTSIDE RECORDS SUMMARY | 2024-04-21 23:31 | XMS_ITS | Patient Health Record ---
Author Organization [facility] Address [address] [place] [address] Care Team Providers Care Correctional Officer Lieutenant Name Role Phone Hiro Cesar Primary Care Provider UnavailNik Cordoba [phone] ALLERGIES Allergen (clinical drug ingredient) Drug/Non Drug Allergy documented on EMR Reaction Allergy Type Onset Date Status Penicillin Unknown Drug Allergy Active Substance with sulfonamide structure and antibacterial mechanism of action (substance) Sulfa Antibiotics Unknown Drug Allergy Active 12 Hour Nasal [place] Unknown Drug Allergy Active red dye (uncoded) Unknown Allergy Ac tive RESULTS Component Value Reference Range Notes MAMMOGRAM DIGITAL BILATERAL SCREEN Reviewed date:03/09/2024 01:28:45 PM Interpretation:Normal Performing Lab: Notes/Report: Normal REASON FOR REFERRAL No Information MEDICATIONS Medication SIG (Take, Route, Frequency, Duration) Notes Start Date End Date Status Losartan Potassium 100 MG Oral for 90 Active Gemfibrozil 600 MG as directed Oral Twi ce a day Active Omeprazole 20 MG 1 capsule 30 minutes before morning meal Orally Once a day Active Simvastatin 20 MG Oral for 90 Active Vitamin D3 Active Calcium 1 tab Oral for 14 days Active IMMUNIZATIONS Vaccine Route Administration Date Status Comme nts Influenza Unknown 01/11/2021 Administered Influenza Unknown 02/19/2024 Administered Pneumococcal Unknown 02/12/2024 Administered SOCIAL HISTORY Tobacco Use: Social History Observation [...] W/U Status Risk SNOMED Code Notes Problem Other irritable bowel syndrome (K58.8) Active confirmed 40886776 Problem Encounter for screening for malignant neoplasm of colon (Z12.11) Active confirmed 282893339 Problem Gastroesophageal reflux disease, unspecified whether esophagitis present (K21.9) Active confirmed 077785619 Problem Diverticulosis of colon (K57.30) Active confirmed Diverticulosi s of colon (593952180) Problem Irritable bowel syndrome (K58.9) Active confirmed Irritable b owel syndrome (68386983) Problem Gastroesophageal reflux (K21.9) Active confirmed Esophageal reflux finding (489825255) Problem Personal history of colonic polyps (Z86.010) Active confirmed History of poly p of colon (situation) (594787584) Problem Adams''s esophagus without dysplasia (K22.70) Active confirmed Adams's esophagus (397622089) VITAL SIGNS Temperature 95.7 degrees Fahrenheit 03/04/2024 Blood pressure diastolic 74 mm Hg 03/04/2024 Height 64 in 03/04/2024 Blood pressure systolic 118 mm Hg 03/04/2024 Weight 188 lb 6 oz lbs 03/04/2024 BMI 32.33 kg/m2 03/04/2024 Encounters Encounter Location Date Provider Diagnosis [facility] [address] [place] [phone] 10/23/2023 Nik Gamble [facility] [address] [place] [address] 03/04/2024 Nik Gamble Encounter for screen ing for malignant neoplasm of colon Z12.11 ; Adams''s esophagus without dysplasia K22.70 ; Gastroesophageal reflux disease, unspecified whether esophagitis present K21.9 and Personal history of colonic polyps Z86.010 [facility] [address] [place] [phone] 04/22/2023 Nik Gamble ASSESSMENTS Encounter Date Diagnosis Assessment Notes Treatment Notes Treatment Clinical Notes 03/04/2024 Encounter for screening for malignant neoplasm of colon (ICD-10 - Z12.11) 03/04/2024 Adams''s esophagus without dysplasia (ICD-10 - K22.70) 03/04/2024 Gastroesophageal reflux disease, unspecified whether esophagitis present (ICD-10 - K21.9) 03/04/2024 Personal history of colonic polyps (ICD-10 - Z86.010) Repeat colonoscopy in 2026 PLAN OF TREATMENT Future Test Test Name Order Date UPPER GI ENDOSCOPY 05/11/2021 COLONOSCOPY 05/11/2021 UPPER GI ENDOSCOPY 03/04/2024 Next Appt Details Provider Name:Nik Gamble , 06/15/2024 11:30:00 AM, [address] [place] [address] , [place], [place], [phone], Insurance Providers Payer Name Payer Address Payer Phone Subscriber Number Group Number Insured Name Patient Relationship to Insured Coverage Start Date Coverage End Date MEDICARE OF [place] [address] [place] [address] [id number] MINOR MONTEZ Self - patient is the insured [employer] CLAIMS [address] [place] [address] [id number] MINOR MONTEZ Self - patient is the insured MEDICAL (GENERAL) HISTORY Medical History History ICD Code Hypertension Denies NC,DM,CVA,Lung disease,renal dise ase Hyperlipidemia IBS Neg. screening colonoscopy in 09/2010 Colonoscopy 05/2021 with a small tubular adenoma EGD 05/2021--small hiatal hernia, tiny ar ea of Adams's without dysplasia Surgical History Surgery Date(Month/Year) CC[address] Jennings
--- OUTSIDE RECORDS SUMMARY | 2024-04-21 23:31 | XMS_ITS ---
Author Organization [facility] Address [address] [facility] [address] [facility] [place] [address] Care Team Providers Care Annual Giving Director Name Role Phone Hiro Cesar Primary Care Provider MARY Christine Unavailable [phone] ALLERGIES Allergen (clinical drug ingredient) Drug/Non Drug Allergy documented on EMR Reaction Allergy Type Onset Date Status Novocain heart palpitations Drug Allergy Active Substance with sulfonamide structure and antibacterial mechanism of action (substance) Sulfa Antibiotics Unknown Drug Allergy Active Penicillin Unknown Drug Allergy Active REASON FOR VISIT Rt great toenail ingrown MEDICATIONS Medication SIG (Take, Route, Frequency, Duration) Notes Start Date End Date Status Simvastatin 20 MG 1 tablet in the even ing Orally Once a day Active Omeprazole 20 MG 1 capsule 30 minutes before morning meal Orally Once a day Active Ibuprofen 600 MG 1 tablet with food o r milk as needed Orally Three times a day Not-Taking Terbinafine HCl 250 MG 1 tablet Orally O nce a day for 90 days 05/30/2022 Not-Taking Dicyclomine HCl 10 MG 2 capsules Orally Three times a day Active Gemfibrozil 600 MG 1 tablet 30 minutes before morning and evening meals Orally Twice a day Active Calcium 600 MG 1 tablet with meals Orally Once a day Active Losartan Potassium 100 MG 1 tablet Orall y Once a day Active Vitamin D3 Super Strength 50 MCG (1999 UT) 1 tablet Orally Once a day Active VITAL SIGNS Weight 197.7 lbs 08/12/2023 Height 5ft 2in in 08/12/2023 BMI 36.16 kg/m2 08/12/2023 Heart Rate 78 /min 08/12/2023 Temperature 96.2 degrees Fahrenheit 08/12/19 24 Respiratory Rate 16 /min 08/12/2023 Encounters Encounter Location Date Provider Diagnosis [facility] [address] [facility] [address] [place] [address] 08/12/2023 MARY IZAGUIRRE Ingrown right big toenail L60.0 and Pain in right toe(s) M79.674 ASSESSMENTS Encounter Date Diagnosis Assessment Notes Treatment Notes Treatment Clinical Notes Section Notes 08/12/2023 Ingrown right big toenail (ICD-10 - [...] weeks for a follow-up to the procedure. 08/12/2023 Pain in right toe(s) (ICD-10 - M79.674) 08/12/2023 Other PLAN OF TREATMENT Treatment Notes Assessment Notes Ingrown right big toenail I explained to the patient how ingrown [...] weeks for a follow-up to the procedure. Next Appt Details Follow Up: 2 Weeks, Reason: Progress Notes * Vika SAUL MDOB:1955 (67 yo F)Acc No.[id number]:08/12/2023 Progress Notes Patient:??Vika SAUL Provider:??Mary Izaguirre DPM :1955?Age:67 Y?Sex:Fe male Date:08/12/2023 Address:[facility] [place], [id number] Pcp:Hiro Cesar Subjective: * Chief Complaints: * ?Rt great toenail ingro wn * HPI: ?Constitutional:? This 67 y/o female returns to our office with a complaint of right big toe pain and sensitivity for approximately 1 month. She had a partial nail avulsion done in a few years ago for this issue. She states the toe had been fine with no issues until about 1 month ago. She states the corner of the nail started getting sore again. She also is complaining of pain on the top of the nail. She states it hurts to the touch and complains of pain when the bedsheets touch the toe. She denies any drainage from the toe. She has no other foot complaints this [...] Hospitalization/Major Diagno stic Procedure:??Vaginal Delivery x2 cholecystectomy 02/22/2023 * Family History:??Father: dec eased.??Mother: , Throat, [...] Antibiotic sPenicillinNovocain: heart palpitationsno[Allergies Verified] Objective: * Vitals:??Wt:197.7lbs, Ht: 5f t 2in, BMI:36.16Index, HR:78/min, Temp:96.2F, RR:16/min, Ht-cm: 157.48, Wt-k.68 kg. * Examination: ?General Examination: ?GENERAL: Patient [...] atrophy. ?DERMATOLOGICAL:Normal skin temperature, normal skin turgor. Incurvated medial border of the right hallux toenail with edema and erythema, mild tenderness on palpation, no drainage or acute signs of infection, no scabbing along the medial border. Pain on palpation of the dorsal aspect of the toenail. ?BIOMECHANICS: STJ ROM WNL, MTJ ROM WNL, 1st MPJ ROM limited. ?SHOES: sneakers. Assessment: * Assessment: 1.??Ingrown right big toenai l - L60.0 (Primary)??2.??Pain in right toe(s) - M79.674?? Plan: * Treatment: * Procedures:?Procedure: The patient's right foot was prepped with chlorhexidine solution and sterile draping was applied. Local anesthesia was applied in a digital nerve block fashion around the right hallux. 4cc of a 1:1mix of 1% lidocaine plain and 0.5% Marcaine plain was used. Pt tolerated the injection well. Anesthesia was tested with a 1-2 forceps. Using a freer elevator, the nail bed was freed of the medial border of the nail dorsally, and plantarly. Using an [employer] nail splitter, the medial border was cut. Straight hemostats were used to remove the medial border of the nail. The area was then inspected and no other nail remnants were seen. At this time 3 one minute applications of phenol were applied into the borders of the toenails for a chemical matrixectomy. The area was cleansed, all bleeding was controlled with pressure. A dressing was applied to the right hallux consisting of bacitracin, gauze and Elastoplast tape. Pt tolerated the procedure well. ? * Procedure Codes:??85767 KRISTEN LAURE OF NAIL BED, Modifiers: T5 * Follow Up:??2 Weeks * Billing Information: * Visit Code:?? 54575 Office Visit, Est Pt., Level 3. Modifiers: 25 * Procedure Codes:?? 77181 REMOVAL OF NAIL BED. Modifiers: T5 * Sign off status: Completed true * Provider:??Mary Izaguirre DPM Date: ??08/12/2023 History and Physical Notes * HPI (History of Present Illness) Category Sub-Category Detail Notes Category Not es Constitutional This 67 y/o f emale returns to our office with a complaint of right big toe pain and sensitivity for approximately 1 month. She had a partial nail avulsion done in a few years ago for this issue. She states the toe had been fine with no issues until about 1 month ago. She states the corner of the nail started getting sore again. She also is complaining of pain on the top of the nail. She states it hurts to the touch and complains of pain when the bedsheets touch the toe. She denies any drainage from the toe. She has no other foot complaints this [...] atrophy. DERMATOLOGICAL:Normal skin temperature, normal skin turgor. Incurvated medial border of the right hallux toenail with edema and erythema, mild tenderness on palpation, no drainage or acute signs of infection, no scabbing along the medial border. Pain on palpation of the dorsal aspect of the toenail. BIOMECHANICS: STJ ROM WNL, MTJ ROM WNL, 1st MPJ ROM limited. SHOES: sneakers
[2024-06-11 14:23] VITALS: BMI 32.3
[2024-06-15 08:45] VITALS: BP 135/76; PULSE 77; RESP 18; TEMP 36.4; O2SAT 97
--- NOTE | 2024-06-15 08:51 | P.CONAN_ITS ---
[facility] Active Problems Active Problems: All Active Problems Low vitamin B12 level (Acute) Varicose vein of leg (Acute) Vasovagal reaction (Acute) Emphysema lung (Acute) Chest pain (Acute) Hypotension, unspecified (Acute) Bradycardia (Acute) Epigastric pain (Acute) Osteopenia (Acute) Screening for osteoporosis (Acute) Mild anemia (Acute) Breast cancer screening by mammogram (Acute) Screening for cervical cancer (Acute) Screening for colon cancer (Acute) Adult general medical exam (Acute) Painful arc syndrome of left shoulder (Acute) Left shoulder pain (Acute) Osteoarthritis of carpometacarpal joint of right thumb (Acute) Osteoarthritis of carpometacarpal joint of left thumb (Acute) Sleep apnea (Acute) Shoulder pain (Acute) Hand pain (Acute) Laboratory exam ordered as part of routine general medical examination (Acute) Recurrent biliary colic (Acute) Adams esophagus (Acute) Pre-diabetes (Acute) HTN (hypertension) (Acute) Hyperlipidemia (Acute) S/P cholecystectomy (Acute) GERD (gastroesophageal reflux disease) (Acute) IBS (irritable bowel syndrome) (Acute) Past Medical History Medical History Pre-diabetes Adams esophagus GERD (gastroesophageal reflux disease) IBS (irritable bowel syndrome) Hyperlipidemia HTN (hypertension) Family History Family History Mother High blood pressure High cholesterol Throat cancer Sister High blood pressure High cholesterol Cardiovascular disease Asthma Family history of problems with anesthesia: No Surgical History Surgical History History of esophagogastroduodenoscopy (EGD) S/P cholecystectomy Hx of colonoscopy History of Problems with Anesthesia: No Social History Social History Household Members: Spouse Housing: House Are you a primary health care law specialist to a significant other at home: No Do you presently have visiting nurse or other home services: No Alcohol intake: current Alcohol intake frequency: does not drink Patient Tobacco Use Status: Former Tobacco user e-Cigarette/Vaping Use: Never Used Second Hand Smoke Exposure: No Have you been hit, kicked, punched, or otherwise hurt by someone within the past year? If so, by whom?: No Are you DNR?: No Advance Directives: No Advance Directives Information Provided: Yes Nutrition Risks: No Nutritional Risk service: No Current occupational status: retired Sexual orientation: Unable to collect Gender identity: Unable to collect Cognitive needs: No Hearing needs: Yes (hearing aids) Vision needs: Yes (glasses) Meds Allergies Allergy/AdvReac Type Severity Reaction Status Date / Time Penicillins [PCN] Allergy Unknown Unknown Verified 06/11/24 14:20 red dye Allergy Unknown Unknown Verified 06/11/24 14:20 Sulfa (Sulfonamide Allergy Unknown Unknown Verified 06/11/24 14:20 Antibiotics) acetaminophen AdvReac Mild Migraine Verified 05/26/24 11:03 12 hr nasal spray Allergy Unknown Unknown Uncoded 06/11/24 14:20 novocaine AdvReac Intermediate tachycardia Uncoded 05/26/24 11:03 Active Medications: Current Medications Lactated Ringer's (Lr) 1,000 mls @ 50 mls/hr IVCONT .Q20H RAJIV Home Medications ?Medication ?Instructions ?Recorded ?Confirmed ?Last Taken ?Type cholecalciferol (vitamin D3) 25 50 mcg PO BEDTIME 05/22/21 09/16/23 08/12/23 History mcg (1,000 unit) capsule (Vitamin D3) omeprazole 20 mg capsule,delayed 20 mg PO DAILY 05/22/21 09/16/23 08/13/23 History release calcium carbonate 500 mg/5 mL (as 500 mg PO BEDTIME 08/13/23 09/16/23 08/12/23 History calcium carb 1,250 mg/5 mL) oral suspension ibuprofen 200 mg tablet (Advil) 400 mg PO Q6-8H PRN Pain (Scale 06/15/24 06/15/24 06/13/24 History Score 4-6) Exam Height,Weight and Vital Signs: Height 5 ft 4 in Weight 85.445 kg Last Vital Signs Temp 97.5 F 06/15/24 08:45 Pulse 77 06/15/24 08:45 Resp 18 06/15/24 08:45 BP 135/76 06/15/24 08:45 Pulse Ox 97 06/15/24 08:45 O2 Del Method Room Air 06/15/24 08:45 Airway Mallampati Class: II TM Dist: >3cm Neck ROM: Full Loose/Missing/Broken Teeth: No Heart: RRR Lungs: CTA Assessment and Plan Assessment Anesthesia Assessment: Anesthesia Plan Discussed and Chart Reviewed Final Anesthetic Review Family History of Problems with Anesthesia: No History of Problems with Anesthesia: No NPO: Yes ASA Class: III Final Preanesthetic Review: Meds/Allgs Chart Reviewed, Consent Obtained/Reviewed and Anes Risks/Benef Reviewed Patient Risk: Intermediate Procedure Risk: Intermediate Anesthetic Plan Anesthetic Plan: MAC: Disposition: Standard PACU
[2024-06-15] MEDS: Lactated Ringers 1,000 ML 50 ML IVCONT (09:00)
[2024-06-15 09:57] VITALS: BP 100/48; PULSE 76; RESP 12; TEMP 36.2; O2SAT 100
--- NOTE | 2024-06-15 10:02 | P.BOP_ITS ---
Brief Operative Note Date of Service: 06/15/24 Pre-op diagnosis: Adams's Post-op diagnosis: other (Same, Hiatal hernia, GERD) Procedure: EGD with biopsies Surgeon: Nik Gamble MD Anesthesia: MAC Was an College Service Officer used for this Procedure?: No Estimated blood loss (mL): 2.0 Pathology: other (A. EG Junction at 35cm) Condition: stable Disposition: PACU
[2024-06-15 10:12] VITALS: BP 100/47; PULSE 59; RESP 16; O2SAT 96
--- NOTE | 2024-06-15 10:24 | OP_ITS ---
DATE OF SERVICE: 06/15/2024 SURGEON: Nik Gamble MD INDICATIONS: The patient presents for evaluation of gastroesophageal reflux and history of Adams's esophagus. Full consent obtained from her for this, including risks of bleeding and perforation. PREOPERATIVE DIAGNOSIS: POSTOPERATIVE DIAGNOSIS: PROCEDURE PERFORMED: Esophagogastroduodenoscopy with biopsies. ESTIMATED BLOOD LOSS: COMPLICATIONS: ANESTHESIA: Monitored anesthesia care. ASSISTANTS: SPECIMENS: PREOPERATIVE DIAGNOSES: Gastroesophageal reflux and Adams's esophagus. POSTOPERATIVE DIAGNOSES: Gastroesophageal reflux and Adams's esophagus, hiatal hernia. DESCRIPTION OF PROCEDURE: The patient was placed in left lateral decubitus position. The Olympus video gastroscope was passed in the posterior oropharynx and upper esophagus under direct vision. The scope was passed slowly into the distal esophagus. The gastroesophageal junction appeared at 35 cm. There was some very slight irregularity at this area, but no evidence of esophagitis nor any definitive evidence of Adams's mucosa. There was a small hiatal hernia. The scope was advanced to the pylorus and the duodenum was cannulated to the descending portion. The duodenum including the bulb appeared normal without mass or ulceration. The scope was withdrawn back to the stomach. The gastric antrum and body appeared normal with good peristalsis. The scope was retroflexed visualizing the proximal stomach carefully, which appeared normal, without any sign of mass or ulceration. The scope was straightened and withdrawn back to the esophagus. Biopsies were obtained at the EG junction at 35 cm. Proximal to this, the esophageal mucosa appeared normal. The scope was withdrawn from the patient. She tolerated the procedure well and was returned to the recovery area in stable condition. IMPRESSION: Hiatal hernia, gastroesophageal reflux, and history of Adams's esophagus. PLAN: The results of biopsies will be checked. Given the very small nature of the Adams's esophagus on the previous exam and today's findings, I would recommend a repeat upper endoscopy in 3 years as long as there is no dysplasia on today's biopsies. She was advised to continue her daily omeprazole as well. She will be due for a followup colonoscopy in 2026 and will see me otherwise on a p.r.n. basis. MD MIRACLE Diana/ABDOULAYE / [id number] BRANDON
[2024-06-15 10:25] VITALS: BP 128/76; PULSE 59; RESP 16; TEMP 36.6; O2SAT 96
== END 2024-06-15 10:39 | disposition home or self-care (01) ==
PROVIDERS: Visit Provider Internal Medicine
PROC: 0DJ08ZZ Inspection of Upper Intestinal Tract, Via Natural or Artificial Opening Endoscopic (ICD-10-PCS; CPT 43235; principal; 2024-06-15 10:20)
DX: K21.9 Gastro-esophageal reflux disease without esophagitis (principal); K22.70 Barrett's esophagus without dysplasia; K44.9 Diaphragmatic hernia without obstruction or gangrene; I10 Essential (primary) hypertension; E78.5 Hyperlipidemia, unspecified; K58.9 Irritable bowel syndrome, unspecified; Z79.899 Other long term (current) drug therapy; Z88.0 Allergy status to penicillin; Z88.2 Allergy status to sulfonamides; Z88.8 Allergy status to other drugs, medicaments and biological substances; Z90.49 Acquired absence of other specified parts of digestive tract; Z87.891 Personal history of nicotine dependence
CPT/HCPCS: 43239; 88305; 88313; J2003; J2704

== ENCOUNTER 2024-08-27 09:47 | Outpatient (AMB) | payer MEDICARE, SELFPAY ==
--- NOTE | 2024-08-27 09:50 | AM.OFFVISMDC ---
Intake Vital Signs 08/27/24 09:59 Height 5 ft 4 in Weight 188 lb BMI 32.3 BP 104/70 Blood Pressure Location Lt brachial Position Sitting Respiration 12 Pulse 76 Pulse Source Pulse Oximeter Temp 97.6 F Temp Source Oral Pulse Oximetry (%) 97 Oxygen Delivery Method Room Air Intake Visit Reasons: MAWV Intake Note: AWV. 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 Allergies Penicillins [PCN] Allergy (Unknown, Verified 08/27/24 10:16) Unknown red dye Allergy (Unknown, Verified 08/27/24 10:16) Unknown Sulfa (Sulfonamide Antibiotics) Allergy (Unknown, Verified 08/27/24 10:16) Unknown acetaminophen Adverse Reaction (Mild, Verified 08/27/24 10:16) Migraine 12 hr nasal spray Allergy (Unknown, Uncoded 08/27/24 10:16) Unknown novocaine Adverse Reaction (Intermediate, Uncoded 08/27/24 10:16) tachycardia Medication List - Last Reconciled 08/27/24 by Cathie Marcelino [facility]- calcium carbonate 500 mg PO BEDTIME cholecalciferol (vitamin D3) (Vitamin D3) 50 mcg PO BEDTIME gemfibrozil 600 mg PO BID 90 days ibuprofen (Advil) 400 mg PO Q6-8H PRN losartan 100 mg PO DAILY 90 days mecobalamin (vitamin B12) 1,000 mcg sublingual DAILY 90 days omeprazole 20 mg PO DAILY simvastatin 20 mg PO BEDTIME 90 days Do you need a note to return to daycare/school/sports/work: No HPI HPI Comments History of Present Illness Details HERE TODAY FOR AWV. THE MEDICARE ANNUAL WELLNESS VISIT (AWV) IS A YEARLY APPOINTMENT WITH A HEALTH PROFESSIONAL TO IDENTIFY HEALTH RISKS AND HELP REDUCE THEM AND TO CREATE OR UPDATE A PERSONALIZED PREVENTION PLAN. DURING A MEDICARE AWV, HEALTH PROFESSIONALS SHOULD ALSO REVIEW ANY CURRENT OPIOID PRESCRIPTIONS, DETECT ANY COGNITIVE IMPAIRMENT, AND ESTABLISH OR UPDATE MEDICAL AND FAMILY HISTORY. 68-year-old female with hyperlipidemia, hypertension, GERD, Adams's esophagus, sleep apnea, prediabetes, osteopenia, obesity, emphysema, b12 anemia SURGHX: Y FHX: Y SOCHX: Y HEALTH MAINTENANCE: SEE SCANNED PREVENTATIVE MEDICINE ASSESSMENT WITH PERSONALIZED HEALTH PLAN AND SCREENING SCHEDULE. COLON: 2021 + polyps; EGD 2024 MAMMO 05/2024 DEXA 2022 Osteopenia, repeat ordered today PAP: aged out VACCINES: Flu UTD, Tdap today, has not had Shingles; Pneumococcal UTD. Advised to get Shingles at pharmacy AAA SCREEN EKG: done today, NSR [place] OF CARE: As noted in chart VISUAL ACUITY: Y done today, see results below ;wears glasses HEARING SCREENING: hearing aides ACP: HCP Y; Living Will Y Full Code no prolonged efforts DIETARY/NUTRITION/EXERCISE EDU PROVIDED: Y DURING THE COURSE OF THE VISIT THE PATIENT WAS EDUCATED AND COUNSELED ABOUT APPROPRIATE SCREENING AND PREVENTATIVE SERVICES. PATIENT INSTRUCTIONS WERE PROVIDED TO THE PATIENT IN WRITTEN OR ELECTRONIC FORMAT. I HAVE REVIEWED AND VERIFIED THE ABOVE INFORMATION. c/o varicose veins ble worse on L humming comes and goes bothersome at night does not swell walks QD MICHI on CPAP compliance reviewed at time 92 sleep med once per year History of Present Illness - The patient is a 68-year-old female presenting for an annual Medicare wellness visit. - She has noted a change in the veins on her left leg, specifically varicose veins that are prominent and bothersome at night with a sensation that impairs sleep, but without swelling. - Reports effective management of sleep apnea with CPAP use. - Expressed emotional distress related to societal changes and recent bereavement. Mild episodes of sadness. - Experiences episodes of fogginess in the afternoon & at night; sx present most of her life but only occuring in the afternoon, tx successfully w/ coffee. Past Surgical History - Cryotherapy for cervical dysplasia at age 28. Normal paps life long since that time. Family History - No family history of uterine, ovarian, or gynecological cancers reported. Social History - The patient engages regularly in hiking and walking, reports a history of hiking in [place]. - Prefers a lifestyle with limited use of alcohol, occasionally a glass of wine. - Exercises regularly with activities such as [employer] that includes weights, cardio, and balance exercises. - No tobacco use. - Mentioned concern for the impact of societal stressors on mental health. - Stays mentally active through reading and volunteering; reads extensively. Health Maintenance - Tetanus vaccination was due and planned for this visit. - Shingles vaccine was recommended, as the patient is over 65, with no record of prior immunization. - Discussed the need for updated cholesterol and diabetes screening due to prediabetes diagnosis. - Blood work and A1c planned for this visit due to a history of hyperlipidemia and prediabetes. - Bone density was discussed and recommended every two years due to osteopenia; last done in 2022. - Referral to vascular specialist for varicose veins planned. - Dermatological evaluation recommended for skin lesions. Review of Systems - Constitutional: Denies fever. - Dermatologic: Reports varicose veins on the left leg. - Cardiovascular: Denies chest pain; reports history of vasovagal syncope. - Respiratory: Denies shortness of breath, manages sleep apnea with CPAP. - Gastrointestinal: Denies changes in bowel habits. - Musculoskeletal: Reports no falls. - Neurological: Reports mild cognitive fog but denies dizziness or headaches. - Psychiatric: Reports feeling sad with current world events. - Hematologic/Endocrine: Denies bruising, reports history of prediabetes. Physical Exam General: Well developed, well nourished, in no acute distress. Appears stated age. Head: Normocephalic, atraumatic. Eyes: Pupils are equal, round and reactive to light and accommodation. Conjunctivae are clear. Vision grossly normal. Ears: TMs clear AU, EACS WNL Nose: Patent, without discharge. Neck: Supple, no adenopathy or thyromegaly. Breast: Edu on SBE Lungs: Clear to auscultation bilaterally. No rales, rhonchi or wheeze noted. Good air flow in all martinez. Heart: Regular rate and rhythm. No murmurs, click, rubs or gallops are noted. Abdomen: Bowel sounds present in all quadrants. The abdomen is soft, nontender, with no masses or organomegaly noted. No hernias are noted. : Deferred. Reviewed recommendations for routine DRY PAN FEEDER Pulses: Peripheral pulses are equal and palpable bilaterally. Extremities: No clubbing, cyanosis nor edema is noted. Varicose veins noted bilat, worse on the left leg from the knee down Neurologic: Gait and station normal. Cranial Nerves 2-12 intact. Motor strength grossly symmetrical and intact. No sensory loss. Balance normal. Skin: No rashes, ulcers, or lesions noted. Turgor is good. Skin color is good. Hair and nails are without abnormalities. Noted a little AK like lesion on the back and another on the right side of the belly. Psych: Normal eye contact, affect and mood appropriate, and normal interactions. Patient is alert and appropriate to context.. Results - Labs: Ordered and pending - Tests: EKG done as part of Medicare wellness. Discussion Notes During this visit, I reviewed the patient's current health status, addressing her history of hyperlipidemia, hypertension, Adams's esophagus, osteopenia, B12 deficiency anemia, and Emphysema. I recommended continuing her current medications and lifestyle strategies. I proposed a referral to a vascular specialist for her varicose veins due to nighttime symptoms affecting sleep, with an informational discussion about possible vein treatments. For her osteopenia, I recommended continued calcium and vitamin D supplementation and discussed the scheduling of a follow-up bone density scan. The patient expressed concerns regarding societal stressors and mild sadness; I reassured her and offered support should symptoms worsen. Given the patient's prediabetes, I suggested dietary modifications and ordered an A1c test to ensure glycemic control. A referral for dermatological evaluation of skin lesions was recommended. Tetanus booster and consideration of the shingles vaccination were discussed, emphasizing prevention of shingles-related complications. Consent obtained for all interventions. Assessment and Plan 1. Hyperlipidemia Continue simvastatin. Lipid levels to be assessed with lab tests. 2. Essential Hypertension Continue losartan. Blood pressure remains well-controlled; re-evaluation as needed. 3. Adams's Esophagus Continue omeprazole. Gastroenterology follow-up as needed for endoscopic surveillance. 4. Osteopenia Continue calcium and vitamin D. Schedule bone density scan due to osteopenia. 5. Obesity Maintain regular physical activity and dietary adjustments as discussed. 6. COPD Routine monitoring advised given past imaging findings. 7. Vitamin B12 Deficiency Anemia Continue oral B12 supplementation. Assess B12 and CBC in routine labs. 8. Varicose Veins Recommend vascular specialist for treatment consideration to alleviate nocturnal symptoms. 9. Sleep Apnea Continue CPAP compliance, currently effective. 10. Vasovagal Syncope Emphasized hydration strategy to avoid syncope episodes. 11. Prediabetes Maintain dietary regulation, assess A1c level today. 12. Skin Lesions Refer to dermatology for evaluation and possible lesion excision. 13. Episodes of mental fogginess - could be dietary related; as it improves w/ coffee intake, advised to avoid prolonged fasting. Eat small frequent snacks. If worsening or change in this, advised to fu sooner. Patient Instructions - Continue current medications as prescribed, including simvastatin, losartan, omeprazole, and B12 supplementation. - Maintain a healthy lifestyle, including regular exercise such as walking or hiking. - Follow up on varicose vein evaluation with a vascular specialist. - Monitor glycemic control by planning a balanced diet to prevent low sugar episodes. - Consider shingles vaccine at pharmacy. - Schedule bone density scan when due. - Monitor skin and report any changes to the utilization management rn. - RTO 6 mo for routine chronic condition fu with PCP, sooner PRN Consent Patient was informed and verbally consented to the use of an ambient scribe for clinic note documentation during this visit. An additional 30 minutes was spent addressing the problem(s) noted at todays visit. This includes time spent before the visit reviewing the chart, time spent during the visit, and time spent after the visit on documentation reviewing laboratory results, diagnostic imaging, medications, performing a medically necessary evaluation, counseling on diagnoses, care coordination, ordering appropriate tests, ordering appropriate medications, review of tests performed by other providers, reporting test results with the patient, communication with other healthcare providers. [facility] Medical History (Updated 08/27/24 @ 11:34 by ARVIND Gay-ANUM) Adams esophagus GERD (gastroesophageal reflux disease) HTN (hypertension) Hyperlipidemia IBS (irritable bowel syndrome) Pre-diabetes Surgical History (Updated 08/27/24 @ 10:03 by ARVIND Gay-ANUM) History of esophagogastroduodenoscopy (EGD) (~2024) Hx of colonoscopy (~2021) S/P cholecystectomy Family History Mother High blood pressure High cholesterol Throat cancer Sister High blood pressure High cholesterol Cardiovascular disease Asthma Social History Household Members: Spouse Housing: House Are you a primary child care teacher to a significant other at home: No Do you presently have visiting nurse or other home services: No Alcohol intake: current Alcohol intake frequency: does not drink Patient Tobacco Use Status: Former Tobacco user e-Cigarette/Vaping Use: Never Used Second Hand Smoke Exposure: No service: No Current occupational status: retired Sexual orientation: Unable to collect Gender identity: Unable to collect Cognitive needs: No Hearing needs: Yes (hearing aids) Vision needs: Yes (glasses) Questionnaire Medicare Wellness Checkup What [age] 65-70 What gender do you identify with?: female During the past 4 weeks, how much have you been bothered by emotional problems such as feeling anxious, depressed, irritable, sad or downhearted, and blue?: slightly (related to the political climate; feels she is managing ) During the past 4 weeks, has your physical & emotional health limited your social activities with family, friends, neighbors, or groups?: not at all During the past 4 weeks, how much bodily pain have you generally had?: very mild pain During the past 4 weeks, was someone available to help you if you needed & wanted help?: yes, as much as I wanted During the past 4 weeks, what was the hardest physical activity you could do for at least 2 minutes?: very heavy Can you get to places out of walking distance without help? (For eg., can you travel alone on buses, taxis or drive your car?): Yes Can you go shopping for groceries or clothes without someone's help?: Yes Can you prepare your own meals?: Yes Can you do your housework without help?: Yes Because of any health problems, do you need the help of another person with your personal care needs such as eating, bathing, dressing or getting around the house?: Yes Can you handle your own money without help?: Yes During the past 4 weeks, how would you rate your health in general?: very good During the past 4 weeks how have things been going for you?: pretty well Are you having difficulties driving your car?: no Do you always fasten your seat belt when you are in a car?: yes, usually During past 4 weeks, have you been bothered by the following: never: Falling or dizzy when standing up, Sexual problems?, Trouble eating well?, Teeth or denture problems?, Problems using the telephone? and Tiredness or fatigue? Have you fallen 2 or more times in the past year?: No Are you afraid of falling?: Yes Are you a smoker?: no During the past 4 weeks, how many drinks of wine, beer, or other alcoholic beverages did you have?: no alcohol at all Do you exercise for about 20 minutes 3 or more times a week?: yes, all the time Have you been given information to help with the following?: no: Hazards in your house that might hurt you? and no: Keeping track of your medications? How often do you have trouble taking medicines the way you have been told to take them?: I always take medicine as prescribed How confident are you that you can control & manage most of your health problems?: very confident What is your race?: White Activity of Daily Living Bathing - sponge bath, tub bath or shower: receives no assistance (gets in/out by self, if usual bathing means Dressing - getting clothes from closets & drawers, including inner/outer garments & fasteners.: gets clothes & gets completely dressed without help Toileting - going to the 'toilet room' for urine/bowel elimination & cleaning self/arranging clothes: goes to toilet room, cleans self, arranges clothes without help Transfer: moves in & out of bed and chair without help (may use support object) Continence: controls urination/bowel movements completely by self Feeding: feeds self without help Total Score: 0 Information obtained from: patient Using telephone: independent Traveling: independent Shopping: independent Preparing meals: independent Housework: independent Taking medicine: independent Managing money: independent PHQ-9 Over the last 2 weeks, how often have you been bothered by any of the following problems? 1. Little interest or pleasure in doing things: not at all 2. Feeling down, depressed, or hopeless: not at all 3. Trouble falling or staying asleep, or sleeping too much: not at all 4. Feeling tired or having little energy: not at all 5. Poor appetite or overeating: not at all 6. Feeling bad about yourself - or that you are a failure or have let yourself or your family down: not at all 7. Trouble concentrating on things, such as reading the newspaper or watching television: not at all 8. Moving or speaking so slowly that other people could have noticed. Or the opposite - being so fidgety or restless that you have been moving around a lot more than usual: not at all 9. Thoughts that you would be better off or of hurting yourself in some way: not at all Total score: 0 Depression Screening Interpretation: Negative Depression Screening Done: Yes 25520 - PHQ-9 Billing: Yes Source: Developed by Drs. Nik Stack, Magalis Alvarez, Bam Alex and colleagues, with an educational anderson from [employer]. Physical Exam Vital Signs: Last Vital Signs Temp 97.6 F 08/27/24 09:59 Pulse 76 08/27/24 09:59 Resp 12 08/27/24 09:59 BP 104/70 08/27/24 09:59 Pulse Ox 97 08/27/24 09:59 Oxygen Delivery Method Room Air 08/27/24 09:59 BMI result Body Mass Index 32.3 Office Procedures EKG 34825-[id number], Complete Vision Screening Right Eye: 20/40 Left Eye: 20/20 Bilateral: 20/25 Color: Pass Corrected: Pass (wearing glasses) 26972 - Vision Screening Immunizations Boostrix Tdap 2.5 Lf unit-8 mcg-5 Lf/0.5 mL intramuscular syringe Performing Provider: KYE Gay Performing Location: [facility] Administered by: Helena Matamoros RN on 08/27/24 11:02 Dose Route Admin Location Dispensed Lot Number Expiration Date [facility] 0.5 mL IM Left Deltoid 0.5 mL [id number] 05/22/26 [id number] [employer] VIS Given Date VIS Provided VIS Publication Date 08/27/24 Single Vaccine 20 Eligibility Eligibility Date Funding Source Not [facility] Eligible 08/27/24 Private Assessment & Plan Assessment & Plan (1) Encounter for subsequent annual wellness visit (AWV) in Medicare patient: Code(s): Z00.00 - Encounter for general adult medical examination without abnormal findings (2) Emphysema lung: Comment: Noted on CTA chest 08/14/2023. Asymptomatic. Code(s): J43.9 - Emphysema, unspecified Qualifiers: Emphysema type: centrilobular Qualified Code(s): J43.2 - Centrilobular emphysema (3) HTN (hypertension): Code(s): I10 - Essential (primary) hypertension Qualifiers: Hypertension type: primary hypertension Qualified Code(s): I10 - Essential (primary) hypertension (4) Hyperlipidemia: Code(s): E78.5 - Hyperlipidemia, unspecified Qualifiers: Hyperlipidemia type: mixed hyperlipidemia Qualified Code(s): E78.2 - Mixed hyperlipidemia (5) Low vitamin B12 level: Code(s): R79.89 - Other specified abnormal findings of blood chemistry (6) Mild anemia: Code(s): D64.9 - Anemia, unspecified (7) Osteopenia: Code(s): M85.80 - Other specified disorders of bone density and structure, unspecified site Qualifiers: Osteopenia location: unspecified Qualified Code(s): M85.80 - Other specified disorders of bone density and structure, unspecified site (8) Pre-diabetes: Code(s): R73.03 - Prediabetes (9) Sleep apnea: Comment: on CPAP managed by Sleep [facility] Code(s): G47.30 - Sleep apnea, unspecified Qualifiers: Sleep apnea type: obstructive Qualified Code(s): G47.33 - Obstructive sleep apnea (adult) (pediatric) (10) Obesity with body mass index (BMI) of 30.0 to 39.9: Comment: with HTN and HLD Code(s): E66.9 - Obesity, unspecified (11) Varicose veins with pain: Comment: pain in LLE Code(s): I83.819 - Varicose veins of unspecified lower extremity with pain (12) Actinic keratosis: Code(s): L57.0 - Actinic keratosis (13) Need for Tdap vaccination: Code(s): Z23 - Encounter for immunization (14) ACP (advance care planning): Code(s): Z71.89 - Other specified counseling (15) Adams esophagus: Code(s): K22.70 - Adams's esophagus without dysplasia Qualifiers: Adams's esophagus type: without dysplasia Qualified Code(s): K22.70 - Adams's esophagus without dysplasia (16) GERD (gastroesophageal reflux disease): Code(s): K21.9 - Gastro-esophageal reflux disease without esophagitis Qualifiers: Esophagitis presence: with esophagitis Esophagitis bleeding: without hemorrhage Qualified Code(s): K21.00 - Gastro-esophageal reflux disease with esophagitis, without bleeding Plan . Orders: Orders Complete Blood Count no Diff Today D64.9 - Anemia, unspecified, E78.5 - Hyperlipidemia, unspecified, G47.30 - Sleep apnea, unspecified, I10 - Essential (primary) hypertension, M85.80 - Other specified disorders of bone density and structure, unspecified site, R73.03 - Prediabetes, R79.89 - Other specified abnormal findings of blood chemistry Comprehensive Met. Panel Today D64.9 - Anemia, unspecified, E78.5 - Hyperlipidemia, unspecified, G47.30 - Sleep apnea, unspecified, I10 - Essential (primary) hypertension, M85.80 - Other specified disorders of bone density and structure, unspecified site, R73.03 - Prediabetes, R79.89 - Other specified abnormal findings of blood chemistry Hemoglobin A1c Today D64.9 - Anemia, unspecified, E78.5 - Hyperlipidemia, unspecified, G47.30 - Sleep apnea, unspecified, I10 - Essential (primary) hypertension, M85.80 - Other specified disorders of bone density and structure, unspecified site, R73.03 - Prediabetes, R79.89 - Other specified abnormal findings of blood chemistry IRON PROFILE Today D64.9 - Anemia, unspecified, E78.5 - Hyperlipidemia, unspecified, G47.30 - Sleep apnea, unspecified, I10 - Essential (primary) hypertension, M85.80 - Other specified disorders of bone density and structure, unspecified site, R73.03 - Prediabetes, R79.89 - Other specified abnormal findings of blood chemistry Microalbumin, Random (w Creat) Today D64.9 - Anemia, unspecified, E78.5 - Hyperlipidemia, unspecified, G47.30 - Sleep apnea, unspecified, I10 - Essential (primary) hypertension, M85.80 - Other specified disorders of bone density and structure, unspecified site, R73.03 - Prediabetes, R79.89 - Other specified abnormal findings of blood chemistry Vitamin B12 and Folate Today D64.9 - Anemia, unspecified, E78.5 - Hyperlipidemia, unspecified, G47.30 - Sleep apnea, unspecified, I10 - Essential (primary) hypertension, M85.80 - Other specified disorders of bone density and structure, unspecified site, R73.03 - Prediabetes, R79.89 - Other specified abnormal findings of blood chemistry TDaP Immunization Today Z23 - Encounter for immunization XR DEXA axial skeleton Today M85.80 - Other specified disorders of bone density and structure, unspecified site, Z13.820 - Encounter for screening for osteoporosis Ferritin Today D64.9 - Anemia, unspecified, E78.5 - Hyperlipidemia, unspecified, G47.30 - Sleep apnea, unspecified, I10 - Essential (primary) hypertension, M85.80 - Other specified disorders of bone density and structure, unspecified site, R73.03 - Prediabetes, R79.89 - Other specified abnormal findings of blood chemistry Lipid Panel Today D64.9 - Anemia, unspecified, E78.5 - Hyperlipidemia, unspecified, G47.30 - Sleep apnea, unspecified, I10 - Essential (primary) hypertension, M85.80 - Other specified disorders of bone density and structure, unspecified site, R73.03 - Prediabetes, R79.89 - Other specified abnormal findings of blood chemistry TSH reflex Free T4 Today D64.9 - Anemia, unspecified, E78.5 - Hyperlipidemia, unspecified, G47.30 - Sleep apnea, unspecified, I10 - Essential (primary) hypertension, M85.80 - Other specified disorders of bone density and structure, unspecified site, R73.03 - Prediabetes, R79.89 - Other specified abnormal findings of blood chemistry Vitamin D 25-OH Total Today D64.9 - Anemia, unspecified, E78.5 - Hyperlipidemia, unspecified, G47.30 - Sleep apnea, unspecified, I10 - Essential (primary) hypertension, M85.80 - Other specified disorders of bone density and structure, unspecified site, R73.03 - Prediabetes, R79.89 - Other specified abnormal findings of blood chemistry Referrals Vascular Surgery Referral I83.819 - Varicose veins of unspecified lower extremity with pain Dermatology Referral L57.0 - Actinic keratosis Patient Instructions: Health screenings for women You should visit your health care provider from time to time, even if you are healthy. The purpose of these visits is to: Screen for medical issues Assess your risk for future medical problems Encourage a healthy lifestyle Update vaccinations and other preventive care services Help you get to know your provider in case of an illness Information Even if you feel fine, you should still see your provider for regular checkups. These visits can help you avoid problems in the future. For example, the only way to find out if you have high blood pressure is to have it checked regularly. High blood sugar and high cholesterol levels also may not have any symptoms in the early stages. A simple blood test can check for these conditions. There are specific times when you should see your provider or receive specific health screenings. The [place] Preventive Services Task Force publishes a list of recommended screenings. Below are screening guidelines for women ages 18 to 39. BLOOD PRESSURE SCREENING Your blood pressure should be checked at least once every 3 to 5 years if: Your blood pressure is in the normal range (top number less than 120 mm Hg and bottom number less than 80 mm Hg) You don't have risk factors for high blood pressure Ask your provider if you need your blood pressure checked more often if: The top number is 120 to 129 mm Hg or the bottom number is 70 to 79 mm Hg You have diabetes, heart disease, kidney problems, are overweight, or have certain other health conditions You have a first-degree relative with high blood pressure You are Black You had high blood pressure during a If the top number is 130 mm Hg or greater or the bottom number is 80 mm Hg or greater, this is considered stage 1 hypertension. Schedule an appointment with your provider to learn how you can reduce your blood pressure. Watch for blood pressure screenings in your area. Ask your provider if you can stop in to have your blood pressure checked. BREAST CANCER SCREENING Experts do not agree about the benefits of breast self-exams in finding breast cancer or saving lives. Talk to your provider about what is best for you. A screening mammogram is not recommended for most women under age 40. Your provider may discuss and recommend mammograms, MRI scans, or ultrasounds if you have an increased risk for breast cancer, such as: A mother or sister who had breast cancer at a young age (most often starting screening earlier than the age the close relative was diagnosed) You carry a high-risk genetic marker CERVICAL CANCER SCREENING Cervical cancer screening should start at age 21 years unless your provider advises otherwise. After the first test: Women ages 21 through 29 should have a Pap test every 3 years. Exoprts do not agree on whether HPV testing is recommended for this age group. Women ages 30 through 65 should be screened with either a Pap test every 3 years or the HPV test every 5 years or both tests every 5 years (called cotesting ). Women who have been treated for precancer (cervical dysplasia) should continue to have Pap tests for 20 years after treatment or until age 65, whichever is longer. If you have had your uterus and cervix removed (total hysterectomy), and you have not been diagnosed with cervical cancer or precancer (high grade cervical neoplasia), you do not need cervical cancer screening. CHOLESTEROL SCREENING Cholesterol screening should begin at: Age 45 for women with no known risk factors for coronary heart disease Age 20 for women with known risk factors for coronary heart disease Repeat cholesterol screening should take place: Every 5 years for women with normal cholesterol levels More often if changes occur in lifestyle (including weight gain and diet) More often if you have diabetes, heart disease, kidney problems, or certain other conditions DIABETES SCREENING You should be screened for diabetes starting at age 35 and then repeated every 3 years if you have no risk factors for diabetes. Screening may need to start earlier and be repeated more often if you have other risk factors for diabetes, such as: You have a first degree relative with diabetes. You are overweight or have obesity. You have high blood pressure, prediabetes, or a history of heart disease. Screening for diabetes should be done if you are planning to become and you are overweight and have other risk factors such as high blood pressure. DENTAL EXAM Go to the dentist once or twice every year for an exam and cleaning. Your dentist will evaluate if you need more frequent visits. EYE EXAM Have an eye exam every 5 to 10 years before age 40. If you have vision problems, have an eye exam every 2 years or more often if recommended by your provider. You should have an eye exam that includes an examination of your retina (back of your eye) at least every year if you have diabetes. IMMUNIZATIONS Commonly needed vaccines include: Flu shot: get one every year. COVID-19 vaccine: ask your provider what is best for you. Tetanus-diphtheria and acellular pertussis (Tdap) vaccine: have one at or after age 19 as one of your tetanus-diphtheria vaccines if you did not receive it as an adolescent. Tetanus-diphtheria: have a booster (or Tdap) every 10 years. Varicella vaccine: receive 2 doses if you never had chickenpox or the varicella vaccine. Hepatitis B vaccine: receive 2, 3, or 4 doses, depending on your exact circumstances. Measles, mumps, and rubella (MMR) vaccine: receive 1 to 2 doses if you are not already immune to MMR. Your provider can tell you if you are immune. Ask your provider about the human papillomavirus (HPV) vaccine if: You have not received the HPV vaccine in the past You have not completed the full vaccine series (you should catch up on this shot) Ask your provider if you should receive other immunizations if you have certain health problems that increase your risk for some diseases such as pneumonia. INFECTIOUS DISEASE SCREENING Women who are sexually active should be screened for chlamydia and gonorrhea up until age 25. Women 25 years and older should be screened for chlamydia and gonorrhea if at high risk. Screening for hepatitis C: All adults ages 18 to 79 should get a one-time test for hepatitis C. people should be screened at every . Screening for human immunodeficiency virus (HIV): All people ages 15 to 65 should get a one-time test for HIV. Depending on your lifestyle and medical history, you may also need to be screened for infections such as syphilis and HIV, as well as other infections. PHYSICAL EXAM All adults should visit their provider from time to time, even if they are healthy. The purpose of these visits is to: Screen for disease Assess your risk of future medical problems Encourage a healthy lifestyle Update your vaccinations and other preventive care services Maintain a relationship with a provider in case of an illness Your height, weight, and BMI should be checked at every exam. During your exam, your provider may ask you about: Depression and anxiety Diet and exercise Alcohol and tobacco use Safety issues, such as using seat belts, smoke detectors, and intimate partner violence Your medicines and risk for interactions SKIN SELF-EXAM Your provider may check your skin for signs of skin cancer, especially if you're at high risk, such as if you: Have had skin cancer before Have close relatives with skin cancer Have a weakened immune system OTHER SCREENING Talk with your provider about colon cancer screening if you have a strong family history of colon cancer or polyps, or if you have had inflammatory bowel disease or polyps yourself. Routine bone density screening of women under 40 is not recommended. Quality Reporting (2019) Adult ([facility] 138/07/04/68) Smoking risk assessment performed?: Yes Patient Tobacco Use Status: Former Tobacco user Depression screening performed: Yes Screen Results: Yes Negative screen Recommended changes: lifestyle and weight reduction Systolic BP not done?: No BMI screening not done: No Sexual Activity Screening ([facility] 153) Sexually active?: No Immunizations ([facility] 147, 117) Annual Influenza Vaccine: Yes Measles Antibody Test: No Mumps Antibody Test: No Rubella Antibody Test: No Varicella Antibody Test: No Anti Hepatitis A IgG Antigen test: No Anti Hepatitis B Virus Surface Ab test: No Fall Risk Screening ([facility] 139) Last assessed Fall Risk: 08/27/24 Fall risk assessment: No Falls in past year Dementia Assessment ([facility] 149) Cognitive assessment recorded: Yes Assessment of cognition with standardized tool: Yes Depression/Bipolar (159/160/161/177) PHQ-9: Total score: 0 Ophthalmol:Cataracts Visual Acuity (133) Visual acuity exam performed: Yes (see results) Coding Level of Care Code Medicare Subsequent (G0439) Est Pt Level 4 (58309) Diagnoses Encounter for subsequent annual wellness visit (AWV) in Medicare patient Z00.00 Centrilobular emphysema J43.2 Emphysema type: centrilobular Primary hypertension I10 Hypertension type: primary hypertension Mixed hyperlipidemia E78.2 Hyperlipidemia type: mixed hyperlipidemia Low vitamin B12 level R79.89 Mild anemia D64.9 Osteopenia, unspecified location M85.80 Osteopenia location: unspecified Pre-diabetes R73.03 Obstructive sleep apnea syndrome G47.33 Sleep apnea type: obstructive Obesity with body mass index (BMI) of 30.0 to 39.9 E66.9 Varicose veins with pain I83.819 Actinic keratosis L57.0 Need for Tdap vaccination Z23 ACP (advance care planning) Z71.89 Adams's esophagus without dysplasia K22.70 Adams's esophagus type: without dysplasia Gastroesophageal reflux disease with esophagitis without hemorrhage K21.00 Esophagitis presence: with esophagitis Esophagitis bleeding: without hemorrhage CPT Codes Advance Care Planning - Time spent: 1-15 minutes, not on file ([id number]) EKG - CPT: 94547-Bimktayfwosicajrf, Complete ([id number]) Vision Screening - Vision Screenin - Vision Screening ([id number]) Additional Codes PHQ-9 - 62711 - PHQ-9 Billing: Yes ([id number]) Advance Care Planning Advance Care Planning discussion: Exists, not on file Date of discussion: 08/27/24 Who was present: self Forms completed: Health Care Proxy, MOLST and Living will Time spent: 1-15 minutes, not on file Actual minutes spent: 5
[2024-08-27 09:59] VITALS: BP 104/70; PULSE 76; RESP 12; TEMP 36.4; O2SAT 97; BMI 32.3
--- OUTSIDE RECORDS SUMMARY | 2024-08-27 11:19 | XMS_ITS | Clinical Summary ---
Author Organization [facility] Address [address] [place] [address] Care Team Providers Care Metallurgy Laboratory Technician Name Role Phone Jeffery Brown MD Primary Care Provider [phone] Medical History Medical History Date Comments Hyperlipidemia DX:Hyperlipidemi a Essential hypertension DX:Essent ial hypertension Family history of cardiovascular disease DX:Family history of cardiovascular disease Diverticular disease of colon DX :Diverticular disease of colon Acquired acanthosis nigricans DX :Acquired acanthosis nigricans Hearing loss DX:Hearing loss Migraine DX:Migraine GERD (gastroesophageal reflux disease) DX:GERD (gastroesophageal reflux disease) Irritable bowel syndrome DX:Irri table bowel syndrome Family History Medical History Relation Name Comments Heart failure Father Relation Name Status Comments Father Social History Tobacco Use Types Packs/Day Years Used Date Smoking Tobacco: Former Smokeless Tobacco: Never Alcohol Use Standard Drinks/Week Comments Yes 0 (1 standard drink = 0.6 oz pur e alcohol) Comments Unknown Sex and Gender Information Value Date Recorded Sex Assigned at Not on file Legal Sex Female 3:46 AM EST Gender Identity Not on file Sexual Orientation Not on file Obstetrics History Last Filed Vital Signs Vital Sign Reading Time Taken Comments Blood Pressure 112/80 03/12/2022 9:42 AM EDT Sit ting L Arm Pulse 67 03/12/2022 9:42 AM EDT Temperature - - Respiratory Rate - - Oxygen Saturation - - Inhaled Oxygen Concentration - - Weight 90.7 kg (200 lb) 03/12/2022 9:42 AM EDT Height 157.5 cm (5' 2 ) 03/12/2022 9:42 AM EDT Body Mass Index 36.58 03/12/2022 9:42 AM EDT Plan of Treatment Health Maintenance Due Date Last Done Comments Breast Cancer Screening 1955 DTaP,Tdap,and Td Vaccines (1 - Tdap) 12/23/1975 Pneumococcal Vaccine: 50+ Ye ars (1 of 1 - PCV) 2006 Zoster Vaccines (1 of 2) 2006 Cholesterol Screening (Lipid Panel) 04/15/2022 Colorectal Cancer Screening: Colonoscopy 04/15/2022 Depression Screening 04/15/2022 Falls Risk Assessment 04/15/2022 Hepatitis C Screening 04/15/2022 Osteoporosis Screening (Bone Density Screening) 04/15/2022 Social Influencers of Health Screening 04/15/2022 Hypertension/CHF/CAD Annual BMP Blood Test 04/22/2022 COVID-19 Vaccine (1 - 2023-2 5 season) 2024 Influenza Vaccine (Season Ended) 2025 RSV Immunization Adult Patie nts (1 - 1-dose 75+ series) 12/23/2031 HIB Vaccines Aged Out No longer eligi ble based on patient's age to complete this topic HPV Vaccines Aged Out No longer eligi ble based on patient's age to complete this topic Hepatitis A Vaccines Aged Out No long er eligible based on patient's age to complete this topic Hepatitis B Vaccines Aged Out No long er eligible based on patient's age to complete this topic IPV Vaccines Aged Out No longer eligi ble based on patient's age to complete this topic MMR Vaccines Aged Out No longer eligi ble based on patient's age to complete this topic Meningococcal ACWY Vaccine Aged Out N o longer eligible based on patient's age to complete this topic Meningococcal B Vaccine Aged Out No l onger eligible based on patient's age to complete this topic RSV Immunization Patients Un nawaf 20 months Aged Out No longer eligible b ased on patient's age to complete this topic Varicella Vaccines Aged Out No longer eligible based on patient's age to complete this topic Care Teams Metallurgy Laboratory Technician Relationship Specialty Start Date End Date Jeffery Brown MD [address] [address] PCP - General Internal Medicine 07/27/20
--- OUTSIDE RECORDS SUMMARY | 2024-08-27 11:19 | XMS_ITS ---
Author Organization [facility] Address [address] [facility] [address] [place] [address] Care Team Providers Care Industrial Insulator Name Role Phone Hiro Cesar Primary Care Provider MARY Christine Unavailable [phone] Allergies Allergen (clinical drug ingredient) Drug/Non Drug [...] y Once a day Active Vital Signs Temperature 96.2 degrees Fahrenheit 08/26/19 24 Heart Rate 73 /min 08/26/2023 Respiratory Rate 16 /min 08/26/2023 Height 5ft 2in in 08/26/2023 Weight 190.1 lbs 08/26/2023 BMI 34.77 kg/m2 08/26/2023 Encounters Encounter Location Date Provider Diagnosis [facility] [address] [facility] [address] [place] [address] 08/26/2023 MARY IZAGUIRRE Ingrown right big toenail [...] * Vika SAUL MDOB:1955 (67 yo F)Acc No.[id number]:08/26/2023 Progress Notes Patient:?Vika SAUL Provider:?Mary Izaguirre DPM :1955???Age:67 Y???Sex:Female D ate:08/26/2023 Address:[facility] [address] [place], [id number] Pcp:Hiro Cesar Subjective: * Chief Complaints: * [...] Up:?prn * Billing Information: * Visit Code:? 35600 Office Visit, Est Pt., Level 3. * Procedure Codes:? * Sign off status: Completed true * Provider:?Mary Izaguirre DPM Date:? 08/26/2023 Generated for Angela bhat/Steven/Nadira on:?08/27/2024 11:19 AM EDT History and Physical Notes * HPI (History of Present Illness) Category Sub-Category Detail Notes Category Not es Constitutional This 67 y/o f emagraciela returns to my office as a follow-up [...]
--- OUTSIDE RECORDS SUMMARY | 2024-08-27 11:20 | XMS_ITS ---
Author Organization [facility] Address [address] [place] [address] Care Team Providers Care Sales Representative Aircraft Name Role Phone Hiro Cesar Primary Care Provider Unavailab Nik Bocanegra [phone] REASON FOR VISIT ibs Encounters Encounter Location Date Provider Diagnosis [facility] [address] [place] [address] 10/23/2023 Nik Gamble Plan Of Treatment No Information Progress Notes * MINOR MONTEZ MDOB:1955 (68 yo F)Acc No.[id number]:10/23/2023 Progress Notes Patient:?MINOR MONTEZ Provider:?Nik Gamble MD :1955???Age:67 Y???Sex:Female D ate:10/23/2023 Address:[address] [place], [place] [id number] Pcp:Hiro Cesar Subjective: * Chief Complaints: * ???1. Ibs. * Medical History:? Objective: * Vitals:? Assessment: Plan: * Treatment: * * The named appointment provid er may or may not be the originator of this progress note, and it is not deemed complete until electronically signed by the appointment provider. Sign off status: Pending * Provider:?Nik Gamble MD Date:? 024 Generated for Tramainei ng/Faamadog/eTransmitting on:?08/27/2024 11:20 AM EDT
--- OUTSIDE RECORDS SUMMARY | 2024-08-27 11:20 | XMS_ITS | Patient Health Record ---
Author Organization [facility] Address [address] [facility] [address] [place] [address] Care Team Providers Care Blanking Press Operator Name Role Phone Hiro Cesar Primary Care Provider JAYANT Christine Unavailable [phone] Allergies Allergen (clinical drug ingredient) Drug/Non Drug [...] capsules Orally Three times a day Active Plan Of Treatment Pending Test Test Name Order Date Nail avulsion partial/complete 2 Insurance Providers Payer Name Payer Address Payer Phone Subscriber Number Group Number Insured Name Patient Relationship to Insured Coverage Start Date Coverage End Date [employer] [place] [address] [place] [phone] [id number] Vika Saul Self - patient is the insured [employer] [facility] [address] [place] [address] [phone] [id number] Vika Saul Self - patient is [...]
--- OUTSIDE RECORDS SUMMARY | 2024-08-27 11:20 | XMS_ITS | Patient Health Record ---
Author Organization [facility] Address [address] [place] [address] Care Team Providers Care Underwriting Consultant Name Role Phone Hiro Cesar Primary Care Provider Unavailab Nik Bocanegra [phone] Allergies Allergen (clinical drug ingredient) Drug/Non Drug Allergy documented on EMR Reaction Allergy Type Onset Date Status Penicillin Unknown Drug Allergy Active Substance with sulfonamide structure and antibacterial mechanism of action (substance) Sulfa Antibiotics Unknown Drug Allergy Active 12 Hour Nasal [place] Unknown Drug Allergy Active red dye (uncoded) Unknown Allergy Ac tive Results Component Value Reference Range Notes MAMMOGRAM DIGITAL BILATERAL SCREEN Reviewed date:03/09/2024 01:28:45 PM Interpretation:Normal Performing Lab: Notes/Report: Normal Pathology (Not yet reviewed by provider) Interpretation: Performing Lab:[facility], [address] [place] [id number] Notes/Report: Name: Kaden Saul Age/Sex: 68/F : 1955 Unit#: [id number] Attend Dr: Nik Gamble MD Re06/15/24 Status : DEP SDC Location: [facility] Disch: SPEC : [id number] RECD: 06/15/24 STATUS: CONNOR ABRAHAM NUM: [id number] DAYA: 06/15/[address] [facility] [address]: Nik Gamble MD ENTERED: 06/15/24 SP TYPE: Surgical OTHR DR: ORDERED: HE Stain/3, Gross Micro L4 Diagnosis Gastroesophageal osvaldo ction at 35 cm, biopsy: Squamocolumnar junctional mucosa with mild chronic inflammation ; negative for intestinal metaplasia and dysplasia. Clinical History Pre-Op Dx: Reflux Post-Op Dx: Hiatal hernia, reflux Microscopic Description Microscopic sections reviewed. The special stain A/B PAS is negative for intestinal metaplasia. Material Received EG junction at 35 cm Gross Description Received in formalin labeled ?EG junction at 35? are 5 anderson-white and anderson-pink irregular tissue fragments ran ging from 0.2-0.3 cm, submitted in toto in a cassette labeled A. ANDREW Special stains order ed and performed A/B PAS on A. Signed (si gnature on file) Mela Cha MD 06/16/24 1328 END OF REPORT Reason For Referral No Information Medications Medication [...] 1 tab Oral for 14 days Active Immunizations Vaccine Route Administration Date Status Comme nts Influenza Unknown 01/11/2021 Administered Influenza Unknown 02/19/2024 Administered Pneumococcal Unknown 02/12/2024 Administered Social History Tobacco Use: Social History Observation Description Date Details (start date - stop date) Never Smoker NA - NA Tobacco Use/Smoking Question Answer Notes Patient is a nonsmoker Alcohol Screen Question Answer Notes Did you have a drink containing alcohol in the p ast year? No Points 0 Interpretation Negative Section Notes: Nonsmoker; no sig alcohol Nonsmoker; no sig alcohol Problems Problem Type SNOMED Code ICD Code Onset Dates Problem Status W/U Status Risk Notes Problem Irritable bowel syndrome (76847853) Irritable bowel syndrome (K58.9) Active confirmed Problem 079603197 Encounter for screening for malignant neoplasm of colon (Z12.11) Active confirmed Problem History of polyp of colon (situation) (874811003) Personal history of colonic polyps (Z86.010) Active confirmed Problem Gastroesophageal reflux disease (670960084) Gastroesophageal reflux disease (K21.9) Active confirmed Problem Esophageal reflux finding (670620990) Gastroesophageal reflux (K21.9) Active confirmed Problem 06770947 Other irritable bowel syndrome (K58.8) Active confirmed Problem Diverticulosis of colon (240735522) Diverticulosis of colon (K57.30) Active confirmed Problem Adams's esophagus (116944311) Adams''s esophagus without dysplasia (K22.70) Active confirmed Problem 549830122 Gastroesophageal reflux disease, unspecified whether esophagitis present (K21.9) Active confirmed Vital Signs Temperature 95.7 degrees Fahrenheit 03/04/2024 Blood pressure diastolic 74 mm Hg 03/04/2024 Height 64 in 03/04/2024 Blood pressure systolic 118 mm Hg 03/04/2024 Weight 188 lb 6 oz lbs 03/04/2024 BMI 32.33 kg/m2 03/04/2024 Encounters Encounter Location Date Provider Diagnosis [facility] [address], [place] [id number] 06/15/2024 Nik Gamble Adams''s esophagus without dysplasia K22.70 ; Gastroesophageal reflux disease K21.9 and Hiatal hernia K44.9 [facility] [address] [facility] [address] [place] [address] 03/04/2024 Nik Gamble Encounter for screen ing for malignant neoplasm of colon Z12.11 ; Adams''s esophagus without dysplasia K22.70 ; Gastroesophageal reflux disease, unspecified whether esophagitis present K21.9 and Personal history of colonic polyps Z86.010 Assessments Encounter Date Diagnosis (ICD Code) Assessment Notes Treatment Notes Treatment Clinical Notes Section Notes 06/15/2024 Gastroesophageal reflux disease (ICD-10 - K21.9) 06/15/2024 Adams''s esophagus without dysplasia (ICD-10 - K22.70) 03/04/2024 Encounter for screening for malignant neoplasm of colon (ICD-10 - Z12.11) Overall, Minor appears quite well. We did review her GI procedures from 2021. I did advise her of the need for a followup colonoscopy in 2026 for further screening given the finding of a tubular adenoma in 2021. We did discuss her finding of Adams's esophagus with associated reflux. However, I did advise her of the very tiny nature of this and the Very unlikely chance of this ever causing any clinical problems. We did review the theoretical increase risk of esophageal cancer in patients with Adams's esophagus, although again highly unlikely in her case. However, I did recommend a followup endoscopy for 2024 as a three-year surveillance endoscopy in regard to Adams's esophagus. Full consent was obtained from her for this, including risks of bleeding and perforation. I did advise to continue her daily omeprazole as well in regard to the reflux. Her previous irritable bowel syndrome seems to have remained quiescent for some reason since her cholecystectomy . At this point I advised her that we would simply observe that. Minor was comfortable with this plan. Thank you again for allowing me to participate in Minor's care. I shall continue to keep you advised of her progress. 03/04/2024 Adams''s esophagus without dysplasia (ICD-10 - K22.70) Overall, Minor appears quite well. We did review her GI procedures from 2021. I did advise her of the need for a followup colonoscopy in 2026 for further screening given the finding of a tubular adenoma in 2021. We did discuss her finding of Adams's esophagus with associated reflux. However, I did advise her of the very tiny nature of this and the Very unlikely chance of this ever causing any clinical problems. We did review the theoretical increase risk of esophageal cancer in patients with Adams's esophagus, although again highly unlikely in her case. However, I did recommend a followup endoscopy for 2024 as a three-year surveillance endoscopy in regard to Adams's esophagus. Full consent was obtained from her for this, including risks of bleeding and perforation. I did advise to continue her daily omeprazole as well in regard to the reflux. Her previous irritable bowel syndrome seems to have remained quiescent for some reason since her cholecystectomy . At this point I advised her that we would simply observe that. Minor was comfortable with this plan. Thank you again for allowing me to participate in Minor's care. I shall continue to keep you advised of her progress. 06/15/2024 Hiatal hernia (ICD-10 - K44.9) 03/04/2024 Gastroesophageal reflux disease, unspecified whether esophagitis present (ICD-10 - K21.9) Overall, Minor appears quite well. We did review her GI procedures from 2021. I did advise her of the need for a followup colonoscopy in 2026 for further screening given the finding of a tubular adenoma in 2021. We did discuss her finding of Adams's esophagus with associated reflux. However, I did advise her of the very tiny nature of this and the Very unlikely chance of this ever causing any clinical problems. We did review the theoretical increase risk of esophageal cancer in patients with Adams's esophagus, although again highly unlikely in her case. However, I did recommend a followup endoscopy for 2024 as a three-year surveillance endoscopy in regard to Adams's esophagus. Full consent was obtained from her for this, including risks of bleeding and perforation. I did advise to continue her daily omeprazole as well in regard to the reflux. Her previous irritable bowel syndrome seems to have remained quiescent for some reason since her cholecystectomy . At this point I advised her that we would simply observe that. Minor was comfortable with this plan. Thank you again for allowing me to participate in Minor's care. I shall continue to keep you advised of her progress. 03/04/2024 Personal history of colonic polyps (ICD-10 - Z86.010) Repeat colonoscopy in 2026 Overall, Minor appears quite well. We did review her GI procedures from 2021. I did advise her of the need for a followup colonoscopy in 2026 for further screening given the finding of a tubular adenoma in 2021. We did discuss her finding of Adams's esophagus with associated reflux. However, I did advise her of the very tiny nature of this and the Very unlikely chance of this ever causing any clinical problems. We did review the theoretical increase risk of esophageal cancer in patients with Adams's esophagus, although again highly unlikely in her case. However, I did recommend a followup endoscopy for 2024 as a three-year surveillance endoscopy in regard to Adams's esophagus. Full consent was obtained from her for this, including risks of bleeding and perforation. I did advise to continue her daily omeprazole as well in regard to the reflux. Her previous irritable bowel syndrome seems to have remained quiescent for some reason since her cholecystectomy . At this point I advised her that we would simply observe that. Minor was comfortable with this plan. Thank you again for allowing me to participate in Minor's care. I shall continue to keep you advised of her progress. Plan Of Treatment Pending Test Test Name Order Date Pathology 06/15/2024 Future Test Test Name Order Date UPPER GI ENDOSCOPY 05/11/2021 COLONOSCOPY 05/11/2021 UPPER GI ENDOSCOPY 03/04/2024 Insurance Providers Payer Name Payer Address Payer Phone Subscriber Number Group Number Insured Name Patient Relationship to Insured Coverage Start Date Coverage End Date MEDIC[place] [address] [place] [address] [id number] MINOR SAUL Self - patient is the insured [employer] ATTN CLAIMS [address] [place] [address] [id number] MINOR SAUL Self - patient is the insured Medical (General) History Medical History History ICD Code Hypertension Denies [place],DM,CVA,Lung disease,renal dise ase Hyperlipidemia IBS Neg. screening colonoscopy in 09/2010 Colonoscopy 05/2021 with a small tubular adenoma EGD 05/2021--small hiatal hernia, tiny ar ea of Adams's without dysplasia Surgical History Surgery Date(Month/Year) CCY [address] Jennings
--- OUTSIDE RECORDS SUMMARY | 2024-08-27 11:20 | XMS_ITS ---
Author Organization [facility] Address [address] [facility] [place] [address] Care Team Providers Care Associate Faculty Name Role Phone Hiro Cesar Primary Care Provider MARY Christine Unavailable [phone] Allergies Allergen (clinical drug ingredient) Drug/Non Drug [...] Orally Once a day Active Vital Signs Temperature 96.2 degrees Fahrenheit 08/12/19 24 Heart Rate 78 /min 08/12/2023 Respiratory Rate 16 /min 08/12/2023 Height 5ft 2in in 08/12/2023 Weight 197.7 lbs 08/12/2023 BMI 36.16 kg/m2 08/12/2023 Encounters Encounter Location Date Provider Diagnosis [facility] [address] [place] [address] 08/12/2023 MARY IZAGUIRRE Ingrown right big toenail [...] * Vika SAUL MDOB:1955 (67 yo F)Acc No.[id number]:08/12/2023 Progress Notes Patient:?Latricia SAULnifer Juanita Provider:?Mary Izaguirre DPM :1955???Age:67 Y???Sex:Female D ate:08/12/2023 [facility] [place] Pcp:Hiro Cesar Subjective: * Chief Complaints: * [...] the nail dorsally, and plantarly. Using an Eventst[employer].am nail splitter, the medial border was cut. [...] tolerated the procedure well. ? * Procedure Codes:?33692 REMOV AL OF NAIL BED, Modifiers: T5 * Follow Up:?2 Weeks * Billing Information: * Visit Code:? 98714 Office Visit, Est Pt., Level 3. Modifiers: 25 * Procedure Codes:? 82658 REMOVAL OF NAIL BED. Modifiers: T5 * Sign off status: Completed true * Provider:Israel Izaguirre DPM Date:? 08/12/2023 Generated for Angela bhat/Steven/Nadria on:?08/27/2024 11:20 AM EDT History and Physical Notes * [...]
== END 2024-08-27 10:59 | disposition home or self-care (01) ==
LOC: HO.HMCFM 09:48
PROVIDERS: PCP Family Medicine; Visit Provider Nurse Practitioner Family
DX: Z00.00 Encounter for general adult medical examination without abnormal findings (principal); J43.2 Centrilobular emphysema; I10 Essential (primary) hypertension; E78.2 Mixed hyperlipidemia; R79.89 Other specified abnormal findings of blood chemistry; D64.9 Anemia, unspecified; M85.80 Other specified disorders of bone density and structure, unspecified site; R73.03 Prediabetes; G47.33 Obstructive sleep apnea (adult) (pediatric); E66.9 Obesity, unspecified; I83.819 Varicose veins of unspecified lower extremity with pain; Z23 Encounter for immunization

== ENCOUNTER → 2024-08-27 09:47 | Outpatient (BNVA) | payer MEDICARE, SELFPAY | PROVIDERS: PCP Family Medicine; Visit Provider Nurse Practitioner Family | DX: Z00.00 Encounter for general adult medical examination without abnormal findings (principal); J43.2 Centrilobular emphysema; I10 Essential (primary) hypertension; E78.5 Hyperlipidemia, unspecified; R79.89 Other specified abnormal findings of blood chemistry; D64.9 Anemia, unspecified; M85.80 Other specified disorders of bone density and structure, unspecified site; R73.03 Prediabetes; G47.33 Obstructive sleep apnea (adult) (pediatric); E66.9 Obesity, unspecified; I83.819 Varicose veins of unspecified lower extremity with pain; L57.0 Actinic keratosis; K22.70 Barrett's esophagus without dysplasia; K21.00 Gastro-esophageal reflux disease with esophagitis, without bleeding; Z71.89 Other specified counseling | CPT/HCPCS: 90471; 90715; 93005; 96127; 99212 ==

== ENCOUNTER 2024-08-27 11:25 | Outpatient (REF) | payer MEDICARE, SELFPAY ==
--- OUTSIDE RECORDS SUMMARY | 2024-08-27 14:16 | XMS_ITS ---
Author Organization [facility] Address [address] [place] [address] Care Team Providers Care Toddler Teacher Name Role Phone Hiro Cesar Primary Care Provider Unavailab Nik Bocanegra [phone] REASON FOR VISIT gerd,wang's Problems Problem Type SNOMED Code ICD Code Onset Dates Problem Status W/U Status Risk Notes Problem Gastroesophageal reflux disease (865521525) Gastroesophageal reflux disease (K21.9) Active confirmed Encounters Encounter Location Date Provider Diagnosis [facility] [address] [place] [phone] 06/15/2024 Nik Gamble Wang''s esophagus without dysplasia [...] * MINOR MONTEZ MDOB:1955 (68 yo F)Acc No.[id number]:06/15/2024 EGD/MAC Patient:?MINOR MONTEZ Provider:?Nik Gamble MD :1955???Age:68 Y???Sex:Female D ate:06/15/2024 Address:[address] [place] [address] [place] Pcp:Hiro Cesar Subjective: * Chief Complaints: * ???1. Gerd,wang's. * Medical History:? Objective: * Vitals:? Assessment: * Assessment: 1.?Wang''s esophagus with out dysplasia - K22.70 (Primary)???2.?Gastroesophageal reflux disease - K21.9???3.?Hiatal hernia - K44.9??? Plan: * Treatment: * Procedure Codes:?88748 UPPER GI ENDOSCOPY, BIOPSY, 3126F ESOPH BX RPRT W/DYSPL INFO * * The named appointment provid er may or may not be the originator of this progress note, and it is not deemed complete until electronically signed by the appointment provider. Sign off status: Pending * Provider:?Nik Gamble MD Date:? 025 Generated for Angela bhat/Steven/eTransmitting on:?08/27/2024 02:16 PM EDT
--- OUTSIDE RECORDS SUMMARY | 2024-08-27 14:16 | XMS_ITS | Clinical Summary ---
Author Organization [facility] Address [address] [place] [address] Care Team Providers Care Wood Stainer Name Role Phone Jeffery Brown MD Primary Care Provider [phone] Medical History Medical History Date Comments Hyperlipidemia [...] age to complete this topic Care Teams Wood Stainer Relationship Specialty Start Date End Date Jeffery Brown MD [address] [address] PCP - General Internal Medicine 07/27/20
[2024-08-27 14:37] LABS: Estimated Average Glucose 111 mg/dL; Hemoglobin A1C 116.4162 umol/L; Hemoglobin A1c % 5.5 % (<6.0)
[2024-08-27 14:37] LABS: Creatinine Urine 23.94 mg/dL; Microalbumin Urine < 5.0 mg/L
[2024-08-27 14:46] LABS: Alanine Aminotransferase 19 U/L (0-31); Albumin Level 4.6 g/dL (3.5-5.0); Alkaline Phosphatase 88 U/L (39-117); Aspartate Amino Transferase 25 U/L (5-31); Bilirubin Total 0.4 mg/dL (0.0-1.0); Blood Urea Nitrogen 20 mg/dL (9-16); Calcium 9.8 mg/dL (8.4-10.2); Cholesterol 178 mg/dL (<200); Estimated Glomerular Filt Rate > 60; Glucose Random 88 mg/dL (60-115); HDL Cholesterol 54 mg/dL (>40); Iron 72 mcg/dL (30-160); LDL Cholesterol Calculated 110 mg/dL (<100); Percent Iron Saturation 21 % (15-50); Total Iron Binding Capacity 349 mcg/dL (228-428); Total Protein 8.2 g/dL (6.5-8.0); Triglycerides 73 mg/dL (<150); Unsaturated Iron Binding 277 ug/dL
[2024-08-27 15:02] LABS: Anion Gap 12 (12-20); Carbon Dioxide 24 mmol/L (22-29); Chloride 108 mmol/L (96-108); Potassium 4.3 mmol/L (3.3-5.1); Sodium 140 mmol/L (135-145)
[2024-08-27 15:09] LABS: Ferritin 183 ng/mL (10-250); TSH reflex Free T4 1.26 uIU/mL (0.32-4.0); Vitamin D 25-OH Total 59.2 ng/mL (>30)
[2024-08-27 15:12] LABS: Folate 9.1 ng/mL (> or = 4.0); Vitamin B12 1925 pg/mL (200-900)
== END 2024-08-27 11:26 | disposition home or self-care (01) ==
LOC: HO.WFDLDS 11:25
PROVIDERS: Visit Provider Nurse Practitioner Family
DX: Z00.00 Encounter for general adult medical examination without abnormal findings (principal); Z23 Encounter for immunization; J43.2 Centrilobular emphysema; I10 Essential (primary) hypertension; E78.5 Hyperlipidemia, unspecified; R79.89 Other specified abnormal findings of blood chemistry; D64.9 Anemia, unspecified; M85.80 Other specified disorders of bone density and structure, unspecified site; R73.03 Prediabetes; G47.33 Obstructive sleep apnea (adult) (pediatric); E66.9 Obesity, unspecified; I83.819 Varicose veins of unspecified lower extremity with pain; L57.0 Actinic keratosis; K22.70 Barrett's esophagus without dysplasia; K21.00 Gastro-esophageal reflux disease with esophagitis, without bleeding; Z71.89 Other specified counseling
CPT/HCPCS: 36415; 80053; 80061; 82306; 82570; 82607; 82728; 82746; 83036; 83540; 84443; 90471; 90715; 93005; 96127; 99212

== ENCOUNTER 2024-09-03 12:49 | Outpatient (AMB) | payer MEDICARE, SELFPAY ==
--- NOTE | 2024-09-03 13:04 | A.OFFVIS_ITS ---
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 Left leg is worse. She has veins that are painful. Seems to be worse at night. She experiences numbness in her left thigh as well. 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 She states she first noticed pain, particularly in the back of her left calf, several months ago. Complaints include pain over varicosities, cramping, fatigue, and heaviness of the lower extremities. It has been affecting their daily activities including sleeping and resting. It is noted more so in the left leg. She states the pain is worse at rest or when sleeping/trying to fall asleep at night. She is a former smoker, quitting >25y ago. She is not a diabetic, her most recent A1C is 5.5%. She is very active, walking and hiking a lot. She states her mother had very rope-like VV, but is not sure if she had them fixed. Patient denies any previous venous surgery or injections. Patient denies any history of DVT/ PE. Patient denies any history of phlebitis. Trial of compression includes - elevation/rest They now present for vascular evaluation regarding their varicose veins. [facility] Medical History Pre-diabetes Adams esophagus GERD (gastroesophageal reflux disease) IBS (irritable bowel syndrome) Hyperlipidemia HTN (hypertension) Surgical History History of esophagogastroduodenoscopy (EGD) (~2024) S/P cholecystectomy Hx of colonoscopy (~2021) Family History Mother High blood pressure High cholesterol Throat cancer Sister High blood pressure High cholesterol Cardiovascular disease Asthma Social History Household Members: Spouse Housing: House Are you a primary home care specialist to a significant other at home: No Do you presently have visiting nurse or other home services: No 75 years or older and lives alone: No Alcohol intake: current Alcohol intake frequency: does not drink Patient Tobacco Use Status: Former Tobacco user e-Cigarette/Vaping Use: Never Used Second Hand Smoke Exposure: No service: No Current occupational status: retired Sexual orientation: Unable to collect Gender identity: Unable to collect Cognitive needs: No Hearing needs: Yes (hearing aids) Vision needs: Yes (glasses) Review of Systems Const Reports as per HPI and Denies weakness ENT Reports Normal hearing present and Denies dizziness Card Reports as per HPI, Denies chest pain, Denies chest pain at rest, Denies chest pain with activity, Denies dyspnea and Denies dyspnea on exertion Resp Reports as per HPI, Denies cough, Denies dyspnea and Denies dyspnea on exertion GI Reports as per HPI, Denies abdominal pain, Denies nausea and Denies vomiting Musc Denies numbness Skin/Breast Reports as per HPI, Denies erythema and Denies wounds Neuro Reports Normal hearing present, Denies dizziness, Denies numbness, Denies Sensory deficit (Neuro) and Denies weakness Psych Reports no additional complaints Endo Reports no additional complaints Physical Exam Vital Signs: BMI result Body Mass Index 32.1 Const General: healthy appearing and no acute distress Orientation/consciousness: patient oriented x3 HEENT Head: Yes normal to inspection Ears: hearing grossly normal bilaterally Mouth: Normal oral and palatal mucosa present Resp Effort & Inspection: normal respiratory effort and able to speak in complete sentences Auscultation: clear to auscultation bilaterally Cardio Jugular venous distension: no JVD Rate: regular rate Rhythm: regular rhythm Heart sounds: S1 normal heart sound present and S2 normal heart sound present Bruits: no abdominal aortic bruits, no carotid bruits, no femoral bruits and no renal bruits Peripheral pulses: Peripheral pulses 2+ throughout GI Inspection: Yes normal to inspection Palpation (GI): No Abdominal aortic bruit present Skin General skin exam: no rashes or lesions noted Wounds: no wounds Hair: normal Neuro General: patient oriented x3 Cranial nerves: Yes Normal hearing present Cognition (Neuro): normal cognition Gait exam (Neuro): Normal gait present Motor exam (neuro): 5/5 motor strength present throughout Sensory Exam: No Sensory deficit (Neuro) Extrem Other: Left lower extremity: small, appx 2-3cm rope-like varicosity noted on the posterior calf, slightly tender to palpation. Trace peripheral edema noted. Telangiectasia noted around the knee and behind the knee as well as the ankle. Right lower extremity: small, appx 1-2cm rope-like varicosity noted on the posterior calf, not tender to palpation. Trace peripheral edema noted. Telangiectasia noted around the knees. CEAP: C - 3 E - primary A - superficial P - reflux General: Yes normal to inspection, Yes full ROM, Yes capillary refill normal and Yes normal gait Assessment & Plan Assessment & Plan (1) Varicose veins of both lower extremities with inflammation: Code(s): I83.11 - Varicose veins of right lower extremity with inflammation; I83.12 - Varicose veins of left lower extremity with inflammation Category: Medical Plan: Vika is presenting today on a referral from her PCP for concerns of VV with pain. She states this has been going on for several months now and has been either keeping her up at night and sometimes waking her up at night. Her left lower extremity is worse than the right. We discussed that she could trial the compression socks at night if she wanted to, to see if this would help with the pain. In short, the patient has evidence of venous insufficiency. I have discussed the pathophysiology with the patient. In addition I have provided informational material regarding venous disease to the patient. We have discussed conservative measures including compression, elevation, and exercise. We were able to provide her with compression socks today. I have taken the liberty of ordering venous insufficiency testing with the patient. They will follow up with me after testing. The patient had an opportunity to ask questions regarding the treatment plan. All questions were answered. Imaging studies, laboratory studies and physical exam results were discussed and reviewed in detail. No major barriers to understanding were identified. The patient expressed understanding and agreement with the above treatment plan. The patient is aware they should contact our office by phone for worsening of the current condition or the appearance of new symptoms. Thank you for allowing me to participate in the vascular care of this patient. If you have any questions or concerns regarding the treatment for the above condition please do not hesitate to contact me. The office telephone contact is [phone]. This note is constructed using voice recognition software. While every effort has been made to ensure accuracy, patient svcs mgr errors may have been included. Thank you for allowing me to participate in the care of your patient. Yours sincerely, FRANNY Casey Orders: Orders US venous duplex LE BI 1 Week I83.11 - Varicose veins of right lower extremity with inflammation, I83.12 - Varicose veins of left lower extremity with inflammation Coding Level of Care Code New Pt Level 4 (05611) Diagnoses Varicose veins of both lower extremities with inflammation I83.11; I83.12
[2024-09-03 13:06] VITALS: BMI 32.1
--- OUTSIDE RECORDS SUMMARY | 2024-09-03 15:07 | XMS_ITS ---
Author Organization [facility] Address [address] [facility] [place] [place] [address] Care Team Providers Care Head Cook Name Role Phone Hiro Cesar Primary Care Provider MARY Christine Unavailable [phone] Allergies Allergen (clinical drug ingredient) Drug/Non Drug [...] 08/26/2023 Encounters Encounter Location Date Provider Diagnosis [facility] [address] [place] [address] 08/26/2023 MARY IZAGUIRRE Ingrown right big toenail [...] * Vika SAUL MDOB:1955 (67 yo F)Acc No.[id number]:08/26/2023 Progress Notes Patient:?Vika SAUL Provider:?Mary Izaguirre DPM :1955???Age:67 Y???Sex:Female D ate:08/26/2023 Address:[facility] [place], [id number] Pcp:Hiro Cesar Subjective: * Chief Complaints: * [...] Up:?prn * Billing Information: * Visit Code:? 52402 Office Visit, Est Pt., Level 3. * Procedure Codes:? * Sign off status: Completed true * Provider:?Mary Izaguirre DPM Date:? 08/26/2023 Generated for Angela bhat/Steven/Nadira on:?09/03/2024 03:07 PM EDT History and Physical Notes * HPI [...]
--- OUTSIDE RECORDS SUMMARY | 2024-09-03 15:07 | XMS_ITS | Clinical Summary ---
Author Organization [facility] Address [address] [place] [address] Care Team Providers Care Cutting Room Supervisor Name Role Phone Jeffery Brown MD Primary Care Provider [phone] Medical History Medical History Date Comments Hyperlipidemia [...] age to complete this topic Care Teams Cutting Room Supervisor Relationship Specialty Start Date End Date Jeffery Brown MD [address] [address] PCP - General Internal Medicine 07/27/20
--- OUTSIDE RECORDS SUMMARY | 2024-09-03 15:07 | XMS_ITS ---
Author Organization [facility] Address [address] [facility] [address] [place] [address] Care Team Providers Care Director Of Catering Sales Name Role Phone Hiro Cesar Primary Care Provider MARY Christine Unavailable [phone] Allergies Allergen (clinical drug ingredient) Drug/Non Drug [...] 08/12/2023 Encounters Encounter Location Date Provider Diagnosis [facility] [address] [facility] [address] [place] [address] 08/12/2023 MARY IZAGUIRRE Ingrown right big toenail [...] * Vika SAUL MDOB:1955 (67 yo F)Acc No.[id number]:08/12/2023 Progress Notes Patient:?Latricia SAULnifer Juanita Provider:?Mary Izaguirre DPM :1955???Age:67 Y???Sex:Female D ate:08/12/2023 [facility] Pcp:Hiro Cesar Subjective: * Chief Complaints: * [...] the nail dorsally, and plantarly. Using an [employer] nail splitter, the medial border was cut. [...] tolerated the procedure well. ? * Procedure Codes:?91737 REMOV AL OF NAIL BED, Modifiers: T5 * Follow Up:?2 Weeks * Billing Information: * Visit Code:? 93877 Office Visit, Est Pt., Level 3. Modifiers: 25 * Procedure Codes:? 89198 REMOVAL OF NAIL BED. Modifiers: T5 * Sign off status: Completed true * Provider:Israel Izaguirre DPM Date:? 08/12/2023 Generated for Angela bhat/Steven/Nadira on:?09/03/2024 03:07 PM [...]
--- OUTSIDE RECORDS SUMMARY | 2024-09-03 15:07 | XMS_ITS | Patient Health Record ---
Author Organization [facility] Address [address] [facility] [address] [place] [address] Care Team Providers Care Commercial Diver Name Role Phone Hiro Cesar Primary Care Provider JAYANT Christine Unavailable [phone] Allergies Allergen (clinical drug ingredient) Drug/Non Drug [...] of [place] [address] [place] [address] [id number] Vika Saul Self - patient is the insured [employer] [facility] [address] [place] [address] [phone] [id number] Vika Saul Self - patient is [...]
== END 2024-09-03 13:32 | disposition home or self-care (01) ==
LOC: HO.HVS 12:50
PROVIDERS: PCP Family Medicine; Visit Provider Physician Assistant Surgical
DX: I83.11 Varicose veins of right lower extremity with inflammation (principal); I83.12 Varicose veins of left lower extremity with inflammation
CPT/HCPCS: 99204

== ENCOUNTER → 2024-09-03 12:49 | Outpatient (BNVA) | payer MEDICARE, SELFPAY | PROVIDERS: PCP Family Medicine; Visit Provider Physician Assistant Surgical | DX: I83.11 Varicose veins of right lower extremity with inflammation (principal); I83.12 Varicose veins of left lower extremity with inflammation | CPT/HCPCS: 99202 ==

== ENCOUNTER 2024-09-15 13:29 | Outpatient (AMB) | payer MEDICARE, SELFPAY ==
[2024-09-15 13:31] VITALS: BP 124/80; PULSE 70; BMI 32.2
--- NOTE | 2024-09-15 13:31 | A.OFFVIS_ITS ---
Vital Signs 09/15/24 13:31 Height 5 ft 4 in Weight 187 lb 6.287 oz BMI 32.2 BP 124/80 Blood Pressure Location Lt brachial Position Sitting Pulse 70 Intake Visit Reasons: 1 yr fu Intake Note: 1 year follow-up pcp did ekg last week feeling good Enrollment Advisor Required: No Allergies Penicillins [PCN] Allergy (Unknown, Verified 09/03/24 13:06) Unknown red dye Allergy (Unknown, Verified 09/03/24 13:06) Unknown Sulfa (Sulfonamide Antibiotics) Allergy (Unknown, Verified 09/03/24 13:06) Unknown acetaminophen Adverse Reaction (Mild, Verified 09/03/24 13:06) Migraine 12 hr nasal spray Allergy (Unknown, Uncoded 08/27/24 10:16) Unknown novocaine Adverse Reaction (Intermediate, Uncoded 08/27/24 10:16) tachycardia Medication List - Last Reconciled 09/15/24 by Jason Kevin MD calcium carbonate 500 mg PO BEDTIME cholecalciferol (vitamin D3) (Vitamin D3) 50 mcg PO BEDTIME gemfibrozil 600 mg PO BID 90 days ibuprofen (Advil) 400 mg PO Q6-8H PRN losartan 100 mg PO DAILY 90 days mecobalamin (vitamin B12) 1,000 mcg sublingual DAILY 90 days omeprazole 20 mg PO DAILY simvastatin 20 mg PO BEDTIME 90 days HPI Comments Details: Vika comes for follow-up. He has been doing very well from cardiac perspective. No exertional symptoms. She regularly exercise and goes for walks and hikes. No exertional chest pain. She has not had any vasovagal symptoms or syncopal episodes. Blood pressure is generally well controlled. She denies any heart failure symptoms. Denies any prolonged palpitation irregular heartbeat. EKG done in your office was within normal limits [facility] Medical History Pre-diabetes Adams esophagus GERD (gastroesophageal reflux disease) IBS (irritable bowel syndrome) Hyperlipidemia HTN (hypertension) Surgical History History of esophagogastroduodenoscopy (EGD) (~2024) S/P cholecystectomy Hx of colonoscopy (~2021) Family History Mother High blood pressure High cholesterol Throat cancer Sister High blood pressure High cholesterol Cardiovascular disease Asthma Social History Household Members: Spouse Housing: House Are you a primary child care centre director to a significant other at home: No Do you presently have visiting nurse or other home services: No 75 years or older and lives alone: No Alcohol intake: current Alcohol intake frequency: does not drink Patient Tobacco Use Status: Former Tobacco user e-Cigarette/Vaping Use: Never Used Second Hand Smoke Exposure: No service: No Current occupational status: retired Sexual orientation: Unable to collect Gender identity: Unable to collect Cognitive needs: No Hearing needs: Yes (hearing aids) Vision needs: Yes (glasses) Review of Systems Const Denies chills, Denies fatigue, Denies fever(s), Denies frequent falls, Denies weakness, Denies weight gain and Denies weight loss ENT Denies dizziness Card Denies chest pain, Denies leg edema, Denies lightheadedness, Denies palpitations, Denies dyspnea, Denies dyspnea on exertion, Denies orthopnea and Denies other (loss of consciousness) Resp Denies cough, Denies dyspnea and Denies dyspnea on exertion GI Denies hematochezia and Denies change in stool character Musc Denies abnormal gait, Denies muscle weakness, Denies numbness, Denies radiating pain into limb and Denies tingling Neuro Denies abnormal gait, Denies dizziness, Denies frequent falls, Denies numbness, Denies tingling and Denies weakness Endo Denies fatigue and Denies palpitations Physical Exam Vital Signs: Last Vital Signs Pulse 70 09/15/24 13:31 BP 124/80 09/15/24 13:31 BMI result Body Mass Index 32.2 Const General: cooperative, comfortable, no acute distress, alert, awake and well groomed Nutritional Appearance: overweight Orientation/consciousness: patient oriented x3 Neck Neck: Yes trachea midline, Yes supple and Yes no JVD Resp Effort & Inspection: normal respiratory effort Auscultation: clear to auscultation bilaterally Cardio Jugular venous distension: no JVD Palpation: normal PMI Rate: regular rate Rhythm: regular rhythm Heart sounds: S1 normal heart sound present, S2 normal heart sound present, no click, no gallops, no murmurs and no rubs GI Auscultation: normal bowel sounds Neuro General: patient oriented x3 and no focal motor deficits Extrem General: Yes no clubbing, cyanosis or edema Assessment & Plan Assessment & Plan (1) HTN (hypertension): Code(s): I10 - Essential (primary) hypertension Category: Medical Qualifiers: Hypertension type: primary hypertension Qualified Code(s): I10 - Essential (primary) hypertension Plan: Hypertension which is currently well optimized on losartan therapy. She has done very well on the same. Advised to continue to control blood pressure. Advised to monitor blood pressure and maintain a log. Low-salt diet was discussed. Continue aggressive risk factor modification with management of hyperlipidemia goal LDL definitely less than 100 mg/dL. Continue aggressive management of metabolic syndrome. Encouraged to continue to participate in physical activity as tolerated. (2) Vasovagal reaction: Code(s): R55 - Syncope and collapse Category: Medical Plan: Vasovagal reaction specific clinical situations. Has had no clinical recurrence. Mechanism of vasovagal reaction was discussed. Continue maintain adequate hydration. Will follow up in the clinic in 1 year's time, sooner p.r.n.. Thank you for allowing me to partake in her care Coding Level of Care Code Est Pt Level 4 (91768) Complex EM visit Add On G2211 Diagnoses Primary hypertension I10 Hypertension type: primary hypertension Vasovagal reaction R55
--- OUTSIDE RECORDS SUMMARY | 2024-09-15 14:46 | XMS_ITS | Patient Health Record ---
Author Organization [facility] Address [address] [facility] [address] [place] [address] Care Team Providers Care Emerging Technologies Director Name Role Phone Hiro Cesar Primary Care Provider JAYANT Christine Unavailable [phone] Allergies Allergen (clinical drug ingredient) Drug/Non Drug [...] of [place] [address] [place] [address] [id number] Vika Saul Self - patient is the insured [employer] [facility] [address] [place] [address] [phone] [id number] Vika Saul Self - patient is [...]
--- OUTSIDE RECORDS SUMMARY | 2024-09-15 14:46 | XMS_ITS ---
Author Organization [facility] Address [address] [place] [address] Care Team Providers Care Sand Plant Attendant Name Role Phone Hiro Cesar Primary Care Provider UnavailNik Cordoba [phone] Allergies Allergen (clinical drug ingredient) Drug/Non Drug Allergy documented on EMR Reaction Allergy Type Onset Date Status Penicillin Unknown Drug Allergy Active Substance with sulfonamide structure and antibacterial mechanism of action (substance) Sulfa Antibiotics Unknown Drug Allergy Active 12 Hour Nasal [place] Unknown Drug Allergy Active red dye (uncoded) Unknown Allergy Ac tive REASON FOR VISIT Patient presents today for ibs Medications Medication SIG (Take, Route, Frequency, Duration) [...] Simvastatin 20 MG Oral for 90 Active Social History Tobacco Use: Social History Observation Description Date Details (start date - stop date) Never Smoker NA - NA Tobacco Use/Smoking Question Answer Notes Patient is a nonsmoker Alcohol Screen Question Answer Notes Did you have a drink containing alcohol in the p ast year? No Points 0 Interpretation Negative Section Notes: Nonsmoker; no sig alcohol Problems Problem Type SNOMED Code ICD Code Onset Dates Problem Status W/U Status Risk Notes Problem History of polyp of colon (situation) (552635327) Personal history of colonic polyps (Z86.010) Active confirmed Problem Adams's esophagus (874820602) Adams''s esophagus without dysplasia (K22.70) Active confirmed Vital Signs Temperature 95.7 degrees Fahrenheit 03/04/20 24 Blood pressure systolic 118 mm Hg 03/04/20 24 Blood pressure diastolic 74 mm Hg 024 Height 64 in 03/04/2024 Weight 188 lb 6 oz lbs 03/04/2024 BMI 32.33 kg/m2 03/04/2024 Encounters Encounter Location Date Provider Diagnosis [facility] [address] [place] [address] 03/04/2024 Nik Gamble Encounter for screen ing for malignant neoplasm of colon Z12.11 ; Adams''s esophagus without dysplasia K22.70 ; Gastroesophageal reflux disease, unspecified whether esophagitis present K21.9 and Personal history of colonic polyps Z86.010 Assessments Encounter Date Diagnosis (ICD Code) Assessment Notes Treatment Notes Treatment Clinical Notes Section Notes 03/04/2024 Encounter for screening for malignant [...] keep you advised of her progress. 03/04/2024 Gastroesophageal reflux disease, unspecified whether esophagitis [...] advised of her progress. Plan Of Treatment Medication Medication Name Sig Start Date Stop Date Notes Omeprazole 20 MG 1 capsule 30 minutes before morning meal Orally Once a day Treatment Notes Assessment Notes Personal history of colonic polyps Repea t colonoscopy in 2026 Future Test Test Name Order Date UPPER GI ENDOSCOPY 03/04/2024 Next Appt Details Follow Up: prn, Reason: Progress Notes * MINOR MONTEZ MDOB:1955 (68 yo F)Acc No.[id number]:03/04/2024 Progress Notes Patient:?MELIDAMINOR HACKETT Juanita Provider:?Nik Gamble MD :1955???Age:68 Y???Sex:Female D ate:03/04/2024 Address:[address] [place] [address] [facility] [place] Pcp:Hiro Cesar Subjective: * Chief Complaints: * ???Patient presents today fo r ibs * HPI: ???incontinence:? I saw Minor in followup today in regard to her gastroesophageal reflux with associated Adams's esophagus, her irritable bowel syndrome, and her personal history of a tubular adenoma of the colon. ?I last saw Minor in May of 2021, at which time she underwent an upper endoscopy and screening colonoscopy. The colonoscopy revealed a small tubular adenoma that was removed. There was no evidence of any inflammatory bowel disease or microscopic colitis. The upper endoscopy revealed a small hiatal hernia and tiny area of Adams's mucosa. There was no evidence of any dysplasia nor esophagitis. There was no evidence of celiac disease on duodenal biopsies. ?Since those procedures she has remained on daily omeprazole with good relief of heartburn. She enjoys a good appetite and denies any dysphagia. She did have an episode of chest pain this past August that was attributed to some reflux and esophageal spasm given a completely negative cardiac workup. She is presently on a careful and healthier diet, and does find that to be helping as well. She does have occasional epigastric burning that responds to either antacids or Pepto-Bismol. She denies any other abdominal pains, jaundice, nor unintentional weight loss. ?She did have a cholecystectomy in 2022 for the acute onset of abdominal pain with the finding of gallstones. She describes that since that time her symptoms in relation to her irritable bowel syndrome have greatly improved as well. * ROS:?General/Constitutional:?Change in appetite?denies.?Chills?denies.?Fatigue?denies.?Ophthalmologic:?Comments?all negative.?ENT:?Comments?all negative.?Respiratory:?hemoptysis?denies.?Cough?denies.?Cardiovascular:?Chest pain?denies.?Orthopnea?denies.?Gastrointestinal:?Comments?See HPI for details.?Genitourinary:?Hematuria?denies.?Dysuria?denies.?Musculoskeletal:?Painful joints?denies.?Weakness?denies.?Skin:?Itching?denies.?Rash?denies.?Neurologic:?Headache?denies.?Seizures?denies.?Psychiatric:?Comments?all negative.? * Medical History:? * Surgical History:?CCY [address] Jennings * Hospitalization/Major Diagno stic Procedure:?No Hospitalization History. * Family History:?Father: dece ased.?Mother: , throat cancer.? No known hx of colon cancer, IBD, nor celiac disease. * Social History:?Tobacco Use:?Tobacco Use/Smoking?Patient is a?nonsmoker.?Drugs/Alcohol:?Alcohol Screen?Did you have a drink containing alcohol in the past year??No,?Points?0,?Interpretation?Negative.?Miscellaneous:?Marital status: . 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 ???Nonsmoker; no sig alcohol. * Medications:?TakingVitamin D 3 Calcium 1 tab Oral Gemfibrozil 600 MG Tablet as directed Oral Twice a daySimvastatin 20 MG Tablet Oral Losartan Potassium 100 MG Tablet Oral Omeprazole 20 MG Capsule Delayed Release 1 capsule 30 minutes before morning meal Orally Once a dayTaking Vitamin D3 Taking Calcium 1 tab Oral Taking Gemfibrozil 600 MG Tablet as directed Oral Twice a dayTaking Simvastatin 20 MG Tablet Oral Taking Losartan Potassium 100 MG Tablet Oral Taking Omeprazole 20 MG Capsule Delayed Release 1 capsule 30 minutes before morning meal Orally Once a dayDiscontinuedDicyclomine HCl 10 MG Capsule 1 Oral with breakfast and dinnerMedication List reviewed and reconciled with the patientDiscontinued Dicyclomine HCl 10 MG Capsule 1 Oral with breakfast and dinnerMedication List reviewed and reconciled with the patient * Allergies:?12 Hour Nasal Spr ayPenicillinred dyeSulfa Antibioticsyes[Allergies Verified] Objective: * Vitals:?Wt: 188 lb 6 oz, Ht: 64 in, BMI:32.33 Index, BP: 118/74 mm Hg, Temp: 95.7. * Examination: ???General Examination: ?GENERAL APPEARANCE:?pleasant, well nourished, well developed, in no acute distress.?EYES:?sclera non-icteric.?ORAL CAVITY:?mucosa moist.?NECK/THYROID:?no cervical lymphadenopathy, neck supple.?SKIN:?nonjaundiced, no spider angiomata.?HEART:?S1, S2 normal.?LUNGS:?clear to auscultation bilaterally.?ABDOMEN:?normal bowel sounds, no guarding or rigidity, no guarding or rigidity, no masses palpable, soft, nontender, nondistended.?EXTREMITIES:?no edema.?NEUROLOGIC:?alert and oriented.? Assessment: * Assessment: 1.?Adams''s esophagus with out dysplasia - K22.70 (Primary)?2.?Encounter for screening for malignant neoplasm of colon - Z12.11?3.?Gastroesophageal reflux disease, unspecified whether esophagitis present - K21.9?4.?Personal history of colonic polyps - Z86.010? Overall, Minor appears qu ite well. We did review her GI procedures [...] remained quiescent for some reason since her cholecystectomy. At this point I advised her that we would simply observe that. Minor was comfortable with this plan. Thank you again for allowing me to participate in Minor's care. I shall continue to keep you advised of her progress. Plan: * Treatment: 2.?Gastroesophageal reflux disease, unspecified whether esophagitis present?Procedure: UPPER GI ENDOSCOPY (Ordered for 03/04/2024)* with MACsched for 06/15/24 at 11:30 am 3.?Personal history of colonic polyps? Notes: Repeat colonoscopy in 2026??4.?Others? Continue Omeprazole Capsule Delayed Release, 20 MG, 1 capsule 30 minutes before morning meal, Orally, Once a day.?? * Procedure Codes:?3017F COLOR ECTAL CA SCREEN DOC [id number] TOBACCO NON-AOLXI6398 BP SCR NOT PRFRM REC REASON NOS * Preventive Medicine:? ??Counseling:?Care goal follow-up plan:?Above Normal BMI Follow-up?Giving encouragement to exercise,?BMI management provided?Yes.? ??Urinary Incontinence:?Urinary Incontinence?Assessment:?Absent,?Plan of care documented:?No, reason not specified.? ??Screenings:?Fall Risk Screening?Fall Risk Assessment:?No falls in the past year,?Screening:?No falls in the past year,?Assessment:?Not performed, no reason specified,?Plan of Care:?Not documented, no reason specified.? * Follow Up:?prn * * Sign off status: Completed true * Provider:?Nik Gamble MD Date:? 024 Generated for Angela bhat/Steven/Carlasmitting on:?09/15/2024 02:46 PM EDT History and Physical Notes * HPI (History of Present Illness) Category Sub-Category Detail Notes Category Not es incontinence I saw Minor in followup today in regard to her gastroesophageal reflux with associated Adams's esophagus, her irritable bowel syndrome, and her personal history of a tubular adenoma of the colon. I last saw Minor in May of 2021, at which time she underwent an upper endoscopy and screening colonoscopy. The colonoscopy revealed a small tubular adenoma that was removed. There was no evidence of any inflammatory bowel disease or microscopic colitis. The upper endoscopy revealed a small hiatal hernia and tiny area of Adams's mucosa. There was no evidence of any dysplasia nor esophagitis. There was no evidence of celiac disease on duodenal biopsies. Since those procedures she has remained on daily omeprazole with good relief of heartburn. She enjoys a good appetite and denies any dysphagia. She did have an episode of chest pain this past August that was attributed to some reflux and esophageal spasm given a completely negative cardiac workup. She is presently on a careful and healthier diet, and does find that to be helping as well. She does have occasional epigastric burning that responds to either antacids or Pepto-Bismol. She denies any other abdominal pains, jaundice, nor unintentional weight loss. She did have a cholecystectomy in 2022 for the acute onset of abdominal pain with the finding of gallstones. She describes that since that time her symptoms in relation to her irritable bowel syndrome have greatly improved as well. Examination Category Sub-Category Detail Notes Category Not es General Examination GENERAL APPEARANCE: pleasant , well [...]
--- OUTSIDE RECORDS SUMMARY | 2024-09-15 14:46 | XMS_ITS | Clinical Summary ---
Author Organization [facility] Address [address] [place] [address] Care Team Providers Care Tin Can Feeder Name Role Phone Jeffery Brown MD Primary Care Provider Medical History Medical History Date Comments Hyperlipidemia [...] age to complete this topic Care Teams Tin Can Feeder Relationship Specialty Start Date End Date Jeffery Brown MD [address] [address] PCP - General Internal Medicine 07/27/20
--- OUTSIDE RECORDS SUMMARY | 2024-09-15 14:46 | XMS_ITS ---
Author Organization [facility] Address [address] [place] [address] Care Team Providers Care Psychology Fellow Name Role Phone Hiro Cesar Primary Care Provider Unavailab Nik Bocanegra [phone] REASON FOR VISIT gerd,wang's Problems Problem Type SNOMED Code ICD Code Onset Dates Problem Status W/U Status Risk Notes Problem Gastroesophageal reflux disease (K21.9) Active confirmed Encounters Encounter Location Date Provider Diagnosis [facility] Outpatient [address] [place] [phone] 06/15/2024 Nik Gamble Wang''s esophagus without dysplasia [...] * MINOR MONTEZ MDOB:1955 (68 yo F)Acc No.[id number]:06/15/2024 EGD/MAC Patient:?MINOR MONTEZ Provider:?Nik Gamble MD :1955???Age:68 Y???Sex:Female D ate:06/15/2024 Address:[address] [place] [address], [id number] Pcp:Hiro Cesar Subjective: * Chief Complaints: * ???1. Gerd,wang's. * Medical History:? Objective: * Vitals:? Assessment: * Assessment: 1.?Wang''s esophagus with out dysplasia - K22.70 (Primary)???2.?Gastroesophageal reflux disease - K21.9???3.?Hiatal hernia - K44.9??? Plan: * Treatment: * Procedure Codes:?51212 UPPER GI ENDOSCOPY, BIOPSY, 3126F ESOPH BX RPRT W/DYSPL INFO * * The named appointment provid er may or may not be the originator of this progress note, and it is not deemed complete until electronically signed by the appointment provider. Sign off status: Pending * Provider:?Nik Gamble MD Date:? 025 Generated for Angela bhat/Steven/eTransmitting on:?09/15/2024 02:45 PM EDT
--- OUTSIDE RECORDS SUMMARY | 2024-09-15 14:46 | XMS_ITS ---
Author Organization [facility] Address [address] [facility] [place] [address] Care Team Providers Care Plasterer Stucco Name Role Phone Hiro Cesar Primary Care Provider MARY Christine Unavailable [phone] Allergies Allergen (clinical drug ingredient) Drug/Non Drug [...] 08/26/2023 Encounters Encounter Location Date Provider Diagnosis [facility] [address] [place] [address] 08/26/2023 MARY IZAGUIRRE Ingrown right big toenail [...] * Vika SAUL MDOB:1955 (67 yo F)Acc No.[id number]:08/26/2023 Progress Notes Patient:?Vika SAUL Provider:?Mary Izaguirre DPM :1955???Age:67 Y???Sex:Female D ate:08/26/2023 Address:[facility] [id number] Pcp:Hiro Cesar Subjective: * Chief Complaints: * [...] Up:?prn * Billing Information: * Visit Code:? 86540 Office Visit, Est Pt., Level 3. * Procedure Codes:? * Sign off status: Completed true * Provider:?Mary Izaguirre DPM Date:? 08/26/2023 Generated for Angela bhat/Steven/Nadira on:?09/15/2024 02:46 PM EDT History and Physical [...]
--- OUTSIDE RECORDS SUMMARY | 2024-09-15 14:47 | XMS_ITS ---
Author Organization [facility] Address [address] [place] [address] Care Team Providers Care V Belt Coverer Name Role Phone Hiro Cesar Primary Care Provider Unavailab Nik Bocanegra [phone] REASON FOR VISIT ibs Encounters Encounter Location Date Provider Diagnosis [facility] [address] [place] [address] 10/23/2023 Nik Gamble Plan Of Treatment No Information Progress Notes * MINOR MONTEZ MDOB:1955 (68 yo F)Acc No.[id number]:10/23/2023 Progress Notes Patient:?MINOR MONTEZ Provider:?Nik Gamble MD :1955???Age:67 Y???Sex:Female D ate:10/23/2023 Address:[address] [place], [place] [address] Pcp:Hiro Cesar Subjective: * Chief Complaints: * ???1. Ibs. * Medical History:? Objective: * Vitals:? Assessment: Plan: * Treatment: * * The named appointment provid er may or may not be the originator of this progress note, and it is not deemed complete until electronically signed by the appointment provider. Sign off status: Pending * Provider:?Nik Gamble MD Date:? 024 Generated for Printi ng/Faamadog/eTransmitting on:?09/15/2024 02:46 PM EDT
--- OUTSIDE RECORDS SUMMARY | 2024-09-15 14:47 | XMS_ITS ---
Author Organization [facility] Address [address] [place] [address] Care Team Providers Care Hair Mixer Name Role Phone Hiro Cesar Primary Care Provider MARY Christine Unavailable [phone] Allergies Allergen (clinical drug ingredient) Drug/Non Drug [...] 08/12/2023 Encounters Encounter Location Date Provider Diagnosis [facility] [address] [place] [address] 08/12/2023 MARY IZAGUIRRE Ingrown right big toenail [...] * Vika SAUL MDOB:1955 (67 yo F)Acc No.[id number]:08/12/2023 Progress Notes Patient:?Latricia SAULnifer Juanita Provider:?Mary Izaguirre DPM :1955???Age:67 Y???Sex:Female D ate:08/12/2023 [id number] Pcp:Hiro Cesar Subjective: * Chief Complaints: * [...] the nail dorsally, and plantarly. Using an [employer] nail splitter, the medial border was cut. [...] tolerated the procedure well. ? * Procedure Codes:?73777 REMOV AL OF NAIL BED, Modifiers: T5 * Follow Up:?2 Weeks * Billing Information: * Visit Code:? 50705 Office Visit, Est Pt., Level 3. Modifiers: 25 * Procedure Codes:? 75019 REMOVAL OF NAIL BED. Modifiers: T5 * Sign off status: Completed true * Provider:Israel Izaguirre DPM Date:? 08/12/2023 Generated for Angela bhat/Steven/Nadira on:?09/15/2024 02:46 PM [...]
--- OUTSIDE RECORDS SUMMARY | 2024-09-15 14:47 | XMS_ITS | Patient Health Record ---
Author Organization [facility] Address [address] [place] [address] Care Team Providers Care Supervisor Lead Burning Name Role Phone Hiro Cesar Primary Care Provider Unavailab Nik Bocanegra [phone] Allergies Allergen (clinical drug ingredient) Drug/Non Drug Allergy documented on EMR Reaction Allergy Type Onset Date Status Penicillin Unknown Drug Allergy Active Substance with sulfonamide structure and antibacterial mechanism of action (substance) Sulfa Antibiotics Unknown Drug Allergy Active 12 Hour Nasal [place] Unknown Drug Allergy Active red dye (uncoded) Unknown Allergy Ac tive Results Component Value Reference Range Notes MAMMOGRAM DIGITAL BILATERAL SCREEN Reviewed date:03/09/2024 01:28:45 PM Interpretation:Normal Performing Lab: Notes/Report: Normal Pathology (Not yet reviewed by provider) Interpretation: Performing Lab:[facility], [address] [place] [address] Notes/Report: Name: Kaden Saul Age/Sex: 68/F : 1955 Unit#: [id number] Attend Dr: Nik Gamble MD Re06/15/24 Status : DEP SDC Location: [facility] Disch: SPEC : [id number] RECD: 06/15/24 STATUS: CONNOR ABRAHAM NUM: [id number] DAYA: 06/15/[address] [facility] [address]: Nik Gamble MD ENTERED: 06/15/24 [...] Status Risk Notes Problem Irritable bowel syndrome (72703104) Irritable bowel syndrome (K58.9) Active confirmed Problem 779288216 Encounter for screening for malignant neoplasm of colon (Z12.11) Active confirmed Problem History of polyp of colon (situation) (705580270) Personal history of colonic polyps (Z86.010) Active confirmed Problem Gastroesophageal reflux disease (K21.9) Active confirmed Problem Esophageal reflux finding (033690551) Gastroesophageal reflux (K21.9) Active confirmed Problem 99019946 Other irritable bowel syndrome (K58.8) Active confirmed Problem Diverticulosis of colon (526229585) Diverticulosis of colon (K57.30) Active confirmed Problem Adams's esophagus (797517358) Adams''s esophagus without dysplasia (K22.70) Active confirmed Problem 145059770 Gastroesophageal reflux disease, unspecified whether esophagitis present (K21.9) Active confirmed Vital Signs Temperature 95.7 degrees Fahrenheit 03/04/2024 Blood pressure diastolic 74 mm Hg 03/04/2024 Height 64 in 03/04/2024 Blood pressure systolic 118 mm Hg 03/04/2024 Weight 188 lb 6 oz lbs 03/04/2024 BMI 32.33 kg/m2 03/04/2024 Encounters Encounter Location Date Provider Diagnosis [facility] [address] [place], [place] [phone] 06/15/2024 Nik Gamble Adams''s esophagus without dysplasia K22.70 ; Gastroesophageal reflux disease K21.9 and Hiatal hernia K44.9 [facility] [address] [place] [address] 03/04/2024 Nik Gamble Encounter for screen ing for malignant neoplasm of colon Z12.11 ; Daams''s esophagus without dysplasia K22.70 ; Gastroesophageal reflux [...] Date MEDICARE OF [place] [address] [place] [address] [id number] MINOR SAUL Self - patient is the insured [employer] ATT[employer] CLAIMS [address] [place] [address] [id number] MINOR SAUL Self - patient is the insured Medical (General) History Medical History History ICD Code Hypertension Denies [place],DM,CVA,Lung disease,renal dise ase Hyperlipidemia IBS Neg. screening colonoscopy in 09/2010 Colonoscopy 05/2021 with a small tubular adenoma EGD 05/2021--small hiatal hernia, tiny ar ea of Adams's without dysplasia Surgical History Surgery Date(Month/Year) CC[address] Jennings
== END 2024-09-15 13:52 | disposition home or self-care (01) ==
LOC: HO.HCS 13:30
PROVIDERS: PCP Family Medicine; Visit Provider Internal Medicine Cardiovascular Disease
DX: I10 Essential (primary) hypertension (principal); R55 Syncope and collapse
CPT/HCPCS: 99214; G2211

== ENCOUNTER → 2024-09-15 13:29 | Outpatient (BNVA) | payer MEDICARE, SELFPAY | PROVIDERS: PCP Family Medicine; Visit Provider Internal Medicine Cardiovascular Disease | DX: I10 Essential (primary) hypertension (principal); R55 Syncope and collapse | CPT/HCPCS: 99212 ==

== ENCOUNTER 2024-09-17 13:28 | Outpatient (REF) | payer MEDICARE, SELFPAY ==
--- NOTE | ~2024-09-17 | US_ITS ---
EXAMINATION: US LOWER EXTREMITY VENOUS (REFLUX EXAM), BILATERAL CLINICAL INFORMATION: Varices. COMPARISON: None. TECHNIQUE: Color flow triplex imaging and compression Doppler was performed to evaluate both the deep and the superficial systems bilaterally. To evaluate the superficial system, the examination was performed in the upright position. Color-flow Doppler ultrasound and compression ultrasound were utilized. In addition, maneuvers were utilized to demonstrate reflux. FINDINGS: 1. DEEP VENOUS ULTRASOUND OF THE RIGHT LOWER EXTREMITY: Common Femoral Vein: Compressible, normal respiratory variation and augmented flow. Femoral Vein: Compressible, normal color flow and augmentation. Popliteal Vein: Compressible, normal augmentation. Deep Reflux: There is no evidence of reflux in the deep system in either the common femoral vein, superficial femoral or the popliteal vein. There is no evidence of a Georges's cyst. 2. SUPERFICIAL ULTRASOUND WITH DOPPLER OF RIGHT LOWER EXTREMITY: GREAT SAPHENOUS VEIN: Saphenofemoral Junction: 0.5 cm; Reflux: 0 ms Proximal Thigh: 0.5 cm; Reflux: 0 ms Mid Thigh: 0.3 cm; Reflux: 0 ms Distal Thigh: 0.2 cm; Reflux: 0 ms At Knee: 0.3 cm; Reflux: 0 ms Proximal Calf: 0.2 cm; Reflux: 0 ms Mid Calf: 0.2 cm; Reflux: 0 ms Distal Calf: 0.2 cm; Reflux: 0 ms DUPLICATED MEDIAL GREAT SAPHENOUS VEIN: Diameter: None imaged Reflux: NA DUPLICATED LATERAL GREAT SAPHENOUS VEIN: Diameter: None imaged Reflux: NA SMALL SAPHENOUS VEIN: Saphenopopliteal Junction: 0.2 cm; Reflux: 0 ms Proximal: 0.1 cm; Reflux: 0 ms Distal: 0.1 cm; Reflux: 0 ms VEIN OF GIACOMINI: Size: 0.1 cm. Reflux: NA PERFORATORS: Location: Distal thigh and midcalf. Size: 0.1-0.3 cm. Reflux: NA VARICOSITIES: Location: None imaged. Size: NA Reflux: NA 3. DEEP VENOUS ULTRASOUND OF THE LEFT LOWER EXTREMITY: Common Femoral Vein: Compressible, normal respiratory variation and augmented flow. Femoral Vein: Compressible, normal color flow and augmentation. Popliteal Vein: Compressible, normal augmentation. Deep Reflux: There is no evidence of reflux in the deep system in either the common femoral vein, superficial femoral or the popliteal vein. There is no evidence of a Georges's cyst. 4. SUPERFICIAL ULTRASOUND WITH DOPPLER OF LEFT LOWER EXTREMITY: GREAT SAPHENOUS VEIN: Saphenofemoral Junction: 0.5 cm; Reflux: 0 ms Proximal Thigh: 0.5 cm; Reflux: 0 ms Mid Thigh: 0.3 cm; Reflux: 2964 ms Distal Thigh: 0.2 cm; Reflux: 0 ms At Knee: 0.2 cm; Reflux: 0 ms Proximal Calf: 0.2 cm; Reflux: 0 ms Mid Calf: 0.1 cm; Reflux: 0 ms Distal Calf: 0.2 cm; Reflux: 0 ms DUPLICATED MEDIAL GREAT SAPHENOUS VEIN: Diameter: None imaged Reflux: NA DUPLICATED LATERAL GREAT SAPHENOUS VEIN: Diameter: None imaged. Reflux: NA SMALL SAPHENOUS VEIN: Saphenopopliteal Junction: 0.3 cm; Reflux: 0 ms Proximal: 0.2 cm; Reflux: 0 ms Distal: 0.2 cm; Reflux: 0 ms VEIN OF GIACOMINI: Size: 0.1 cm. Reflux: NA PERFORATORS: Location: Mid thigh and midcalf. Size: 0.2 cm. Reflux: NA VARICOSITIES: Location: None Imaged Size: NA Reflux: NA US/US venous insuf bilat IMPRESSION: Right: No venous insufficiency. No gross varices. Perforators without reflux in the distal thigh and midcalf. Left: Venous insufficiency, great saphenous vein at the mid thigh. Perforators without reflux in the mid calf and mid thigh. Electronically signed by: Altaf Guerra MD 09/17/2024 02:38 PM EDT
--- OUTSIDE RECORDS SUMMARY | 2024-09-17 14:31 | XMS_ITS | Clinical Summary ---
Author Organization [facility] Address [address] [place] [address] Care Team Providers Care Rate Clerk Passenger Name Role Phone Jeffery Brown MD Primary Care Provider [phone] Medical History Medical History Date Comments Hyperlipidemia [...] age to complete this topic Care Teams Rate Clerk Passenger Relationship Specialty Start Date End Date Jeffery Brown MD [address] [address] PCP - General Internal Medicine 07/27/20
--- OUTSIDE RECORDS SUMMARY | 2024-09-17 14:31 | XMS_ITS ---
Author Organization [facility] Address [address] [place] [address] Care Team Providers Care Supervisor Delivery Department Name Role Phone Hiro Cesar Primary Care Provider Unavailab Nik Bocanegra [phone] REASON FOR VISIT gerd,wang's Problems Problem Type SNOMED Code ICD Code Onset Dates Problem Status W/U Status Risk Notes Problem Gastroesophageal reflux disease (K21.9) Active confirmed Encounters Encounter Location Date Provider Diagnosis [facility] Outpatient [address] [place] [phone] 06/15/2024 Nik Gamble Wang''s esophagus without dysplasia [...] * MINOR MONTEZ MDOB:1955 (68 yo F)Acc No.[id number]:06/15/2024 EGD/MAC Patient:?MINOR MONTEZ Provider:?Nik Gamble MD :1955???Age:68 Y???Sex:Female D ate:06/15/2024 Address:[address] [place] [address], [phone] Pcp:Hiro Cesar Subjective: * Chief Complaints: * ???1. Gerd,wang's. * Medical History:? Objective: * Vitals:? Assessment: * Assessment: 1.?Wang''s esophagus with out dysplasia - K22.70 (Primary)???2.?Gastroesophageal reflux disease - K21.9???3.?Hiatal hernia - K44.9??? Plan: * Treatment: * Procedure Codes:?52144 UPPER GI ENDOSCOPY, BIOPSY, 3126F ESOPH BX RPRT W/DYSPL INFO * * The named appointment provid er may or may not be the originator of this progress note, and it is not deemed complete until electronically signed by the appointment provider. Sign off status: Pending * Provider:?Nik Gamble MD Date:? 025 Generated for Angela bhat/Steven/eTransmitting on:?09/17/2024 02:31 PM EDT
--- OUTSIDE RECORDS SUMMARY | 2024-09-17 14:32 | XMS_ITS ---
Author Organization [facility] Address [address] [facility] [address] [facility] [place] [address] Care Team Providers Care Global Marketing Specialist Name Role Phone Hiro Cesar Primary Care Provider MARY Christine Unavailable [phone] Allergies Allergen (clinical drug ingredient) Drug/Non Drug [...] 08/12/2023 Encounters Encounter Location Date Provider Diagnosis [facility] [address] [facility] [address] [place] [address] 08/12/2023 MARY IZAGUIRRE Ingrown right big toenail [...] * Vika SAUL MDOB:1955 (67 yo F)Acc No.[id number]:08/12/2023 Progress Notes Patient:?Latricia SAULnifer Juanita Provider:?Mary Izaguirre DPM :1955???Age:67 Y???Sex:Female D ate:08/12/2023 Address[id number] Pcp:Hiro Cesar Subjective: * Chief Complaints: * [...] the nail dorsally, and plantarly. Using an [employer] nail splitter, the medial border was cut. [...] tolerated the procedure well. ? * Procedure Codes:?04695 REMOV AL OF NAIL BED, Modifiers: T5 * Follow Up:?2 Weeks * Billing Information: * Visit Code:? 26884 Office Visit, Est Pt., Level 3. Modifiers: 25 * Procedure Codes:? 36225 REMOVAL OF NAIL BED. Modifiers: T5 * Sign off status: Completed true * Provider:Israel Izaguirre DPM Date:? 08/12/2023 Generated for Angela bhat/Steven/Nadira on:?09/17/2024 02:31 PM EDT History and Physical Notes * [...]
--- OUTSIDE RECORDS SUMMARY | 2024-09-17 14:32 | XMS_ITS ---
Author Organization [facility] Address [address] [facility] [place] [place] [address] Care Team Providers Care Lending Activities Supervisor Name Role Phone Hiro Cesar Primary Care Provider MARY Christine Unavailable [phone] Allergies Allergen (clinical drug ingredient) Drug/Non Drug [...] 08/26/2023 Encounters Encounter Location Date Provider Diagnosis [facility] [address] [facility] [facility] [address] [place] [address] 08/26/2023 MARY IZAGUIRRE Ingrown right big toenail [...] * Vika SAUL MDOB:1955 (67 yo F)Acc No.[id number]:08/26/2023 Progress Notes Patient:?Vika SAUL Provider:?Mary Izaguirre DPM :1955???Age:67 Y???Sex:Female D ate:08/26/2023 Address[facility] [address] [place] Pcp:Hiro Cesar Subjective: * Chief Complaints: * [...] Up:?prn * Billing Information: * Visit Code:? 25192 Office Visit, Est Pt., Level 3. * Procedure Codes:? * Sign off status: Completed true * Provider:?Mary Izaguirre DPM Date:? 08/26/2023 Generated for Angela bhat/Steven/Nadira on:?09/17/2024 02:31 PM [...]
--- OUTSIDE RECORDS SUMMARY | 2024-09-17 14:32 | XMS_ITS ---
Author Organization [facility] Address [address] [place] [address] Care Team Providers Care Warehouse Distribution Manager Name Role Phone Hiro Cesar Primary Care Provider Unavailab Nik Bocanegra [phone] REASON FOR VISIT ibs Encounters Encounter Location Date Provider Diagnosis [facility] [address] [place] [address] 10/23/2023 Nik Gamble Plan Of Treatment No Information Progress Notes * MINOR MONTEZ MDOB:1955 (68 yo F)Acc No.[id number]:10/23/2023 Progress Notes Patient:?MINOR MONTEZ Provider:?Nik Gamble MD :1955???Age:67 Y???Sex:Female D ate:10/23/2023 Address:[address] [place], [place] [phone] Pcp:Hiro Cesar Subjective: * Chief Complaints: * [...] MD Date:? 024 Generated for Printi ng/Faamadog/eTransmitting on:?09/17/2024 02:32 PM EDT
--- OUTSIDE RECORDS SUMMARY | 2024-09-17 14:32 | XMS_ITS ---
Author Organization [facility] Address [address] [place] [address] Care Team Providers Care Manager Packaging Name Role Phone Hiro Cesar Primary Care Provider UnavailNik Cordoba [phone] Allergies Allergen (clinical drug ingredient) Drug/Non Drug Allergy documented on EMR Reaction Allergy Type Onset Date Status Penicillin Unknown Drug Allergy Active Substance with sulfonamide structure and antibacterial mechanism of action (substance) Sulfa Antibiotics Unknown Drug Allergy Active 12 Hour Nasal [place] Unknown Drug Allergy Active red dye (uncoded) [...] Problem History of polyp of colon (situation) (998944441) Personal history of colonic polyps (Z86.010) Active confirmed Problem Adams's esophagus (549388364) Adams''s esophagus without dysplasia (K22.70) Active confirmed Vital Signs Temperature 95.7 degrees Fahrenheit 03/04/20 24 Blood pressure systolic 118 mm Hg 03/04/20 24 Blood pressure diastolic 74 mm Hg 024 Height 64 in 03/04/2024 Weight 188 lb 6 oz lbs 03/04/2024 BMI 32.33 kg/m2 03/04/2024 Encounters Encounter Location Date Provider Diagnosis [facility] [address] [place] [address] 03/04/2024 Nik Gamble Encounter for screen ing [...] * MINOR MONTEZ MDOB:1955 (68 yo F)Acc No.[id number]:03/04/2024 Progress Notes Patient:?MELIDAMINOR HACKETT Juanita Provider:?Nik Gamble MD :1955???Age:68 Y???Sex:Female D ate:03/04/2024 Address:[address] [place] [address] [facility] [place] [facility] [place] Pcp:Hiro Cesar Subjective: * Chief Complaints: * [...] year??No,?Points?0,?Interpretation?Negative.?Miscellaneous:?Marital status: . 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 ???Nonsmoker; no sig alcohol. * Medications:?TakingVitamin D [...] Procedure Codes:?3017F COLOR ECTAL CA SCREEN DOC YEQ4604W TOBACCO NON-ICZDQ7876 BP SCR NOT PRFRM REC REASON NOS [...] Gamble MD Date:? 024 Generated for Angela bhat/Steven/Yeseniaransmitting on:?09/17/2024 02:31 PM EDT History and Physical [...]
--- OUTSIDE RECORDS SUMMARY | 2024-09-17 14:32 | XMS_ITS | Patient Health Record ---
Author Organization [facility] Address [address] [facility] [address] [place] [address] Care Team Providers Care Weaver Dobby Loom Name Role Phone Hiro Cesar Primary Care Provider JAYANT Christine Unavailable [phone] Allergies Allergen (clinical drug ingredient) Drug/Non Drug [...] of [place] [address] [place] [address] [id number] Vika Saul Self - patient is the insured [employer] [facility] [address] [place] [address] [phone] [id number] Vika Saul Self - patient is [...]
--- OUTSIDE RECORDS SUMMARY | 2024-09-17 14:32 | XMS_ITS | Patient Health Record ---
Author Organization [facility] Address [address] [place] [address] Care Team Providers Care Precision Assembly Inspector Name Role Phone Hiro Cesar Primary Care Provider Unavailab Nik Bocanegra [phone] Allergies Allergen (clinical drug ingredient) Drug/Non Drug Allergy documented on EMR Reaction Allergy Type Onset Date Status Penicillin Unknown Drug Allergy Active Substance with sulfonamide structure and antibacterial mechanism of action (substance) Sulfa Antibiotics Unknown Drug Allergy Active 12 Hour Nasal [place] Unknown Drug Allergy Active red dye (uncoded) Unknown Allergy Ac tive Results Component Value Reference Range Notes MAMMOGRAM DIGITAL BILATERAL SCREEN Reviewed date:03/09/2024 01:28:45 PM Interpretation:Normal Performing Lab: Notes/Report: Normal Pathology (Not yet reviewed by provider) Interpretation: Performing Lab:[facility], [address] [place] [address] Notes/Report: Name: Kaden Saul Age/Sex: 68/F : 1955 Unit#: [id number] Attend Dr: Nik Gamble MD Re06/15/24 Status : DEP SDC Location: [facility] Disch: SPEC : [id number] RECD: 06/15/24 STATUS: CONNOR ABRAHAM NUM: [id number] DAYA: 06/15/[address] [facility] [address]: Nik Gamble MD ENTERED: 06/15/24 SP [...] Status Risk Notes Problem Irritable bowel syndrome (26571910) Irritable bowel syndrome (K58.9) Active confirmed Problem 002780552 Encounter for screening for malignant neoplasm of colon (Z12.11) Active confirmed Problem History of polyp of colon (situation) (833776568) Personal history of colonic polyps (Z86.010) Active confirmed Problem Gastroesophageal reflux disease (K21.9) Active confirmed Problem Esophageal reflux finding (987344262) Gastroesophageal reflux (K21.9) Active confirmed Problem 31402256 Other irritable bowel syndrome (K58.8) Active confirmed Problem Diverticulosis of colon (756756677) Diverticulosis of colon (K57.30) Active confirmed Problem Adams's esophagus (183536490) Adams''s esophagus without dysplasia (K22.70) Active confirmed Problem 720850058 Gastroesophageal reflux disease, unspecified whether esophagitis present (K21.9) Active confirmed Vital Signs Temperature 95.7 degrees Fahrenheit 03/04/2024 Blood pressure diastolic 74 mm Hg 03/04/2024 Height 64 in 03/04/2024 Blood pressure systolic 118 mm Hg 03/04/2024 Weight 188 lb 6 oz lbs 03/04/2024 BMI 32.33 kg/m2 03/04/2024 Encounters Encounter Location Date Provider Diagnosis [facility] [place] [address] [place], [place] [phone] 06/15/2024 Nik Gamble Adams''s esophagus without dysplasia K22.70 ; Gastroesophageal reflux disease K21.9 and Hiatal hernia K44.9 [facility] [address] [place] [address] 03/04/2024 Nik Gamble Encounter for screen ing [...] Date MEDICARE OF [place] [address] [place] [address] [id number] MINOR SAUL Self - patient is the insured [employer] ATTN CLAIMS [address] [place] [address] [phone] [id number] MINOR SAUL Self - patient is the insured Medical (General) History Medical History History ICD Code Hypertension Denies [place],DM,CVA,Lung disease,renal dise ase Hyperlipidemia IBS Neg. screening colonoscopy in 09/2010 Colonoscopy 05/2021 with a small tubular adenoma EGD 05/2021--small hiatal hernia, tiny ar ea of Adams's without dysplasia Surgical History Surgery Date(Month/Year) CC[address] Jennings
== END 2024-09-17 13:29 | disposition home or self-care (01) ==
LOC: HO.US 13:28
PROVIDERS: PCP Family Medicine; Visit Provider Physician Assistant Surgical
DX: I83.11 Varicose veins of right lower extremity with inflammation (principal); I83.12 Varicose veins of left lower extremity with inflammation
CPT/HCPCS: 93970

== ENCOUNTER → 2024-09-17 13:30 | Outpatient (BNV) | payer MEDICARE, SELFPAY | PROVIDERS: PCP Family Medicine; Visit Provider Radiology Diagnostic Radiology | DX: I87.2 Venous insufficiency (chronic) (peripheral) (principal) | CPT/HCPCS: 93970 ==

== ENCOUNTER 2024-10-06 12:49 | Outpatient (AMB) | payer MEDICARE, SELFPAY ==
--- OUTSIDE RECORDS SUMMARY | 2024-10-06 12:52 | XMS_ITS ---
Author Organization [facility] Address [address] [place] [address] Care Team Providers Care Act Tutor Name Role Phone Hiro Cesar Primary Care Provider Unavailab Nik Bocanegra [phone] REASON FOR VISIT gerd,wang's Problems Problem Type SNOMED Code ICD Code Onset Dates Problem Status W/U Status Risk Notes Problem Gastroesophageal reflux disease (K21.9) Active confirmed Encounters Encounter Location Date Provider Diagnosis [facility] [place] Outpatient [address] [place] [phone] 06/15/2024 Nik Gamble Wang''s esophagus without dysplasia [...] * MINOR MONTEZ MDOB:1955 (68 yo F)Acc No.[id number]:06/15/2024 EGD/MAC Patient:?MINOR MONTEZ Provider:?Nik Gamble MD :1955???Age:68 Y???Sex:Female D ate:06/15/2024 Address:[address] [place] [address], [phone] Pcp:Hiro Cesar Subjective: * Chief Complaints: * ???1. Gerd,wang's. * Medical History:? Objective: * Vitals:? Assessment: * Assessment: 1.?Wang''s esophagus with out dysplasia - K22.70 (Primary)???2.?Gastroesophageal reflux disease - K21.9???3.?Hiatal hernia - K44.9??? Plan: * Treatment: * Procedure Codes:?64939 UPPER GI ENDOSCOPY, BIOPSY, 3126F ESOPH BX RPRT W/DYSPL INFO * * The named appointment provid er may or may not be the originator of this progress note, and it is not deemed complete until electronically signed by the appointment provider. Sign off status: Pending * Provider:?Nik Gamble MD Date:? 025 Generated for Angela bhat/Steven/eTransmitting on:?10/06/2024 12:51 PM EDT
--- NOTE | 2024-10-06 12:58 | A.OFFVIS_ITS ---
Vital Signs 10/06/24 12:59 Height 5 ft 4 in Weight 187 lb BMI 32.1 Intake Visit Reasons: follow up s/p US 09/17/24 Intake Note: follow up 09/17/24. Pt states left calf pain at rest, worse at night time. Battery Mechanic Required: No Accompanied by: Self / Same As Patient Allergies Penicillins [PCN] Allergy (Unknown, Verified 10/06/24 13:01) Unknown red dye Allergy (Unknown, Verified 10/06/24 13:01) Unknown Sulfa (Sulfonamide Antibiotics) Allergy (Unknown, Verified 10/06/24 13:01) Unknown acetaminophen Adverse Reaction (Mild, Verified 10/06/24 13:01) Migraine 12 hr nasal spray Allergy (Unknown, Uncoded 10/06/24 13:01) Unknown novocaine Adverse Reaction (Intermediate, Uncoded 10/06/24 13:01) tachycardia HPI HPI follow up s/p 09/17/24: Details: The patient is a 68-year-old female presenting with left calf pain. She describes the pain as a burning sensation that occurs mainly at night or during periods of rest. She has observed the prominence of superficial veins in the area, raising her concern about proper blood flow. Although discomfort arises during inactivity, it does not hinder her when walking or performing physical activities like hiking. She now presents for follow-up with venous insufficiency testing. [facility] Medical History Pre-diabetes Adams esophagus GERD (gastroesophageal reflux disease) IBS (irritable bowel syndrome) Hyperlipidemia HTN (hypertension) Surgical History History of esophagogastroduodenoscopy (EGD) (~2024) S/P cholecystectomy Hx of colonoscopy (~2021) Family History Mother High blood pressure High cholesterol Throat cancer Sister High blood pressure High cholesterol Cardiovascular disease Asthma Social History Household Members: Spouse Housing: House Are you a primary neonatal intensive care unit nurse to a significant other at home: No Do you presently have visiting nurse or other home services: No 75 years or older and lives alone: No Alcohol intake: current Alcohol intake frequency: does not drink Patient Tobacco Use Status: Former Tobacco user e-Cigarette/Vaping Use: Never Used Second Hand Smoke Exposure: No service: No Current occupational status: retired Sexual orientation: Unable to collect Gender identity: Unable to collect Cognitive needs: No Hearing needs: Yes (hearing aids) Vision needs: Yes (glasses) Review of Systems Const Reports as per HPI ENT Reports no additional complaints Card Denies chest pain, Denies chest pain at rest and Denies chest pain with activity Resp Denies chest congestion and Denies cough GI Reports no additional complaints Musc Details: pain over varicosities, aching of lower extremities, swelling, cramping, heaviness and tiredness, itching Denies abnormal gait Skin/Breast Reports pruritus and Denies wounds Neuro Reports no additional complaints and Denies abnormal gait Psych Denies no additional complaints Physical Exam Vital Signs: BMI result Body Mass Index 32.1 Const General: cooperative, healthy appearing and comfortable Orientation/consciousness: oriented to person, oriented to place and oriented to time Neck Carotids: no bruits Chest Chest palpation & inspection: normal inspection of the chest and normal palpation of entire chest wall Resp Effort & Inspection: normal respiratory effort and able to speak in complete sentences Cardio Rate: regular rate Heart sounds: S1 normal heart sound present and S2 normal heart sound present Peripheral pulses: Peripheral pulses 2+ throughout GI Inspection: Yes normal to inspection Skin Other: +2 edema, large rope-like varicosities greater than 4 mm left posterior calf CEAP Classification C4 - skin color changes Ep - Etiology Primary As - superficial veins P - reflux General skin exam: dry skin Neuro General: oriented to person, oriented to place and oriented to time Extrem Right lower extremity: full ROM, normal capillary refill and edema Left lower extremity: full ROM, normal capillary refill and edema Psych Mental Status: mental status grossly normal Results Reviewed Results Reviewed: Brief summary of venous insufficiency testing is as follows: right great saphenous vein: negative right small saphenous vein: negative right accessory vein: none present left great saphenous vein: negative left small saphenous vein: negative left accessory vein: none present Please note there is no evidence of any venous aneurysms or significant tortuosity Assessment & Plan Assessment & Plan (1) Varicose veins of both lower extremities with inflammation: Code(s): I83.11 - Varicose veins of right lower extremity with inflammation; I83.12 - Varicose veins of left lower extremity with inflammation Category: Medical Plan: In short patient is negative for any significant venous insufficiency. We did discuss routine conservative measures including compression elevation and exercise. She does have some left posterior calf varicosities. At the current time she would like to manage these conservatively. If she does choose in the future she can reach back out to us and we will be happy to schedule her for microphlebectomy. She will follow up with us on an as-needed basis. Thank you for allowing us to assist in her care. Coding Level of Care Code Est Pt Level 4 (58506) Diagnoses Varicose veins of both lower extremities with inflammation I83.11; I83.12
[2024-10-06 12:59] VITALS: BMI 32.1
== END 2024-10-06 13:51 | disposition home or self-care (01) ==
LOC: HO.HVS 12:50
PROVIDERS: PCP Family Medicine; Visit Provider Surgery Vascular Surgery
DX: I83.11 Varicose veins of right lower extremity with inflammation (principal); I83.12 Varicose veins of left lower extremity with inflammation
CPT/HCPCS: 99214

== ENCOUNTER → 2024-10-06 12:49 | Outpatient (BNVA) | payer MEDICARE, SELFPAY | PROVIDERS: PCP Family Medicine; Visit Provider Surgery Vascular Surgery | DX: I83.11 Varicose veins of right lower extremity with inflammation (principal); I83.12 Varicose veins of left lower extremity with inflammation | CPT/HCPCS: 99212 ==

== ENCOUNTER 2024-12-02 08:49 | Outpatient (AMB) | payer MEDICARE, SELFPAY ==
--- OUTSIDE RECORDS SUMMARY | 2024-06-15 06:10 | XMS_ITS ---
Author Organization [facility] Address [address] [place] [address] Care Team Providers Care Wind Power Project Manager Name Role Phone Hiro Cesar Primary Care Provider UnavailNik Cordoba [phone] REASON FOR VISIT gerd,wang's Problems Problem Type SNOMED Code ICD Code Onset Dates Problem Status W/U Status Risk Notes Problem Gastroesophageal reflux disease (K21.9) Active confirmed Encounters Encounter Location Date Provider Diagnosis [facility] [place] [address] [place] [phone] 06/15/2024 Nik Gamble Wang''s esophagus without dysplasia [...] Information Progress Notes * MINOR MONTEZ MDOB:1955 (68 yo F)Acc No.[id number]:06/15/2024 EGD/MAC Patient: MINOR PARNELL Provider: Jasmina Gamble MD :1955 A ge:68 Y S ex:Female Date:06/15/2024 Address:[address] [place], [place] [phone] Pcp:Hiro Cesar Subjective: * Chief Complaints: * [...] MD Date: 0 06/15/2024 Generated for Angela bhat/Stveen/Cbitting on: 0 12/02/2024 09:13 AM EDT
--- NOTE | 2024-12-02 08:57 | A.OFFVIS_ITS ---
Intake Visit Reasons: OV-Left thumb pain, last inj 06/26/23 Intake Note: Vika 68 yr old right hand dominant female presents today for a follow up visit for her left Basal joint osteoarthritis, S/P injection 04/22/24. States injection helped and lasted about 4 months and would like to repeat injection today. Hx of right basal joint injection on 05/27/24, with good relief. Allergies Penicillins (PCN) Allergy (Unknown, Verified 12/02/24 09:23) Unknown red dye Allergy (Unknown, Verified 12/02/24 09:23) Unknown Sulfa (Sulfonamide Antibiotics) Allergy (Unknown, Verified 12/02/24 09:23) Unknown acetaminophen Adverse Reaction (Mild, Verified 12/02/24 09:23) Migraine 12 hr nasal spray Allergy (Unknown, Uncoded 12/02/24 09:23) Unknown novocaine Adverse Reaction (Intermediate, Uncoded 12/02/24 09:23) tachycardia HPI HPI OV-Left thumb pain, last inj 06/26/23: Details: Vika is a 68 year old right hand dominant woman who returns to discuss her left basal joint arthritis. She received a right basal joint injection on 05/27/24, with good relief, and a left basal joint injection on 04/22/24 with go od relief for ~4 months. She would like her left thumb injected today She complains of pain at the base of her left thumb, worse with pinching or gripping activities She denies any known injury, locking, numbness, or tingling. 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 [employer] Medical History Pre-diabetes Adams esophagus GERD (gastroesophageal reflux disease) IBS (irritable bowel syndrome) Hyperlipidemia HTN (hypertension) Surgical History History of esophagogastroduodenoscopy (EGD) (~2024) S/P cholecystectomy Hx of colonoscopy (~2021) Family History Mother High blood pressure High cholesterol Throat cancer Sister High blood pressure High cholesterol Cardiovascular disease Asthma Social History Household Members: Spouse Housing: House Are you a primary care asst to a significant other at home: No Do you presently have visiting nurse or other home services: No 75 years or older and lives alone: No Alcohol intake: current Alcohol intake frequency: does not drink Patient Tobacco Use Status: Former Tobacco user e-Cigarette/Vaping Use: Never Used Second Hand Smoke Exposure: No service: No Current occupational status: retired Sexual orientation: Unable to collect Gender identity: Unable to collect Cognitive needs: No Hearing needs: Yes (hearing aids) Vision needs: Yes (glasses) Physical Exam Const General: no acute distress and alert Orientation/consciousness: patient oriented x3 Neuro General: patient oriented x3 Extrem Other: Evaluation of Left Upper Extremity: The patient is alert, oriented, and in no acute distress Neuro: Median, Ulnar, Radial nerves motor and sensory intact and sensation is normal to the tips of all digits Vascular: Cap refill brisk ROM: She can make a fist and extend all her digits No locking or catching Most tender over the basal joint + shoulder sign + CMC grind No tenderness over the 1st dorsal compartment No tenderness over the MCP joint No tenderness over the a1 pulleys Radiographs: 3 views of the left hand from 10/02/23 were reviewed by me today in clinic. They show basal joint arthritis with joint space narrowing, subluxation, and early osteophyte formation Psych Appearance: grossly normal Affect: normal affect Attitude: cooperative Office Procedures AMB Fracture Care Details: No fracture, injection Fracture Billing Code: Fracture Billing Code Assessment & Plan Assessment & Plan (1) Osteoarthritis of carpometacarpal joint of left thumb: Code(s): M18.12 - Unilateral primary osteoarthritis of first carpometacarpal joint, left hand Category: Medical (2) Osteoarthritis of carpometacarpal joint of right thumb: Code(s): M18.11 - Unilateral primary osteoarthritis of first carpometacarpal joint, right hand Category: Medical Plan Assessment & Plan: 1. Right Basal joint osteoarthritis, S/P injection Date of Injection: 05/26/24, 10/02/23 Doing well following her injection 2. Left Basal joint osteoarthritis, S/P injection Date of injections: 12/02/24, 04/22/24, 06/26/23 I educated her about this condition I discussed operative and non-operative treatment options The patient would like to proceed with a repeat injection I discussed activity modification, she should limit or avoid any heavy or repetitive pinching or gripping activities She was fitted for a comfort cool brace to wear with daily activity I discussed the use of assistive devices to improve her symptoms Injection #1 : The risks and benefits of a steroid injection including but not limited to risk of damage to blood vessels, nerve, tendon, infection, skin bleaching, persistent or worsening pain, and failure to improve symptoms were discussed with the patient and they wish to proceed with the steroid injection. Once consent was obtained the skin over the dorsum of the Left basal joint was sterilely prepped. The joint was then injected with a combination of 1 mL of (40 mg/ml} Depo-Medrol and 1% plain Lidocaine. The patient appears to have tolerated the procedure well and with no complications. She had good early relief before leaving clinic today. She knows that they may not have another steroid injection into this joint for least 4 months. Scribed for Radha Bourgeois MD by ginger Ruiz scribe, on 12/02/24 at 9:30 AM, EST. Scribe Plan - Not visible on output: Scribed for Radha Bourgeois MD by ginger Ruiz scribe, on [ ] at [ ], EST. Coding Level of Care Code Est Pt Level 3 (79604) Diagnoses Osteoarthritis of carpometacarpal joint of left thumb M18.12 Osteoarthritis of carpometacarpal joint of right thumb M18.11 CPT Codes Fracture Care - Fracture Billing Code: Fracture Billing Code ([id number])
--- OUTSIDE RECORDS SUMMARY | 2024-12-02 09:13 | XMS_ITS | Data Portability ---
Author Organization [place] [facility] Address [address] [address] Care Team Providers Care Station Cook Name Role Phone JENNIFER MARTINES Primary Care Provider Assessment Encounter Date Assessment Date Assessment LastModified by Organization Details LastModified Time 11/10/2024 11/10/2024 Annual hearing aid follow up: Otoscopic exam: I think they were clear. Audiogram: Stable. Hearing aids cleaned: No, sent the aids for clean and test. Warranty expires: 12/27/24 Notes: She is doing well. I order a TV connector for her and we will call her to p/u. Follow up as needed or annually. [email or web address] Not available 11/27/2024 16:07:38 Plan of Treatment Reminders Order Date Submit Date Provider Last Modified By Organization Details Last Modified Time Details Appointments None record ed. Lab None record ed. Referral None record ed. Procedures None record ed. Surgeries None record ed. Imaging None record ed. Medication Orders None record ed. Patient TargetsNo targets recorded. Patient InstructionsNo instructions recorded. Reason for Referral None Reported. Results Created Date Observation Date Name Description Value Unit Range Abnormal Flag Note LastModifiedBy Organization Detail LastModifiedTime 12/13/19 audio gram No observ ation record ed. BARCODE Not Available 2023 15:26:47 01/02/20 24 09/19/2021 imagi ng/di agnos tic resul t No observ ation record ed. [email or web address] Not Available 00:25:04 01/02/20 24 11/04/2019 imagi ng/di agnos tic resul t No observ ation record ed. [email or web address] Not Available 00:25:47 01/02/20 24 09/19/2021 audio gram No observ ation record ed. [email or web address] Not Available 00:26:20 01/02/20 24 10/10/2021 audio gram No observ ation record ed. [email or web address] Not Available 00:26:25 01/02/20 24 11/04/2019 audio gram No observ ation record ed. [email or web address] Not Available 00:26:33 01/02/20 24 11/10/2019 audio gram No observ ation record ed. [email or web address] Not Available 00:26:37 12/02/19 audio gram No observ ation record ed. BARCODE Not Available 2024 12:14:52 Result Notes None recorded. Problems Name Problem SNOMED Code Status Onset Date Resolution Date Notes Provider Name and Address Organization Details Recorded Time Sensorine ural hearing loss of bilateral ears 686577753 Active 2015 Sensorine ural hearing loss, bilateral ; Note: Date Diagnosed : 08/31/2015 9:23 AM (H90.3) Not Available [facility] 4 02:39:09 Impacted cerumen in left ear 74456870914 54289 Active 2019 Impacted cerumen, left ear; Note: Date Diagnosed : 11/04/2019 4:02 PM (H61.22) Not Available [facility] 4 02:39:06 Problem Notes None recorded. Procedures Surgical History Date Name Laterality Status Provider Name and Address Organization Details Recorded Time 5 Air & Speech Audio with Tymps - 57381, 53893 & 44869 completed SLICK SHIN [address], [address], [facility] 11/27/2024 16:01:46 4 Air only Audio - 16687 completed SLICK SHIN [address], [address], [place] [facility] 11/01/2023 10:12:14 4 SRT & Speech Recognition - 31510 completed NANCY QUINTERO, AUD [address] [facility],[place] [address], [place], [address], [place] [facility] 11/01/2023 10:12:18 Imaging Results None recorded. Procedure Notes None recorded. Medical Equipment None Reported. Allergies Allergen ID Allergen Name Allergen Category Reaction Reaction Severity Criticality Documentation Date Start Date Code Code System Note Provider Name and Address Organization Details Recorded Time 78458 Red Dye food,medi cation other Not available Not available 09/24/2023 45903 UNK React ion: unkno wn, unspe cifie d;; Not Available [facility] 4 01:04:26 73061 penicilli n V potassium medicatio n other Not available Not available 09/24/2023 75342 5 RxNorm React ion: unkno wn, unspe cifie d;; Not Available [facility] 4 01:04:27 33519 Substance with sulfonami de structure and antibacte rial mechanism of action (substanc e) medicatio n other Not available Not available 09/24/2023 03294 8003 SNOMED React ion: unkno wn, unspe cifie d;; Not Available [facility] 4 01:04:28 Medications Name Sig Start Date Stop Date Status Note LastModified by Organization Details LastModified Time simvastati n 10 mg tablet 2018 active Medication ID: [id number] Dur ation Value: 90 Brand Name: simvastati n Send Method: E-Prescrib ed Subs Allowed: subs OK Medicat ionGeneric Name: simvastati n Not Available Not Available Not Available gemfibrozi l 600 mg tablet TAKE 1 TABLET TWICE A DAY active Not Available Not Available No t Available simvastati n 20 mg tablet TAKE 1 TABLET AT BEDTIME active Not Available Not Available No t Available losartan 100 mg tablet TAKE 1 TABLET DAILY active Not Available Not Available No t Available dicyclomin e 10 mg capsule 2018 active Medication ID: [id number] Dur ation Value: 90 Brand Name: dicyclomin e Send Method: E-Prescrib ed Subs Allowed: subs OK Medicat ionGeneric Name: dicyclomin e Not Available Not Available Not Available naproxen 500 mg tablet 2018 active Medication ID: [id number] Dur ation Value: 30 Brand Name: naproxen S end Method: E-Prescrib ed Subs Allowed: subs OK Medicat ionGeneric Name: naproxen Not Available Not Available Not Available Vitals None Recorded Social History None recorded. Functional Status None recorded. Mental Status None recorded. Family History Nothing Reported. Medical History No medical history recorded. Gynecological HistoryNo gynecological history recorded. Obstetrics History GPAL:G 0 P 0 0 0 0 Past Encounters Encounter ID Performer Location Encounter Start Date Encounter Closed Date Diagnosis/Indication Diagnosis SNOMED-CT Code Diagnosis ICD10 Code Diagnosis Note [id number] [facility] [place] [address] [facility] [address] [place] [address] 10/31/2023 14:02:44 11/13/2023 17:13:24 Sensorineural hearing loss of bilateral ears 280067860 H90.3 Annual hearing aid follow up: Otoscopic exam: Unsure if I looked in her ears Audiogram: Stable pure tones with slight decrease in Word recognitio n in left ear. Hearing aids cleaned:Wa x guards changed: yesReceive rs changed to y6Kxtll: Small powerListe kaylyn check: Good Warranty expires: 2024 Notes:She reports that she often turns the aids up. I increased 860-9.6 kHz 2 large clicks. She will try this when her aids return from repair. Sent aids for repair: still having problems with the left aid charging consistent ly and dies in the middle of the day. Also, she reports that during a phone call, her hearing aids will sing (like it's coming out of BT mode??). Send both aids in so they can assess the BT problem. [id number] [facility] [place] 100 [facility] [address] [place] [address] 11/10/2024 10:45:57 12/01/2024 21:38:54 Sensorineural hearing loss of bilateral ears 894391894 H90.3 Audiologic al evaluation results: Right ear: Moderate sensorineu ral hearing loss with good word recognitio n. Left ear: Mild sloping to a moderate sensorineu ral hearing loss with good word recognitio n. Health Concerns Section Related Observation LastModified by Organization Detai ls LastModified Time None Recorded Concern Status LastModified by Organization Details LastModified Time None Recorded Advance Directives Directive None Recorded Payers Insurance Date Sequence Insurance Name Policy Number Policy Mcneil Covered Member ID Mcneil Member ID Guarantor Name 11/10/2024 1 [place] [employer] Vika Saul [id number] Vika Saul 12/01/2024 2 [place] [id number] Vika Saul [id number] Vika Saul 11/10/2024 1 [place] [employer] Vika Saul [id number] Vika Saul OBGyn Episode No OBEpisode recorded.
--- OUTSIDE RECORDS SUMMARY | 2024-12-02 09:13 | XMS_ITS | Patient Health Record ---
Author Organization [facility] Address [address] [facility] [address] [place] [address] Care Team Providers Care Fertilizer Mixer Name Role Phone Hiro Cesar Primary Care Provider JAYANT Christine Unavailable [phone] Allergies Allergen (clinical drug ingredient) Drug/Non Drug [...] of [place] [address] [place] [address] [id number] Vika Sual Self - patient is the insured [employer] [facility] [address] [place] [address] [phone] [id number] Vika aSul Self - patient is the insured Medical [...]
--- OUTSIDE RECORDS SUMMARY | 2024-12-02 09:13 | XMS_ITS | Clinical Summary ---
Author Organization [facility] Address [address] [place] [address] Care Team Providers Care Slicing Machine Feeder Name Role Phone Jeffery Brown MD Primary Care Provider [phone] Medical History Medical History Date Comments Hyperlipidemia [...] Panel) 04/15/2022 Colorectal Cancer Screening: Colonoscopy 04/15/2022 Falls Risk Assessment 04/15/2022 Hepatitis C Screening 04/15/2022 Osteoporosis Screening (Bone Density Screening) 04/15/2022 Social Influencers of Health Screening 04/15/2022 Hypertension/CHF/CAD Annual BMP Blood Test 04/22/2022 COVID-19 Vaccine (1 - 2023-2 5 season) 2024 Depression Screening 05/13/2024 Influenza Vaccine (#1) 2025 RSV Immunization Adult Patie nts (1 [...] age to complete this topic Care Teams Slicing Machine Feeder Relationship Specialty Start Date End Date Jeffery Brown MD [address] [address] PCP - General Internal Medicine 07/27/20
== END 2024-12-02 09:49 | disposition home or self-care (01) ==
LOC: HO.HOS 08:50
PROVIDERS: PCP Family Medicine; Visit Provider Orthopaedic Surgery
DX: M18.0 Bilateral primary osteoarthritis of first carpometacarpal joints (principal)
CPT/HCPCS: 20600; 99213

== ENCOUNTER 2024-12-02 08:49 | Outpatient (AMB) | payer MEDICARE, SELFPAY ==
--- NOTE | 2024-12-02 09:13 | MHC.OFFVIS ---
Vital Signs 12/02/24 10:19 12/02/24 10:46 Height 5 ft 4 in 5 ft 4 in Weight 187 lb 187 lb BMI 32.1 32.1 Intake Visit Reasons: OV-Left hip pain Intake Note: Vika is a 68 year old female who presents today as an established patient, new problem visit to evaluate left hip pain. Patient reports her pain has been present for the past 6-7 months, stating her discomfort comes at night. She does not recall any recent injury however she mentions a fall in 2017 on her left side while in the shower. Her pain is located at the posterior aspect that radiates towards the lateral and groin area. No other treatment. Allergies Penicillins (PCN) Allergy (Unknown, Verified 12/02/24 10:32) Unknown red dye Allergy (Unknown, Verified 12/02/24 10:32) Unknown Sulfa (Sulfonamide Antibiotics) Allergy (Unknown, Verified 12/02/24 10:32) Unknown acetaminophen Adverse Reaction (Mild, Verified 12/02/24 10:32) Migraine 12 hr nasal spray Allergy (Unknown, Uncoded 12/02/24 10:32) Unknown novocaine Adverse Reaction (Intermediate, Uncoded 12/02/24 10:32) tachycardia Medication List - Last Reconciled 12/02/24 by Nava Knox PA-C calcium carbonate 500 mg PO BEDTIME cholecalciferol (vitamin D3) (Vitamin D3) 50 mcg PO BEDTIME gemfibrozil 600 mg PO BID 90 days ibuprofen (Advil) 400 mg PO Q6-8H PRN losartan 100 mg PO DAILY 90 days mecobalamin (vitamin B12) 1,000 mcg sublingual DAILY 90 days omeprazole 20 mg PO DAILY simvastatin 20 mg PO BEDTIME 90 days HPI HPI OV-Left hip pain: Details: 68-year-old female presents to the office today for left hip pain. She states the pain has been present for approximately 6-7 months and it limits her ability to perform daily activities. She states the pain does begin around the low buttock region which will wrap around her hip into the lateral thigh region. [facility] Medical History Pre-diabetes Adams esophagus GERD (gastroesophageal reflux disease) IBS (irritable bowel syndrome) Hyperlipidemia HTN (hypertension) Surgical History History of esophagogastroduodenoscopy (EGD) (~2024) S/P cholecystectomy Hx of colonoscopy (~2021) Family History Mother High blood pressure High cholesterol Throat cancer Sister High blood pressure High cholesterol Cardiovascular disease Asthma Social History Household Members: Spouse Housing: House Are you a primary director of patient care to a significant other at home: No Do you presently have visiting nurse or other home services: No 75 years or older and lives alone: No Alcohol intake: current Alcohol intake frequency: does not drink Patient Tobacco Use Status: Former Tobacco user e-Cigarette/Vaping Use: Never Used Second Hand Smoke Exposure: No service: No Current occupational status: retired Sexual orientation: Unable to collect Gender identity: Unable to collect Cognitive needs: No Hearing needs: Yes (hearing aids) Vision needs: Yes (glasses) Review of Systems Const All systems reviewed & are unremarkable except as noted in HPI and below Physical Exam Vital Signs: BMI result Body Mass Index 32.1 Extrem Other: Left hip normal to inspection . Mild tenderness to palpation of the greater troch and also the SI joint. No pain with range of motion of the hip. No tenderness with hip abduction or adduction. Results Reviewed Results Reviewed: X-rays of the left hip obtained in the office today and reviewed by me show mild sclerosis however joint space is well-preserved. Assessment & Plan Assessment & Plan (1) Trochanteric bursitis, left hip: Code(s): M70.62 - Trochanteric bursitis, left hip Category: Medical (2) Chronic left SI joint pain: Code(s): M53.3 - Sacrococcygeal disorders, not elsewhere classified; G89.29 - Other chronic pain Category: Medical (3) Gluteal tendinitis, left hip: Code(s): M76.02 - Gluteal tendinitis, left hip Category: Medical Plan We discussed options today which include physical therapy to work on glute strengthening and conditioning exercises. We also discussed the benefits of anti-inflammatories. I also explained the benefit of a bursa injection which may help to decrease her symptoms however overall treatment is usually geared toward strengthening and conditioning exercises. The patient will continue with conservative treatment and if symptoms persist or worsen or she has any concerns she will contact our office otherwise she will follow up as needed. Orders: Orders PT Evaluation and Treatment Today G89.29 - Other chronic pain, M53.3 - Sacrococcygeal disorders, not elsewhere classified, M70.62 - Trochanteric bursitis, left hip, M76.02 - Gluteal tendinitis, left hip XR hip LT min 2V Today M25.552 - Pain in left hip Coding Level of Care Code Est Pt Level 3 (11309) Complex EM visit Add On G2211 Diagnoses Trochanteric bursitis, left hip M70.62 Chronic left SI joint pain M53.3; G89.29 Gluteal tendinitis, left hip M76.02
[2024-12-02 10:19] VITALS: BMI 32.1
[2024-12-02 10:46] VITALS: BMI 32.1
== END 2024-12-02 11:04 | disposition home or self-care (01) ==
PROVIDERS: PCP Family Medicine; Visit Provider Physician Assistant
DX: M70.62 Trochanteric bursitis, left hip (principal); M53.3 Sacrococcygeal disorders, not elsewhere classified; G89.29 Other chronic pain; M76.02 Gluteal tendinitis, left hip
CPT/HCPCS: 99213; 99499; G2211

== ENCOUNTER → 2024-12-02 09:08 | Outpatient (BNV) | payer MEDICARE, SELFPAY | PROVIDERS: Visit Provider Radiology Diagnostic Radiology | DX: M25.552 Pain in left hip (principal) | CPT/HCPCS: 73502 ==

== ENCOUNTER 2024-12-02 11:08 | Outpatient (REF) | payer MEDICARE, SELFPAY ==
--- OUTSIDE RECORDS SUMMARY | 2024-06-15 06:10 | XMS_ITS ---
Author Organization [facility] Address [address] [place] [address] Care Team Providers Care Interstate Planner Name Role Phone Hiro Cesar Primary Care Provider UnavailNik Cordoba [phone] REASON FOR VISIT gerd,wang's Problems Problem Type SNOMED Code ICD Code Onset Dates Problem Status W/U Status Risk Notes Problem Gastroesophageal reflux disease (K21.9) Active confirmed Encounters Encounter Location Date Provider Diagnosis [facility] [place] [address] [place] [phone] 06/15/2024 Nik Gamble Wang''s esophagus without dysplasia [...] * MINOR MONTEZ MDOB:1955 (68 yo F)Acc No.[id number]:06/15/2024 EGD/MAC Patient: MINOR PARNELL Provider: Jasmina Gamble MD :1955 A ge:68 Y S ex:Female Date:06/15/2024 Address:[address] [place], [place] [phone] Pcp:Hiro Cesar Subjective: * Chief Complaints: * [...] 06/15/2024 Generated for Angela bhat/Steven/Cbitting on: 0 12/03/2024 12:03 PM EDT
--- NOTE | ~2024-12-02 | XR_ITS ---
EXAMINATION: XR HIP, LEFT CLINICAL INFORMATION: M25.552 - Pain in left hip COMPARISON: None available. TECHNIQUE: AP pelvis, and 2 views of the left hip. FINDINGS: No fracture, dislocation, or suspicious bone lesion. There is normal alignment. Normal femoral head contours without evidence of AVN. No significant arthropathy. Joint spaces preserved. No soft tissue abnormalities. XR/XR hip LT min 2V IMPRESSION: Normal left hip. Electronically signed by: Lev Lang MD 12/02/2024 10:26 AM EDT
--- OUTSIDE RECORDS SUMMARY | 2024-12-03 12:03 | XMS_ITS | Patient Health Record ---
Author Organization [facility] Address [address] [place] [address] Care Team Providers Care Vat Tender Name Role Phone Hiro Cesar Primary Care Provider JAYANT Christine Unavailable [phone] Allergies Allergen (clinical drug ingredient) Drug/Non Drug [...] of [place] [address] [place] [phone] [id number] Vika Saul Self - patient is the insured [employer] [facility] [address] [place] [address] [phone] [id number] Vika Saul Self - patient is [...]
--- OUTSIDE RECORDS SUMMARY | 2024-12-03 12:03 | XMS_ITS | Clinical Summary ---
Author Organization [facility] Address [address] [place] [address] Care Team Providers Care Materials Management Supervisor Name Role Phone Jeffery Brown MD Primary Care Provider [phone] Medical History Medical History Date Comments Hyperlipidemia [...] age to complete this topic Care Teams Materials Management Supervisor Relationship Specialty Start Date End Date Jeffery Brown MD [address] [address] PCP - General Internal Medicine 07/27/20
--- OUTSIDE RECORDS SUMMARY | 2024-12-03 12:03 | XMS_ITS | Data Portability ---
Author Organization [place] - [facility], Allergy Address [address] [address] Care Team Providers Care Truck Technician Name Role Phone JENNIFER MARTINES Primary Care [...] Sensorine ural hearing loss of bilateral ears [id number] Active 2015 Sensorine ural hearing loss, bilateral ; Note: Date Diagnosed : 08/31/2015 9:23 AM (H90.3) Not Available Pending sale to [facility] 4 02:39:09 Impacted cerumen in left ear [id number] 96533 Active 2019 Impacted cerumen, left ear; Note: Date Diagnosed : 11/04/2019 4:02 PM (H61.22) Not Available Pending sale to [facility] 4 02:39:06 Problem Notes None recorded. Procedures Surgical History Date Name Laterality Status Provider Name and Address Organization Details Recorded Time 5 Air & Speech Audio with Tymps - 41211, 49584 & 52821 completed [facility] [address], [address], [facility] 11/27/2024 16:01:46 4 Air only Audio - 02691 completed [facility] [address], [address], [place] - [facility] 11/01/2023 10:12:14 4 SRT & Speech Recognition - 76939 completed NANCY QUINTERO, AUD [address] [facility],[place] [address], [place], [address], [place] - [facility] 11/01/2023 10:12:18 Imaging Results None recorded. Procedure Notes None recorded. Medical Equipment None Reported. Allergies Allergen ID Allergen Name Allergen Category Reaction Reaction Severity Criticality Documentation Date Start Date Code Code System Note Provider Name and Address Organization Details Recorded Time 18716 Red Dye food,medi cation other Not available Not available 09/24/2023 60692 UNK React ion: unkno wn, unspe cifie d;; Not Available Pending sale to [facility] 4 01:04:26 41068 penicilli n V potassium medicatio n other Not available Not available 09/24/2023 07136 5 RxNorm React ion: unkno wn, unspe cifie d;; Not Available Pending sale to [facility] 4 01:04:27 43425 Substance with sulfonami de structure and antibacte rial mechanism of action (substanc e) medicatio n other Not available Not available 09/24/2023 73364 8003 SNOMED React ion: unkno wn, unspe cifie d;; Not Available Pending sale to [facility] 4 01:04:28 Medications Name Sig Start Date Stop Date Status Note LastModified by Organization Details LastModified Time simvastati n 10 mg tablet 2018 active Medication ID: [id number] Dur ation Value: 90 Brand Name: simvastati [...] 10 mg capsule 2018 active Medication ID: [id number] Dur ation Value: 90 Brand Name: dicyclomin e Send Method: E-Prescrib ed Subs Allowed: subs OK Medicat ionGeneric Name: dicyclomin e Not Available Not Available Not Available naproxen 500 mg tablet 2018 active Medication ID: [id number] Dur ation Value: 30 Brand Name: naproxen [...] 4945 [facility] [place] 100 [facility] 100 [place] [address] 10/31/2023 14:02:44 11/13/2023 17:13:24 Sensorineural hearing loss of bilateral ears [id number] H90.3 Annual hearing aid follow up: Otoscopic exam: Unsure if I looked in her ears Audiogram: Stable pure tones with slight decrease in Word recognitio n in left ear. Hearing aids cleaned:Wa x guards changed: yesReceive rs changed to [id number]: Small powerListe kaylyn check: Good Warranty expires: [...] so they can assess the BT problem. [address] [facility] [place] 100 [facility] 100 [place] [address] 11/10/2024 10:45:57 12/01/2024 21:38:54 Sensorineural hearing loss of bilateral ears [id number] H90.3 Audiologic al evaluation results: Right ear: [...] ID Guarantor Name 11/10/2024 1 [place] [employer] Vika Saul [id number] Vika Saul 12/01/2024 2 [place] [id number] Vika Saul [id number] Vika Saul 11/10/2024 1 [place] [employer] [employer] Vika Saul [id number] Vika Saul OBGyn Episode No OBEpisode recorded.
== END 2024-12-02 11:09 | disposition home or self-care (01) ==
LOC: HO.HOSX 11:08
PROVIDERS: Visit Provider Physician Assistant
DX: M76.02 Gluteal tendinitis, left hip (principal); M25.552 Pain in left hip; M70.62 Trochanteric bursitis, left hip; M53.3 Sacrococcygeal disorders, not elsewhere classified; G89.29 Other chronic pain; Z79.899 Other long term (current) drug therapy
CPT/HCPCS: 20600; 73502; 99212; J1010; J2003

== ENCOUNTER 2024-12-22 11:16 | Outpatient (AMB) | payer MEDICARE, SELFPAY ==
--- OUTSIDE RECORDS SUMMARY | 2024-06-15 06:10 | XMS_ITS ---
Author Organization [facility] Address [address] [place] [address] Care Team Providers Care Industrial Waste Treatment Technician Name Role Phone Hiro Cesar Primary Care Provider UnavailNik Cordoba [phone] REASON FOR VISIT gerd,wang's Problems Problem Type SNOMED Code ICD Code Onset Dates Problem Status W/U Status Risk Notes Problem Gastroesophageal reflux disease (K21.9) Active confirmed Encounters Encounter Location Date Provider Diagnosis [facility] [place] [address] [place] [phone] 06/15/2024 Nik Gamble Wang''s esophagus without dysplasia [...] * MINOR MONTEZ MDOB:1955 (69 yo F)Acc No.[id number]:06/15/2024 EGD/MAC Patient: MINOR PARNELL Provider: Jasmina Gamble MD :1955 A ge:68 Y S ex:Female Date:06/15/2024 Address:[address] [place], [place] [phone] Pcp:Hiro Cesar Subjective: * Chief Complaints: * [...] 0 06/15/2024 Generated for Angela bhat/Steven/Cbitting on: 0 2024 12:25 PM EDT
[2024-12-22 11:24] VITALS: BMI 32.1
--- NOTE | 2024-12-22 11:24 | A.OFFVIS_ITS ---
Vital Signs 12/22/24 11:24 Height 5 ft 4 in Weight 187 lb BMI 32.1 Intake Visit Reasons: Inj-RT Basal joint osteoarthritis, Last-05/26/24 Intake Note: Vika 68 yr old right hand dominant female who is retired, presents today for a follow up visit for her right basal joint O.A pain. She received a right basal joint injection on 05/26/24, with good relief, and hx of left basal joint injection on 04/22/24 with good relief for ~4 months. States she had good pain relief and would like to repeat injection today. Allergies Penicillins (PCN) Allergy (Unknown, Verified 12/22/24 11:32) Unknown red dye Allergy (Unknown, Verified 12/22/24 11:32) Unknown Sulfa (Sulfonamide Antibiotics) Allergy (Unknown, Verified 12/22/24 11:32) Unknown acetaminophen Adverse Reaction (Mild, Verified 12/22/24 11:32) Migraine 12 hr nasal spray Allergy (Unknown, Uncoded 12/22/24 11:32) Unknown novocaine Adverse Reaction (Intermediate, Uncoded 12/22/24 11:32) tachycardia HPI HPI Inj-RT Basal joint osteoarthritis, Last-05/26/24: Details: Vika is a 68 year old right hand dominant woman who returns to discuss her right basal joint arthritis. She received a right basal joint injection on 05/27/24, with good relief, and a left basal joint injection on 12/02/24 with good relief. She would like her right thumb injected today She complains of pain at the base of her right thumb, worse with pinching or gripping activities. She would also like a new comfort cool brace for her right side. She denies any known injury, locking, numbness, or tingling. 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 [employer] Medical History Pre-diabetes Adams esophagus GERD (gastroesophageal reflux disease) IBS (irritable bowel syndrome) Hyperlipidemia HTN (hypertension) Surgical History (Reviewed 12/22/24 @ 11:33 by Yomaira Carrera [facility]) History of esophagogastroduodenoscopy (EGD) (~2024) S/P cholecystectomy Hx of colonoscopy (~2021) Family History Mother High blood pressure High cholesterol Throat cancer Sister High blood pressure High cholesterol Cardiovascular disease Asthma Social History (Reviewed 12/22/24 @ 11:33 by Yomaira Carrera [facility]) Household Members: Spouse Housing: House Are you a primary resident care aide to a significant other at home: No Do you presently have visiting nurse or other home services: No 75 years or older and lives alone: No Alcohol intake: current Alcohol intake frequency: does not drink Patient Tobacco Use Status: Former Tobacco user e-Cigarette/Vaping Use: Never Used Second Hand Smoke Exposure: No service: No Current occupational status: retired Sexual orientation: Unable to collect Gender identity: Unable to collect Cognitive needs: No Hearing needs: Yes (hearing aids) Vision needs: Yes (glasses) Physical Exam Vital Signs: BMI result Body Mass Index 32.1 Const General: no acute distress and alert Orientation/consciousness: patient oriented x3 Neuro General: patient oriented x3 Extrem Other: Evaluation of Right Upper Extremity: The patient is alert, oriented, and in no acute distress Neuro: Median, Ulnar, Radial nerves motor and sensory intact and sensation is normal to the tips of all digits Vascular: Cap refill brisk ROM: She can make a fist and extend all her digits No locking or catching Most tender over the basal joint + shoulder sign + CMC grind No tenderness over the 1st dorsal compartment No tenderness over the MCP joint No tenderness over the a1 pulleys Radiographs: 3 views of the right hand from 10/02/23 were reviewed by me today in clinic. They show basal joint arthritis with joint space narrowing, subluxation, and early osteophyte formation Psych Appearance: grossly normal Affect: normal affect Attitude: cooperative Office Procedures AMB Fracture Care Details: No fracture, injection Fracture Billing Code: Fracture Billing Code Assessment & Plan Assessment & Plan (1) Osteoarthritis of carpometacarpal joint of right thumb: Code(s): M18.11 - Unilateral primary osteoarthritis of first carpometacarpal joint, right hand Category: Medical (2) Osteoarthritis of carpometacarpal joint of left thumb: Code(s): M18.12 - Unilateral primary osteoarthritis of first carpometacarpal joint, left hand Category: Medical Plan Assessment & Plan: 1. Right Basal joint osteoarthritis, S/P injection Date of Injection: 12/22/24, 05/26/24, 10/02/23 I educated her about this condition I discussed operative and non-operative treatment options The patient would like to proceed with a repeat injection I discussed activity modification, she should limit or avoid any heavy or repetitive pinching or gripping activities She was fitted for a comfort cool brace to wear with daily activity I discussed the use of assistive devices to improve her symptoms Injection #1 : The risks and benefits of a steroid injection including but not limited to risk of damage to blood vessels, nerve, tendon, infection, skin bleaching, persistent or worsening pain, and failure to improve symptoms were discussed with the patient and they wish to proceed with the steroid injection. Once consent was obtained the skin over the dorsum of the Right basal joint was sterilely prepped. The joint was then injected with a combination of 1 mL of (40 mg/ml} Depo-Medrol and 1% plain Lidocaine. The patient appears to have tolerated the procedure well and with no complications. She had good early relief before leaving clinic today. She knows that they may not have another steroid injection into this joint for least 4 months. 2. Left Basal joint osteoarthritis, S/P injection Date of injections: 12/02/24, 04/22/24, 06/26/23 Doing well following her injection Scribed for Radha Bourgeois MD by ginger Ruiz scribe, on 12/22/24 at 11:35 AM, EST. Scribe Plan - Not visible on output: Scribed for Radha Bourgeois MD by ginger Ruiz scribe, on [ ] at [ ], EST. Coding Level of Care Code Est Pt Level 3 (97191) Diagnoses Osteoarthritis of carpometacarpal joint of right thumb M18.11 Osteoarthritis of carpometacarpal joint of left thumb M18.12 CPT Codes Fracture Care - Fracture Billing Code: Fracture Billing Code ([id number])
--- OUTSIDE RECORDS SUMMARY | 2024-12-22 12:25 | XMS_ITS | Clinical Summary ---
Author Organization [facility] Address [address] [place] [address] Care Team Providers Care Stack Attendant Name Role Phone Jeffery Brown MD Primary Care Provider [phone] Medical History Medical History Date Comments Hyperlipidemia [...] age to complete this topic Care Teams Stack Attendant Relationship Specialty Start Date End Date Jeffery Brown MD [address] [address] PCP - General Internal Medicine 07/27/20
--- OUTSIDE RECORDS SUMMARY | 2024-12-22 12:25 | XMS_ITS | Patient Health Record ---
Author Organization [facility] Address [address] [place] [address] Care Team Providers Care Glass Etcher Helper Name Role Phone Hiro Cesar Primary Care Provider JAYANT Christine Unavailable [phone] Allergies Allergen (clinical drug ingredient) Drug/Non Drug [...] MG 1 tablet Orally O nce a day; Duration: 90 days 05/30/2022 Not-Takin g Gemfibrozil 600 MG 1 tablet 30 minutes before morning and evening meals Orally Twice a day Active Vitamin D3 Super Strength 50 MCG (2000 UT) 1 tablet Orally Once a day [...] of [place] [address] [place] [address] [id number] Vika Saul Self - patient is the insured [facility] [address] [place] [phone] [id number] Vika Saul Self - patient is [...]
== END 2024-12-22 11:53 | disposition home or self-care (01) ==
LOC: HO.HOS 11:17
PROVIDERS: PCP Family Medicine; Visit Provider Orthopaedic Surgery
DX: M18.0 Bilateral primary osteoarthritis of first carpometacarpal joints (principal)
CPT/HCPCS: 20600; 99213

== ENCOUNTER → 2024-12-22 11:16 | Outpatient (BNVA) | payer MEDICARE, SELFPAY | PROVIDERS: PCP Family Medicine; Visit Provider Orthopaedic Surgery | DX: M18.0 Bilateral primary osteoarthritis of first carpometacarpal joints (principal) | CPT/HCPCS: 20600; 99212; J1010; J2003 ==

== ENCOUNTER 2025-01-25 11:14 | Emergency (ER) | payer MEDICARE, SELFPAY ==
--- OUTSIDE RECORDS SUMMARY | 2023-10-23 11:00 | XMS_ITS ---
Author Organization [facility] Address [address] [place] [phone] Care Team Providers Care Sample Tester Name Role Phone Hiro Cesar Primary Care Provider UnavailNik Cordoba [phone] REASON FOR VISIT ibs Encounters Encounter Location Date Provider Diagnosis [facility] [address] [place] [phone] 10/23/2023 Nik Gamble Plan Of Treatment No Information Progress Notes * MINOR MONTEZ MDOB:1955 (69 yo F)Acc No.[id number]:10/23/2023 Progress Notes Patient: Jane DIA MINOR M Provider: Jasmina Gamble MD :1955 A ge:67 Y S ex:Female Date:10/23/2023 Address:[address] [place], [place] [phone] Pcp:Hiro Cesar Subjective: * Chief Complaints: * [...] 0 10/23/2023 Generated for Printi ng/Faxing/eTransmitting on: 0 01/25/2025 09:08 PM EDT
--- OUTSIDE RECORDS SUMMARY | 2024-06-15 06:10 | XMS_ITS ---
Author Organization [facility] Address [address] [place] [address] Care Team Providers Care Towel Weaver Name Role Phone Hiro Cesar Primary Care Provider UnavailNik Cordoba [phone] REASON FOR VISIT gerd,wang's Problems Problem Type SNOMED Code ICD Code Onset Dates Problem Status W/U Status Risk Notes Problem Gastroesophageal reflux disease (174056653) Gastroesophageal reflux disease (K21.9) Active confirmed Encounters Encounter Location Date Provider Diagnosis [facility] [place] [address] [place] [phone] 06/15/2024 Nik Gamble Wang''s esophagus without dysplasia [...] * MINOR MONTEZ MDOB:1955 (69 yo F)Acc No.[id number]:06/15/2024 EGD/MAC Patient: MINOR PARNELL Provider: Jasmina Gamble MD :1955 A ge:68 Y S ex:Female Date:06/15/2024 Address:[address] [place] [address] [id number] Pcp:Hiro Cesar Subjective: * Chief Complaints: * [...] 06/15/2024 Generated for Angela bhat/Steven/Cbitting on: 0 01/25/2025 09:08 PM EDT
--- NOTE | ~2025-01-25 | XR_ITS ---
EXAMINATION: XR LUMBOSACRAL SPINE CLINICAL INFORMATION: right lower pain COMPARISON: None available. TECHNIQUE: Three views of the lumbosacral spine. FINDINGS: There are surgical clips in the right upper quadrant. There are 5 nonrib-bearing lumbar segments. There is straightening of lumbar lordosis. There is mild disc space narrowing throughout the lumbar spine and small marginal osteophytes at L2-3, L3-4, and L4-5. No other abnormalities are seen. XR/XR lumbar spine 2-3V IMPRESSION: Degenerative disc disease is mild to moderate joint L2-3 through L4-5. Electronically signed by: Ishaan Recinos MD 01/25/2025 12:43 PM EDT
[2025-01-25 11:49] VITALS: BP 105/62; PULSE 65; RESP 18; TEMP 36.8; O2SAT 95; BMI 30.9
--- NOTE | 2025-01-25 11:53 | ED.GENADULT ---
HPI - General Adult General Chief complaint: Back Pain/Injury Stated complaint: back pain Time Seen by Provider: 01/25/25 15:41 History of Present Illness ED Provider: Ida FERNÁNDEZ narrative: The patient is a 69-year-old woman who says that she was sitting at the breakfast table this morning when she developed the abrupt onset right lower back pain. The pain was uncomfortable and made movement difficult. She has a similar episode about 2 weeks ago. At that time the pain also started without any injury or obvious inciting factor. She has a great deal of pain for about 4 days and had trouble moving around during those 4 days. Eventually the pain got better and then she was well for over a week until this morning when the pain returned. The pain does not radiate down the leg. The pain is not associated with any fever, sweats, chills. The pain does not radiate to the abdomen. There was no chest pain or shortness of breath. There has been no diaphoresis. The pain is positional. Walking is better than sitting. No bowel or bladder control symptoms. No urinary symptoms. Related Data Home Medications ?Medication ?Instructions ?Recorded ?Confirmed cholecalciferol (vitamin D3) 25 50 mcg PO BEDTIME 05/22/21 12/02/24 mcg (1,000 unit) capsule (Vitamin D3) omeprazole 20 mg capsule,delayed 20 mg PO DAILY 05/22/21 12/02/24 release calcium carbonate 500 mg/5 mL (as 500 mg PO BEDTIME 08/13/23 12/02/24 calcium carb 1,250 mg/5 mL) oral suspension ibuprofen 200 mg tablet (Advil) 400 mg PO Q6-8H PRN Pain (Scale 06/15/24 12/02/24 Score 4-6) Previous Rx's ?Medication ?Instructions ?Recorded mecobalamin (vitamin B12) 1,000 1,000 mcg sublingual DAILY 90 days 11/08/23 mcg disintegrating #90 tabs tablet,sublingual gemfibrozil 600 mg tablet 600 mg PO BID 90 days #180 tabs 11/09/24 losartan 100 mg tablet 100 mg PO DAILY 90 days #90 tabs 11/09/24 simvastatin 20 mg tablet 20 mg PO BEDTIME 90 days #90 tabs 12/14/24 acetaminophen 500 mg capsule 1,000 mg (2 x 500 mg) PO Q8H PRN 01/25/25 fever or pain #14 caps cyclobenzaprine 10 mg tablet 10 mg PO TID PRN muscle spasm #14 01/25/25 tabs ibuprofen 400 mg tablet 400 mg PO Q6H PRN pain #14 tabs 01/25/25 Allergies Allergy/AdvReac Type Severity Reaction Status Date / Time Penicillins (PCN) Allergy Unknown Unknown Verified 01/25/25 11:51 red dye Allergy Unknown Unknown Verified 01/25/25 11:51 Sulfa (Sulfonamide Allergy Unknown Unknown Verified 01/25/25 11:51 Antibiotics) acetaminophen AdvReac Mild Migraine Verified 01/25/25 11:51 12 hr nasal spray Allergy Unknown Unknown Uncoded 01/25/25 11:51 novocaine AdvReac Intermediate tachycardia Uncoded 01/25/25 11:51 Review of Systems Review of Systems: Yes all other systems are reviewed and are negative [facility] Past Medical History Medical History Pre-diabetes Adams esophagus GERD (gastroesophageal reflux disease) IBS (irritable bowel syndrome) Hyperlipidemia HTN (hypertension) Surgical History History of esophagogastroduodenoscopy (EGD) (~2024) S/P cholecystectomy Hx of colonoscopy (~2021) Family History Family History Mother High blood pressure High cholesterol Throat cancer Sister High blood pressure High cholesterol Cardiovascular disease Asthma Social History Social History Household Members: Spouse Housing: House Are you a primary coronary care unit nurse to a significant other at home: No Do you presently have visiting nurse or other home services: No Alcohol intake: current Alcohol intake frequency: does not drink Patient Tobacco Use Status: Former Tobacco user e-Cigarette/Vaping Use: Never Used Second Hand Smoke Exposure: No Advance Directives: No Advance Directives Information Provided: Yes Do you have a plan to hurt others: No Plan service: No Current occupational status: retired Sexual orientation: Unable to collect Gender identity: Unable to collect Cognitive needs: No Hearing needs: Yes (hearing aids) Vision needs: Yes (glasses) Physical Exam ED Vital Signs: Vital Signs - 24 hr 01/25/25 11:49 01/25/25 16:14 Temperature 98.3 F 98.3 F Pulse Rate 65 65 Respiratory Rate 18 18 Blood Pressure 105/62 105/62 Pulse Oximetry 95 95 Oxygen Delivery Method Room Air Room Air BMI result Body Mass Index 30.9 Const Other: The patient is awake and alert. She was sitting in a chair. She was pleasant and cooperative. She did not appear unwell or in any distress. Orientation/consciousness: patient oriented x3 HENMT Other: The face is symmetrical. Mucous membranes moist. Eyes Other: Pupils are round equal, conjunctivae are clear, extraocular movements intact Neck Neck: Yes full ROM Resp Effort & Inspection: normal respiratory effort Auscultation: clear to auscultation bilaterally Cardio Rate: regular rate Rhythm: regular rhythm Heart sounds: S1 normal heart sound present and S2 normal heart sound present GI Other: The abdomen was soft and nontender. No masses or pulsatile masses. Back/Spine/Pelvis Other: The patient was tender with palpation in the region of the left posterior superior iliac spine. There was no CVA percussion tenderness on either side. Skin Other: The skin is dry and unremarkable General skin exam: no rashes or lesions noted Neuro Other: The patient moves stiffly but steadily. No footdrop. 2+ reflexes at the knees and ankles. Toes go down bilaterally. General: patient oriented x3, tone normal, moves all extremities, no focal motor deficits and CN's II-XI intact bilaterally Extrem Other: There is no calf swelling or tenderness. No asymmetry. No peripheral edema. Good pulses in the feet. Course Course Course Narrative: This is a rapid medical exam performed by Harshal Monique NP: Additional HPI, ROS, PE not included below will be deferred to primary provider. Patient is a 69-year-old female currently in physical therapy for a left hip issue presenting to the emergency department with complaint of sharp right lower back pain. States had similar episode around 2 weeks ago. Worse with standing. Denies fall or other trauma. Denies radiation to right lower extremity. Plan: xray Medical Decision Making Medical Decision Making MDM Narrative: The patient is a 69-year-old female who presents with right-sided low back pain. She had a similar episode 2 weeks ago that bothered her significantly for about 4 days and then improved. Today she had a recurrence of the same kind of pain. On neither occasion did she have any inciting incident such as lifting or bending. She is concerned that given the spontaneous nature of the pains that perhaps this is not simple musculoskeletal back pain. However I do not find any suggestion of any likely alternative cause. The patient looks entirely well. She has had no fever, sweats, chills. She is neurologically intact. She does not have any aspect of her appearance that would suggest that she is having a kidney stone or a vascular accident of any kind. She has a history of hypertension and elevated cholesterol but she has had CAT scans in the last few years that show only minor signs of vascular disease. A lumbar spine x-ray was ordered at triage. this shows straightening of the lumbar lordosis and some minor degenerative changes but no other concerning findings. Her vital signs are normal. She looks entirely stable. Clinically she seems to be moving stiffly in a manner consistent with musculoskeletal back pain. The patient was reassured that this seems to be musculoskeletal back pain. She will be prescribed cyclobenzaprine as well as ibuprofen and acetaminophen. She should follow up with the regular doctor. She should return if worse. Discharge Plan Discharge Clinical Impression: Acute right-sided low back pain Patient Disposition: Home, Self-Care Instructions: Acute Low Back Pain (ED) Additional Instructions: I believe the pain you are experiencing is musculoskeletal pain. My suspicion for anymore dangerous alternative causes is very low. I have sent prescriptions for acetaminophen, ibuprofen, and the muscle relaxant cyclobenzaprine to your pharmacy. Use these medications as needed for your pain. Please be aware that the cyclobenzaprine can make you drowsy. Do not drive on the cyclobenzaprine. Please avoid activities that exacerbate your pain. Please follow up soon with your regular doctor to discuss these episodes of back pain further. Return to the emergency room if significantly worse. Prescriptions: New cyclobenzaprine 10 mg tablet 10 mg PO TID PRN (Reason: muscle spasm) Qty: 14 0RF ibuprofen 400 mg tablet 400 mg PO Q6H PRN (Reason: pain) Qty: 14 0RF acetaminophen 500 mg capsule 1,000 mg PO Q8H PRN (Reason: fever or pain) Qty: 14 0RF No Action mecobalamin (vitamin B12) 1,000 mcg tablet,disintegrating 1,000 mcg sublingual DAILY 90 Days Qty: 90 2RF Rx Instructions: place tablet under tongue and allow to dissolve for at least30 secs before swallowing losartan 100 mg tablet 100 mg PO DAILY 90 Days Qty: 90 1RF gemfibrozil 600 mg tablet 600 mg PO BID 90 Days Qty: 180 3RF simvastatin 20 mg tablet 20 mg PO BEDTIME 90 Days Qty: 90 3RF omeprazole 20 mg Capsule,Delayed Release(Dr/Ec) 20 mg PO DAILY cholecalciferol (vitamin D3) [Vitamin D3] 25 mcg (1,000 unit) Capsule 50 mcg PO BEDTIME calcium carbonate 500 mg/5 mL (1,250 mg/5 mL) Suspension 500 mg PO BEDTIME ibuprofen [Advil] 200 mg Tablet 400 mg PO Q6-8H PRN (Reason: Pain (Scale Score 4-6)) Referrals: Hiro Cesar MD [Primary Care Provider, Internal Medicine] Interventions: ED Discharge Assessment Last Done: 01/25/25 16:14 Discharge Date/Time: 01/25/25 16:14 Print Language: Emirati
[2025-01-25 16:14] VITALS: BP 105/62; PULSE 65; RESP 18; TEMP 36.8; O2SAT 95
--- OUTSIDE RECORDS SUMMARY | 2025-01-25 21:08 | XMS_ITS | Patient Health Record ---
Author Organization [facility] Address [address] [place] [address] Care Team Providers Care Medical Customer Service Representative Name Role Phone Hiro Cesar Primary Care Provider JAYANT Christine Unavailable [phone] Allergies Allergen (clinical drug ingredient) Drug/Non Drug [...] of [place] [address] [place] [phone] [id number] Vika Saul Self - patient is the insured [employer] [facility] [address] [place] [phone] [id number] Vika Saul Self - patient is [...]
--- OUTSIDE RECORDS SUMMARY | 2025-01-25 21:09 | XMS_ITS | Patient Health Record ---
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 Name Role Phone Hiro Cesar Primary Care Provider UnavailNik Cordoba [phone] Allergies Allergen (clinical drug ingredient) Drug/Non Drug Allergy documented on EMR Reaction Allergy Type Onset Date Status Penicillin Unknown Drug Allergy Active Substance with sulfonamide structure and antibacterial mechanism of action (substance) Sulfa Antibiotics Unknown Drug Allergy Active 12 Hour Nasal [place] Unknown Drug Allergy Active red dye (uncoded) Unknown Allergy Ac tive Results Component Value Reference Range Notes MAMMOGRAM DIGITAL BILATERAL SCREEN Reviewed date:03/09/2024 01:28:45 PM Interpretation:Normal Performing Lab: Notes/Report: Normal Pathology (Not yet reviewed by provider) Interpretation: Performing Lab:[facility], [address] [place] [id number] Notes/Report: Reason For Referral No Information Medications Medication [...] Status Risk Notes Problem Irritable bowel syndrome (36360030) Irritable bowel syndrome (K58.9) Active confirmed Problem 234646257 Encounter for screening for malignant neoplasm of colon (Z12.11) Active confirmed Problem History of polyp of colon (situation) (005354141) Personal history of colonic polyps (Z86.010) Active confirmed Problem Gastroesophageal reflux disease (556701559) Gastroesophageal reflux disease (K21.9) Active confirmed Problem Esophageal reflux finding (168450261) Gastroesophageal reflux (K21.9) Active confirmed Problem 24878654 Other irritable bowel syndrome (K58.8) Active confirmed Problem Diverticulosis of colon (777704512) Diverticulosis of colon (K57.30) Active confirmed Problem Adams's esophagus (998120523) Adams''s esophagus without dysplasia (K22.70) Active confirmed Problem 569900778 Gastroesophageal reflux disease, unspecified whether esophagitis present (K21.9) Active confirmed Vital Signs Temperature 95.7 degrees Fahrenheit 03/04/2024 Blood pressure diastolic 74 mm Hg 03/04/2024 Height 64 in 03/04/2024 Blood pressure systolic 118 mm Hg 03/04/2024 Weight 188 lb 6 oz lbs 03/04/2024 BMI 32.33 kg/m2 03/04/2024 Encounters Encounter Location Date Provider Diagnosis [facility] [address] [place] [id number] 06/15/2024 Nik Gamble Adams''s esophagus without dysplasia K22.70 ; Gastroesophageal reflux disease K21.9 and Hiatal hernia K44.9 [facility] [address] [place] [address] 03/04/2024 Nik Gamble Encounter for screen ing [...] Date MEDICARE OF [place] [address] [place] [address] [id number] MINOR MONTEZ Self - patient is the insured [employer] [address] [place] [address] [id number] MINOR MONTEZ Self - patient is the insured Medical (General) History Medical History History ICD Code Hypertension Denies RI,DM,CVA,Lung disease,renal dise ase Hyperlipidemia IBS Neg. screening colonoscopy in 09/2010 Colonoscopy 05/2021 with a small tubular adenoma EGD 05/2021--small hiatal hernia, tiny ar ea of Adams's without dysplasia Surgical History Surgery Date(Month/Year) [facility] Jennings
== END 2025-01-25 16:14 | disposition home or self-care (01) ==
PROVIDERS: Emergency Provider Emergency Medicine; PCP Family Medicine
DX: M54.50 Low back pain, unspecified (principal); I10 Essential (primary) hypertension; Z87.19 Personal history of other diseases of the digestive system; Z79.899 Other long term (current) drug therapy
CPT/HCPCS: 72100; 99282; 99283

== ENCOUNTER → 2025-01-25 11:54 | Outpatient (BNV) | payer MEDICARE, SELFPAY | PROVIDERS: PCP Family Medicine; Visit Provider Radiology Diagnostic Radiology | DX: M51.360 Other intervertebral disc degeneration, lumbar region with discogenic back pain only (principal) | CPT/HCPCS: 72100 ==

== ENCOUNTER 2025-02-22 09:18 | Outpatient (AMB) | payer MEDICARE, SELFPAY ==
--- NOTE | 2025-02-22 09:22 | A.OFFPC_ITS ---
Vital Signs 02/22/25 09:28 Height 5 ft 4 in Weight 189 lb 8 oz BMI 32.5 BP 116/68 Blood Pressure Location Rt brachial Position Sitting Respiration 16 Pulse 91 Pulse Source Pulse Oximeter Temp 97.8 F Temp Source Temporal Artery Scan Pulse Oximetry (%) 96 Oxygen Delivery Method Room Air Intake Visit Reasons: [address] Dasia hansen HLD HTN FU Intake Note: Vika presents in the office for a 6 month follow up to hypertension, cholesterol and pre-diabtes. Allergies Penicillins (PCN) Allergy (Unknown, Verified 02/22/25 09:26) Unknown red dye Allergy (Unknown, Verified 02/22/25 09:26) Unknown Sulfa (Sulfonamide Antibiotics) Allergy (Unknown, Verified 02/22/25 09:26) Unknown acetaminophen Adverse Reaction (Mild, Verified 02/22/25 09:26) Migraine 12 hr nasal spray Allergy (Unknown, Uncoded 02/22/25 09:26) Unknown novocaine Adverse Reaction (Intermediate, Uncoded 02/22/25 09:26) tachycardia Medication List - Last Reconciled 02/22/25 by Hiro Cesar MD acetaminophen 1,000 mg (2 x 500 mg) PO Q8H PRN atorvastatin (Lipitor) 10 mg PO BEDTIME 90 days calcium carbonate 500 mg PO BEDTIME cholecalciferol (vitamin D3) (Vitamin D3) 50 mcg PO BEDTIME gemfibrozil 600 mg PO BID 90 days ibuprofen (Advil) 400 mg PO Q6-8H PRN ibuprofen 400 mg PO Q6H PRN losartan 100 mg PO DAILY 90 days mecobalamin (vitamin B12) 1,000 mcg sublingual DAILY 90 days omeprazole 20 mg PO DAILY simvastatin 20 mg PO BEDTIME 90 days Tobacco use date assessed: 02/22/25 Dental Screening Dental Screen Date: 02/22/25 Did you have a dental visit in the last 12 months?: Yes Did you have a dental problem in the last 6 months where you did not have access to dental care?: No Was dental information given to patient?: Patient has dentist HPI [address] Dasia hansen HLD HTN FU HPI Details 69 y/o female presents to f/u HLD, HTN, prediabetes. A1c today 02/22/25 5.9%. Blood pressure today 116/68, 91p. She is on losartan 100mg daily. Most recent labs drawn in August,. Triglycerides 73. TC 178. LDL 110. HDL 54. She is on simvastatin 20mg. Had mild anemia last year. Reports chronic low back pain, hip pain. HPI Comments History of Present Illness Details Documentation assistance for Hiro Cesar MD, was provided by Andi Cárdenas,? Dry Cleaning Counter Clerk on 02/22/2025 at 9:45 AM EST. I, Dr. Cesar, have read, observed, and verified documentation. ?? PFSH Medical History Pre-diabetes Adams esophagus GERD (gastroesophageal reflux disease) IBS (irritable bowel syndrome) Hyperlipidemia HTN (hypertension) Surgical History History of esophagogastroduodenoscopy (EGD) (~2024) S/P cholecystectomy Hx of colonoscopy (~2021) Family History Mother High blood pressure High cholesterol Throat cancer Sister High blood pressure High cholesterol Cardiovascular disease Asthma Social History (Updated 02/22/25 @ 09:28 by Josy Malhotra CMA) Household Members: Spouse Housing: House Are you a primary medicare contact specialist to a significant other at home: No Do you presently have visiting nurse or other home services: No 75 years or older and lives alone: No Alcohol intake: current Alcohol intake frequency: does not drink Patient Tobacco Use Status: Former Tobacco user e-Cigarette/Vaping Use: Never Used Second Hand Smoke Exposure: No service: No Current occupational status: retired Sexual orientation: Unable to collect Gender identity: Unable to collect Cognitive needs: No Hearing needs: Yes (hearing aids) Vision needs: Yes (glasses) Questionnaire Thrive Questionnaire Date Thrive assessed: 02/15/25 I am a: Patient What is your living situation today?: I have a steady place to live Within the past 12 months, did the food you bought not last and you didn't have the money to get more?: Never true Within the past 12 months, did you worry whether your food would run out before you got money to buy more?: Never true Do you have trouble paying for medicines?: No Do you have trouble getting transportation to medical appointments?: No Do you have trouble paying your heating and electricity bill?: No Do you have trouble taking care of your child, family member or friend?: No Do you have trouble with day-to-day activities such as bathing, preparing meals, shopping, managing finances, etc.?: No Are you currently unemployed and looking for a job?: No Are you interested in more education?: No Please select the resources that you would like help with: None Currently or been in a relationship where the following occur: No concerns reported THRIVE Score: 0 AUDIT C Alcohol Use Questionnaire (AUDIT-C) 1. How often do you have a drink containing alcohol?: Monthly or less 2. How many drinks containing alcohol do you have on a typical day when you are drinking?: 1 or 2 Total Score: 1 ABRIL-7 AMB Questionnaire ABRIL-7 Date ABRIL - 7 assessed: 08/21/23 Source: Developed by Drs. Nik Stack, Magalis Alvarez, Bam Alex and colleagues, with an educational anderson from [employer]. Review of Systems Const Denies chills, Denies fatigue, Denies fever(s), Denies headache(s) and Denies weakness ENT Denies dizziness and Denies headache(s) Card Denies dyspnea Resp Denies cough, Denies dyspnea, Denies wheezing and Denies other (shortness of breath) Musc Reports back pain, Denies numbness and Denies tingling Neuro Denies dizziness, Denies headache(s), Denies numbness, Denies tingling and Denies weakness Psych Denies anxiety and Denies depression Endo Denies fatigue Aller/Immun Denies wheezing Physical exam (Primary Care) Vital Signs: Last Vital Signs Temp 97.8 F 02/22/25 09:28 Pulse 91 02/22/25 09:28 Resp 16 02/22/25 09:28 BP 116/68 02/22/25 09:28 Pulse Ox 96 02/22/25 09:28 Oxygen Delivery Method Room Air 02/22/25 09:28 BMI result Body Mass Index 32.5 Tobacco/Smoking Status: Tobacco use Status Tobacco use date assessed 02/22/25 02/22/25 09:32 Patient Tobacco Use Status Former Tobacco user 02/22/25 09:28 e-Cigarette/Vaping Use Never Used 02/22/25 09:28 Thrive Assessment: Date of Thrive Assessment Date Thrive assessed 02/15/25 02/22/25 09:24 Currently or been in a relationship where the following occur: No concerns reported Const General: well developed; No acute distress Nutritional Appearance: well nourished Orientation/consciousness: patient oriented x3 HENMT Head: Yes normocephalic and Yes atraumatic Eyes General: appearance normal, both eyes and all related structures Pupils: Equal, round and reactive pupils present EOM: EOMs intact bilaterally Resp Effort & Inspection: normal respiratory effort Neuro General: patient oriented x3 and gait normal Cranial nerves: Yes Equal, round and reactive pupils present Psych Affect: normal affect Coding Level of Care Code Est Pt Level 5 (38642) Diagnoses Pre-diabetes R73.03 Primary hypertension I10 Hypertension type: primary hypertension Mild anemia D64.9 Mixed hyperlipidemia E78.2 Hyperlipidemia type: mixed hyperlipidemia Gluteal tendinitis, left hip M76.02 Trochanteric bursitis, left hip M70.62 Chronic left SI joint pain M53.3; G89.29 Low back pain M54.50 Assessment & Plan Assessment & Plan (1) Pre-diabetes: Code(s): R73.03 - Prediabetes Category: Medical Plan: A1c climbed from 5.5% to 5.9%. Continue working at a diet low in sugars and starches Encouraged weight loss and exercise as tolerated (2) HTN (hypertension): Code(s): I10 - Essential (primary) hypertension Category: Medical Qualifiers: Hypertension type: primary hypertension Qualified Code(s): I10 - Essential (primary) hypertension Plan: Blood pressure very well controlled. Goal is less than 140/90 Continue current medication (3) Mild anemia: Code(s): D64.9 - Anemia, unspecified Category: Medical Plan: Improving on vitamin B12 Continue B12 We can continue to monitor periodically (4) Hyperlipidemia: Code(s): E78.5 - Hyperlipidemia, unspecified Category: Medical Qualifiers: Hyperlipidemia type: mixed hyperlipidemia Qualified Code(s): E78.2 - Mi xed hyperlipidemia Plan: LDL cholesterol is too high on simvastatin. She is also on gemfibrozil and notes some significantly achy muscles Will have her decrease gemfibrozil to once a day and will switch simvastatin 20 mg daily to atorvastatin 10 mg daily Will recheck lipids at her next visit (5) Gluteal tendinitis, left hip: Code(s): M76.02 - Gluteal tendinitis, left hip Category: Medical (6) Trochanteric bursitis, left hip: Code(s): M70.62 - Trochanteric bursitis, left hip Category: Medical (7) Chronic left SI joint pain: Code(s): M53.3 - Sacrococcygeal disorders, not elsewhere classified; G89.29 - Other chronic pain Category: Medical (8) Low back pain: Code(s): M54.50 - Low back pain, unspecified Category: Medical Plan Chronic low back pain and hip pain Has tried muscle relaxers and NSAIDs. Referring her to physiatry She has tried cyclobenzaprine but this caused sleepiness and unsteadiness. Has tried methocarbamol without adverse effect. Will give her a short script of methocarbamol which she can use PRN. Continue NSAIDs She will return in about 2 months to follow-up hyperlipidemia and hypertension. Blood pressure is well controlled today. LDL cholesterol is too high and I am changing her simvastatin 20 mg to atorvastatin 10 mg and also having her decrease her gemfibrozil. She notes significantly achy muscles and simvastatin is a likely contributor, particularly with gemfibrozil - may want to change this to a fibrate at next visit. Also refer to physiatry-see a/ Orders: Orders AMB Hemoglobin A1c Today R73.03 - Prediabetes Comprehensive Mal[place]. Panel Fast Today E78.2 - Mixed hyperlipidemia, Z00.00 - Encounter for general adult medical examination without abnormal findings Lipid Panel Today Z00.00 - Encounter for general adult medical examination without abnormal findings Referrals Physiatry Referral M54.50 - Low back pain, unspecified, M70.62 - Trochanteric bursitis, left hip, M76.02 - Gluteal tendinitis, left hip Medications: New atorvastatin (Lipitor) 10 mg PO BEDTIME 90 tabs 3RF 90 days methocarbamol 500 mg PO BEDTIME PRN 14 tabs 0RF Muscle pain/spasm 14 days
[2025-02-22 09:28] VITALS: BP 116/68; PULSE 91; RESP 16; TEMP 36.6; O2SAT 96; BMI 32.5
== END 2025-02-22 10:14 | disposition home or self-care (01) ==
LOC: HO.HMCFM 09:19
PROVIDERS: PCP Family Medicine; Visit Provider Family Medicine
DX: R73.03 Prediabetes (principal)

== ENCOUNTER → 2025-02-22 09:18 | Outpatient (BNVA) | payer MEDICARE, SELFPAY | PROVIDERS: PCP Family Medicine; Visit Provider Family Medicine | DX: I10 Essential (primary) hypertension (principal); R73.03 Prediabetes; E78.5 Hyperlipidemia, unspecified; D64.9 Anemia, unspecified; E78.2 Mixed hyperlipidemia; M76.02 Gluteal tendinitis, left hip; M70.62 Trochanteric bursitis, left hip; M53.3 Sacrococcygeal disorders, not elsewhere classified; G89.29 Other chronic pain | CPT/HCPCS: 83036; 99212 ==

== ENCOUNTER 2025-03-26 08:37 | Outpatient (AMB) | payer MEDICARE, SELFPAY ==
--- OUTSIDE RECORDS SUMMARY | 2023-10-23 10:00 | XMS_ITS ---
Author Organization [facility] Address [address] [place] [phone] Care Team Providers Care Administrator Social Welfare Name Role Phone Hiro Cesar Primary Care Provider UnavailNik Cordoba [phone] REASON FOR VISIT ibs Encounters Encounter Location Date Provider Diagnosis [facility] [address] [place] [phone] 10/23/2023 Nik Gamble Plan Of Treatment No Information Progress Notes * MINOR MONTEZ MDOB:1955 (69 yo F)Acc No.[id number]:10/23/2023 Progress Notes Patient: Jane DIA MINOR M Provider: Jasmina Gamble MD :1955 A ge:67 Y S ex:Female Date:10/23/2023 Address:[address] [place], [place] [phone] Pcp:Hiro Cesar Subjective: * Chief Complaints: * 1 . Ibs. * Medical History: Objective: * Vitals: Assessment: Plan: * Treatment: * * The named appointment provid er may or may not be the originator of this progress note, and it is not deemed complete until electronically signed by the appointment provider. Sign off status: Pending * Provider: Jasmina Gamble MD Date: 0 10/23/2023 Generated for Printi ng/Faxing/eTransmitting on: 05/26/2024 08:54 AM EST
--- OUTSIDE RECORDS SUMMARY | 2024-06-15 05:10 | XMS_ITS ---
Author Organization [facility] Address [address] [place] [address] Care Team Providers Care Terminal System Operator Name Role Phone Hiro Cesar Primary Care Provider UnavailNik Cordoba [phone] REASON FOR VISIT gerd,wang's Problems Problem Type SNOMED Code ICD Code Onset Dates Problem Status W/U Status Risk Notes Problem Gastroesophageal reflux disease (090174985) Gastroesophageal reflux disease (K21.9) Active confirmed Encounters Encounter Location Date Provider Diagnosis [facility] [place] [address] [place] [phone] 06/15/2024 Nik Gamble Wang''s esophagus without dysplasia [...] * MINOR MONTEZ MDOB:1955 (69 yo F)Acc No.[id number]:06/15/2024 EGD/MAC Patient: MINOR PARNELL Provider: Jasmina Gamble MD :1955 A ge:68 Y S ex:Female Date:06/15/2024 Address:[address] [place] [address] [id number] Pcp:Hiro Cesar Subjective: * Chief Complaints: * 1 . Gerd,wang's. * Medical History: Objective: * Vitals: Assessment: * Assessment: 1. B arrett''s esophagus without dysplasia - K22.70 (Primary) 2 . G astroesophageal reflux disease - K21.9 3 . H iatal hernia - K44.9 Plan: * Treatment: * Procedure Codes: 4 3239 UPPER GI ENDOSCOPY, BIOPSY, 3126F ESOPH BX RPRT W/DYSPL INFO * * The named appointment provid er may or may not be the originator of this progress note, and it is not deemed complete until electronically signed by the appointment provider. Sign off status: Pending * Provider: Jasmina Gamble MD Date: 0 06/15/2024 Generated for Angela bhat/Steven/Cbitting on: 1 05/26/2024 08:53 AM EST
--- NOTE | 2025-03-26 08:41 | MHC.OFFVIS ---
Vital Signs 03/26/25 08:48 Height 5 ft 4 in Weight 185 lb BMI 31.8 Intake Visit Reasons: OV- Lower back pain and Bilateral hip pain Intake Note: Vika is a 69 year old female who presents today as a new patient for her lower back pain and bilateral hip pain. Patient was referred by her PCP 02/22/25. At today's visit she states that since November of this year she has had bilateral hip pain that radiates into the lower back. She states that she did attend physical therapy but due to the pain she was told to stop until this visit. Patient noted that she is a side sleeper and due to the pain she is loosing sleep. Patient noted that since 03/13/25 she has been taking Provitalize which she feels that is has helped with her mobility. Patient states that she has been changing her life style to help with the pain. Pain Score- 4 Allergies Penicillins (PCN) Allergy (Unknown, Verified 02/22/25 09:26) Unknown red dye Allergy (Unknown, Verified 02/22/25 09:26) Unknown Sulfa (Sulfonamide Antibiotics) Allergy (Unknown, Verified 02/22/25 09:26) Unknown acetaminophen Adverse Reaction (Mild, Verified 02/22/25 09:26) Migraine 12 hr nasal spray Allergy (Unknown, Uncoded 02/22/25 09:26) Unknown novocaine Adverse Reaction (Intermediate, Uncoded 02/22/25 09:26) tachycardia Medication List - Last Reconciled 03/26/25 by Arianne Mclaughlin MD acetaminophen 1,000 mg (2 x 500 mg) PO Q8H PRN atorvastatin (Lipitor) 10 mg PO BEDTIME 90 days calcium carbonate 500 mg PO BEDTIME cholecalciferol (vitamin D3) (Vitamin D3) 50 mcg PO BEDTIME gemfibrozil 600 mg PO BID 90 days ibuprofen (Advil) 400 mg PO Q6-8H PRN ibuprofen 400 mg PO Q6H PRN losartan 100 mg PO DAILY 90 days mecobalamin (vitamin B12) 1,000 mcg sublingual DAILY 90 days methocarbamol 500 mg PO BEDTIME PRN 14 days omeprazole 20 mg PO DAILY tizanidine 2 mg PO BID PRN 30 days HPI Comments Details: Previously seen by ortho for left hip/SI pain. Reviewed notes from PCP. Chronic lower back pain/hip, thought to be SI joint related or trochanteric bursitis. Also dealing with muscle achiness, thought to be related to cholesterol medications. She points to posterior pelvic area bilateral and wraps down to hips, at some point she had numbness on left leg. Does not know how it started. It is better overall now. She exercises/walks up to 3 times a week. Very active. Started a supplement OTC, thinks it is helping. Can now sit on her sides. [facility] Medical History Pre-diabetes Adams esophagus GERD (gastroesophageal reflux disease) IBS (irritable bowel syndrome) Hyperlipidemia HTN (hypertension) Surgical History (Reviewed 12/22/24 @ 11:33 by Yomaira Carrera [facility]) History of esophagogastroduodenoscopy (EGD) (~2024) S/P cholecystectomy Hx of colonoscopy (~2021) Family History Mother High blood pressure High cholesterol Throat cancer Sister High blood pressure High cholesterol Cardiovascular disease Asthma Social History (Updated 02/22/25 @ 09:28 by Josy Malhotra CMA) Household Members: Spouse Housing: House Are you a primary health care manager to a significant other at home: No Do you presently have visiting nurse or other home services: No 75 years or older and lives alone: No Alcohol intake: current Alcohol intake frequency: does not drink Patient Tobacco Use Status: Former Tobacco user e-Cigarette/Vaping Use: Never Used Second Hand Smoke Exposure: No service: No Current occupational status: retired Sexual orientation: Unable to collect Gender identity: Unable to collect Cognitive needs: No Hearing needs: Yes (hearing aids) Vision needs: Yes (glasses) Review of Systems Const All systems reviewed & are unremarkable except as noted in HPI and below Physical Exam Exam Exam: Constitutional: Patient appears to be in no acute distress, well nourished and well developed. Patient was appropriately conversant and oriented. Good historian. MSK: No specific abnormalities found on inspection of the spine and all extremities. No pain with palpation over the lumbar area. Tender on left SI joint. Tender along left ITB. Lumbar ROM was full. Bilateral hip, knee and ankle ROM WNL. No ligamentous laxity or crepitance. No increased effusion. Straight-leg raising test negative. FABERE test positive left lower back pain. Gillet test is negative. Lori test show stiffness on left side. Strength is 5/5 in all muscle groups tested. No increased tone noted. Neurological: Neurologic examination of the upper and lower extremities was nonfocal with intact sensation, muscle stretch reflexes and without focal motor deficits . King?s negative bilaterally. Babinski was down going bilaterally. Clonus was negative. Gait is non-antalgic without loss of balance. Vital Signs: BMI result Body Mass Index 31.8 Results Reviewed Results Reviewed: I independently reviewed the results of the following: [ ] I reviewed records from the following: [ ] Assessment & Plan Assessment & Plan (1) Chronic left SI joint pain: Code(s): M53.3 - Sacrococcygeal disorders, not elsewhere classified; G89.29 - Other chronic pain Category: Medical (2) Trochanteric bursitis, left hip: Code(s): M70.62 - Trochanteric bursitis, left hip Category: Medical (3) Iliotibial band syndrome of left side: Code(s): M76.32 - Iliotibial band syndrome, left leg Category: Medical Plan Although she is much improved compared to onset of pain and is on the right track of recovery, she continues to have signs of left SI joint dysfunction and left ITB syndrome. Taught patient how to use a foam roller at home. We talked about ways to avoid exacerbating SI joint dysfunction. Continue to be active. We talked about benefit of good shoes. No indication right now for injection to SI joint, but this is a possibility if pain exacerbates. Assessment and plan discussed with patient, and patient was agreeable. All questions were answered thoroughly. Follow up in 3 months. Call sooner if needed. Total of 45 minutes spent today including chart review, results review, history taking, physical examination, discussion of assessment and plan, and coordination of care. Arianne Mclaughlin MD, CAITLYN Board Certified, [place] Board of Physical Medicine and Rehabilitation (ABPMR) Board Certified, [place] Board of Electrodiagnostic Medicine (ABEM) Coding Level of Care Code New Pt Level 4 (65276) Diagnoses Chronic left SI joint pain M53.3; G89.29 Trochanteric bursitis, left hip M70.62 Iliotibial band syndrome of left side M76.32
[2025-03-26 08:48] VITALS: BMI 31.8
--- OUTSIDE RECORDS SUMMARY | 2025-03-26 08:53 | XMS_ITS | Clinical Summary ---
Author Organization [facility] Address [address] [place] [address] Care Team Providers Care Plant Anatomist Name Role Phone Jeffery Brown MD Primary Care Provider [phone] Medical History Medical History Date Comments Hyperlipidemia [...] Last Done Comments Breast Cancer Screening 1955 Colorectal Cancer Screening: Colonoscopy 1955 DTaP,Tdap,and Td Vaccines (1 - Tdap) 12/23/1975 Pneumococcal Vaccine: 50+ Ye ars (1 of 1 - PCV) 2006 Zoster Vaccines (1 of 2) 2006 Cholesterol Screening (Lipid Panel) 04/15/2022 Falls Risk Assessment 04/15/2022 Hepatitis C Screening 04/15/2022 Osteoporosis Screening (Bone Density Screening) 04/15/2022 Social Influencers of Health Screening 04/15/2022 Hypertension/CHF/CAD Annual BMP Blood Test 04/22/2022 Depression Screening 05/13/2024 COVID-19 Vaccine (1 - 2024-2 6 season) 2025 Influenza Vaccine (#1) 2025 RSV Immunization Adult [...] age to complete this topic Care Teams Plant Anatomist Relationship Specialty Start Date End Date Jeffery Brown MD [address] [address] PCP - General Internal Medicine 07/27/20
--- OUTSIDE RECORDS SUMMARY | 2025-03-26 08:54 | XMS_ITS | Patient Health Record ---
Author Organization [facility] Address [address] [place] [address] Care Team Providers Care Behavioral Intervention Specialist Name Role Phone Hiro Cesar Primary Care Provider UnavailNik Cordoba [phone] Allergies Allergen (clinical drug ingredient) Drug/Non Drug Allergy documented on EMR Reaction Allergy Type Onset Date Status Penicillin Unknown Drug Allergy Active Substance with sulfonamide structure and antibacterial mechanism of action (substance) Sulfa Antibiotics Unknown Drug Allergy Active 12 Hour Nasal [place] Unknown Drug Allergy Active red dye (uncoded) Unknown Allergy Ac tive Results Component Value Reference Range Notes Pathology (Not yet reviewed by provider) Interpretation: Performing Lab:[facility], [address] [place] [id number] Notes/Report: Reason For Referral No Information Medications Medication SIG (Take, Route, Frequency, Duration) Notes Start Date End Date Status Losartan Potassium 100 MG Oral; Duration: 90 Active Gemfibrozil 600 MG as directed Oral Twi ce a day Active Omeprazole 20 MG 1 capsule 30 minutes before morning meal Orally Once a day Active Simvastatin 20 MG Oral; Duration: 90 Active Vitamin D3 Active Calcium 1 tab Oral; Duration : 14 days Active Immunizations Vaccine Route Administration [...] Status Risk Notes Problem Irritable bowel syndrome (34443566) Irritable bowel syndrome (K58.9) Active confirmed Problem Screening for malignant neoplasm of colon (218115191) Encounter for screening for malignant neoplasm of colon (Z12.11) Active confirmed Problem History of polyp of colon (situation) (283269164) Personal history of colonic polyps (Z86.010) Active confirmed Problem Gastroesophageal reflux disease (022711811) Gastroesophageal reflux disease (K21.9) Active confirmed Problem Esophageal reflux finding (175940557) Gastroesophageal reflux (K21.9) Active confirmed Problem Irritable bowel syndrome (84814700) Other irritable bowel syndrome (K58.8) Active confirmed Problem Diverticulosis of colon (312957926) Diverticulosis of colon (K57.30) Active confirmed Problem Adams's esophagus (738848452) Adams''s esophagus without dysplasia (K22.70) Active confirmed Problem Gastroesophageal reflux disease (133995542) Gastroesophageal reflux disease, unspecified whether esophagitis present (K21.9) Active confirmed Encounters Encounter Location Date Provider Diagnosis [facility] [address] [place] [id number] 06/15/2024 Nik Gamble Adams''s esophagus without dysplasia K22.70 ; Gastroesophageal reflux disease K21.9 and Hiatal hernia K44.9 Assessments Encounter Date Diagnosis (ICD Code) Assessment Notes Treatment Notes Treatment Clinical Notes Section Notes 06/15/2024 Gastroesophageal reflux disease (ICD-10 - K21.9) 06/15/2024 Adams''s esophagus without dysplasia (ICD-10 - K22.70) 06/15/2024 Hiatal hernia (ICD-10 - K44.9) Plan Of Treatment Pending Test Test Name Order Date Pathology 06/15/2024 Future Test Test Name Order Date UPPER GI ENDOSCOPY 05/11/2021 COLONOSCOPY 05/11/2021 UPPER GI ENDOSCOPY 03/04/2024 Insurance Providers Payer Name Payer Address Payer Phone Subscriber Number Group Number Insured Name Patient Relationship to Insured Coverage Start Date Coverage End Date MEDICARE OF [place] [address] [place] [address] [id number] MINOR MONTEZ Self - patient is the insured [employer] ATTN CLAIMS [address] [place] [address] [phone] [id number] MINOR MONTEZ Self - patient is the insured Medical (General) History Medical History History ICD Code Hypertension Denies RI,DM,CVA,Lung disease,renal dise ase Hyperlipidemia IBS Neg. screening colonoscopy in 09/2010 Colonoscopy 05/2021 with a small tubular adenoma EGD 05/2021--small hiatal hernia, tiny ar ea of Adams's without dysplasia Surgical History Surgery Date(Month/Year) CC[address] Jennings
--- OUTSIDE RECORDS SUMMARY | 2025-03-26 08:54 | XMS_ITS | Patient Health Record ---
Author Organization [facility] Address [address] [facility] [address] [place] [address] Care Team Providers Care Malt Specifications Control Assistant Name Role Phone Hiro Cesar Primary Care Provider JAYANT Christine Unavailable [phone] Allergies Allergen (clinical drug ingredient) Drug/Non Drug [...] of [place] [address] [place] [address] [id number] Vika Saul Self - patient is the insured [facility] [facility] [address] [place] [address] [phone] [id number] Vika Saul Self - patient is [...]
--- OUTSIDE RECORDS SUMMARY | 2025-03-26 08:54 | XMS_ITS | Data Portability ---
Author Organization [place] - [facility], Allergy Address [address] [address] Care Team Providers Care Brand Sales Manager Name Role Phone JENNIFER MARTINES Primary Care Provider [phone] Assessment Encounter Date Assessment Date Assessment LastModified [...] Sensorine ural hearing loss of bilateral ears [id number] Active 2015 Sensorine ural hearing loss, bilateral ; Note: Date Diagnosed : 08/31/2015 9:23 AM (H90.3) Not Available [facility] 4 02:39:09 Impacted cerumen in left ear [id number] 52569 Active 2019 Impacted cerumen, left ear; Note: Date Diagnosed : 11/04/2019 4:02 PM (H61.22) Not Available [facility] 4 02:39:06 Problem Notes None recorded. Procedures Surgical History Date Name Laterality Status Provider Name and Address Organization Details Recorded Time 5 Air & Speech Audio with Tymps - 42471, 30362 & 49192 completed [facility] [address], [address], [facility] 11/27/2024 16:01:46 4 Air only Audio - 32900 completed [facility] SHIN [address], [address], [place] - [facility] 11/01/2023 10:12:14 4 SRT & Speech Recognition - 98482 completed NANCY QUINTERO, AUD 100 [facility],[place] [address], [place], [address], [place] [facility] 11/01/2023 10:12:18 Imaging Results None recorded. Procedure Notes None recorded. Medical Equipment None Reported. Allergies Allergen ID Allergen Name Allergen Category Reaction Reaction Severity Criticality Documentation Date Start Date Code Code System Note Provider Name and Address Organization Details Recorded Time 29089 Red Dye food,medi cation other Not available Not available 09/24/2023 React ion: unkno wn, unspe cifie d;; Not Available [facility] 4 01:04:26 24577 penicilli n V potassium medicatio n other Not available Not available 09/24/202328205 5 RxNorm React ion: unkno wn, unspe cifie d;; Not Available [facility] 4 01:04:27 30841 Substance with sulfonami de structure and antibacte rial mechanism of action (substanc e) medicatio n other Not available Not available 09/24/2023 33990 8003 SNOMED React ion: unkno wn, unspe cifie d;; Not Available [facility] 4 01:04:28 Medications Name Sig Start Date Stop Date Status Note LastModified by Organization Details LastModified Time simvastati n 10 mg tablet 2018 active Medication ID: [id number] Dur ation Value: 90 Brand Name: simvastati [...] 10 mg capsule 2018 active Medication ID: [id number] Dur ation Value: 90 Brand Name: dicyclomin e Send Method: E-Prescrib ed Subs Allowed: subs OK Medicat ionGeneric Name: dicyclomin e Not Available Not Available Not Available naproxen 500 mg tablet 2018 active Medication ID: [id number] Dur ation Value: 30 Brand Name: naproxen [...] Diagnosis SNOMED-CT Code Diagnosis ICD10 Code Diagnosis IMO Codes Diagnosis Note 4945 [facility] [place] 100 [facility] 100 [place] [place] [address] 10/31/2023 14:02:44 11/13/2023 17:13:24 Sensorineural hearing loss of bilateral ears [id number] H90.3 Annual hearing aid follow up: Otoscopic exam: Unsure if I looked in her ears Audiogram: Stable pure tones with slight decrease in Word recognitio n in left ear. Hearing aids cleaned:Wa x guards changed: yesReceive rs changed to [id number]: Small powerListe kaylyn check: Good Warranty expires: [...] so they can assess the BT problem. 13084 [facility] [place] 100 [facility] 100 [place] [address] 11/10/2024 10:45:57 12/01/2024 21:38:54 Sensorineural hearing loss of bilateral ears [id number] H90.3 Audiologic al evaluation results: Right ear: [...] ID Guarantor Name 11/10/2024 1 [place] [employer] Vika Saul [id number] Vika Saul 12/01/2024 2 [place] [id number] Vika Saul [id number] Vika Saul 11/10/2024 1 [place] NATIONAL GOVERNMENT [place] Vika Saul [id number] Vika Saul OBGyn Episode No OBEpisode recorded.
== END 2025-03-26 09:27 | disposition home or self-care (01) ==
LOC: HO.HOS 08:38
PROVIDERS: PCP Family Medicine; Visit Provider Physical Medicine & Rehabilitation
DX: M53.3 Sacrococcygeal disorders, not elsewhere classified (principal); G89.29 Other chronic pain; M70.62 Trochanteric bursitis, left hip; M76.32 Iliotibial band syndrome, left leg
CPT/HCPCS: 99204

== ENCOUNTER → 2025-03-26 08:37 | Outpatient (BNVA) | payer MEDICARE, SELFPAY | PROVIDERS: PCP Family Medicine; Visit Provider Physical Medicine & Rehabilitation | DX: M53.3 Sacrococcygeal disorders, not elsewhere classified (principal); G89.29 Other chronic pain; M70.62 Trochanteric bursitis, left hip; M76.32 Iliotibial band syndrome, left leg | CPT/HCPCS: 99202 ==

== ENCOUNTER 2025-04-12 08:59 | Outpatient (REF) | payer MEDICARE, SELFPAY ==
--- OUTSIDE RECORDS SUMMARY | 2024-06-15 05:10 | XMS_ITS ---
Author Organization [facility] Address [address] [place] [address] Care Team Providers Care Thermostat Maker Name Role Phone Hiro Cesar Primary Care Provider UnavailNik Cordoba [phone] REASON FOR VISIT gerd,wang's Problems Problem Type SNOMED Code ICD Code Onset Dates Problem Status W/U Status Risk Notes Problem Gastroesophageal reflux disease (403584313) Gastroesophageal reflux disease (K21.9) Active confirmed Encounters Encounter Location Date Provider Diagnosis [facility] [facility] [address] [place] [phone] 06/15/2024 Nik Gamble Wang''s esophagus without dysplasia K22.70 ; Gastroesophageal reflux disease K21.9 and Hiatal hernia K44.9 Assessments Encounter Date Diagnosis (ICD Code) Assessment Notes Treatment Notes Treatment Clinical Notes Section Notes 06/15/2024 Wang''s esophagus without dysplasia (ICD-10 - K22.70) 06/15/2024 Gastroesophageal reflux disease (ICD-10 - K21.9) 06/15/2024 Hiatal hernia (ICD-10 - K44.9) Plan Of Treatment No Information Progress Notes * MINOR MONTEZ MDOB:1955 (69 yo F)Acc No.[id number]:06/15/2024 EGD/MAC Patient: MINOR PARNELL Provider: Jasmina Gamble MD :1955 A ge:68 Y S ex:Female Date:06/15/2024 Address:[address] [place] [address] [id number] Pcp:Hiro Cesar Subjective: * Chief Complaints: * G erd,wang's Assessment: * Assessment: 1. B arrett''s esophagus without dysplasia - K22.70 (Primary) 2 . G astroesophageal reflux disease - K21.9 3 . H iatal hernia - K44.9 Plan: * Procedure Codes: 4 3239 UPPER GI ENDOSCOPY, [id number] ESOPH BX RPRT W/DYSPL INFO Billing Information: * Procedure Codes: 62776 UPPER GI ENDOSCOPY, BIOPSY. 3126F ESOPH BX RPRT W/DYSPL INFO. * The named appointment provid er may or may not be the originator of this progress note, and it is not deemed complete until electronically signed by the appointment provider. Sign off status: Pending * Provider: Jasmina Gamble MD Date: 0 06/15/2024 Generated for Angela bhat/Steven/Carlasmitting on: 1 06/13/2024 10:24 AM EST
--- OUTSIDE RECORDS SUMMARY | 2025-04-12 10:24 | XMS_ITS | Clinical Summary ---
Author Organization [facility] Address [address] [place] [address] Care Team Providers Care Weather Strip Installer Name Role Phone Jeffery Brown MD Primary Care Provider [phone] Medical History Medical History Date Comments Hyperlipidemia [...] 2006 Zoster Vaccines (1 of 2) 2006 Depression Screening 05/13/2024 COVID-19 Vaccine (1 - [...] age to complete this topic Care Teams Weather Strip Installer Relationship Specialty Start Date End Date Jeffery Brown MD [address] [facility] 106 [place] [address] PCP - General Internal Medicine 07/27/20
--- OUTSIDE RECORDS SUMMARY | 2025-04-12 10:24 | XMS_ITS | Patient Health Record ---
Author Organization [facility] Address [address] [facility] 102 [place] [address] Care Team Providers Care Assessment Director Name Role Phone Hiro Cesar Primary Care Provider JAYANT Christine Unavailable [phone] Allergies Allergen (clinical drug ingredient) Drug/Non Drug [...] of [place] [address] [place] [address] [id number] Vika Saul Self - patient is the insured [employer] [facility] [address] [place] [address] [phone] [id number] Vika Saul Self - patient is [...]
--- OUTSIDE RECORDS SUMMARY | 2025-04-12 10:25 | XMS_ITS | Data Portability ---
Author Organization [place] - [facility], Allergy Address [address] [address] Care Team Providers Care Orthopaedic Physician Assistant Name Role Phone CONRAD JENNIFER Primary Care Provider Assessment Encounter Date Assessment [...] Sensorine ural hearing loss of bilateral ears [id number] Active 2015 Sensorine ural hearing loss, bilateral ; Note: Date Diagnosed : 08/31/2015 9:23 AM (H90.3) Not Available [facility] 4 02:39:09 Impacted cerumen in left ear [id number] 41028 Active 2019 Impacted cerumen, left ear; Note: Date Diagnosed : 11/04/2019 4:02 PM (H61.22) Not Available [facility] 4 02:39:06 Problem Notes None recorded. Procedures Surgical History Date Name Laterality Status Provider Name and Address Organization Details Recorded Time 5 Air & Speech Audio with Tymps - 40701, 96647 & 88916 completed [facility] [address], [address], [facility] 11/27/2024 16:01:46 4 Air only Audio - 28434 completed [facility] [address], [address], [place] - [facility] 11/01/2023 10:12:14 4 SRT & Speech Recognition - 02459 completed NANCY QUINTERO, AUD 100 [facility],[place] [address], [place], [address], [place] - [facility] 11/01/2023 10:12:18 Imaging Results None recorded. Procedure Notes None recorded. Medical Equipment None Reported. Allergies Allergen ID Allergen Name Allergen Category Reaction Reaction Severity Criticality Documentation Date Start Date Code Code System Note Provider Name and Address Organization Details Recorded Time 90862 Red Dye food,medi cation other Not available Not available 09/24/2023 React ion: unkno wn, unspe cifie d;; Not Available [facility] 4 01:04:26 36552 penicilli n V potassium medicatio n other Not available Not available 09/24/202334322 5 RxNorm React ion: unkno wn, unspe cifie d;; Not Available [facility] 4 01:04:27 37003 Substance with sulfonami de structure and antibacte rial mechanism of action (substanc e) medicatio n other Not available Not available 09/24/2023 09660 8003 SNOMED React ion: unkno wn, unspe cifie d;; Not Available [facility] 4 01:04:28 Medications Name Sig Start Date Stop Date Status Note LastModified by Organization Details LastModified Time simvastati n 10 mg tablet 2018 active Medication ID: [id number] Dur ation Value: 90 Brand Name: simvastati [...] 10 mg capsule 2018 active Medication ID: [id number] Dur ation Value: 90 Brand Name: dicyclomin e Send Method: E-Prescrib ed Subs Allowed: subs OK Medicat ionGeneric Name: dicyclomin e Not Available Not Available Not Available naproxen 500 mg tablet 2018 active Medication ID: [id number] Dur ation Value: 30 Brand Name: naproxen [...] 4945 [facility] [place] 100 [facility] 100 [facility] [place] [address] 10/31/2023 14:02:44 11/13/2023 17:13:24 Sensorineural hearing loss of bilateral ears [id number] H90.3 Annual hearing aid follow up: Otoscopic exam: Unsure if I looked in her ears Audiogram: Stable pure tones with slight decrease in Word recognitio n in left ear. Hearing aids cleaned:Wa x guards changed: yesReceive rs changed to [id number]: Small powerListe kaylyn check: Good Warranty expires: [...] so they can assess the BT problem. 10826 [facility] - [place] 100 [facility] 100 [facility] [place] [address] 11/10/2024 10:45:57 12/01/2024 21:38:54 Sensorineural hearing loss of bilateral ears [id number] H90.3 Audiologic al evaluation results: Right ear: [...] ID Guarantor Name 11/10/2024 1 [place] [employer] Vika Saul [id number] Vika Saul 12/01/2024 2 [place] [id number] Vika Saul [id number] Vika Saul 11/10/2024 1 [place] N[place] [employer]ERNMENT [employer] Vika Saul [id number] Vika Saul OBGyn Episode No OBEpisode recorded.
--- OUTSIDE RECORDS SUMMARY | 2025-04-12 10:25 | XMS_ITS | Patient Health Record ---
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, [address] [place] [address] Notes/Report: Reason For Referral No Information Medications Medication SIG (Take, Route, Frequency, Duration) Notes Start Date End Date Status Losartan Potassium 100 MG Tablet Oral; Duration: 90 Active Gemfibrozil 600 MG Tablet as directed Or al Twice a day Active Omeprazole 20 MG Capsule Delayed Release 1 capsule 30 minutes before morning meal Orally Once a day Active Simvastatin 20 MG Tablet Oral; Duration: 90 Active Vitamin D3 Active Calcium 1 tab Oral; Duration : 14 days Active Immunizations Vaccine Route Administration Date Status Comme nts Influenza Unknown 01/11/2021 Administered Influenza Unknown 02/19/2024 Administered Pneumococcal Unknown 02/12/2024 Administered Social History Tobacco Use: Social History Observation Description Date Details (start date - stop date) Never Smoker NA - NA Social History Drugs/Alcohol: Social Info Question Answer Notes Alcohol Screen Did you have a drink containing alcohol in the past year? 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[place] Section Notes: Nonsmoker; no sig alcohol Nonsmoker; no sig alcohol Problems Problem Type SNOMED Code ICD Code Onset Dates Problem Status W/U Status Risk Notes Problem Irritable bowel syndrome (75966503) Irritable bowel syndrome (K58.9) Active confirmed Problem Screening for malignant neoplasm of colon (645331438) Encounter for screening for malignant neoplasm of colon (Z12.11) Active confirmed Problem History of polyp of colon (situation) (269150247) Personal history of colonic polyps (Z86.010) Active confirmed Problem Gastroesophageal reflux disease (354340667) Gastroesophageal reflux disease (K21.9) Active confirmed Problem Esophageal reflux finding (588459309) Gastroesophageal reflux (K21.9) Active confirmed Problem Irritable bowel syndrome (09976160) Other irritable bowel syndrome (K58.8) Active confirmed Problem Diverticulosis of colon (972348385) Diverticulosis of colon (K57.30) Active confirmed Problem Adams's esophagus (935624004) Adams''s esophagus without dysplasia (K22.70) Active confirmed Problem Gastroesophageal reflux disease (419978308) Gastroesophageal reflux disease, unspecified whether esophagitis present (K21.9) Active confirmed Encounters Encounter Location Date Provider Diagnosis [facility] Outpatient [address] [place] [phone] 06/15/2024 Nik Gamble Adams''s esophagus without dysplasia [...] OF [place] [address] [place] [address] [id number] MELIDAGIANFRANCOMINOR Self - patient is the insured [employer] CLAIM[employer] [address] [place] [address] [id number] MINOR MONTEZ Self - patient is the insured Medical (General) History Medical History History ICD Code Hypertension Denies [place],DM,CVA,Lung disease,renal dise ase Hyperlipidemia IBS Neg. screening colonoscopy in 09/2010 Colonoscopy 05/2021 with a small tubular adenoma EGD 05/2021--small hiatal hernia, tiny ar ea of Adams's without dysplasia Surgical History Surgery Date(Month/Year) CC[address] Jennings
[2025-04-12 12:02] LABS: Alanine Aminotransferase 20 U/L (0-31); Albumin Level 4.7 g/dL (3.5-5.0); Alkaline Phosphatase 90 U/L (39-117); Anion Gap 15 (12-20); Aspartate Amino Transferase 20 U/L (5-31); Blood Urea Nitrogen 24 mg/dL (9-16); Calcium 9.5 mg/dL (8.4-10.2); Carbon Dioxide 24 mmol/L (22-29); Chloride 109 mmol/L (96-108); Cholesterol 234 mg/dL (<200); Estimated Glomerular Filt Rate 56; HDL Cholesterol 44 mg/dL (>40); Potassium 4.5 mmol/L (3.3-5.1); Sodium 143 mmol/L (135-145); Total Protein 8.0 g/dL (6.5-8.0); Triglycerides 119 mg/dL (<150)
== END 2025-04-12 09:00 | disposition home or self-care (01) ==
LOC: HO.HMGCLDS 08:59
PROVIDERS: PCP Family Medicine; Visit Provider Family Medicine
DX: Z00.00 Encounter for general adult medical examination without abnormal findings (principal); E78.2 Mixed hyperlipidemia
CPT/HCPCS: 36415; 80053; 80061